=== PATIENT | female | born 2000 | race Caucasian/White ===

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

== ENCOUNTER 2021-07-11 09:36 | Emergency (ER) | payer OTHER, MEDICAID, SELFPAY ==
[2021-07-11 09:49] VITALS: BP 130/69; PULSE 87; RESP 16; TEMP 37.2; O2SAT 100
--- NOTE | 2021-07-11 10:15 | ED.GENADULT ---
HPI - General Adult General Chief complaint: Upper Respiratory Infection Stated complaint: sore throat Source: patient Mode of arrival: ambulatory Limitations: no limitations History of Present Illness HPI narrative: Patient is a 21-year-old female presents to the [facility] via POV for evaluation of sore throat that has been present for 2 days. She states her throat feels irritated . She also reports white spots on right tonsil. Denies taking OTC meds for symptoms. Swallowing, early mornings and at night increases throat pain. Denies known exposure to sick contacts. Patient is not vaccinated against Covid although states her home Covid test was negative yesterday. Related Data Home Medications Medication Instructions Recorded Confirmed medroxyprogesterone 150 mg IM [id number] 09/23/19 07/11/21 Allergies Allergy/AdvReac Type Severity Reaction Status Date / Time No Known Allergies Allergy Unverified 07/11/21 09:54 Review of Systems Review of Systems: Pertinent negatives: fever, chills, poor p.o. intake, myalgias, flu-like symptoms, ear pain/drainage, sinus trouble, headache, nasal congestion, rhinorrhea, lymphadenopathy, dizziness, LOC, inability to swallow, drooling, hoarseness, halitosis, abdominal pain, nausea, vomiting, diarrhea, cough, wheezing, sob, chest pain, heart murmurs, and heart palpations. [facility] Past Medical History Medical History (Updated 07/11/21 @ 10:25 by Lola Whitley, [facility]) Rheumatoid arthritis Upper respiratory infection Surgical History Surgical History (Updated 06/11/19 @ 23:48 by Jose Velasco) No history of previous surgery Social History Social History (Updated 06/11/19 @ 23:49 by Jose Velasco) Tobacco type: e-cigarettes/vaping Gender identity (if verbalized by the patient): Female Comments I have reviewed and agree with the patient's past medical, surgical, social, and family hx as documented by the RN. There is no relevant family history pertinent to the presenting complaint. Exam Narrative: GENERAL: Well-appearing, well-nourished, and in no acute distress. HEAD: Normocephalic, atraumatic. No sinus tenderness or facial swelling appreciated. EYES: PERRLA and EOMI. No evidence of erythema, swelling, or drainage. ENT: Bilateral external ears and ear canals normal. Bilateral TMs are normal.No TM perforation. Nares clear, no rhinorrhea or epistaxis. Bilateral turbinates without erythema/ swelling. Mucous membranes moist and pink. Uvula is midline without erythema and swelling. Posterior pharynx is mildly erythematous otherwise normal. Small tonsillar stone noted to right tonsil otherwise normal. Left tonsil normal. Posterior pharynx is patent. Breath odor and voice normal. NECK: Supple. No Lymphadenopathy or nuchal rigidity appreciated. CHEST: Bilateral lung galeas are clear to auscultation. No respiratory distress. No evidence of cough or pleuritic cp upon examination. HEART: Regular rate and rhythm. No murmur, gallop, or rub heard. EXTREMITIES: Normal range of motion. No edema. SKIN: Warm, dry, no rash. NEURO: No focal deficits. Alert and oriented x3. . Course Vital Signs Vital signs: Vital Signs Temperature 99.0 F 07/11/21 09:49 Pulse Rate 87 07/11/21 09:49 Respiratory Rate 16 07/11/21 09:49 Blood Pressure 130/69 07/11/21 09:49 Pulse Oximetry 100 07/11/21 09:49 Temperature 99.0 F 07/11/21 09:49 Pulse Rate 87 07/11/21 09:49 Respiratory Rate 16 07/11/21 09:49 Blood Pressure 130/69 07/11/21 09:49 Pulse Oximetry 100 07/11/21 09:49 Due to an elevated blood pressure, I had a detailed discussion with the patient and/or guardian regarding the need for follow-up with their primary care provider within the next 3-4 days. Patient verbalized understanding and agreed. Medical Decision Making Differential Diagnosis Differential Diagnosis: Allergic rhinitis, ABRS, acute viral sinusitis, strep pharyngitis, nasopha
== END 2021-07-11 10:35 | disposition home or self-care (01) ==
PROVIDERS: Emergency Provider Nurse Practitioner Family; PCP Pediatrics
DX: J02.9 Acute pharyngitis, unspecified (principal); M06.9 Rheumatoid arthritis, unspecified; F17.290 Nicotine dependence, other tobacco product, uncomplicated
CPT/HCPCS: 87081; 87880; 99213; G0463

== ENCOUNTER 2021-08-22 12:27 | Emergency (ER) | payer OTHER, MEDICAID, SELFPAY ==
[2021-08-22 12:38] VITALS: BP 134/65; PULSE 86; RESP 18; TEMP 36.9; O2SAT 100
--- NOTE | 2021-08-22 12:48 | ED.FEMALEGU ---
HPI - Female Genitourinary General Chief complaint: Urogenital-Female Stated complaint: UTI,Abdominal Pain Time Seen by Provider: 08/22/21 12:49 Source: patient, RN notes reviewed and old records reviewed Mode of arrival: ambulatory Limitations: no limitations History of Present Illness HPI Narrative: 21-year-old female presents to the [facility] with complaints of urgency burning and frequency since yesterday. States when she wiped after urinating this morning there was blood. Denies any abdominal pain. Has suprapubic pressure though. No nausea vomiting or diarrhea. No fevers. No chest pain. Has not had a period, uses [place] [employer] elicited complaint: dysuria and UTI Related Data Home Medications Medication Instructions Recorded Confirmed medroxyprogesterone 150 mg IM [id number] 09/23/19 08/22/21 Allergies Allergy/AdvReac Type Severity Reaction Status Date / Time No Known Allergies Allergy Unverified 07/11/21 09:54 Review of Systems Review of Systems: All systems reviewed & are unremarkable except as noted in HPI and below Constitutional: Constitutional: Reports no additional constitutional complaints, Denies chills and Denies fatigue Eyes: Eyes: Reports no additional eye complaints ENT: Reports system reviewed and no additional complaints, except as documented Cardiovascular: Cardiovascular: Reports no additional cardiovascular complaints Respiratory: Respiratory: Reports no additional respiratory complaints Gastrointestinal: Gastrointestinal: Reports no additional gastrointestinal complaints, Denies abdominal pain, Denies diarrhea, Denies nausea and Denies vomiting Genitourinary: Genitourinary: Reports as per HPI, Reports hematuria, Reports nocturia, Reports dysuria, Denies pelvic pain, Denies flank pain and Denies vaginal discharge Musculoskeletal: Musculoskeletal: Reports no additional musculoskeletal complaints and Denies back pain Integumentary/Breasts: Skin/Breast: Reports system reviewed and no additional complaints, except as docu Neurologic: Reports system reviewed and no additional complaints, except as documented Psychiatric: Psychiatric: Reports no additional psychiatric complaints Endocrine: Endocrine: Denies fatigue Allergic/Immunologic: Allergic/Immunologic: Reports no additional allergic/immunologic complaints [facility] Past Medical History Medical History (Updated 08/22/21 @ 15:19 by Carmlea Martins) Rheumatoid arthritis Upper respiratory infection Surgical History Surgical History No history of previous surgery Social History Social History (Reviewed 08/22/21 @ 15:18 by Cramela Frost Tobacco type: e-cigarettes/vaping Gender identity (if verbalized by the patient): Female Comments At the time of my signature, I reviewed and agree with the nursing past medical, surgical, social, and family history. There is no relevant family history pertinent to the patient complaint. Exam Const: General: healthy appearing, no acute distress and alert Nutritional Appearance: well nourished Orientation/consciousness: patient oriented x3 Limitations: no limitations HENMT: Head: normal to inspection Ears: external ears normal Eyes: Conjunctivae: conjunctivae normal Pupils: Equal, round and reactive pupils present Neck: Neck: normal visual inspection, no lymphadenopathy and no meningeal signs Chest: Chest palpation & inspection: normal inspection of the chest and abnormal inspection of the chest Resp: Effort & Inspection: normal respiratory effort and no use of accessory muscles Auscultation: clear to auscultation bilaterally, no crackles, no rales, no rhonchi and no wheezes Cardio: Rate: regular rate Rhythm: regular rhythm GI: GI Palp: Yes Soft to palpation, No Tenderness to palpation present (GI) and No Guarding due to palpation present (GI) : General: Yes no CVA tenderness Back/Spine/Pelvis: Back: no CVA tenderness Skin:
== END 2021-08-22 13:06 | disposition home or self-care (01) ==
PROVIDERS: Emergency Provider Nurse Practitioner; PCP Pediatrics
DX: N39.0 Urinary tract infection, site not specified (principal); F17.290 Nicotine dependence, other tobacco product, uncomplicated; M06.9 Rheumatoid arthritis, unspecified
CPT/HCPCS: 81003; 81025; 87086; 87088; 99213; G0463

== ENCOUNTER 2021-10-17 18:09 | Emergency (ER) | payer OTHER, MEDICAID, SELFPAY ==
[2021-10-17 18:19] VITALS: BP 124/72; PULSE 103; RESP 16; TEMP 38.1; O2SAT 100
--- NOTE | 2021-10-17 18:35 | ED.FEVER ---
HPI - Fever General Chief Complaint: Nausea/Vomiting/Diarrhea Stated Complaint: Throwing Up Time Seen by Provider: 10/17/21 18:35 Source: patient, RN notes reviewed and old records reviewed Mode of arrival: ambulatory Limitations: no limitations History of Present Illness HPI Narrative: 21-year-old female presents to the [facility] with complaints of fatigue, nausea, vomiting and diarrhea that started after she ate shrimp from the [employer] that she reheated last night. States she rested all day and is feeling much better now. Also reports a fever of 100.1. Related Data Allergies Allergy/AdvReac Type Severity Reaction Status Date / Time No Known Allergies Allergy Unverified 10/17/21 18:25 Review of Systems Review of Systems: All systems reviewed & are unremarkable except as noted in HPI and below Constitutional: Constitutional: Reports as per HPI, Reports chills, Reports fatigue and Denies fever(s) Eyes: Eyes: Reports no additional eye complaints ENT: Reports system reviewed and no additional complaints, except as documented Cardiovascular: Cardiovascular: Reports no additional cardiovascular complaints and Denies chest pain Respiratory: Respiratory: Reports no additional respiratory complaints and Denies cough Gastrointestinal: Gastrointestinal: Reports as per HPI, Reports abdominal pain, Reports diarrhea, Reports nausea and Reports vomiting Musculoskeletal: Musculoskeletal: Reports no additional musculoskeletal complaints Integumentary/Breasts: Skin/Breast: Reports system reviewed and no additional complaints, except as docu Neurologic: Reports system reviewed and no additional complaints, except as documented Psychiatric: Psychiatric: Reports no additional psychiatric complaints Allergic/Immunologic: Allergic/Immunologic: Reports no additional allergic/immunologic complaints PMFSH Past Medical History Medical History Rheumatoid arthritis Upper respiratory infection Surgical History Surgical History No history of previous surgery Social History Social History Tobacco type: e-cigarettes/vaping Gender identity (if verbalized by the patient): Female Comments At the time of my signature, I reviewed and agree with the nursing past medical, surgical, social, and family history. There is no relevant family history pertinent to the patient complaint. Exam Const: General: healthy appearing, no acute distress and alert Nutritional Appearance: well nourished Orientation/consciousness: patient oriented x3 Limitations: no limitations HENMT: Head: normal to inspection Ears: external ears normal, TM's normal bilaterally and EAC's normal Eyes: Pupils: Equal, round and reactive pupils present Neck: Neck: normal visual inspection, no lymphadenopathy and no meningeal signs Chest: Chest palpation & inspection: normal inspection of the chest Resp: Effort & Inspection: normal respiratory effort and no use of accessory muscles Auscultation: clear to auscultation bilaterally, no crackles, no rales, no rhonchi and no wheezes Cardio: Rate: regular rate Rhythm: regular rhythm GI: GI Palp: Yes Soft to palpation and No Tenderness to palpation present (GI) Auscultation: Hyperactive bowel sounds present : General: Yes no CVA tenderness Back/Spine/Pelvis: Back: no CVA tenderness Skin: General skin exam: normal color Rashes: no rashes Wounds: no wounds Neuro: General: patient oriented x3, moves all extremities, no meningeal signs and no focal motor deficits Cranial nerves: Yes Equal, round and reactive pupils present Speech: normal speech Gait exam (Neuro): Normal gait present Extrem: General: normal to inspection Psych: Appearance: grossly normal and well kempt Mental Status: mental status grossly normal Affect: normal affect Attitude: co
== END 2021-10-17 18:59 | disposition home or self-care (01) ==
PROVIDERS: Emergency Provider Nurse Practitioner; PCP Pediatrics
DX: J10.1 Influenza due to other identified influenza virus with other respiratory manifestations (principal); F17.290 Nicotine dependence, other tobacco product, uncomplicated; M06.9 Rheumatoid arthritis, unspecified
CPT/HCPCS: 87804; 99213; G0463

== ENCOUNTER 2022-01-14 22:58 | Emergency (ER) | payer OTHER, BC, SELFPAY ==
[2022-01-14 23:00] VITALS: BP 130/81; PULSE 74; RESP 17; TEMP 36.3; O2SAT 100
[2022-01-14 23:24] LABS: Basophils Absolute Auto 0.1 K/mm3 (0.0-0.1); Basophils Percent Auto 0.7 % (0.2-1.2); Eosinophils Absolute Auto 0.4 K/mm3 (0-0.3); Eosinophils Percent Auto 4.5 % (0-4.4); Hematocrit 38.8 % (37.0-47.0); Hemoglobin 13.4 g/dL (12.0-15.0); Immature Granulocyte Absolute 0.02 K/mm3 (0.00-0.031); Immature Granulocyte Percent A 0.2 % (0-0.5); Lymphocytes Absolute Auto 3.82 K/mm3 (0.9-3.2); Lymphocytes Percent Auto 46.1 % (18.3-44.2); Mean Corpuscular HGB Conc 34.5 g/dl (32-36); Mean Platelet Volume 8.9 fl (7.4-10.4); Monocytes Absolute Auto 0.6 K/mm3 (0.1-0.6); Monocytes Percent Auto 7.6 % (2.6-8.5); Neutrophils Absolute Auto 3.4 K/mm3 (1.3-6.7); Neutrophils Percent Auto 40.9 % (45.5-73.1); Platelet Count Result 255 k/mm3 (150-375); Red Blood Count 4.46 M/mm3 (4.2-5.4); Red Cell Distribution Width 12.8 % (11.5-14.5); White Blood Count 8.3 K/mm3 (4.5-10.0)
[2022-01-14 23:34] LABS: Appearance Urine Clear (Clear); Bilirubin Urine Negative (Negative); Color Urine Yellow (Yellow); Glucose Urine UA Negative (Negative); Ketones Urine Negative (Negative); Leukocyte Esterase Ur Negative LEU/UL (Negative); Nitrate Urine Negative (Negative); Protein Urine Negative (Negative); Specific Grav Ur >= 1.030 (1.001-1.035); Urobilinogen Urine 0.2 mg/dL (<2.0)
[2022-01-14 23:35] LABS: Bacteria Urine Trace /hpf; Mucus Urine Rare /lpf; RBC Urine 0-2 /hpf (0-2); Squamous Epithelial Cell Urine Moderate /hpf (Few); WBC Urine 0-3 /hpf
[2022-01-14 23:35] LABS: Alanine Aminotransferase 20 U/L (6-35); Albumin Level 4.4 g/dL (3.5-5.1); Alkaline Phosphatase 50 U/L (38-126); Anion Gap 8 mmol/L (8-16); Aspartate Amino Transferase 48 U/L (14-36); Bilirubin,Total 0.8 mg/dL (0.2-1.3); Blood Urea Nitrogen 15 mg/dL (7-17); Calcium 8.9 mg/dL (8.4-10.2); Carbon Dioxide 25 mmol/L (22-30); Chloride 105 mmol/L (98-107); Estimated CRCL calculation 66 ml/min; Estimated Glomerular Filt Rate > 60; Glucose 98 mg/dL (65-110); Lipase 111 U/L (23-300); Potassium 3.9 mmol/L (3.4-5.0); Sodium 138 mmol/L (137-145)
[2022-01-14 23:36] LABS: Add Urine Microscopic? YES; Blood Urine Trace (Negative)
--- NOTE | 2022-01-14 23:38 | ED.ABDPAIN ---
HPI - Abdominal Pain General Chief Complaint: Abdominal Pain Stated Complaint: Upper Abd pain Time Seen by Provider: 01/14/22 23:08 History of Present Illness HPI narrative: 21-year-old female presents to the emergency room for evaluation of epigastric pain for 3 days. Patient states the pain is worse after eating and wakes her up in the morning. Pain radiates through to her back. Patient denies heavy alcohol use. Patient describes the pain as burning. Patient denies fever, diarrhea, or constipation. Does endorse history of IBS. Admits the pain causes nausea, which she took Zofran for earlier today. Related Data Allergies Allergy/AdvReac Type Severity Reaction Status Date / Time No Known Allergies Allergy Verified 01/14/22 23:12 Review of Systems Review of Systems: CONSTITUTIONAL: Denies fever, chills, or sweats. EYES: Denies visual changes, redness, or discharge. ENT: Denies rhinorrhea, congestion, sore throat, or otalgia. CARDIOVASCULAR: Denies chest pain, palpitations, or edema. RESPIRATORY: Denies cough or dyspnea. GASTROINTESTINAL: Reports abdominal pain with nausea GENITOURINARY: Denies dysuria or hematuria. SKIN: Denies rash or itching. MUSCULOSKELETAL: Denies back pain, joint pain, or myalgia. NEUROLOGIC: Denies headache, numbness, dizziness, or weakness. PSYCHIATRIC: Denies anxiety or depression. PMFSH Past Medical History Medical History Rheumatoid arthritis Upper respiratory infection Surgical History Surgical History No history of previous surgery Social History Social History Tobacco type: e-cigarettes/vaping Gender identity (if verbalized by the patient): Female Exam Narrative: GENERAL: Well-appearing, well-nourished, no physical limitations, and in no acute distress. HEAD: Normocephalic, atraumatic. EYES: Conjunctivae normal, PERRLA and EOMI. CHEST: Clear to auscultation. No respiratory distress. No wheezes rales or rhonchi. No tenderness. HEART: Regular rate and rhythm. No murmur heard. Normal peripheral pulses. ABDOMEN: Soft, umbilical tenderness, nondistended, normal active bowel sounds. No palpable mass SKIN: Warm, dry, no rash. No noted wounds NEURO: No focal deficits. Alert and oriented x3. MAEW. CN's II-XI intact bilaterally, normal gait PSYCH: Cooperative. Normal mood and affect. Course Vital Signs Vital signs: Vital Signs Temperature 36.3 C L 01/14/22 23:00 Pulse Rate 74 01/14/22 23:00 Respiratory Rate 17 01/14/22 23:00 Blood Pressure 130/81 01/14/22 23:00 Pulse Oximetry 100 01/14/22 23:00 Oxygen Delivery Room Air 01/14/22 23:00 Temperature 36.3 C L 01/14/22 23:00 Pulse Rate 74 01/14/22 23:00 Respiratory Rate 17 01/14/22 23:00 Blood Pressure 130/81 01/14/22 23:00 Pulse Oximetry 100 01/14/22 23:00 Oxygen Delivery Room Air 01/14/22 23:00 MDM - Abdominal Pain MDM Narrative Medical decision making narrative: 21-year-old female history of IBS presented with right upper abdominal pain consistent with GERD. Abdominal exam without any peritoneal signs. No evidence of acute abdomen at this time. Patient is well-appearing and nontoxic. Given work-up, there is a low suspicion for any biliary disease, cholecystitis, pancreatitis or any acute infectious process. Differential would include peptic ulcer disease. Patient stated that she had some relief of symptoms with a GI cocktail. We will send patient home with Pepcid and sucralfate have her follow-up with GI if her symptoms continue. Lab Data Result diagrams: 01/14/22 23:16 01/14/22 23:16 Labs: Lab Results 01/14/22 01/14/22 01/14/22 Range/Units 23:16 23:16 23:17 WBC 8.3 (4.5-10.0) K/mm3 RBC 4.46 (4.2-5.4) M/mm3 Hgb 13.4 (12.0-15.0) g/dL Hct 38.8 (37.0-47.0) %
[2022-01-14] MEDS: BELLADONNA ALK/PHENOB ELIX 10 ML, MAG HYDROX/ALUMINUM HYD/SIMETH 30 ML, LIDOCAINE HCL 2... PO (23:48)
[2022-01-14] MEDS: PANTOPRAZOLE SODIUM IV 40 MG VIAL IV PUSH (23:48)
[2022-01-14] MEDS: SODIUM CHLORIDE 0.9% IV 1,000 ML 999 ML IV CONT (23:48)
[2022-01-15 00:50] VITALS: BP 111/67; PULSE 75; RESP 18; O2SAT 99
== END 2022-01-15 00:51 | disposition home or self-care (01) ==
PROVIDERS: Emergency Provider Nurse Practitioner Family; PCP Pediatrics
DX: K21.9 Gastro-esophageal reflux disease without esophagitis (principal); M06.9 Rheumatoid arthritis, unspecified; F17.290 Nicotine dependence, other tobacco product, uncomplicated
CPT/HCPCS: 36415; 80053; 81001; 81025; 83690; 85025; 96361; 96374; 99284; A9270; C9113; J7030

== ENCOUNTER 2022-05-02 09:07 | Outpatient (CLI) | payer OTHER, SELFPAY ==
--- NOTE | ~2022-05-02 | DEXA_ITS ---
Bone Density Report Name: MARIE BRODERICK Age: 22 Sex: Female Ethnicity: White Date of : 2000 Indication: inflammatory bowel disease; rheumatoid arthritis; Referring Provider: KIMBERLEY, SURINDER Marcus Study: Bone densitometry was performed. Exam Date: May 02, 2022 Accession number: [id number] Bone Density: Region BMD T-score Z-score Classification AP Spine(L1-L4) 1.020 -0.1 Femoral Neck (Left) 0.780 -0.6 Total Hip (Left) 0.898 -0.4 Femoral Neck (Right) 0.855 0.1 Total Hip (Right) 0.943 0.0 Total Hip Mean 0.920 -0.2 World Health Organization criteria for BMD impression classify patients as: Normal (T-score at or above -1.0), Osteopenia (T-score between -1.0 and -2.5), or Osteoporosis (T-score at or below -2.5). 10-year Fracture Risk: FRAX not reported because: Premenopausal woman Clinical Information Provided by Patient: Smokes Has rheumatoid arthritis Has the following medical conditions: Inflammatory bowel diseases Patient maximum height was 62 Drinks caffeinated beverages Onset of menses at age 9 Premenopausal Number of children 0 Impression: The patient's bone mass is within expected range for age, gender and ethnicity. The patient has risk factors, including: smoking. Discussion: BONE DENSITY IS WITHIN EXPECTED LIMITS FOR AGE, SEX AND RACE. Bone density is within expected limits for age, sex and race at all sites measured. The patient should follow a healthful lifestyle (good nutrition with adequate calcium and vitamin D, and appropriate weight-bearing exercise). Follow-Up: Consider repeating this study in 5 years or sooner if there is some new clinical indication. Reported by: NED on 05/02/2022 9:36:00 AM. Reviewed, dictated and finalized at location [facility]
== END 2022-05-02 09:08 | disposition home or self-care (01) ==
PROVIDERS: PCP Pediatrics; Visit Provider Nurse Practitioner Obstetrics & Gynecology
DX: Z51.81 Encounter for therapeutic drug level monitoring (principal); Z79.3 Long term (current) use of hormonal contraceptives
CPT/HCPCS: 77080

== ENCOUNTER 2022-06-08 13:47 | Emergency (ER) | payer OTHER, SELFPAY ==
[2022-06-08 13:55] VITALS: BP 142/73; PULSE 91; RESP 18; TEMP 37.5; O2SAT 100
--- NOTE | 2022-06-08 13:56 | ED.URI ---
HPI - URI/Sore Throat General Chief Complaint: Upper Respiratory Infection Stated Complaint: sore throat, congestion, chest pain Time Seen by Provider: 06/08/22 13:57 Source: patient, RN notes reviewed and old records reviewed Mode of arrival: ambulatory Limitations: no limitations History of Present Illness HPI Narrative: 21 year year old female presents to the [facility] with complaints sore throat, congestion and chest wall pain since Saturday. No treatment prior to arrival Reports that she did a COVID test at home which she reports is negative Related Data Home Medications Medication Instructions Recorded Confirmed medroxyprogesterone 150 mg/mL mg IM 06/08/22 intramuscular syringe Allergies Allergy/AdvReac Type Severity Reaction Status Date / Time No Known Allergies Allergy Verified 06/08/22 13:53 Review of Systems Review of Systems: All systems reviewed & are unremarkable except as noted in HPI and below Constitutional: Constitutional: Reports no additional constitutional complaints, Denies chills and Denies fever(s) Eyes: Eyes: Reports no additional eye complaints ENT: Reports as per HPI Cardiovascular: Cardiovascular: Reports no additional cardiovascular complaints Respiratory: Respiratory: Reports no additional respiratory complaints Gastrointestinal: Gastrointestinal: Reports no additional gastrointestinal complaints Musculoskeletal: Musculoskeletal: Reports no additional musculoskeletal complaints Integumentary/Breasts: Skin/Breast: Reports system reviewed and no additional complaints, except as docu Neurologic: Reports system reviewed and no additional complaints, except as documented Psychiatric: Psychiatric: Reports no additional psychiatric complaints Allergic/Immunologic: Allergic/Immunologic: Reports no additional allergic/immunologic complaints PMFSH Past Medical History Medical History Rheumatoid arthritis Upper respiratory infection Surgical History Surgical History No history of previous surgery Social History Social History Tobacco type: e-cigarettes/vaping Gender identity (if verbalized by the patient): Female Comments At the time of my signature, I reviewed and agree with the nursing past medical, surgical, social, and family history. There is no relevant family history pertinent to the patient complaint. Exam Const: General: healthy appearing, comfortable, no acute distress, well developed, alert and well nourished Nutritional Appearance: well nourished Orientation/consciousness: patient oriented x3 Limitations: no limitations HENMT: Head: normal to inspection Ears: external ears normal, TM's normal bilaterally and EAC's normal Face/Nose/Sinus: Normal external nose present and Normal nares present Face and sinus: normal facial exam and sinuses nontender Mouth: Yes Normal oral and palatal mucosa present, Yes lip normal and Yes moist mucous membranes Throat: posterior oropharynx normal and uvula midline Eyes: General: appearance normal, both eyes and all related structures Conjunctivae: conjunctivae normal Pupils: Equal, round and reactive pupils present Neck: Neck: normal visual inspection, full ROM, no lymphadenopathy and no meningeal signs Chest: Chest palpation & inspection: normal inspection of the chest Resp: Effort & Inspection: normal respiratory effort and no use of accessory muscles Auscultation: clear to auscultation bilaterally, no crackles, no rales, no rhonchi and no wheezes Cardio: Rate: regular rate Rhythm: regular rhythm Back/Spine/Pelvis: Cervical Spine: cervical ROM normal and No Cervical spine tenderness Thoracic/Lumbar Spine: thoracic and lumbar spine normal to inspection and thoraco-lumbar ROM normal Skin: General skin exam: normal color Rashes: no rashes Wounds: no
== END 2022-06-08 14:40 | disposition home or self-care (01) ==
PROVIDERS: Emergency Provider Nurse Practitioner; PCP Pediatrics
DX: J06.9 Acute upper respiratory infection, unspecified (principal); M06.9 Rheumatoid arthritis, unspecified
CPT/HCPCS: 87804; 99213; G0463

== ENCOUNTER 2022-07-02 14:32 | Emergency (ER) | payer OTHER, SELFPAY ==
[2022-07-02 14:41] VITALS: BP 122/65; PULSE 86; RESP 18; TEMP 37.6; O2SAT 100
--- NOTE | 2022-07-02 15:00 | ED.URI ---
HPI - URI/Sore Throat General Chief Complaint: Upper Respiratory Infection Stated Complaint: Sore Throat, Cough Time Seen by Provider: 07/02/22 15:00 Source: patient, RN notes reviewed and old records reviewed Mode of arrival: ambulatory Limitations: no limitations History of Present Illness HPI Narrative: 22-year-old female presents to [facility] complaints of a sore throat, cough that is worse at night, nasal congestion, runny nose for almost 1 week. No treatment prior to arrival. Unsure of having fevers. Related Data Home Medications Medication Instructions Recorded Confirmed medroxyprogesterone 150 mg/mL 150 mg IM DIRECTED 06/08/22 07/02/22 intramuscular syringe Allergies Allergy/AdvReac Type Severity Reaction Status Date / Time No Known Allergies Allergy Verified 07/02/22 14:51 Review of Systems Review of Systems: All systems reviewed & are unremarkable except as noted in HPI and below Constitutional: Constitutional: Reports no additional constitutional complaints Eyes: Eyes: Reports no additional eye complaints ENT: Reports as per HPI, Reports nasal congestion and Reports sore throat Cardiovascular: Cardiovascular: Reports no additional cardiovascular complaints, Denies chest pain and Denies dyspnea Respiratory: Respiratory: Reports as per HPI, Denies chest congestion, Reports cough and Denies dyspnea Gastrointestinal: Gastrointestinal: Reports no additional gastrointestinal complaints, Denies abdominal pain, Denies nausea and Denies vomiting Musculoskeletal: Musculoskeletal: Reports no additional musculoskeletal complaints Integumentary/Breasts: Skin/Breast: Reports system reviewed and no additional complaints, except as docu Neurologic: Reports system reviewed and no additional complaints, except as documented Psychiatric: Psychiatric: Reports no additional psychiatric complaints Allergic/Immunologic: Allergic/Immunologic: Reports no additional allergic/immunologic complaints [facility] Past Medical History Medical History Rheumatoid arthritis Upper respiratory infection Surgical History Surgical History No history of previous surgery Social History Social History Tobacco type: e-cigarettes/vaping Gender identity (if verbalized by the patient): Female Comments At the time of my signature, I reviewed and agree with the nursing past medical, surgical, social, and family history. There is no relevant family history pertinent to the patient complaint. Exam Const: General: cooperative, healthy appearing, comfortable, no acute distress, well developed, alert and well nourished Nutritional Appearance: well nourished Orientation/consciousness: patient oriented x3 Limitations: no limitations HENMT: Head: normal to inspection Ears: hearing grossly normal bilaterally and external ears normal Face/Nose/Sinus: Normal external nose present, Normal nares present, Normal nasal mucous membranes and turbinates present and normal facial exam Face and sinus: normal facial exam Mouth: Yes Normal oral and palatal mucosa present, Yes lip normal and Yes moist mucous membranes Throat: posterior oropharynx normal, uvula midline, postnasal drainage and no uvular edema Eyes: General: appearance normal, both eyes and all related structures Alignment and Position: alignment normal Periorbital: periorbital findings normal Conjunctivae: conjunctivae normal Pupils: Equal, round and reactive pupils present EOM: EOMs intact bilaterally Neck: Neck: normal visual inspection, full ROM, no lymphadenopathy and no meningeal signs Chest: Chest palpation & inspection: normal inspection of the chest Resp: Effort & Inspection: normal respiratory effort and able to speak in complete sentences Auscultation: clear to auscultation bilaterally, no crackles, no
== END 2022-07-02 15:19 | disposition home or self-care (01) ==
PROVIDERS: Emergency Provider Nurse Practitioner; PCP Pediatrics
DX: J40 Bronchitis, not specified as acute or chronic (principal); R09.82 Postnasal drip; F17.209 Nicotine dependence, unspecified, with unspecified nicotine-induced disorders
CPT/HCPCS: 99213; G0463

== ENCOUNTER 2022-09-30 09:44 | Emergency (ER) | payer OTHER, SELFPAY ==
--- NOTE | 2022-09-30 09:47 | ED.URI ---
HPI - URI/Sore Throat General Chief Complaint: Upper Respiratory Infection Stated Complaint: uri Time Seen by Provider: 09/30/22 09:47 Source: patient Mode of arrival: ambulatory Limitations: no limitations History of Present Illness HPI Narrative: Vandana is a 22-year-old female patient presenting to the clinic today with complaints of possible pinkeye, nasal congestion, ear pain, and postnasal drip times 2-3 days. She reports no known fever or chills. She denies any known exposure to anyone with COVID, flu, or strep. She has taken to COVID test and they were negative. States that her eyes were crusted/matted shut this morning with yellow discharge and her eyes are also itchy. MD elicited complaint: cough, rhinorrhea, nasal congestion and other (Possible pinkeye) Related Data Home Medications Medication Instructions Recorded Confirmed medroxyprogesterone 150 mg/mL 150 mg IM DIRECTED 06/08/22 09/30/22 intramuscular syringe Allergies Allergy/AdvReac Type Severity Reaction Status Date / Time No Known Allergies Allergy Verified 09/30/22 09:50 Review of Systems Review of Systems: Pertinent positives per HPI. Patient denies any fever, chills, rash, headache, visual changes, dizziness, shortness of breath, chest pain, palpitations, nausea, vomiting, diarrhea, constipation, abdominal pain, or any urinary issues. PMFSH Past Medical History Medical History Rheumatoid arthritis Upper respiratory infection Surgical History Surgical History No history of previous surgery Social History Social History Tobacco type: e-cigarettes/vaping Gender identity (if verbalized by the patient): Female Comments At the time of my signature, I reviewed and agree with the nursing past medical, surgical, social, and family history. There is no relevant family history pertinent to the patient complaint. Exam Narrative: General: Well-developed, well nourished, in no apparent distress Head: Normocephalic, atraumatic Eyes: Pupils equally round and reactive to light bilaterally, EOM intact, sclera and conjunctive injected, yellow crusting/discharge, lids mildly swollen Ears: TMs intact and dull with congestion, ear canals clear, no drainage, grossly hearing normal. Nose: Nares patent, clear nasal discharge, moderate inflammation, no sinus tenderness. Mouth: Oral pharynx without lesions or masses, good dentition, MMM. Postnasal drip Neck: Supple, trachea midline, no enlargement of anterior or posterior cervical nodes, no thyroid masses or goiter palpable. Cardio: Regular rate and rhythm, s1 and s2 normal, no murmur appreciated. Resp: Clear to auscultation bilaterally, no rhonchi, rales, wheezing or rubs Course Course Emergency Course: Portions of this record may have been created with voice recognition software. Level of Care: Express Care Visit Vital Signs Vital signs: Vital Signs Temperature 37.2 C 09/30/22 09:55 Pulse Rate 95 09/30/22 09:55 Respiratory Rate 16 09/30/22 09:55 Blood Pressure 129/61 09/30/22 09:55 Pulse Oximetry 99 09/30/22 09:55 Oxygen Delivery Room Air 09/30/22 09:55 Temperature 37.2 C 09/30/22 09:55 Pulse Rate 95 09/30/22 09:55 Respiratory Rate 16 09/30/22 09:55 Blood Pressure 129/61 09/30/22 09:55 Pulse Oximetry 99 09/30/22 09:55 Oxygen Delivery Room Air 09/30/22 09:55 Vital signs reviewed MDM - URI/Sore Throat MDM Narrative Medical decision making narrative: At the time of visit patient is resting comfortably on exam table. Offer to test patient for strep but she does have a slight sore throat but she declined at this time. Will send in prescription for tobramycin eyedrops for conjunctivitis and prednisone for the eustachian tube dysfunction and congestion. S
[2022-09-30 09:55] VITALS: BP 129/61; PULSE 95; RESP 16; TEMP 37.2; O2SAT 99
== END 2022-09-30 10:08 | disposition home or self-care (01) ==
PROVIDERS: Emergency Provider Nurse Practitioner Family; PCP Pediatrics
DX: H69.93 Unspecified Eustachian tube disorder, bilateral (principal); J06.9 Acute upper respiratory infection, unspecified; R09.82 Postnasal drip; H10.33 Unspecified acute conjunctivitis, bilateral; F17.290 Nicotine dependence, other tobacco product, uncomplicated
CPT/HCPCS: 99213; G0463

== ENCOUNTER 2022-10-04 11:14 | Outpatient (CLI) | payer OTHER, SELFPAY ==
--- NOTE | ~2022-10-04 | US_ITS ---
US breast BI complete DATE: 10/04/2022 13:13 INDICATION: Bilateral breast lumps. History of right breast core needle biopsies in 2019 At 11:00 and 12:00, revealing fibroadenomas 09/19/2021 Limited bilateral breast ultrasound report from [facility] 07/07/2020 targeted bilateral breast ultrasound report from [facility] TECHNIQUE: Real-time imaging of both complete breasts including all 4 quadrants and subareolar areas COMPARISON: 04/14/2020 complete right breast ultrasound examination FINDINGS: Right breast: 11:00 3 cm from nipple: Parallel circumscribed hypoechoic 4.8 x 2.7 x 7.7 mm lesion without internal vascularity or posterior shadowing, benign in appearance. This is smaller compared to the measurement of 8 x 3 x 9 mm on 07/07/2020. 12:00 5 cm from nipple: Parallel circumscribed hypoechoic lesion measuring 4.9 x 18.1 x 13.1 mm dimen ce, with minimal internal vascularity, no posterior shadowing. Measurement reported on 07/07/2020 w as 5 x 13 x 10 mm. Left breast: 8:00 5 cm from nipple: Parallel circumscribed 5 x 4 x 5.7 x 3 mm sonolucency without int ernal vascularity or posterior shadowing, likely benign IMPRESSION: BI-RADS Category 2: Benign Reviewed, dictated and finalized at Location A. Reviewed, dictated and finalized at location C. IMPRESSION: BI-RADS Category 2: Benign
== END 2022-10-04 11:15 | disposition home or self-care (01) ==
PROVIDERS: PCP Pediatrics; Visit Provider Nurse Practitioner
DX: N63.10 Unspecified lump in the right breast, unspecified quadrant (principal); N63.20 Unspecified lump in the left breast, unspecified quadrant
CPT/HCPCS: 76641

== ENCOUNTER 2023-03-18 14:50 | Emergency (ER) | payer OTHER, SELFPAY ==
--- NOTE | ~2023-03-18 | XR_ITS ---
EXAMINATION: XR foot LT min 3V DATE: 03/18/2023 15:28 INDICATION: Left foot pain post fall TECHNIQUE: Dorsoplantar, two oblique and lateral views of the left foot were obtained. COMPARISON: None. FINDINGS: Alignment is normal. No fracture. Joint spaces are normal. Soft tissues are unremarkable. IMPRESSION: 1. Negative left foot radiographs. Reviewed, dictated and finalized at location A.
--- NOTE | ~2023-03-18 | XR_ITS ---
EXAMINATION: XR ankle LT min 3V DATE: 03/18/2023 15:28 INDICATION: Fall. TECHNIQUE: 4 views of left ankle were obtained. COMPARISON: None. FINDINGS: Bone alignment is normal. No fracture. Joint spaces are well maintained. IMPRESSION: 1. Normal left ankle. Reviewed, dictated and finalized at location E. IMPRESSION: 1. Normal left ankle.
[2023-03-18 15:06] VITALS: BP 115/69; PULSE 87; RESP 20; TEMP 37.2; O2SAT 100
--- NOTE | 2023-03-18 15:40 | ED.LOWEXIN ---
HPI - Extremity Injury (Lower) General Chief Complaint: Extremity Injury, Lower Stated Complaint: Left Ankle Pain Time Seen by Provider: 03/18/23 14:54 Source: patient Mode of arrival: ambulatory Limitations: no limitations History of Present Illness HPI Narrative: Vandana is a 23-year-old female patient presenting to the clinic today with complaints of left ankle and foot pain after injury this morning. She reports she was jogging up to her house and stepped on a concrete paper and it broke. Reports pain to the dorsal ankle radiating into the foot. Pain is worse with walking Related Data Home Medications Medication Instructions Recorded Confirmed medroxyprogesterone 150 mg/mL 150 mg IM DIRECTED 06/08/22 03/18/23 intramuscular syringe Allergies Allergy/AdvReac Type Severity Reaction Status Date / Time No Known Allergies Allergy Verified 03/18/23 14:55 Review of Systems Review of Systems: Pertinent positives per HPI. Patient denies any fever, chills, rash, headache, visual changes, dizziness, cough, runny nose, sore throat, shortness of breath, chest pain, palpitations, nausea, vomiting, diarrhea, constipation, abdominal pain, or any urinary issues. [facility] Past Medical History Medical History Rheumatoid arthritis Tachycardia Surgical History Surgical History History of appendectomy No history of previous surgery Family History Family History Grandparent Ovarian cancer Other Breast cancer Social History Social History Smoking status: Current every day smoker Tobacco type: e-cigarettes/vaping Alcohol intake: current Substance use: never Lack of Transportation: No Lack of Food: Never True Current Housing: I Do Not Have Housing Concerned About Future Housing: No Difficulty Paying Gas/Electric Bills: No Difficulty Paying for Meds: No Currently Unemployed: No Gender identity (if verbalized by the patient): Female Comments At the time of my signature, I reviewed and agree with the nursing past medical, surgical, social, and family history. There is no relevant family history pertinent to the patient complaint. Exam Narrative: General: Well-developed, well nourished, in no apparent distress Head: Normocephalic, atraumatic. Cardio: Regular rate and rhythm, s1 and s2 normal, no murmur appreciated. Resp: Clear to auscultation bilaterally, no rhonchi, rales, wheezing or rubs. Musculoskeletal: No deformity,tender to palpation over the dorsal ankle and foot, pain with plantar flexion and dorsal flexion against resistance of the foot, grossly normal range of motion, muscle strength strong and equal, peripheral pulse strong, no edema, no cyanosis, normal gait and station Course Course Emergency Course: Portions of this record may have been created with voice recognition software. Level of Care: Express Care Visit Vital Signs Vital signs: Vital Signs Temperature 37.2 C 03/18/23 15:06 Pulse Rate 87 03/18/23 15:06 Respiratory Rate 20 03/18/23 15:06 Blood Pressure 115/69 03/18/23 15:06 Pulse Oximetry 100 03/18/23 15:06 Oxygen Delivery Room Air 03/18/23 15:06 Temperature 37.2 C 03/18/23 15:06 Pulse Rate 87 03/18/23 15:06 Respiratory Rate 20 03/18/23 15:06 Blood Pressure 115/69 03/18/23 15:06 Pulse Oximetry 100 03/18/23 15:06 Oxygen Delivery Room Air 03/18/23 15:06 Vital signs reviewed MDM - Extremity Injury (Lower) MDM Narrative Medical decision making narrative: At the time of visit patient is resting on the exam table. I suspect patient has and foot ankle sprain. X-rays were negative. Supportive measures were discussed with the patient she voiced understanding discharge instruc
== END 2023-03-18 15:50 | disposition home or self-care (01) ==
PROVIDERS: Emergency Provider Nurse Practitioner Family
DX: S93.402A Sprain of unspecified ligament of left ankle, initial encounter (principal); S93.602A Unspecified sprain of left foot, initial encounter; X58.XXXA Exposure to other specified factors, initial encounter; Y93.02 Activity, running; M06.9 Rheumatoid arthritis, unspecified; F17.290 Nicotine dependence, other tobacco product, uncomplicated
CPT/HCPCS: 73610; 73630; 99213; G0463

== ENCOUNTER 2023-05-09 09:56 | Emergency (ER) | payer MEDICAID, SELFPAY ==
--- NOTE | 2023-05-09 09:58 | ED.URI ---
HPI - URI/Sore Throat General Chief Complaint: Upper Respiratory Infection Stated Complaint: Sinus/Fatigue Time Seen by Provider: 05/09/23 09:57 Source: patient Mode of arrival: ambulatory Limitations: no limitations History of Present Illness HPI Narrative: Patient is a 23-year-old female that presents with 3 weeks of cough and congestion. Patient reports in the beginning she had a sore throat and lost her voice. Now she is still having productive cough and the cough keeps her up at night. Denies any fever, chills, nausea, vomiting, diarrhea. Denies any ear pain, sinus pressure, headache for or sore throat currently. Related Data Home Medications Medication Instructions Recorded Confirmed medroxyprogesterone 150 mg/mL 150 mg IM DIRECTED 06/08/22 05/09/23 intramuscular syringe Allergies Allergy/AdvReac Type Severity Reaction Status Date / Time No Known Allergies Allergy Verified 05/09/23 10:07 Review of Systems Review of Systems: All systems reviewed & are unremarkable except as noted in HPI and below Constitutional: Constitutional: Denies body ache(s), Denies chills, Denies fatigue, Denies fever(s), Denies headache(s), Denies malaise and Denies weakness Eyes: Eyes: Denies blurry vision, Denies itchy eyes and Denies loss of vision ENT: Denies otalgia, Denies headache(s), Reports nasal congestion, Denies sinus pain, Reports sinus pressure and Denies sore throat Cardiovascular: Cardiovascular: Denies chest pain, Denies irregular heart rhythm and Denies dyspnea Respiratory: Respiratory: Reports cough and Denies dyspnea Gastrointestinal: Gastrointestinal: Denies abdominal pain, Denies diarrhea, Denies nausea and Denies vomiting Musculoskeletal: Musculoskeletal: Denies back pain, Denies myalgias and Denies arthralgias Integumentary/Breasts: Skin/Breast: Denies pruritus and Denies rash Neurologic: Denies headache(s), Denies loss of vision and Denies weakness Psychiatric: Psychiatric: Reports no additional psychiatric complaints Endocrine: Endocrine: Denies fatigue Allergic/Immunologic: Allergic/Immunologic: Denies itchy eyes PMFSH Past Medical History Medical History Rheumatoid arthritis Tachycardia Surgical History Surgical History History of appendectomy No history of previous surgery Family History Family History Grandparent Ovarian cancer Other Breast cancer Social History Social History Smoking status: Current every day smoker Tobacco type: e-cigarettes/vaping Alcohol intake: current Substance use: never Lack of Transportation: No Lack of Food: Never True Current Housing: I Do Not Have Housing Concerned About Future Housing: No Difficulty Paying Gas/Electric Bills: No Difficulty Paying for Meds: No Currently Unemployed: No Gender identity (if verbalized by the patient): Female Comments At time of signature, agree with nursing past medical, surgical, social and family history. There is no relevant family history pertinent to the presenting complaint. Exam Const: General: cooperative, healthy appearing, comfortable, no acute distress and well nourished Nutritional Appearance: well nourished Orientation/consciousness: patient oriented x3 Limitations: no limitations HENMT: Head: normal to inspection, normocephalic and atraumatic Ears: hearing grossly normal bilaterally, external ears normal, TM's normal bilaterally, EAC's normal and no periauricular adenopathy Face/Nose/Sinus: Normal external nose present, Abnormal mucous membranes and turbinates present erythematous bilateral and diffuse, normal facial exam, sinuses nontender and face symmetric Face and sinus: normal facial exam, sinuses nontender and face symmetric Mouth: Yes Normal o
[2023-05-09 10:07] VITALS: BP 108/69; PULSE 92; RESP 16; TEMP 37.4; O2SAT 100
== END 2023-05-09 10:23 | disposition home or self-care (01) ==
PROVIDERS: Emergency Provider Nurse Practitioner Family
DX: J32.9 Chronic sinusitis, unspecified (principal); J40 Bronchitis, not specified as acute or chronic; F17.290 Nicotine dependence, other tobacco product, uncomplicated; M06.9 Rheumatoid arthritis, unspecified
CPT/HCPCS: 99213; G0463

== ENCOUNTER 2023-07-12 08:42 | Emergency (ER) | payer OTHER, SELFPAY ==
[2023-07-12 09:08] VITALS: BP 119/61; PULSE 99; RESP 16; TEMP 36.9; O2SAT 100
--- NOTE | 2023-07-12 09:28 | ED.URI ---
HPI - URI/Sore Throat General Chief Complaint: Upper Respiratory Infection Stated Complaint: Ears/Sore Throat Time Seen by Provider: 07/12/23 09:18 Source: patient and RN notes reviewed Mode of arrival: ambulatory Limitations: no limitations History of Present Illness HPI Narrative: Patient presents today with a 2 week history of cough, but states during this time she had no other symptoms and was not sick. Last night she developed sore throat, bilateral ear pressure, congestion and rhinorrhea, postnasal drip. Denies fever. Currently rates her pain 01/28 and has been taking NyQuil without relief. Related Data Home Medications Medication Instructions Recorded Confirmed medroxyprogesterone 150 mg/mL 150 mg IM DIRECTED 06/08/22 07/12/23 intramuscular syringe diclofenac sodium 75 mg 75 mg PO DIRECTED 07/12/23 07/12/23 tablet,delayed release Allergies Allergy/AdvReac Type Severity Reaction Status Date / Time No Known Allergies Allergy Verified 05/09/23 10:07 Review of Systems Review of Systems: CONSTITUTIONAL: Denies body aches, fever, chills, or sweats. EYES: Denies visual changes, redness, or discharge. ENT: + sore throat, congestion, rhinorrhea, postnasal drip, bilateral ear pain CARDIOVASCULAR: Denies chest pain, palpitations, or edema. RESPIRATORY: Denies dyspnea.+ cough GASTROINTESTINAL: Denies abdominal pain, nausea, vomiting, or diarrhea. GENITOURINARY: Denies dysuria or hematuria. SKIN: Denies rash, itching, or wounds. MUSCULOSKELETAL: Denies back pain, joint pain, or myalgia. NEUROLOGIC: Denies headache, numbness, tingling, or weakness. PSYCH: Denies depression or anxiety. [facility] Past Medical History Medical History Rheumatoid arthritis Tachycardia Surgical History Surgical History History of appendectomy No history of previous surgery Family History Family History Grandparent Ovarian cancer Other Breast cancer Social History Social History (Reviewed 07/12/23 @ 09:31 by Zoraida Anderson, TIFFANI, Kranthi Smoking status: Current every day smoker Tobacco type: e-cigarettes/vaping Alcohol intake: current Substance use: never Lack of Transportation: No Lack of Food: Never True Current Housing: I Do Not Have Housing Concerned About Future Housing: No Difficulty Paying Gas/Electric Bills: No Difficulty Paying for Meds: No Currently Unemployed: No Gender identity (if verbalized by the patient): Female Comments At time of signature, I have reviewed and agree with nursing past medical, surgical, social and family history unless otherwise noted. Please see nursing chart for further information. There is no relevant family history pertinent to the presenting complaint Exam Narrative: GENERAL: Well-appearing, well-nourished, and in no acute distress. HEAD: Normocephalic, atraumatic. EYES: EOMI. No redness or drainage. Conjunctivae normal. ENT: Mucous membranes pink and moist. Nares mildly congested. No rhinorrhea. TMs normal bilaterally. Throat normal. Uvula midline. NECK: Normal AROM. Supple. No lymphadenopathy. CHEST: No respiratory distress. Clear to auscultation. HEART: Regular rate and rhythm. No murmur appreciated. EXTREMITIES: Normal range of motion. No edema. SKIN: Warm, dry, no rash. Capillary refill normal. Normal skin turgor. NEURO: No focal deficits. Alert and oriented x3. Gait steady. PSYCH: Normal affect. No signs of depression or anxiety. Course Course Level of Care: Express Care Visit Vital Signs Vital signs: Vital Signs Temperature 98.4 F 07/12/23 09:08 Pulse Rate 99 07/12/23 09:08 Respiratory Rate 16 07/12/23 09:08 Blood Pressure 119/61 07/12/23 09:08 Pulse Oximetry 100 07/12/23 09:08 Oxygen Delivery Room Air
== END 2023-07-12 09:50 | disposition home or self-care (01) ==
PROVIDERS: Emergency Provider Nurse Practitioner
DX: J40 Bronchitis, not specified as acute or chronic (principal); J06.9 Acute upper respiratory infection, unspecified; M06.9 Rheumatoid arthritis, unspecified; F17.290 Nicotine dependence, other tobacco product, uncomplicated; Z20.822 Contact with and (suspected) exposure to COVID-19
CPT/HCPCS: 87081; 87426; 87804; 87880; 99213; C9803; G0463

== ENCOUNTER 2023-10-08 18:46 | Emergency (ER) | payer OTHER, SELFPAY ==
--- NOTE | ~2023-10-08 | XR_ITS ---
EXAM: XR knee LT min 4V DATE: 10/08/2023 20:34 HISTORY: knee pain . COMPARISON: 05/30/2016. FINDINGS: Normal mineralization. No fracture or dislocation. No lytic or blastic lesion. Joint space s are maintained. Mild patellar enthesopathy. No erosion or periosteal change. Soft tissues within no rmal limits. IMPRESSION: No acute osseous finding. Reviewed, dictated and finalized at location [facility]. IMPRESSION: No acute osseous finding.
[2023-10-08 19:00] VITALS: BP 125/91; PULSE 116; RESP 17; TEMP 36.3; O2SAT 100
--- NOTE | 2023-10-08 20:29 | ED.EXTPRO ---
HPI - Extremity Problem General Chief complaint: Extremity Problem,Nontraumatic Stated complaint: left knee pain Time Seen by Provider: 10/08/23 20:03 History of Present Illness HPI Narrative: 23-year-old female presents to emergency department for left knee pain for multiple months, worsening over the past week and half. Patient states she has a history of rheumatoid arthritis as a child. She saw a vessel traffic officer 2 months ago regarding her left knee pain thinking it may be worsening over rheumatoid arthritis. She was told that there is no advancement of her arthritis and this is likely not the cause of her symptoms. She states the past week and half she has been working out including running, walking and doing the bike. She states her pain is become a lot worse. She states it feels like it is deep in her bone and reports locking of her knee. She states it feels more painful and weak when she is walking up and down stairs. Denies paresthesias, recent injury or trauma, fever. Related Data Home Medications Medication Instructions Recorded Confirmed medroxyprogesterone 150 mg/mL 150 mg IM DIRECTED 06/08/22 07/12/23 intramuscular syringe diclofenac sodium 75 mg 75 mg PO DIRECTED 07/12/23 07/12/23 tablet,delayed release Allergies Allergy/AdvReac Type Severity Reaction Status Date / Time No Known Allergies Allergy Verified 10/08/23 20:04 Review of Systems Review of Systems: CONSTITUTIONAL: Denies fever, chills, or sweats. EYES: Denies visual changes, redness, or discharge. ENT: Denies rhinorrhea, congestion, sore throat, or otalgia. CARDIOVASCULAR: Denies chest pain, palpitations, or edema. RESPIRATORY: Denies cough or dyspnea. GASTROINTESTINAL: Denies abdominal pain, nausea, vomiting, or diarrhea. GENITOURINARY: Denies dysuria or hematuria. SKIN: Denies rash or itching. MUSCULOSKELETAL: See HPI NEUROLOGIC: Denies headache, numbness, or weakness. PSYCHIATRIC: Denies anxiety or depression. [facility] Past Medical History Medical History Rheumatoid arthritis Tachycardia Surgical History Surgical History History of appendectomy No history of previous surgery Family History Family History Grandparent Ovarian cancer Other Breast cancer Social History Social History Smoking status: Current every day smoker Tobacco type: e-cigarettes/vaping Alcohol intake: current Substance use: never Lack of Transportation: No Lack of Food: Never True Current Housing: I Do Not Have Housing Concerned About Future Housing: No Difficulty Paying Gas/Electric Bills: No Difficulty Paying for Meds: No Currently Unemployed: No Gender identity (if verbalized by the patient): Female Exam Narrative: GENERAL: Well-appearing, well-nourished, and in no acute distress. HEAD: Normocephalic, atraumatic. NECK: Supple. CHEST: Clear to auscultation. No respiratory distress. HEART: Regular rate and rhythm. No murmur heard. Normal peripheral pulses. EXTREMITIES: LLE: no bony tenderness to the knee including overlying the patella, distal femur, proximal tib-fib, medial or lateral joint lines. Negative anterior-posterior drawer. No laxity with varus or valgus stress. Positive [facility]'s . Full active and passive range of motion. DP pulse 2 +. Sensation intact throughout. No warmth or erythema overlying the knee. SKIN: Warm, dry, no rash. NEURO: No focal deficits. Alert and oriented x3 Course Vital Signs Vital signs: Vital Signs Temperature 97.4 F L 10/08/23 19:00 Pulse Rate 116 H 10/08/23 19:00 Respiratory Rate 17 10/08/23 19:00 Blood Pressure 125/91 H 10/08/23 19:00 Pulse Oximetry 100 10/08/23 19:00 Oxygen Delivery Room Air 10/08/23 19:0
[2023-10-08] MEDS: ACETAMINOPHEN 500 MG TABLET 1000 MG PO (21:13)
== END 2023-10-08 22:10 | disposition home or self-care (01) ==
LOC: ANHED 20:49
PROVIDERS: Emergency Provider Physician Assistant; PCP Nurse Practitioner Family
DX: M25.562 Pain in left knee (principal); M06.9 Rheumatoid arthritis, unspecified; F17.290 Nicotine dependence, other tobacco product, uncomplicated
CPT/HCPCS: 73564; 99283; A9270

== ENCOUNTER 2023-10-20 12:29 | Outpatient (CLI) | payer OTHER, SELFPAY ==
--- NOTE | ~2023-10-20 | MR_ITS ---
MRI of the left knee Clinical history: Injury Technique: Coronal proton density and proton density-weighted images, sagittal proton-density and T2 fat-sat images, and axial proton-density fat-saturated images were acquired. Findings: Anterior and posterior cruciate ligaments are intact. Medial collateral ligament and the la teral collateral ligament complex are intact. Popliteus tendon is intact. Medial and lateral menisci are intact, without evidence of tear. There is probable mild chondromalacia along the lateral patellar facet. Remaining articular cartilage appears well-preserved. There is mild amorphous marrow edema at the medial tibial plateau region, shaikh ggestive of bone contusion. No definite fracture seen. Extensor mechanism is intact. No joint effusion or Geiger's cyst. Impression: Probable mild bone contusion at the medial tibial plateau region. No definite fracture seen. No ligamentous injury or meniscal tear seen. Reviewed, dictated and finalized at [facility]. Impression: Probable mild bone contusion at the medial tibial plateau region. No definite f racture seen. No ligamentous injury or meniscal tear seen.
== END 2023-10-20 12:30 | disposition home or self-care (01) ==
PROVIDERS: PCP Nurse Practitioner Family; Visit Provider Orthopaedic Surgery
DX: S89.92XA Unspecified injury of left lower leg, initial encounter (principal)
CPT/HCPCS: 73721

== ENCOUNTER 2023-12-11 07:52 | Outpatient (CLI) | payer OTHER, SELFPAY ==
--- NOTE | ~2023-12-11 | US_ITS ---
US breast BI limited 12/11/2023 08:40 Indication: Follow-up right breast masses Procedure: High-resolution Limited ultrasound of the breasts. Comparison: Comparison to multiple prior studies sequentially, with oldest reviewed study dated 04/14. Findings: Right breast: At 12:00, 3 cm from the nipple, there is an oval hypoechoic mass measuring 8 x 6 x 4 mm with parallel orientation, no posterior features and no internal vascularity. This compares to 8 x 5 x 3 mm on 04/14/2020. At 1:00, 5 cm from the nipple there is a slightly lobulated parallel oriented h ypoechoic oval-shaped mass measuring 1.7 x 1.4 x 0.6 cm without internal vascularity or posterior fea tures. This compares to 1.8 x 1.3 x 0.5 cm on 04/14/2020, stable. At 10:00, 3 cm from the nipple there is an oval hypoechoic mass with parallel orientation, circumscribed margins, no internal vascularity and no posterior features measuring 9 x 8 x 6 mm compared with 10 x 8 x 6 mm on 10/04/2022, stable. Left breast: At 9:00, 3 cm from the nipple there is an oval hypoechoic mass measuring 7 x 7 x 6 mm wi thout internal vascularity or posterior features, likely benign, although not definitely seen on prio r exam. The previously identified mass in the left breast at 8:00, 5 cm from the nipple was not visua lized on the current study. Impression: 1: Probable benign bilateral breast masses. BI-RADS CATEGORY 3-PROBABLY BENIGN FINDING RECOMMENDATION: Six-month follow-up bilateral breast ultrasound recommended. Reviewed, dictated and finalized at location A. Impression: 1: Probable benign bilateral breast masses. BI-RADS CATEGORY 3-PROBABLY BENIGN FINDING RECOMMENDATION: Six-month follow-up bilateral breast ultrasound recommended.
== END 2023-12-11 07:53 | disposition home or self-care (01) ==
LOC: ANHIMG 07:54
PROVIDERS: PCP Nurse Practitioner Family; Visit Provider Surgery
DX: D24.1 Benign neoplasm of right breast (principal); D24.2 Benign neoplasm of left breast
CPT/HCPCS: 76642

== ENCOUNTER 2024-02-24 08:51 | Emergency (ER) | payer OTHER, SELFPAY ==
[2024-02-24 09:03] VITALS: BP 147/72; PULSE 69; RESP 16; TEMP 37; O2SAT 100
[2024-02-24 09:19] LABS: EDSTREPNEGPOS1 Presumptive Negative
--- NOTE | 2024-02-24 09:29 | ED.URI ---
HPI - URI/Sore Throat General Chief Complaint: Upper Respiratory Infection Stated Complaint: sore throat,stuffy nose Time Seen by Provider: 02/24/24 09:18 Source: patient and RN notes reviewed Mode of arrival: ambulatory Limitations: no limitations History of Present Illness HPI Narrative: Patient presents today with a 4 day history of sore throat nasal congestion with mild cough. Denies any additional symptoms to include fever and shortness of breath. She did a home COVID test on day 2 of illness and it was negative. Currently rates her pain 8/10 and has not tried any [id number] medication for symptoms prior to arrival. Denies known sick contacts. Related Data Home Medications Medication Instructions Recorded Confirmed escitalopram oxalate 10 mg tablet 10 mg DIRECTED 02/24/24 02/24/24 Allergies Allergy/AdvReac Type Severity Reaction Status Date / Time No Known Allergies Allergy Verified 12/17/23 14:42 Review of Systems Review of Systems: CONSTITUTIONAL: Denies body aches, fever, chills, or sweats. EYES: Denies visual changes, redness, or discharge. ENT: Denies rhinorrhea, or otalgia.+ throat, congestion CARDIOVASCULAR: Denies chest pain, palpitations, or edema. RESPIRATORY: Denies dyspnea.+ mild cough GASTROINTESTINAL: Denies abdominal pain, nausea, vomiting, or diarrhea. GENITOURINARY: Denies dysuria or hematuria. SKIN: Denies rash, itching, or wounds. MUSCULOSKELETAL: Denies back pain, joint pain, or myalgia. NEUROLOGIC: Denies headache, numbness, tingling, or weakness. PSYCH: Denies depression or anxiety. [facility] Past Medical History Medical History Rheumatoid arthritis Tachycardia Surgical History Surgical History History of appendectomy No history of previous surgery Family History Family History Grandparent Ovarian cancer Unknown Hypertension Heart disease Diabetes mellitus Cerebrovascular accident Arthritis Other Breast cancer Social History Social History Social History: caffeine use Smoking status: Current every day smoker Tobacco type: e-cigarettes/vaping Alcohol intake: current Substance use: never Lack of Transportation: No Lack of Food: Never True Current Housing: I Do Not Have Housing Concerned About Future Housing: No Difficulty Paying Gas/Electric Bills: No Difficulty Paying for Meds: No Currently Unemployed: No Occupation/Education: occupation 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 Please see nursing chart for further information. There is no relevant family history pertinent to the presenting complaint Exam Narrative: GENERAL: Well-appearing, well-nourished, and in no acute distress. HEAD: Normocephalic, atraumatic. EYES: EOMI. No redness or drainage. Conjunctivae normal. ENT: Mucous membranes pink and moist. Nares clear. No rhinorrhea. TMs normal bilaterally. Throat erythematous without edema or exudate. Uvula midline. NECK: Normal AROM. CHEST: No respiratory distress. EXTREMITIES: Normal range of motion. No edema. SKIN: Warm, dry, no rash. Capillary refill normal. Normal skin turgor. NEURO: No focal deficits. Alert and oriented x3. Gait steady. PSYCH: Normal affect. No signs of depression or anxiety. Course Course Level of Care: Express Care Visit Vital Signs Vital signs: Vital Signs Temperature 98.6 F 02/24/24 09:03 Pulse Rate 69 02/24/24 09:03 Respiratory Rate 16 02/24/24 09:03 Blood Pressure 147/72 H 02/24/24 09:03 Pulse
== END 2024-02-24 09:41 | disposition home or self-care (01) ==
PROVIDERS: Emergency Provider Nurse Practitioner; PCP Nurse Practitioner Family
DX: J06.9 Acute upper respiratory infection, unspecified (principal); F17.290 Nicotine dependence, other tobacco product, uncomplicated; M06.9 Rheumatoid arthritis, unspecified
CPT/HCPCS: 87081; 87880; 99213; G0463

== ENCOUNTER 2024-07-15 23:07 | Observation (INO) | payer OTHER, SELFPAY ==
[2024-07-15 23:17] VITALS: BMI 25.8
--- NOTE | 2024-07-15 23:17 | OBADM ---
This patient, Siobhan Alvarado, admitted to the OB room [facility] for observation. Patient/family oriented to hospital policies and general routines including ID bracelet, bed and alarms, visiting hours, pain management, procedures, bathroom and other care routines, personal items, smoking policy, room service/diet, and visiting hours. Patient/Family are encouraged to report perceived risks to care and to ask questions if they do not understand what they are told or what they should do.
[2024-07-15 23:32] VITALS: BP 108/63; PULSE 101
[2024-07-15] MEDS: ONDANSETRON INJ 4 MG/2 ML VIAL IV PUSH (23:55)
[2024-07-15] MEDS: DEXTROSE 5%/LACTATED RINGERS 1,000 ML 999 ML IV CONT (23:55)
[2024-07-16 00:20] LABS: Alanine Aminotransferase 17 U/L (6-35); Alkaline Phosphatase 81 U/L (38-126); Anion Gap 5 mmol/L (4-12); Aspartate Amino Transferase 23 U/L (14-36); Bilirubin,Total 0.8 mg/dL (0.2-1.3); Blood Urea Nitrogen 12 mg/dL (7-17); Calcium 8.8 mg/dL (8.4-10.2); Carbon Dioxide 22 mmol/L (22-30); Chloride 107 mmol/L (98-107); Estimated CRCL calculation 115 ml/min; Estimated Glomerular Filt Rate > 60; Glucose 111 mg/dL (65-110); Potassium 3.5 mmol/L (3.4-5.0); Sodium 134 mmol/L (137-145)
[2024-07-16 00:29] VITALS: BP 105/60; PULSE 93
[2024-07-16] MEDS: LACTATED RINGERS 1,000 ML 200 ML IV CONT (01:06)
[2024-07-16 01:16] LABS: Add Urine Microscopic? YES; Appearance Urine Clear (Clear); Bacteria Urine None Seen /hpf; Bilirubin Urine Negative (Negative); Blood Urine Trace (Negative); Color Urine Yellow (Yellow); Glucose Urine UA 3+ mg/dL (Negative); Ketones Urine 1+ mg/dL (Negative); Leukocyte Esterase Ur Negative LEU/UL (Negative); Nitrate Urine Negative (Negative); Non Pathogenic Casts 0-2; Protein Urine Negative (Negative); RBC Urine 0-2 /hpf (0-2); Specific Grav Ur 1.034 (1.001-1.035); Squamous Epithelial Cell Urine Few /hpf (Few); Urobilinogen Urine 0.2 mg/dL (<2.0); WBC Urine 0-5 /hpf (0-3); pH Urine 5.5 (5.0-9.0)
[2024-07-16 01:26] LABS: Basophils Percent Auto 0.3 % (0.2-1.2); Eosinophils Percent Auto 0.3 % (0-4.4); Hematocrit 38.7 % (37.0-47.0); Hemoglobin 13.5 g/dL (12.0-15.0); Immature Granulocyte Absolute 0.07 K/mm3 (0.00-0.031); Immature Granulocyte Percent A 0.6 % (0-0.5); Lymphocytes Absolute Auto 0.39 K/mm3 (0.9-3.2); Lymphocytes Percent Auto 3.3 % (18.3-44.2); Mean Corpuscular HGB Conc 34.9 g/dl (32-36); Mean Corpuscular Hemoglobin 31.1 pg (26-34); Mean Corpuscular Volume 89.2 fl (80-100); Mean Platelet Volume 9.6 fl (7.4-10.4); Monocytes Absolute Auto 0.3 K/mm3 (0.1-0.6); Monocytes Percent Auto 2.7 % (2.6-8.5); Neutrophils Absolute Auto 11.1 K/mm3 (1.3-6.7); Neutrophils Percent Auto 92.8 % (45.5-73.1); Platelet Count Result 229 k/mm3 (150-375); Red Blood Count 4.34 M/mm3 (4.2-5.4); Red Cell Distribution Width 13.2 % (11.5-14.5)
--- NOTE | 2024-07-16 15:48 | P.PNOB_ITS ---
OB - Triage/Final Diagnosis Visit Information Date of evaluation: 07/15/24 Reason for evaluation: other (nausea) Comments/Additional reasons for admission: I have assessed the risk for this patient, Siobhan Alvarado, and determined that she would benefit from observation care. Evaluation Laboratory results: Laboratory Tests 07/15/24 07/15/24 23:58 23:59 WBC 12.0 H RBC 4.34 Hgb 13.5 Hct 38.7 MCV 89.2 MCH 31.1 MCHC 34.9 RDW 13.2 Plt Count 229 MPV 9.6 Immature Gran % (Auto) 0.6 H Neut % (Auto) 92.8 H Lymph % (Auto) 3.3 L [place] % (Auto) 2.7 Eos % (Auto) 0.3 Baso % (Auto) 0.3 Lymph # (Auto) 0.39 L [place] # (Auto) 0.3 Eos # (Auto) 0.0 Baso # (Auto) 0.0 Abs Immat Gran (auto) 0.07 H Absolute Neuts (auto) 11.1 H Absolute Nucleated RBC 0.000 Nucleated RBC % 0.0 Sodium 134 L Potassium 3.5 Chloride 107 Carbon Dioxide 22 Anion Gap 5 BUN 12 Creatinine 0.50 L Estim Creat Clear Calc 115 Estimated GFR > 60 Glucose 111 H Calcium 8.8 Total Bilirubin 0.8 AST 23 ALT 17 Alkaline Phosphatase 81 Total Protein 7.0 Albumin 4.0 Urine Color Yellow Urine Appearance Clear Urine pH 5.5 Ur Specific [place] 1.034 Urine Protein Negative Urine Glucose (UA) 3+ H Urine Ketones 1+ H Ur Blood (Man) Trace Urine Nitrate Negative Urine Bilirubin Negative Urine Urobilinogen 0.2 Leukocyte Esterase Rfl Negative Urine RBC 0-2 Urine WBC 0-5 Ur Squamous Epith Cells Few Urine Bacteria None seen Urine Casts 0-2 Vital signs: Vital Signs - 24 hr 07/15/24 23:32 07/16/24 00:29 Pulse Rate 101 H 93 Blood Pressure 108/63 105/60
== END 2024-07-16 02:45 | disposition home or self-care (01) ==
PROVIDERS: Advanced Practice Midwife; Admitting Provider Obstetrics & Gynecology; PCP Nurse Practitioner Family; Visit Provider Obstetrics & Gynecology
DX: O21.2 Late vomiting of pregnancy (principal); Z3A.23 23 weeks gestation of pregnancy
CPT/HCPCS: 36415; 80053; 81001; 85025; 96374; G0378; G0379; J2405; J7120; J7121

== ENCOUNTER 2024-08-28 09:43 | Outpatient (CLI) | payer OTHER, SELFPAY ==
[2024-08-28] VITALS (7 sets, daily range): BP systolic 113; BP diastolic 60; PULSE 115–124; O2SAT 95–99
--- OUTSIDE RECORDS SUMMARY | 2024-08-28 10:36 | XMS_ITS | Clinical Summary ---
Author Organization [facility] Address [address] [place] [address] Phone Care Team Providers Care Leveler Helper Name Role Phone Tatyana Fierro MD Primary Care Provider [phone] Allergies No known active allergies Medications medroxyPROGESTER one (DEPO-PROVERA) 150 mg/mL Syringe 1 mL. 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 Mastodynia 07/03/2020 Mass of left breast 07/03/2020 Family History Medical History Relation Name Comments Healthy Brother Diabetes Father High Cholesterol Father Lung Cancer Maternal Aunt Breast Cancer Maternal Cousin 20's Ovarian Cancer Maternal Grandmother 40's Thyroid Disease Mother Breast Cancer Paternal Aunt Healthy Sister Relation Name Status Comments Brother Alive Father Alive Maternal Aunt Maternal Cousin Maternal Grandmother Mother Alive Paternal Aunt Sister Alive Social History Tobacco Use Types Packs/Day Years Used Date Smoking Tobacco: Never Smokeless Tobacco: Never Tobacco Cessation:Counseling Given: Yes Alcohol Use Standard Drinks/Week Comments Never 0 (1 standard drink = 0.6 oz pur e alcohol) Comments Unknown Sex and Gender Information Value Date Recorded Sex Assigned at Not on file Legal Sex Female 11:17 AM SWING TENDER Gender Identity Not on file Sexual Orientation Not on file Last Filed Vital Signs Vital Sign Reading Time Taken Comments Blood Pressure 110/62 09/19/2021 12:04 PM SWING TENDER Pulse 72 03/21/2021 11:06 AM CDT Temperature - - Respiratory Rate - - Oxygen Saturation - - Inhaled Oxygen Concentration - - Weight 50.4 kg (111 lb 1.6 oz) 09/19/2021 12:04 PM SWING TENDER Height 154.9 cm (5' 1 ) 09/19/2021 12:04 PM SWING TENDER Body Mass Index 20.99 09/19/2021 12:04 PM SWING TENDER Plan of Treatment Health Maintenance Due Date Last Done Comments CHLAMYDIA SCREENING (ANNUAL) 11-24 YEARS 2012 CERVICAL CANCER SCREENING 2022 INFLUENZA VACCINE (#1) 2024 05/14/2013 DTAP/TDAP/TD VACCINES (8 - T d or Tdap) 02/11/2029 02/11/2019, 03/19/2012, 03/15/2006, Additional history exists HEPATITIS B VACCINES Completed 06/23/2002, 2001, 2001 HPV VACCINES Completed 07/31/2014, 07/2012, 03/19/2012 Insurance MEDICAID Care Teams Leveler Helper Relationship Specialty Start Date End Date Tatyana Fierro MD PCP - General Pediatrics 09/19/21
--- OUTSIDE RECORDS SUMMARY | 2024-08-28 10:36 | XMS_ITS | Encounter Summary ---
Author Organization [facility] Address [facility] [place] [address] Care Team Providers Care Relations Mgr Name Role Phone Gabby Duran NP Primary Care Provider [phone] Encounter Details Date Type Department Care Team (Late st Contact Info) Description 12/29/2023 Infineta Systemshart Message Enc [facility] Family [facility] - [place] [address] [place] [address] Gabby Duran NP [address] [place] [address] Nausea/anxiety Social History Tobacco Use Types Packs/Day Years Used Date Smoking Tobacco: Every Day Passive Smoke Exposure: Never Smokeless Tobacco: Never Comments:vapes Alcohol Use Standard Drinks/Week Comments Yes 0 (1 standard drink = 0.6 oz pur e alcohol) socially PHQ-2 Answer Date Recorded Patient Health Questionnaire-2 Score 1 09/09/2023 Comments No Sex and Gender Information Value Date Recorded Sex Assigned at Not on file Legal Sex Female 7:19 PM CDT Gender Identity Not on file Sexual Orientation Not on file documented as of this encounter Progress Notes * Gabby Duran NP - 12/30/2023 8:17 AM CDT OV documented in this encounter Plan of Treatment Not on file documented as of this encounter Visit Diagnoses Not on filedocumented in this encounter Additional Health Concerns Assessment Noted Time PHQ-9 Depression Total Score: 11 024 4:34 PM CARDIAC/VASCULAR SONOGRAPHER documented as of this encounter Care Teams Relations Mgr Relationship Specialty Start Date End Date Gabby Duran, PHYSICAL SECURITY SPECIALIST [address] [place] [address] PCP - General Nurse Practitioner Family 09/09/23 documented as of this encounter
--- OUTSIDE RECORDS SUMMARY | 2024-08-28 10:36 | XMS_ITS | Data Portability ---
Author Organization [facility] [place] Address [address] [place] [place] [address] Care Team Providers Care Court Reporter Name Role Phone LANG BORREGO Primary Care Provider [phone] Assessment Encounter Date Assessment Date Assessment LastModified by Organization Details LastModified Time 07/21/2024 07/21/2024 Patient is ___weeks . Discussed plan. Not available 07/21/2024 10:11:10 08/18/2024 08/18/2024 Patient is ___weeks . Discussed plan. Not available 08/18/2024 10:12:08 Plan of Treatment Reminders Order Date Submit Date Provider Last Modified By Organization Details Last Modified Time Details Appointments OB ROUTINE 2024 09:15A Abraham NAVARRO MD Not available Not available Not available Lab None recorded. Referral None recorded. Procedures None recorded. Surgeries None recorded. Imaging US, obstetric , 2nd or 3rd trimester 2023 024 ember [facility], [address], [place], [address], 06/23/2024 21:47:15 US, obstetric , follow-up 2023 024 ember [address], [address], [place], [address], 07/21/2024 14:00:21 US, obstetric , transvagi nal 2023 024 [email or web address] [address], [address], [place], [address], 07/21/2024 14:00:21 US, obstetric , follow-up 2024 025 [email or web address] [address], [place], [address], 08/19/2024 08:27:19 Medication Orders None recorded. Patient TargetsNo targets recorded. Patient InstructionsNo instructions recorded. Reason for Referral None Reported. Results Created Date Observation Date Name Description Value Unit Range Abnormal Flag Note LastModifiedBy Organization Detail LastModifiedTime 08/18/1908/18/2024 HIV 1/2 ANTIG EN/AN TIBOD Y, REFLE X CONFI RMATI ON HIV antigen/anti body,reflex confirmation CANCEL LED Reord ered Not Available [facility] (Lab) [address], [place], [address], 08/19/2024 05:28:16 08/18/19 25 08/18/2024 HEMAT OCRIT (HCT) HCT 32.1 % (based on docume nted legal sex) 34.0-4 5.0 low Not Available [facility] (Lab) [address], [place], [address], 08/19/2024 10:38:47 08/18/19 25 08/18/2024 HEMOG LOBIN (HGB) HGB 10.9 g/dL (based on docume nted legal sex) 11.6-1 5.4 low Not Available [facility] (Lab) [address], [place], [address], 08/19/2024 10:38:48 08/18/19 25 08/18/2024 GTT - GESTA MILTON Carmen Hoffman, ACOG OB glucose, 1 hour screen 90 mg/dL 70-135 Not Available [facility] (Lab) [address] , [place], [address], 08/19/2024 10:38:48 08/18/19 25 08/18/2024 HIV 1/2 ANTIG EN/AN TIBOD Y, REFLE X CONFI RMATI ON HIV antigen/anti body Nonrea ctive nonrea ctive HIV-1 antig en and HIV-1 /HIV- 2 antib odies were not detec nilsa. No labor atory evide nce of HIV infec tion. Not Available [facility] (Lab) [address], [place], [address], 08/19/2024 10:38:49 08/18/19 25 08/18/2024 RPR SCREE N, REFLE X TITER /CONF IRMAT ION RPR screen Nonrea ctive nonrea ctive Not Available [facility] (Lab) [address], [place], [address], 08/19/2024 10:38:49 05/26/20 24 05/26/2024 US, obste tric, limit ed No observ ation record ed. [email or web address] [facility] [address], [place], [address], 05/26/2024 15:47:20 05/26/20 24 05/26/2024 US, obste tric, limit ed No observ ation record ed. [email or web address] [address] [facility], [place], [address], 05/26/2024 14:57:30 06/15/20 24 06/15/2024 , obste tric, limit ed No observ ation record ed. [email or web address] [place] [address], [place], [address], 06/15/2024 18:04:28 06/15/20 24 06/15/2024 US, obste tric, limit ed No observ ation record ed. [email or web address] [address], [place], [address], 06/17/2024 10:44:10 06/23/20 24 06/23/2024 US, obste tric, 2nd or 3rd trime ster No observ ation record ed. [email or web address] [place] [address], [place], [address], 06/23/2024 13:04:05 06/23/20 24 06/23/2024 US, obste tric, follo w-up No observ ation record ed. [email or web address] [address], [place], [address], 06/25/2024 14:43:05 07/21/20 24 07/21/2024 US, obste tric, follo w-up No observ ation record ed. [email or web address] [facility] [address], [place], [address], 07/21/2024 11:05:00 07/21/20 24 07/21/2024 US, obste tric, trans vagin al No observ ation record ed. [email or web address] [facility] [address], [place], [address], 07/21/2024 11:05:09 07/21/20 24 07/21/2024 US, obste tric, follo w-up No observ ation record ed. [email or web address] [address], [place], [address], 07/22/2024 22:38:50 08/18/19 25 08/18/2024 US, obste tric, follo w-up No observ ation record ed. [email or web address] [facility] [address], [place], [address], 08/18/2024 13:06:39 08/18/19 25 08/18/2024 US, obste tric, follo w-up No observ ation record ed. [email or web address] [address], [place], [address], 08/27/2024 19:30:10 Result Notes None recorded. Problems Name Problem SNOMED Code Status Onset Date Resolution Date Notes Provider Name and Address Organization Details Recorded Time Pregnanc y 63513511 Active 2023 Clarissa Amaro [facility], [facility] 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 5 22:38:37 Clinical finding Completed 201803/01/2021 Encounte r for surveill ance of injectab le contrace ptive;Pr actice ID: [email or web address] [facility] 22:08:39 Pregnanc y test negative 589597454 Completed 201803/01/2021 Encounte r for pregnanc y test, result negative ;Practic e ID: [id number] [facility] 22:08:50 Finding of regulari ty of menstrua l cycle Completed 201803/01/2021 Irregula r menstrua tion, unspecif ied;Prac milan ID: 0001 [facility] 22:08:42 Surveill ance of contrace ption Completed 201803/01/2021 Encounte r for surveill ance of contrace ptives, unspecif ied;Jose Luis rded Elsewher e: No Locat ion: [facility] S ource: EHR Diffusion Operator carlos: N Practi ce ID: 0001 Ollie lable Time: 10:30:00 AM [facility] 22:08:54 Finding of sensatio n of breast Completed 201803/01/2021 Mastodyn ia;Recor ded Elsewher e: No Locat ion: [facility] Source: EHR Diffusion Operator carlos: N Raeti ce ID: 0001 Ollie lable Time: 10:45:00 AM Tea Lorenz [facility] 22:08:46 Syphilis test finding [id number] Completed 201803/01/2021 Encounte r for STD screenin g;Record ed Elsewher e: No Locat ion: [facility] S ource: EHR Diffusion Operator carlos: N Practi ce ID: 0001 Ollie lable Time: 10:30:00 AM Tea [facility] 22:08:57 Amenorrh ea 35488519 Completed 201803/01/2021 Amenorrh ea, unspecif ied;Jose Luis rded Elsewher e: No Locat ion: [facility] Source: EHR Diffusion Operator carlos: N Raeti ce ID: 0001 Ollie lable Time: 10:45:00 AM Tea Lorenz [facility] 22:08:33 Problem Notes None recorded. Procedures Surgical History Date Name Laterality Status Provider Name and Address Organization Details Recorded Time 05/08/20 24 Date of Last Pap Smear completed Clarissa Amaro [facility] 05/25/2024 15:27:40 04/14/20 20 Date of Last Mammogram completed [facility] 03/01/2021 22:15:32 01/25/20 20 Bartholin Cyst Drainage completed Ankush Navarro MD [address], [place], [address], [facility] 01/25/2020 18:35:08 07/22/19 16 Appendectomy completed [facility] 03/02/2021 10:58:34 Imaging Results Imaging Date Name Status LastModified by Organization Details LastModified Time 05/26/2024 US, obstetric, limited completed amy [facility] [address], [place], [address], 05/26/2024 15:47:20 05/26/2024 US, obstetric, limited completed [email or web address] [address], [place], [address], 05/26/2024 14:57:30 06/15/2024 US, obstetric, limited completed [email or web address] [place] [address], [place], [address], 06/15/2024 18:04:28 06/15/2024 US, obstetric, limited completed JEWELL [address], [place], [address], 06/17/2024 10:44:10 06/23/2024 US, obstetric, 2nd or 3rd trimester completed [email or web address] [place] [address], [place], [address], 06/23/2024 13:04:05 06/23/2024 US, obstetric, follow-up completed [email or web address] [address], [place], [address], 06/25/2024 14:43:05 07/21/2024 US, obstetric, follow-up completed [email or web address] [place] [address], [place], [address], 07/21/2024 11:05:00 07/21/2024 US, obstetric, transvaginal completed [email or web address] [place] [address], [place], [address], 07/21/2024 11:05:09 07/21/2024 US, obstetric, follow-up completed [email or web address], [place], [address], 07/22/2024 22:38:50 08/18/2024 US, obstetric, follow-up completed [email or web address] [place] [address], [place], [address], 08/18/2024 13:06:39 08/18/2024 US, obstetric, follow-up active [email or web address] [address], [place], [address], 08/27/2024 19:30:10 Procedure Notes None recorded. Medical Equipment None Reported. Allergies No known drug allergies Medications Name Sig Start Date Stop Date Status Note LastModified by Organization Details LastModified Time ipratropium bromide 0.03 % soln 01/06 completed Not Available Not Available Not Available fluticasone propionate 50 mcg/act susp 01/06 completed Not Available Not Available Not Available penicillin v potassium 500 mg tabs 01/06 completed Not Available Not Available Not Available methocarbam ol 500 mg tabs 01/06 completed Not Available Not Available Not Available azithromyci n 250 mg tabs 01/06 completed Not Available Not Available Not Available ofloxacin 0.3 % soln 01/06 completed Not Available Not Available Not Available naproxen sodium 550 mg tabs 01/06 completed Not Available Not Available Not Available nitrofurant oin monohydrate /macrocry stals 100 mg caps 01/06 completed Not Available Not Available Not Available prednisone 20 mg tabs 01/06 completed Not Available Not Available Not Available medroxyprog esterone acetate 150 mg/ml susp 01/06 completed Not Available Not Available Not Available vitamin d 84529 unit caps 04/07 completed Not Available Not Available Not Available ibuprofen 600 mg tabs 01/06 completed Not Available Not Available Not Available amoxicillin 500 mg capsule TAKE 1 CAPSULE BY MOUTH EVERY 8 HOURS FOR 10 DAYS 03/02 completed Not Available Not Available Not Available doxycycline hyclate 100 mg capsule Take 1 capsule twice a day by oral route. 04/07 completed Not Available Not Available Not Available azithromyci n 250 mg tablet 04/17 completed Not Available Not Available Not Available hydrocodone 5 mg-acetamin ophen 325 mg tablet Take 1 tablet every 6 hours by oral route. 04/07 completed Not Available Not Available Not Available phenazopyri dine 200 mg tablet TAKE 1 TABLET BY MOUTH THREE TIMES DAILY NEEDED FOR PAIN 02/13 completed Not Available Not Available Not Available prednisone 20 mg tablet TAKE 2 TABLETS BY MOUTH DAILY FOR 5 DAYS 04/17 completed Not Available Not Available Not Available spironolact one 100 mg tablet 02/13 completed Not Available Not Available Not Available penicillin V potassium 500 mg tablet 04/07 completed Not Available Not Available Not Available sulfamethox azole 800 mg-trimetho prim 160 mg tablet Take 1 tablet every 12 hours by oral route. 04/07 completed Not Available Not Available Not Available cefadroxil 500 mg capsule TAKE 1 CAPSULE BY MOUTH TWICE DAILY FOR 10 DAYS 03/01 completed Not Available Not Available Not Available meloxicam 7.5 mg tablet 03/29 completed Not Available Not Available Not Available Depo-[employer]ice [employer] a 150 mg/mL intramuscul ar suspension Inject 1 mL every 3 months by intramusc ular route. 04/17 completed Not Available Not Available Not Available benzonatate 100 mg capsule TAKE 1 CAPSULE BY MOUTH TWICE DAILY NEEDED FOR COUGH 04/17 completed Not Available Not Available Not Available naproxen sodium 550 mg tablet TAKE 1 TABLET BY MOUTH TWICE DAILY FOR 14 DAYS 03/29 completed Not Available Not Available Not Available tobramycin 0.3 % eye drops INSTILL 1 DROP IN EACH EYE EVERY 4 HOURS FOR 7 DAYS 03/29 completed Not Available Not Available Not Available triamcinolo ne acetonide 0.1 % topical ointment APPLY TOPICALLY TO THE AFFECTED AREA TWICE DAILY FOR 2 WEEKS. MAY USE 2 WEEKS ON THEN 2 WEEKS OFF 02/13 completed Not Available Not Available Not Available prednisone 50 mg tablet TAKE 1 TABLET BY MOUTH DAILY FOR 5 DAYS 04/17 completed Not Available Not Available Not Available diclofenac sodium 75 mg tablet,archie yed release 04/17 completed Not Available Not Available Not Available ergocalcife rol (vitamin D2) 1,250 mcg (50,000 unit) capsule TAKE 1 CAPSULE BY MOUTH EVERY 7 DAYS 04/17 completed Not Available Not Available Not Available epinephrine 0.3 mg/0.3 mL injection, auto-inject or INJECT INTRAMUSC ULARLY ONE TIME DIRECTED MAY REPEAT ONE TIME 03/29 completed Not Available Not Available Not Available ibuprofen 600 mg tablet 04/07 completed Not Available Not Available Not Available methylpredn isolone 4 mg tablets in a dose pack FOLLOW PACKAGE DIRECTION S 10/02 completed Not Available Not Available Not Available albuterol sulfate HFA 90 mcg/actuati on aerosol inhaler INHALE 2 PUFFS INTO THE LUNGS FOUR TIMES DAILY NEEDED FOR SHORTNESS OF BREATH OR WHEEZING active Not Available Not Available No t Available ondansetron 4 mg disintegrat ing tablet DISSOLVE 1 TABLET ON THE TONGUE EVERY 8 HOURS NEEDED FOR NAUSEA OR VOMITING active Not Available Not Available No t Available cefdinir 300 mg capsule 03/29 completed Not Available Not Available Not Available fluticasone propionate 50 mcg/actuati on nasal spray,suspe nsion SHAKE LIQUID AND USE 2 SPRAYS IN EACH NOSTRIL DAILY 03/29 completed Not Available Not Available Not Available ipratropium bromide 21 mcg (0.03 %) nasal spray 04/07 completed Not Available Not Available Not Available spironolact one 50 mg tablet 02/13 completed Not Available Not Available Not Available medroxyprog esterone 150 mg/mL intramuscul ar syringe Inject 1 mL every 3 months by intramusc ular route for 90 days. 04/17 completed Not Available Not Available Not Available escitalopra m 10 mg tablet 04/17 completed Not Available Not Available Not Available nitrofurant oin monohydrate /macrocryst als 100 mg capsule TAKE 1 CAPSULE BY MOUTH EVERY 12 HOURS FOR 7 DAYS 02/13 completed Not Available Not Available Not Available chlorhexidi ne gluconate 0.12 % mouthwash SWISH WITH 15 ML BY MOUTH FOR 30 SECONDS THEN SPIT TWICE DAILY NEEDED 03/29 completed Not Available Not Available Not Available Depo-Vice President [employer] a 03/01 completed Not Available Not Available Not Available active Not Available Not Avai lable Not Available ProChamber USE DIRECTED WITH INHALER 04/17 completed Not Available Not Available Not Available lidocaine 5 % topical ointment APPLY TOPICALLY TO THE AFFECTED AREA THREE TIMES DAILY NEEDED 03/29 completed Not Available Not Available Not Available Vitals Date Recorded Body weight Systolic blood pressure Diastolic blood pressure Provider Name and Address Organization Details Last Updated DateTime 06/23/2024 42131.7470 6 g 126 mm[Hg] 83 mm[Hg] [facility] 06/23/2024 12:19:13 Date Recorded Body weight Systolic blood pressure Diastolic blood pressure Provider Name and Address Organization Details Last Updated DateTime 07/21/2024 84577.3394 3 g 107 mm[Hg] 73 mm[Hg] [facility] 07/21/2024 10:12:21 Date Recorded Body weight Systolic blood pressure Diastolic blood pressure Provider Name and Address Organization Details Last Updated DateTime 08/18/2024 51170.4860 2 g 115 mm[Hg] 72 mm[Hg] [facility] 08/18/2024 10:13:20 Social History Question Answer Notes LastModified by Organizat ion Details LastModified Time Tobacco Smoking Status Never [facility] 01/07/2020 11:13:21 What Is Your Level Of Alcohol Consumption? None Information not available 03/02/2021 Are You Blind Or Do You Have Difficulty Seeing? No Information n ot available 03/02/2021 What Is Your Level Of Caffeine Consumption? None Information not available 03/02/2021 In The 14 Days Before Symptom Onset, Have You Had Close Contact With A Laboratory-confirm ed COVID-19 While That Case Was Ill? No Information n ot available 03/29/2023 In The 14 Days Before Symptom Onset, Have You Had Close Contact With A Person Who Is Under Investigation For COVID-19 While That Person Was Ill? No Information not available 03/29/2023 Have You Been To An Area Known To Be High Risk For COVID-19? No Information not available 03/29/2023 Are You Deaf Or Do You Have Serious Difficulty Hearing? No Information not available 03/02/2021 What Type Of Diet Are You Following? REGULAR Information n ot available 03/02/2021 Do You Have Smoke And Carbon Monoxide Detectors In Your Home? Yes Information not available 03/02/2021 Do You Feel Stressed (tense, Restless, Nervous, Or Anxious, Or Unable To Sleep At Night)? [id number] Information not available 03/02/2021 Do You Use Any Illicit Or Recreational Drugs? No Information not available 03/02/2021 Do You Use Sunscreen Routinely? Yes Information not available 03/02/2021 Sex: Unknown Functional Status Question Answer Note LastModified by Organizat ion Details LastModified Time Do you have difficulty walking or climbing stairs? No Information not available 02/13/2022 Are you able to walk? YESWOREST Information not available 03/02/2021 Are you able to care for yourself? Yes Information not available 02/13/2022 Do you have difficulty dressing or bathing? No Information not available 02/13/2022 What is your exercise level? Moderate Information not available 03/02/2021 Mental Status None recorded. Family History Nothing Reported. Medical History Condition Response Allergies (Food, seasonal, environmental ) N Other N Breast Cancer N Drug/Latex Allergies/Reactions N Blood Transfusion N Dermatologic Disorders N Lung Disease N Defects or Inherited Disease N Breast Problem N Gestational Diabetes N Hematologic disorders N Anesthesia Complications N History of STI N Deep Vein Thrombosis N Polycystic ovary syndrome N Anxiety Disorder N Autoimmune disease N Arthritis N Infertility N Polyps N Acid Reflux (GERD) N History of abnormal pap N Cancer N Stroke N Varicosities N Neurologic/Epilepsy N Endometriosis N High Cholesterol N Headaches N Fibromyalgia N Kidney Disease N Heart Problems N Kidney or Bladder Problems N Thyroid Problems N GI Problems N Eating Disorder N Anemia N Art (IVF or FET) N Psychiatric Illness N Ovarian Cancer N Diabetes N Pulmonary (TB, Asthma) N Hepatitis/Liver Disease N No Past Medical History N Eczema N Urinary Tract Infection N Abuse/Domestic Violence N Asthma N Trauma/Violence N Depression/ depression N Heart Disease N Pre-Eclampsia N Hypertension N Osteoporosis N Thrombophilias N Gynecological History Statement/Question Response Date of Last Mammogram 04/14/2020 Sexually Active? Y Menses Monthly N STIs/STDs N Age of first menstrual cycle 9 HPV Vaccine Y Date of Last Pap Smear 05/08/2024 Sexual Problems? N 11 Current Control Method LMP Unknown Obstetrics History GPAL:G 1 P 0 0 0 0 Past Encounters Encounter ID Performer Location Encounter Start Date Encounter Closed Date Diagnosis/Indication Diagnosis SNOMED-CT Code Diagnosis ICD10 Code Diagnosis Note [id number] [address],[facility] [place] [address] 01/07/2020 11:04:34 01/07/2020 11:49:55 Gynecologic examination 48544201 Z01.419 Take Calcium with Vitamin D 1200mg daily if not receiving in daily diet. It is strongly advised to have an annual flu shot and up can obtain at most pharmacies . If you have not had a TDap shot in the last 10 years you should obtain one as well. Discussed with patient & provided with informatio n regarding Gardisil vaccine to prevent the 4 strains for HPV that cause cervical cancer. Encourage safe sexual practices, to use condoms and limit partners if not already in a monogamous relationsh ip. Do monthly self breast exams. BRCA testing is now available for patients with strong genetic history of female cancer. If interested contact the office. Engage in daily exercise of low impact aerobic exercise 45-60 minutes 4-5 times weekly. Avoid tobacco, illicit drugs, and alcohol. This lifestyle behavior pattern will lead to less health conditions and longer life span. If BMI greater than 25 weight watchers or dietary consult advised. Pap smear is not recommende d prior to the age of 21. If you have any concerns, pelvic, or vaginal problems we can discuss testing. Patient received above instructio ns, and questions have been answered. If you have any questions please call or respond to this email. Patient was made aware of the patient portal and may obtain a paper copy of today's plan if desired. Nausea [id number] R11.0 Patient is on depo & not late or early for injection. She took a UPT saturday b/c she has been having issues with feeling nauseated & trouble eating. She does not regularly have a cycle so thought this was strange & wanted to ensure an issue. UPT positive. Then, UPT yesterday neg & today is neg. We agreed to pursue serum HCG today & if neg will make depo appt for tomorrow. Additional labs ordered to ensure no other issues. [id number] [facility] [address] [address] 01/08/2020 15:41:19 01/13/2020 10:48:58 Contraception care management [id number] Z30.9 Pt is here for a depo inj that was given in the left hip LOT: [id number] EXP: 10/2021. pt is due back between mar 25 - apr 08 . ravi patricia [id number] Ankush Navarro MD [facility] [address],[place] [address] 01/25/2020 16:38:28 01/25/2020 21:03:41 Abscess of Bartholin's gland 18701676 N75.1 Incision and drainage of Bartholin' s gland was performed. The patient tolerated procedure well. She was given prescripti on for antibiotic s. She will follow-up in 1 week. [id number] Ankush Navarro MD [facility] [address],[place] [address] 01/29/2020 09:35:01 01/29/2020 16:11:02 Abscess of Bartholin's gland 04258729 N75.1 This patient is a 19-year-ol dfemale who presentedp reviously forBarthol in's gland abscess.In cision and drainage of abscess was performed. She returns today for follow-up. Her symptoms are much improved. Shedenies any nausea, vomiting, fever, chills. The area is muchless swollen and indurated. She was examined. The erythema isdiminish ed. There is much less swelling. There is an open defect in the area of the Bartholin' s gland.Ther e isno discharge from this defect at this time.She is going to discontinu e antibiotic s and pain medication due tonausea.S he will follow-up as needed. [facility] [address],[place] [address] 04/07/2020 14:33:28 04/07/2020 15:11:59 Contraception care management [id number] Z30.9 Pt is here for a depo inj that was given in the left hip LOT: [id number] EXP: 10/2021. pt is due back between mar 25 - apr 08 . ravi patricia Mass of right breast [id number] N63.10 Exam warrants further evaluation with imaging. We will start with a breast US. Family Hx of breast issues but she is not certain it was cancer related on her mom's side. [id number] Kimberlee Dean [facility] [address],[place] [address] 07/04/2020 10:47:40 07/05/2020 16:14:52 Contraception care management [id number] Z30.[id number] [facility] [address],[place] [address] 09/26/2020 10:41:49 09/27/2020 14:33:01 Contraception care management [id number] Z30.[id number] [facility] [address],[place] [address] 12/12/2020 10:11:11 12/13/2020 21:29:25 Contraception care management [id number] Z30.9 Nurses injection visit [id number] [facility] [address],[place] [address] 03/02/2021 10:26:36 03/02/2021 11:25:39 Contraception care management [id number] Z30.9 Nurses injection visitHappy on Depo Inj.Consid er updated Dexa next yearRF sent Gynecologi c examination [id number] Z01.419 Take Calcium with Vitamin D 1200mg daily if not receiving in daily diet. It is strongly advised to have an annual flu shot and up can obtain at most pharmacies . If you have not had a TDap shot in the last 10 years you should obtain one as well. Discussed with patient & provided with informatio n regarding Gardisil vaccine to prevent the 4 strains for HPV that cause cervical cancer. Encourage safe sexual practices, to use condoms and limit partners if not already in a monogamous relationsh ip. Do monthly self breast exams. BRCA testing is now available for patients with strong genetic history of female cancer. If interested contact the office. Engage in daily exercise of low impact aerobic exercise 45-60 minutes 4-5 times weekly. Avoid tobacco, illicit drugs, and alcohol. This lifestyle behavior pattern will lead to less health conditions and longer life span. If BMI greater than 25 weight watchers or dietary consult advised. Pap smear is not recommende d prior to the age of 21. If you have any concerns, pelvic, or vaginal problems we can discuss testing. Patient received above instructio ns, and questions have been answered. If you have any questions please call or respond to this email. Patient was made aware of the patient portal and may obtain a paper copy of today's plan if desired.De aguayo std screenPap age 22yoNO issues or concerns [id number] [facility] [address],[place] [address] 05/25/2021 10:02:39 05/26/2021 14:03:17 Contraception care management [id number] Z30.9 Nurses injection visitHappy on Depo Inj.Consid er updated Dexa next yearRF sent [id number] [facility] [address],[place] [address] 08/14/2021 09:55:14 08/14/2021 10:33:58 Contraception care management [id number] Z30.9 Nurses injection visitHappy on Depo Inj.Consid er updated Dexa next yearRF sent [id number] [facility] [address],[place] [address] 11/08/2021 17:13:23 11/09/2021 16:51:30 Contraception care management [id number] Z30.9 Nurses injection visitHappy on Depo Inj.Consid er updated Dexa next yearRF sent [id number] Tea [facility] [address],[place] [address] 02/05/2022 09:31:58 02/05/2022 15:07:22 Contraception care management [id number] Z30.9 Nurses injection visitHappy on Depo Inj.Consid er updated Dexa next yearRF sent [id number] Kimberlee Dean [facility] [address],[place] [address] 02/13/2022 09:43:17 02/13/2022 10:29:12 Gynecologic examination [id number] Z01.419 Take Calcium with Vitamin D 1200mg daily if not receiving in daily diet. It is strongly advised to have an annual flu shot and up can obtain at most pharmacies . If you have not had a TDap shot in the last 10 years you should obtain one as well. Discussed with patient & provided with informatio n regarding Gardisil vaccine to prevent the 4 strains for HPV that cause cervical cancer. Encourage safe sexual practices, to use condoms and limit partners if not already in a monogamous relationsh ip. Do monthly self breast exams. BRCA testing is now available for patients with strong genetic history of female cancer. If interested contact the office. Engage in daily exercise of low impact aerobic exercise 45-60 minutes 4-5 times weekly. Avoid tobacco, illicit drugs, and alcohol. This lifestyle behavior pattern will lead to less health conditions and longer life span. If BMI greater than 25 weight watchers or dietary consult advised. Pap smear is not recommende d prior to the age of 21. If you have any concerns, pelvic, or vaginal problems we can discuss testing. Patient received above instructio ns, and questions have been answered. If you have any questions please call or respond to this email. Patient was made aware of the patient portal and may obtain a paper copy of today's plan if desired.Bryan preciado age 22yo STD Screen sent Genetic Screen discussed Colon Screen na Dexa Screen ordered since has been on Depo provera >3yrs Routine Labs naMammo na Long-term current use of hormonal contraceptive [id number] 29146 Z79.3 Recommende d for those who have been on Depo for >3yrs Uses depot contraception [id number] Z30.42 Happy on Depo no issuesWoul d like to continue as long as Dexa is wnl [id number] Tea Lorenz [facility] [address],[place] [address] 04/24/2022 09:39:08 04/25/2022 12:27:06 Contraception care management [id number] Z30.9 Nurses injection visitHappy on Depo Inj.Consid er updated Dexa next yearRF sent [id number] Kimberlee Dean [place] [address],[place] [address] 07/13/2022 09:21:18 07/18/2022 13:44:16 Contraception care management [id number] Z30.9 Nurses injection visitHappy on Depo Inj.Consid er updated Dexa next yearRF sent [id number] Nabila Alvarado [place] [address],[place] [address] 10/02/2022 14:49:12 10/03/2022 16:59:05 Breast lump [id number] N63.0 Bilateral breast lumps felt throughout both breastOrde r given for updated bilateral breast u/sReferra l sent to f/u with new breast specialist , as her previous clinic no longer accepts her insurance and she has been following yearly with specialist RTC for WWE, due 02/10 Contraception care [id number] Z30.40 Happy with Depo, injection given today by MA Time spent in visit is a total of 20 mins with at least 50% of visit consisting of counseling and review of plan of care. [id number] Nabila Alvarado [place] [address],[place] [address] 12/26/2022 09:19:12 12/27/2022 11:25:19 Contraception care [id number] Z30.40 [id number] Nabila Alvarado [place] [address],[place] [address] 03/22/2023 09:20:58 03/22/2023 12:17:16 Contraception care [id number] Z30.40 [id number] Kimberlee Dean [place] [address],[place] [address] 03/29/2023 13:08:52 04/01/2023 15:05:33 Pain in pelvis 35398924 R10.2 This patient is a 23 -year-old female with pelvic pain. We have agreed to complete the evaluation with pelvic ultrasound . The patient will return after the pelvic ultrasound to discuss those findings and to develop a treatment plan. A comprehens ernst history and physical exam was performed today. We spent over 25 minutes face-to-fa ce. The patient was given precaution s. She will contact clinic if pelvic pain increases in frequency or intensity. Also notify clinic of any new symptoms associated with pelvic pain. She does not appear to have an acute pelvic infection today, but was asked to contact us Immediatel y with nausea, vomiting, fever, chills. If TEXTILE MACHINE MECHANIC is WNL we need to consider either abd US or Abd CT scan to assess GI related issues. [id number] [facility] [address],[place] [address] 04/01/2023 17:08:37 04/01/2023 17:35:09 Pain in pelvis 96163273 R10.2 [id number] Kimberlee Dean [facility] [address],[place] [address] 04/09/2023 15:02:33 04/09/2023 15:46:28 Pain in pelvis 69889516 R10.2 Reviewed US today.WNLQ uestions answered to patient satisfacti on.Rec f/u with PCP and possibly GI specialist .Fernandoan lizet verbalized & no questions. Total time of virtual-ZO OM visit was approx 15 mins with >50% consisting of counseling , education of patient's plan of care. [id number] [facility] [address],[place] [address] 03/17/2024 11:42:34 03/17/2024 12:52:13 Uterine size for dates discrepancy [id number] Z36.87 Z3A.01 [id number] Ankush Navarro MD [facility] [address],[place] [address] 03/17/2024 12:12:54 03/17/2024 22:36:06 [id number] [facility] [address],[place] [address] 04/17/2024 15:18:05 04/17/2024 16:05:24 [id number] Ankush Navarro MD [facility] [address],[place] [address] 04/17/2024 15:18:42 04/18/2024 10:41:49 Amenorrhea [id number] N91.2 this patient is a 24-year-ol d female who presents for amenorrhea . She is a positive test. Ultrasound revealed a 1st trimester gestation. Patient has no complaints . We talked about early care. Talked about genetic screening. We talked about her ultrasound results. We talked about the 12 week ultrasound that has genetic screening components . She was given recommenda tions on exercise, diet, over-the-c ounter medication s. We reviewed her obstetric history. We reviewed her medical history. We reviewed her social history. She will begin routine care at her next visit. [id number] Gali Dempsey [facility] [address],[place] [address] 05/07/2024 16:48:13 05/08/2024 07:46:01 screening [id number] Z36.82 Z3A.13 [id number] Clarissa Amaro [facility] [address],[place] [address] 05/08/2024 14:52:09 05/08/2024 17:05:36 Routine care 301369556 Z34.91 Gestation period, 12 weeks 46071059 Z3A.12 [id number] Ankush Navarro MD [facility] [address],[place] [address] 05/25/2024 15:09:54 05/25/2024 16:39:21 Routine care 724227255 Z34.91 [id number] [facility] [address],[place] [address] 05/26/2024 13:53:44 05/26/2024 14:58:04 Spotting per vagina in [id number] O26.852 Z3A.16 [id number] [facility] [address],[place] [address] 06/15/2024 17:23:20 06/16/2024 13:27:45 Spotting per vagina in [id number] O26.852 Z3A.19 [id number] [facility] [address],[place] [address] 06/23/2024 10:21:20 06/23/2024 12:10:06 screening for malformation 543933974 Z36.3 Z3A.20 [id number] Ankush Navarro MD [facility] [address],[place] [address] 06/23/2024 10:21:42 06/23/2024 12:50:55 Routine care [id number] Z34.91 [id number] [facility] [address],[place] [address] 07/21/2024 09:25:38 07/21/2024 10:21:49 Placenta succenturiata 78524639 O43.199 O44.42 Z3A.24 [id number] Ankush Navarro MD [facility] [address],[place] [address] 07/21/2024 09:26:03 07/21/2024 10:41:17 Routine care [id number] Z34.91 [id number] [facility] [address],[place] [address] 1 08/18/2024 09:26:12 08/18/2024 10:08:18 Placental condition affecting management of mother 376373078 O43.103 O43.193 Z3A.28 [id number] Ankush Navarro MD [facility] [address],[place] [address] 08/18/2024 09:26:26 08/18/2024 10:53:45 Routine care 139884901 Z34.91 Health Concerns Section Related Observation LastModified by Organization Detai ls LastModified Time None Recorded Concern Status LastModified by Organization Details LastModified Time None Recorded Advance Directives Directive None Recorded Payers Encounter Date Sequence Insurance Name Policy Number Policy Harden Covered Member ID Harden Member ID Guarantor Name 06/23/2024 1 [facility] ([employer]ICA[employer] HMO) [id number] Siobhan Akhtar [id number] Siobhan Akhtar 07/21/2024 1 [facility] (MEDICAID HMO) [id number] Siobhan Akhtar [id number] Siobhan Rosario Danamadyson 07/21/2024 1 [facility] (MEDICAID HMO) [id number] Siobhan Akhtar [id number] Siobhan Akhtar 08/18/2024 1 [facility] (MEDICAID HMO) [id number] Siobhan Ibarradiego [id number] Siobhan Ibarramaevemadyson 08/18/2024 1 [facility] (MEDICAID HMO) [id number] Siobhan Ibarramaevemadyson [id number] Siobhan Rosario Danamadyson OBGyn Episode Ob Episode Information Episode Created Date Number of Fetuses Patient Bloodtype Patient rh Status Prepregnancy Weight lbs Domestic Partner Domestic Partner Phone Father Name Seed Laboratory Technician Status 05/08/20 24 1 A Positive 137 OPEN Fetus Data First Name Last Name Admitted to NICU Weight (g) Sex Living Outcome Pediatric Complications Fetus ID Race Codes Race Delivery Type [id number] Problems Problem Notes accessory lobe - repeat linda jaida 06/23 Problem Name Start Date End Date Resolution Snomed Code Not e 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, low-lying placenta Henry Calculation Initial Henry Date Initial Exam Date Initial Exam Provider Initial Ultrasound Date Last Menstrual Period Date Ultra Sound Weeks Gestation 11/08/2024 05/08/2024 04/17/2024 02/03/2024 10 Eighteen To Twenty Week Henry Update Ultra Sound Date Fundal Height At Umbil Quickening Date Ultra Sound Latest Weeks Gestation Final Henry Confirmed By Final Henry Confirmed Date Final Henry Date Ultra Sound Latest Days Gestation 0 [email or web address] 05/08/2024 11/09/19 25 0 Pre-robinson Flowsheet Flowsheet Date 05/08/2024 Marshall Score Blood Edema Fundus Height Fundus Units Glucose Ketones Leukocytes Nitrite Labor Signs Protein Cervic Dilation Cervic Effacement Cervic Station Type Weight in lbs Pre/Post Dialysis Refused Weight 135.984347385425 BP Diastolic BP Location Tested BP Systolic BP Type 77 L arm 112 sitting Fetus Heart Rate Present Fetus Movement A No Comments this patient is a 24-year-ol d multiparous female at 12 weeks' gestation who presents for initial care. She has a history of term vaginal births. Her medical, surgical, obstetric history is unremarkable. She is vaccinated. She was given precautions recommendations for . We talked about vaccines in . Talked about care in detail. She is having genetic testing. She had a normal 12 week ultrasound. To begin routine care. Flowsheet Date 05/25/2024 Marshall Score Blood Edema Fundus Height Fundus Units Glucose Ketones Leukocytes Nitrite Labor Signs Protein Cervic Dilation Cervic Effacement Cervic Station Type Weight in lbs Pre/Post Dialysis Refused 136.076536590494 BP Diastolic BP Location Tested BP Systolic BP Type 77 L arm 121 sitting Fetus Heart Rate Present A 145 Fetus Movement A No Comments no complaints, no problems, routine care, no contractions, no vaginal bleeding, no loss of fluid, no cramping Flowsheet Date 05/26/2024 Marshall Score Blood Edema Fundus Height Fundus Units Glucose Ketones Leukocytes Nitrite Labor Signs Protein Cervic Dilation Cervic Effacement Cervic Station Type Weight in lbs Pre/Post Dialysis Refused BP Diastolic BP Location Tested BP Systolic BP Type Fetus Heart Rate Present Fetus Movement Comments Flowsheet Date 06/15/2024 Marshall Score Blood Edema Fundus Height Fundus Units Glucose Ketones Leukocytes Nitrite Labor Signs Protein Cervic Dilation Cervic Effacement Cervic Station Type Weight in lbs Pre/Post Dialysis Refused BP Diastolic BP Location Tested BP Systolic BP Type Fetus Heart Rate Present Fetus Movement Comments Flowsheet Date 06/23/2024 Marshall Score Blood Edema Fundus Height Fundus Units Glucose Ketones Leukocytes Nitrite Labor Signs Protein Cervic Dilation Cervic Effacement Cervic Station Type Weight in lbs Pre/Post Dialysis Refused BP Diastolic BP Location Tested BP Systolic BP Type Fetus Heart Rate Present Fetus Movement Comments Flowsheet Date 06/23/2024 Marshall Score Blood Edema Fundus Height Fundus Units Glucose Ketones Leukocytes Nitrite Labor Signs Protein Cervic Dilation Cervic Effacement Cervic Station Type Weight in lbs Pre/Post Dialysis Refused 138.452521403519 BP Diastolic BP Location Tested BP Systolic BP Type 83 L arm 126 sitting Fetus Heart Rate Present A 140 Fetus Movement A Yes Comments no complaints, no problems, routine care, no contractions, no vaginal bleeding, no loss of fluid, no cramping Flowsheet Date 07/21/2024 Marshall Score Blood Edema Fundus Height Fundus Units Glucose Ketones Leukocytes Nitrite Labor Signs Protein Cervic Dilation Cervic Effacement Cervic Station Type Weight in lbs Pre/Post Dialysis Refused BP Diastolic BP Location Tested BP Systolic BP Type Fetus Heart Rate Present Fetus Movement Comments Flowsheet Date 07/21/2024 Marshall Score Blood Edema Fundus Height Fundus Units Glucose Ketones Leukocytes Nitrite Labor Signs Protein Cervic Dilation Cervic Effacement Cervic Station Type Weight in lbs Pre/Post Dialysis Refused 139.427998886660 BP Diastolic BP Location Tested BP Systolic BP Type 73 L arm 107 sitting Fetus Heart Rate Present A 136 Fetus Movement A Yes Comments no complaints, no problems, routine care, no contractions, no vaginal bleeding, no loss of fluid, no crampingresolution of low lying placenta Flowsheet Date 08/18/2024 Marshall Score Blood Edema Fundus Height Fundus Units Glucose Ketones Leukocytes Nitrite Labor Signs Protein Cervic Dilation Cervic Effacement Cervic Station Type Weight in lbs Pre/Post Dialysis Refused BP Diastolic BP Location Tested BP Systolic BP Type Fetus Heart Rate Present Fetus Movement Comments Flowsheet Date 08/18/2024 Marshall Score Blood Edema Fundus Height Fundus Units Glucose Ketones Leukocytes Nitrite Labor Signs Protein Cervic Dilation Cervic Effacement Cervic Station Type Weight in lbs Pre/Post Dialysis Refused 146.081752240135 BP Diastolic BP Location Tested BP Systolic BP Type 72 L arm 115 sitting Fetus Heart Rate Present A 145 Fetus Movement A Yes Comments no complaints, no problems, routine care, no contractions, no vaginal bleeding, no loss of fluid, no cramping Menstrual History Last Menstrual Date Menses Monthly On Bcp Conception Prior Menses Frequency Hcg Plus Date Menarche Onset Age 0702/03/2024 false 12 Delivery Information Delivery Date Delivery Type Labor Anesthesia Weeks Gestation Incision Type Labor Labor Length Hrs Delivered By Post Complications Tubal Sterilization Discharge Date Comments Discharge Information Feeding Method Contraceptive Method Maternal HG B and HCT Levels
--- OUTSIDE RECORDS SUMMARY | 2024-08-28 10:36 | XMS_ITS | Encounter Summary ---
Author Organization [facility] Address [facility] [place] [address] Care Team Providers Care Optical Manufacturing Technician Name Role Phone Gabby Duran EXECUTIVE SALES MANAGER Primary Care Provider [phone] Encounter Details Date Type Department Care Team (Late st Contact Info) Description 10/25/2023 OrganizedWisdomhart Message Enc [facility] - [place] [address] [place] [address] Gabby Duran NP [address] [place], [place] [phone] Oral surgeon Social History Tobacco Use Types Packs/Day Years [...] on file documented as of this encounter Plan of Treatment Not on file documented as of this encounter Visit Diagnoses Not on filedocumented in this encounter Additional Health Concerns Assessment Noted Time PHQ-9 Depression Total Score: 11 024 4:34 PM SILVERWARE SUPERVISOR documented as of this encounter Care Teams Optical Manufacturing Technician Relationship Specialty Start Date End Date Gabby Duran EXECUTIVE SALES MANAGER [address] [place], [place] [phone] PCP - General Nurse Practitioner Family 09/09/23 documented as of this encounter
--- OUTSIDE RECORDS SUMMARY | 2024-08-28 10:36 | XMS_ITS | Clinical Summary ---
Author Organization [facility] Address [facility] [place] [address] Care Team Providers Care Parole Supervisor Name Role Phone Gabby Duran NP Primary Care Provider [phone] Allergies No known active allergies Medications albuterol sulfate HFA 108 (90 Base) MCG/ACT inhaler INHALE 2 PUFFS INTO THE LUNGS FOUR TIMES DAILY NEEDED FOR SHORTNESS OF BREATH OR WHEEZING Active Spacer/Aero-Holdin g Chambers (VALVED HOLDING CHAMBER) Device as directed with inhaler 3 Active vitamin D2, ergocalciferol, (DRISDOL) 1.25 mg capsuleIndications :Vitamin D deficiency Take 1 capsule (50,000 Units total) by mouth every 7 days. 12 capsule 3 4 Active ondansetron (ZOFRAN-ODT) 4 MG disintegrating tabletIndications: Nausea Take 1 tablet (4 mg total) by mouth every 8 (eight) hours as needed for Nausea. 20 tablet 4 Active escitalopram (LEXAPRO) 10 MG tabletIndications: Anxiety Take 1 tablet (10 mg total) by mouth daily. 30 tablet 1 4 Active Active Problems No known active problems Immunizations Name Administration Dates Next Due Dtap (Acel-Immune) 03/15/2006, 2,2001,01/2002,2001 HPV4 (Gardasil) 07/31/2014,02/19/2013,03/19/2012 Hepatitis A (Generic) 03/01/2008,06/27/2007 Hepatitis A (Havrix [address]) 03/01/2008, 007 Hib-Hepatitis B (Comvax) 06/23/2002,2001,1 Influenza (Generic) 05/14/2013,07/13/2008,2007 MENINGOCOCCAL A C Y&W-135 oligosaccharide (MENVEO) 03/19/2012 MMR (MMRII) 03/15/2006,03/25/2002 Meningococcal (Menactra) 02/24/2018,03/19/2012 Pneumococcal (Generic) 06/23/2002,2001,2001,04/22 Pneumococcal (Prevnar 7) 2001,2001,1 Polio IPV (Ipol) 03/15/2006, 2,2001,04/22 Tdap (Generic) 02/11/2019,03/19/2012 Varicella (Varivax) 06/27/2007,03/25/2002 Family History Medical History Relation Comments Hypertension Father Thyroid Maternal Aunt Thyroid Mother Cancer Paternal Aunt thyroid cancer Thyroid Paternal Aunt Relation Status Comments Father Alive Maternal Aunt Alive Mother Alive Paternal Aunt Alive Social History Tobacco Use Types Packs/Day Years Used Date Smoking Tobacco: Every Day Passive Smoke Exposure: Never Smokeless Tobacco: Never Tobacco Cessation:Ready to Q uit: No; Counseling Given: Yes Comments:vapes Alcohol Use Standard Drinks/Week Comments Yes [...] Sign Reading Time Taken Comments Blood Pressure 118/76 12/30/2023 3:30 PM CDT Pulse 77 12/30/2023 3:30 PM CDT Temperature 36.2 C (97.2 F) 12/30/2023 3:30 PM CDT Respiratory Rate 16 12/30/2023 3:30 PM CDT Oxygen Saturation 97% 12/30/2023 3:30 PM CDT Inhaled Oxygen Concentration - - Weight 61.2 kg (135 lb) 12/30/2023 3:30 PM CDT Height 154.9 cm (5' 1 ) 12/30/2023 3:30 PM CDT Body Mass Index 25.51 12/30/2023 3:30 PM CDT Plan of Treatment Health Maintenance Due Date Last Done Comments Pneumococcal Vaccine: Pediatrics (0 to 5 Years) and At-Risk Patients (6 to 64 Years) (1 of 2 - PCV) 2007 06/23/2002, 2001, 2001, Additional history exists Meningococcal B Vaccine (1 of 2 - Standard) 2017 Hepatitis C 2019 COVID-19 Vaccine ( season) 2024 Influenza Adult (#1) 2024 05/14/2013, 07/13/2008, 06/09/2008 PHQ-2 (Physician [place]) 07/22/2024 09/09/2023 Annual Physical 09/09/2024 09/09/2023 PHQ-2 (Physician [place]) 09/09/2024 09/09/2023 Cervical Cancer Screening Pap Smear (Age 21 to 29) Every 3 Years 03/29/2026 03/29/2023 Cervical Cancer Screening 03/29/2026 DTaP, Tdap and Td Vaccines (8 - Td or Tdap) 02/11/2029 02/11/2019, 03/19/2012, 03/15/2006, Additional history exists Hepatitis B Vaccines Completed 06/23/2002, 2001, 2001 HPV Vaccines Completed 07/31/2014, 0807/2012, 03/19/2012 Meningococcal Vaccine Completed 02/24/2018 , 03/19/2012, 03/19/2012 RSV Immunizations Under 20 Months Aged Out No longer eligible based on patient's age to complete this topic Insurance [employer] Care Teams Parole Supervisor Relationship Specialty Start Date End Date Gabby Duran NP [address] [place] [address] PCP - General Nurse Practitioner Family 09/09/23
--- OUTSIDE RECORDS SUMMARY | 2024-08-28 10:36 | XMS_ITS | Encounter Summary ---
Author Organization [facility] Address [address] [place] [address] Care Team Providers Care Bridal Sales Consultant Name Role Phone Tatyana Fierro MD Primary Care Provider [phone] Encounter Details Date Type Department Care Team (Late st Contact Info) Description 07/12/2021 Lab Requisition [facility] [address] [place] [address] Christian Bolton MD [address] [place] [address] Social History Tobacco Use Types Packs/Day Years Used Date Smoking Tobacco: Passive Smo ke Exposure - Never Smoker Smokeless Tobacco: Never Alcohol Use Standard Drinks/Week Comments No 0 (1 standard drink = 0.6 oz pur e alcohol) Sex and Gender Information Value Date Recorded Sex Assigned at Not on file Gender Identity Not on file Sexual Orientation Not on file documented as of this encounter Functional Status Functional Status Response Date of Assess ment Is person deaf or have serious hearing difficult y? No 01/19/2016 Is person blind or have serious difficulty seein g? No 01/19/2016 Does person have serious dif ficulty walking/climbing stairs? No 01/19/2016 Does person have difficulty dressing/bathing? No 01/19/2016 Does person have difficulty doing errands alone? No 01/19/2016 Cognitive Status Response Date of Assessm ent Does person have difficulty concentrating/remembering/making decisions? No 01/19/2016 documented as of this encounter Plan of Treatment Not on file documented as of this encounter Goals Goal Patient Goal Type Associated Problems Recent Progress Patient-Stated? Author [facility] Lifestyle: Use safety retraint in car Lifestyle On track( 018 10:17 AM CDT) No Suri Wiggins RN documented as of this encounter Procedures Procedure Name Priority Date/Time Associated Diagnosis Comments DERMATOPATHOLOGY Routine 07/12/2021 12:0 0 AM SKIVER BLOCKERS documented in this encounter Results * DERMATOPATHOLOGY (07/12/2021 12:00 AM [facility]ERS) Case Report Dermatopathology Report Case: [id number] Authorizing Provider: Christian Bolton MD Collected: 07/12/2021 12:00 AM Ordering Location: [facility] Received: 07/12/2021 03:42 PM Pathologist: Abraham Allen MD Specimens: A) - Skin, right neck B) - Skin, right neck sup 1 5:20 PM [facility] Final Diagnosis Specimen A. SKIN, right neck: COMPOUND MELANOCYTIC NEVUS (D22.4) Specimen B. SKIN, right neck sup: COMPOUND MELANOCYTIC NEVUS (D22.4) 1 5:20 PM [facility] Clinical History A: Nevus R/O atypia. Path # [id number]. B: Nevus R/O atypia. Path # [id number]. 1 5:20 PM [facility] Gross Description Specimen A: Received is one formalin filled container labeled with the patient's name and designated right neck. The specimen consists of a shave biopsy measuring 1l7x6xx. Jar 0. Specimen B: Received is one formalin filled container labeled with the patient's name and designated right neck sup. The specimen consists of a shave biopsy measuring 5b3l1im. Jar 0. 1 5:20 PM [facility] Microscopic Description Specimen A. SKIN, right neck: There are nests of melanocytes at the dermal-epidermal junction and within the dermis. Specimen B. SKIN, right neck sup: There are nests of melanocytes at the dermal-epidermal junction and within the dermis. 1 5:20 PM [facility] Disclaimer An external and internal positive and negative controls are appropriate for the histochemical, immunohistochemical and immunofluorescence stain(s) in this case (if any), except where stated explicitly. The performance characteristics of the stain(s) cited in this report were developed and its performance characteristic determined by the Dermatopathology Laboratory at [facility], directed by Dr. Edvin Allen. These tests need not be, and therefore are not, approved by the [place] Food and Drug Administration. The tests are used for clinical purposes. Billing Codes Specimen Charges Stain Charges 62185 16617 1 1 1 5:20 PM [facility] Embedded Images 1 5:20 PM [facility] Pathology/Cytology TISSUE SPECIMEN FROM SKIN / Unknown 07/12/2021 07/12/2021 3:42 PM [facility] Miscellaneous samples (specimen) TISSUE SPECIMEN FROM SKIN / Unknown 07/12/2021 07/12/2021 3:42 PM [facility] Christian Bolton MD LAB - PATHOLOGY/CYTO LOGY ORDERABLES DERMATOPATHOLOGY LABORATORY [facility] Department of Dermatology [address], [address] [phone] documented in this encounter Visit Diagnoses Not on filedocumented in this encounter Care Teams Bridal Sales Consultant Relationship Specialty Start Date End Date Tatyana Fierro MD PCP - General 04/26/20 documented as of this encounter
--- OUTSIDE RECORDS SUMMARY | 2024-08-28 10:36 | XMS_ITS | Clinical Summary ---
Author Organization [facility] Address [address] [address] Phone Care Team Providers Care Readiness Paraprofessional Name Role Phone Tatyana Fierro MD Primary Care Provider [phone] Allergies No known active allergies Medications medroxyPROGEST ERone (DEPO-PROVERA) 150 MG/ML Suspension 1 Dose by Intramuscular route. 9 Active Evening Pender Oil 1000 MG Capsule Take 1 Cap by mouth 3 times daily. 40 Cap 2 0 Active Family History Medical History Relation Name Comments Asthma Brother 1 Hypertension Father Coronary Artery Disease Mother Hypothyroidism Mother Asthma Sister Relation Name Status Comments Brother 1 Alive Brother 2 Alive Father Alive Mother Alive Sister Alive Social History Tobacco Use Types Packs/Day Years Used Date Smoking Tobacco: Never Smokeless Tobacco: Never Alcohol Use Standard Drinks/Week Comments Not Currently 0 (1 standard drink = 0.6 oz pur e alcohol) Comments No Sex and Gender Information Value Date Recorded Sex Assigned at Not on file Legal Sex Female 12:44 PM CDT Gender Identity Not on file Sexual Orientation Not on file Last Filed Vital Signs Vital Sign Reading Time Taken Comments Blood Pressure - - Pulse - - Temperature 37.9 C (100.2 F) 04/25/2020 3:12 PM CDT Respiratory Rate - - Oxygen Saturation - - Inhaled Oxygen Concentration - - Weight 44.6 kg (98 lb 6.4 oz) 04/25/2020 3:12 PM CDT Height 154.9 cm (5' 1 ) 04/25/2020 3:12 PM CDT Body Mass Index 18.59 04/25/2020 3:12 PM CDT Plan of Treatment Health Maintenance Due Date Last Done Comments Hepatitis C Virus (HCV) Screening 2001 Hepatitis B Immunization (3 of 3 - 3-dose series) 2001 2001, 2001 Meningococcal B Immunization (1 of 2 - Standard) 2017 Pap Smear 2022 Influenza Immunization (#1) 2024 SARS-COV-2 Immunization (1 - 2023- season) 2024 Respiratory Syncytial Virus (RSV) Immunization (Adult) (1 - 1-dose 75+ series) 2076 Pneumococcal Immunization Combined Aged Out 2001, 2001, 2001 No longer eligible based on patient's age to complete this topic Human Papillomavirus (HPV) Immunization Completed 07/31/2014, 02/19/2013 Meningococcal Immunization (ACWY) Completed 02/24/2018, 03/19/2012 DTaP/Tdap/Td Immunization Discontinued 2018, 03/19/2012, 03/15/2006, Additional history exists TdaP Immunization Completed 02/11/2019, 03/19/2012 Rotavirus Immunization Aged Out No lo nger eligible based on patient's age to complete this topic Insurance MEDICAID [facility] Care Teams Readiness Paraprofessional Relationship Specialty Start Date End Date Tatyana Fierro MD [address] [address] PCP - General Pediatrics 04/25/20
--- OUTSIDE RECORDS SUMMARY | 2024-08-28 10:36 | XMS_ITS | Referral Summary ---
Author Organization [facility] Address [address] [place] [address] Care Team Providers Care Solar Energy Engineer Name Role Phone Tatyana Fierro MD Primary Care Provider [phone] Source Comments [facility],non-owned Affiliates and Associated Physician Practices is amultiple site organization consisting of ambulatory clinics and hospital sitesin [place], [place], [place] and [place]. This disclosure is being madepursuant to the Care Everywhere program and may not contain all information available regarding this patient. Last updated 18.[facility] Allergies No known active allergies Medications * Be aware that medications may not be up to date on this document. Alwaysverify current medications with the patient. Medication Sig Dispensed Refills Start Date End Date Status Spacer/Aero-Holding Chambers (AEROCHAMBER PLUS MADDISON-VU) Inhale by mouth as directed 1 Each 12/12/2016 Active albuterol HFA (PROVENTIL;VENTOLIN; PROAIR) 108 (90 BASE) MCG/ACT inhaler Inhale 2 Puffs by mouth every 4 hours as needed for Shortness of Breath, Wheezing or Cough 1 Inhaler 5 02/21/2017 Active polyethylene glycol 3350 (MIRALAX) powder Take 17 g by mouth once daily 500 g 11 05/26/2018 Active hyoscyamine 0.125 MG tablet Take 1 tablet by mouth every 4 hours as needed for Spasms 30 tablet 3 09/29/2018 Active EPINEPHrine (EPIPEN) 0.3 MG/0.3ML auto-injector pen 12/01/2018 Active medroxyPROGESTERone (DEPO-PROVERA) 150 MG/ML vial Inject 1 Dose into muscle once 10/27/2018 Active azithromycin (ZITHROMAX) 250 MG tablet Take 2 tabs today, then 1 tab daily for next 4 days 6 tablet 05/21/2019 Active Active Problems Problem Noted Date Diagnosed Date Puncture wound of skin from metal nail 9 Overview (02/11/2019): 02/11/19-TDAP given. Bilateral hand pain 12/27/2017 Well child visit 01/16/2010 Overview (02/24/2018): 9 y/o 11 y/o 03/13/11 12 y/o 03/19/12 13 yr 02/19/13 14 yr 07/31/14 15 yr 01/30/16 16 yr 02/21/17 17 yr 02/24/18 Allergic reaction 01/06/2010 Resolved Problems Problem Noted Date Diagnosed Date Resolved Date Patellofemoral stress syndrome of left knee 06/08/2016 02/21/2017 Inappropriate sinus tachycardia 07/08/2014 02/21/2017 Overview (08/12/2014): 07/08/14 Atenolol 25 mg q d - [facility] Dysmenorrhea 01/21/2014 02/21/2017 Overview (01/21/2014): 01/21/14 start OCP Scabies 06/04/2013 02/21/2017 Knee pain, right 06/20/2012 02/21/2017 Overview (07/28/2012): 06/20/12 X-ray, CBC, ESR, CRP, ALETHA, RF, Naprosyn Scoliosis 03/19/2012 02/21/2017 Overview (03/19/2012): 03/19/12 check xrays Sever's disease 03/13/2011 02/21/2017 Streptococcal pharyngitis 08/02/2010 Overview (12/05/2018): 08/02/10 zithromax 12/05/18 ceftin Breast buds 06/27/2010 02/21/2017 Wears glasses 01/16/2010 03/13/2011 Otalgia 09/21/2009 02/21/2017 Immunizations Name Administration Dates Next Due INFLUENZA VACCINE, TRIV. (AF LURIA, FLUZONE TRIVALENT; 6MO+) (IIV3) 05/14/2013 DTaP VACCINE IM (6wk-6yrs) 03/15/2006,,2001,07/28,2001 HEP A PEDS 2 DOSE 03/01/2008,06/27/2007 HIB Hep B 06/23/2002,2001,2001 Human Papilloma Virus Wayne valent Vaccine 07/31/2014,02/19/2013,03/19/2012 INFLUENZA VACCINE 07/10/2008,06/09/2008 MENINGOCOCCAL CONJUGATE (MCV4P) 02/24/2018,03/19 MMR 03/15/2006,03/25/2002 PNEUMOCOCCAL CONJ, PEDS 06/23/2002,10/06,2001,05/19 POLIO IPV 03/15/2006, 2,2001,05/19 TDAP (7yrs+) 02/11/2019,03/19/2012 VARICELLA 06/27/2007,03/25/2002 Social History Tobacco Use Types Packs/Day Years [...] Sign Reading Time Taken Comments Blood Pressure 112/60 05/26/2018 1:28 PM PUPPY TRAINER Pulse 91 07/29/2018 11:26 AM PUPPY TRAINER Temperature 36.6 C (97.8 F) 05/18/2019 10:05 AM CDT Respiratory Rate 16 07/19/2017 11:30 AM PUPPY TRAINER Oxygen Saturation 99% 07/29/2018 11:26 AM PUPPY TRAINER Inhaled Oxygen Concentration - - Weight 47 kg (103 lb 9.6 oz) 05/18/2019 10:05 AM CDT Height 156.3 cm (5' 1.54 ) 05/26/2018 1:28 PM CS T Body Mass Index - - Functional Status Functional Status Response Date of [...] person have difficulty concentrating/remembering/making decisions? No 01/19/2016 Plan of Treatment Not on file Goals Goal Patient Goal Type Associated Problems Recent Progress Patient-Stated? Author [facility] Lifestyle: Use safety retraint in car Lifestyle On track( 018 10:17 AM CDT) Suri Urban RN Procedures Procedure Name Priority Date/Time Associated Diagnosis Comments CHLAMYDIA + GC AMPLIFIED PROBE STAT 08/02/2015 3:25 AM PUPPY TRAINER from Last 3 Months or Most Recently Relevant to Health Maintenance Results * CHLAMYDIA + GC AMPLIFIED PROBE (08/02/2015 3:25 AM PUPPY TRAINER) Chlamydia Amplified Probe Negative Negative 08/03/2015 7:29 AM PUPPY TRAINER [facility] GC Amplified Probe Negative Negative 08/03/2015 7:29 AM PUPPY TRAINER [facility] Urine URINE / Unknown Collection / Unknown 08/02/2015 3:25 AM PUPPY TRAINER 08/02/2015 4:32 AM PUPPY TRAINER Narrative [facility] - 08/03/2015 7:29 AM PUPPY TRAINER This test was developed and its performance characteristics determined by the [facility], [facility]. Female urine specimens tested by the [facility] have not been cleared or approved by the U.S. Food and Drug Administration (FDA). The laboratory is regulated under the Clinical Laboratory Improvement Amendments (CLIA) as qualified to perform high-complexity testing. This test is used for clinical purposes. It should not be regarded as investigational or for research. Results based on detection/no detection of ribosomal RNA by amplified method. Doug Randhawa MD LAB - MICROBIOLOGY O RDERABLES [facility] [address] [place] [address], [facility] [phone] from Last 3 Months or Most Recently Relevant to Health Maintenance Administered Medications Advance Directives * Full Code (Latest Code Status on File) Date Activated Date Inactivated Comments 01/20/2016 1:33 PM 01/20/2016 8:57 PM * Full Code Date Activated Date Inactivated Comments 01/19/2016 8:20 PM 01/20/2016 1:33 PM Care Teams Solar Energy Engineer Relationship Specialty Start Date End Date Tatyana Fierro MD PCP - General 04/26/20
--- OUTSIDE RECORDS SUMMARY | 2024-08-28 10:37 | XMS_ITS | Patient Health Summary ---
Author Organization [facility] Address [address] [place] [address] Care Team Providers Care [employer] Name Role Phone Tatyana Fierro MD Primary Care Provider [phone] Note from [facility],non-owned Affiliates and Associated Physician Practices is amultiple site organization consisting of ambulatory clinics and hospital sitesin [place], [place], [place] and [place]. This disclosure is being madepursuant to the Care Everywhere program and may not contain all information available regarding this patient. Last updated 18.[facility] Allergies No known active allergies* Triamcinolone,Inactive Medications * Be aware that medications may not be up to date on this document. Alwaysverify current medications with the patient. * Spacer/Aero-Holding Chambers (AEROCHAMBER PLUS MADDISON-VU)(Started 12/12/2016) Inhale by mouth as directed * albuterol HFA (PROVENTIL;VENTOLIN;PROAIR) 108 (90 BASE) MCG/ACT inhaler (Started 02/21/2017) Inhale 2 Puffs by mouth every 4 hours as needed for Shortness of Breath, Wheezing or Cough 5 refills remaining * polyethylene glycol 3350 (MIRALAX) powder(Started 05/26/2018) Take 17 g by mouth once daily 11 refills remaining * hyoscyamine 0.125 MG tablet(Started 09/29/2018) Take 1 tablet by mouth every 4 hours as needed for Spasms 3 refills remaining * EPINEPHrine (EPIPEN) 0.3 MG/0.3ML auto-injector pen(Started 12/01/2018) * medroxyPROGESTERone (DEPO-PROVERA) 150 MG/ML vial(Started 10/27/2018) Inject 1 Dose into muscle once * azithromycin (ZITHROMAX) 250 MG tablet(Started 05/21/2019) Take 2 tabs today, then 1 tab daily for next 4 days Active Problems Problem Noted Date Diagnosed Date Puncture wound of skin from metal nail 9 Bilateral hand pain 12/27/2017 Well child visit 01/16/2010 Allergic reaction 01/06/2010 Resolved Problems Problem Noted Date Diagnosed Date Resolved Date Patellofemoral stress syndrome of left knee 06/08/2016 02/21/2017 Inappropriate sinus tachycardia 07/08/2014 02/21/2017 Dysmenorrhea 01/21/2014 02/21/2017 Scabies 06/04/2013 02/21/2017 Knee pain, right 06/20/2012 02/21/2017 Scoliosis 03/19/2012 02/21/2017 Sever's disease 03/13/2011 02/21/2017 Streptococcal pharyngitis 08/02/2010 Breast buds 06/27/2010 02/21/2017 Wears glasses 01/16/2010 03/13/2011 Otalgia 09/21/2009 02/21/2017 Immunizations * INFLUENZA VACCINE, TRIV. (AFLURIA, FLUZONE TRIVALENT; 6MO+) (IIV3)(Given 05/14/2013) * DTaP VACCINE IM (6wk-6yrs)(Given 03/15/2006, 06/23/2002, 2001, 2001, 2001) * HEP A PEDS 2 DOSE(Given 03/01/2008, 06/27/2007) * HIB Hep B(Given 06/23/2002, 2001, 2001) * Human Papilloma Virus Quadrivalent Vaccine(Given 07/31/2014, 02/19/2013, 03/19/2012) * INFLUENZA VACCINE(Given 07/10/2008, 06/09/2008) * MENINGOCOCCAL CONJUGATE (MCV4P)(Given 02/24/2018, 03/19/2012) * MMR(Given 03/15/2006, 03/25/2002) * PNEUMOCOCCAL CONJ, PEDS(Given 06/23/2002, 2001, 2001, 2001) * POLIO IPV(Given 03/15/2006, 03/25/2002, 2001, 2001) * TDAP (7yrs+)(Given 02/11/2019, 03/19/2012) * VARICELLA(Given 06/27/2007, 03/25/2002) Social History Tobacco Use Types Packs/Day Years [...] Comments Blood Pressure 112/60 05/26/2018 1:28 PM SCHOOL PSYCHOLOGIST ASSISTANT Pulse 91 07/29/2018 11:26 AM SCHOOL PSYCHOLOGIST ASSISTANT Temperature 36.6 C (97.8 F) 05/18/2019 10:05 AM CDT Respiratory Rate 16 07/19/2017 11:30 AM SCHOOL PSYCHOLOGIST ASSISTANT Oxygen Saturation 99% 07/29/2018 11:26 AM SCHOOL PSYCHOLOGIST ASSISTANT Inhaled Oxygen Concentration - - Weight 47 kg (103 lb 9.6 oz) 05/18/2019 10:05 AM CDT Height 156.3 cm (5' 1.54 ) 05/26/2018 1:28 PM CS T Body Mass Index - - Procedures * DERMATOPATHOLOGY(Performed 07/12/2021) * COMPREHENSIVE METABOLIC PANEL(Performed 05/25/2019) Performed for Weight loss * THYROID PEROXIDASE ANTIBODY(Performed 05/25/2019) Performed for Family history of thyroid disease * TSH(Performed 05/25/2019) Performed for Weight loss, Family history of thyroid disease * T4 TOTAL(Performed 05/25/2019) Performed for Weight loss, Family history of thyroid disease * RHEUMATOID FACTOR BLOOD QUANTITATIVE(Performed 05/25/2019) Performed for Acute pain of left knee * ERYTHROCYTE SEDIMENTATION RATE(Performed 05/25/2019) Performed for Acute pain of left knee * CBC W AUTO DIFFERENTIAL(Performed 05/25/2019) Performed for Weight loss * CULTURE STREP GROUP A(Performed 05/18/2019) Performed for Acute pharyngitis, unspecified etiology * STREP A SCREEN - POINT OF CARE (AMB) STL(Performed 05/18/2019) Performed for Acute pharyngitis, unspecified etiology * LAB RESULTS ORDER(Performed 12/29/2018) * LAB RESULTS ORDER(Performed 12/29/2018) * KENYATTA-GRAY VIRUS ANTIBODY PANEL(Performed 12/29/2018) Performed for Fatigue, unspecified type * CULTURE STREP GROUP A(Performed 12/25/2018) Performed for Pharyngitis, unspecified etiology * STREP A SCREEN - POINT OF CARE (AMB) STL(Performed 12/25/2018) Performed for Pharyngitis, unspecified etiology * ALLERGEN RESPIRATORY PNL REGION 8 ([place])(Performed 12/09/2018) Performed for Allergic reaction, sequela * ALLERGEN FOOD COMMON ADULT PROFILE(Performed 12/09/2018) Performed for Allergic reaction, sequela * STREP A SCREEN - POINT OF CARE (AMB) STL(Performed 12/05/2018) Performed for Acute pharyngitis, unspecified etiology * IMAGING/RADIOLOGY/XRAY RESULTS ORDER(Performed 08/19/2018) * LAB RESULTS ORDER(Performed 05/14/2018) * LAB RESULTS ORDER(Performed 05/06/2018) * HEMOGLOBIN - POINT OF CARE (AMB)(Performed 02/24/2018) Performed for Screening, anemia, deficiency, iron * SKIN TEST PPD - POINT OF CARE(Performed 02/15/2018) Performed for Screening-pulmonary TB * XR HAND LEFT 3VW OR MORE(Performed 12/27/2017) Performed for Bilateral hand pain * XR HAND RIGHT 3VW OR MORE(Performed 12/27/2017) Performed for Bilateral hand pain * HELICOBACTER PYLORI UREASE (STL)(Performed 07/19/2017) Performed for Diarrhea, unspecified type * PATHOLOGY TISSUE EXAM (STL)(Performed 07/19/2017) Performed for Pain, abdominal, generalized * ESOPHAGOGASTRODUODENOSCOPY (EGD) BIOPSY(Performed 07/19/2017) Performed for Pain, abdominal, generalized * COLONOSCOPY BIOPSY (ANY METHOD)(Performed 07/19/2017) Performed for Pain, abdominal, generalized * HCG URINE QUALITATIVE - POCT (IP) BEAKER(Performed 07/19/2017) * ENDOSCOPY, COLON, DIAGNOSTIC(Performed 07/19/2017) Performed for Diarrhea, unspecified type * EGD(Performed 07/19/2017) Performed for Diarrhea, unspecified type * IGA BLOOD(Performed 05/15/2017) Performed for Diarrhea, unspecified type * TISSUE TRANSGLUTAMINASE AB IGA(Performed 05/15/2017) Performed for Diarrhea, unspecified type * C-REACTIVE PROTEIN(Performed 05/15/2017) Performed for Diarrhea, unspecified type * COMPREHENSIVE METABOLIC PANEL(Performed 05/15/2017) Performed for Diarrhea, unspecified type * CBC W MANUAL DIFFERENTIAL(Performed 05/15/2017) Performed for Diarrhea, unspecified type * REDUCING SUBSTANCE FECES(Performed 05/08/2017) Performed for Diarrhea, unspecified type * FECAL LEUKOCYTES(Performed 05/08/2017) Performed for Diarrhea, unspecified type * IMAGING/RADIOLOGY/XRAY RESULTS ORDER(Performed 11/26/2016) * IMAGING/RADIOLOGY/XRAY RESULTS ORDER(Performed 06/06/2016) * IMAGING/RADIOLOGY/XRAY RESULTS ORDER(Performed 05/30/2016) * PATHOLOGY TISSUE EXAM (STL)(Performed 01/20/2016) Performed for Acute appendicitis, unspecified acute appendicitis type * LAPAROSCOPIC APPENDECTOMY(Performed 01/20/2016) * URINE MICROSCOPIC ONLY(Performed 01/19/2016) * URINALYSIS REFLEX TO MICROSCOPIC NO CULTURE(Performed 01/19/2016) * LIPASE BLOOD(Performed 01/19/2016) * COMPREHENSIVE METABOLIC PANEL(Performed 01/19/2016) * CBC W AUTO DIFFERENTIAL(Performed 01/19/2016) * HCG URINE QUALITATIVE - POCT (IP) BEAKER(Performed 01/19/2016) * US ABDOMEN LIMITED(Performed 01/19/2016) Performed for Abdominal pain, RLQ (right lower quadrant) * US PELVIS W DOPPLER OVARIES(Performed 01/19/2016) Performed for Abdominal pain, RLQ (right lower quadrant) * US ABDOMEN LIMITED(Performed 01/17/2016) Performed for RLQ abdominal pain * HCG URINE QUALITATIVE - POCT (IP) BEAKER(Performed 01/17/2016) * URINE MICROSCOPIC ONLY(Performed 01/17/2016) * URINALYSIS REFLEX TO MICROSCOPIC NO CULTURE(Performed 01/17/2016) * CULTURE URINE(Performed 01/17/2016) * LIPASE BLOOD(Performed 01/17/2016) * AMYLASE BLOOD(Performed 01/17/2016) * COMPREHENSIVE METABOLIC PANEL(Performed 01/17/2016) * CBC W AUTO DIFFERENTIAL(Performed 01/17/2016) * CT ABDOMEN PELVIS W CONTRAST(Performed 08/17/2015) Performed for Abdominal pain, RLQ (right lower quadrant) * US ABDOMEN LIMITED(Performed 08/02/2015) Performed for Abdominal pain, right lower quadrant * US KIDNEYS W BLADDER(Performed 08/02/2015) Performed for Abdominal pain, right lower quadrant * US PELVIS W DOPPLER OVARIES(Performed 08/02/2015) Performed for Abdominal pain, right lower quadrant * XR ABDOMEN KUB(Performed 08/02/2015) Performed for Abdominal pain, right lower quadrant * URINE MICROSCOPIC ONLY REFLEX TO CULTURE(Performed 08/02/2015) * URINALYSIS REFLEX MICROSCOPIC REFLEX CULTURE(Performed 08/02/2015) * CHLAMYDIA + GC AMPLIFIED PROBE(Performed 08/02/2015) * CULTURE URINE(Performed 08/02/2015) * CBC W AUTO DIFFERENTIAL(Performed 08/02/2015) * HCG URINE QUALITATIVE - POCT (IP) BEAKER(Performed 08/02/2015) * MRI KNEE LEFT WO CONTRAST(Performed 12/08/2014) Performed for Left knee pain, Numbness in left leg * XR KNEE RIGHT 3VW(Performed 10/07/2014) Performed for Juvenile idiopathic arthritis (HCC), Left knee pain, Joint swelling * XR KNEE LEFT 3VW(Performed 10/07/2014) Performed for Juvenile idiopathic arthritis (HCC), Left knee pain, Joint swelling * CYCLIC CITRULLINATED PEPTIDE(CCP) AB IGG(Performed 10/07/2014) Performed for Juvenile idiopathic arthritis (HCC), Left knee pain, Joint swelling * RHEUMATOID FACTOR BLOOD SCREEN(Performed 10/07/2014) Performed for Juvenile idiopathic arthritis (HCC), Left knee pain, Joint swelling * URINE MICROSCOPIC ONLY(Performed 10/07/2014) Performed for Juvenile idiopathic arthritis (HCC), Left knee pain, Joint swelling * CHROMATIN ANTIBODY(Performed 10/07/2014) Performed for Juvenile idiopathic arthritis (HCC), Left knee pain, Joint swelling * VITAMIN D 25-HYDROXY(Performed 10/07/2014) Performed for Juvenile idiopathic arthritis (HCC), Left knee pain, Joint swelling * ALETHA BLOOD SCREEN W/REFLEX TITER(Performed 10/07/2014) Performed for Juvenile idiopathic arthritis (HCC), Left knee pain, Joint swelling * SCLERODERMA 70 (SCL) ANTIBODY(Performed 10/07/2014) Performed for Juvenile idiopathic arthritis (HCC), Left knee pain, Joint swelling * DNA ANTIBODY DOUBLE STRANDED(Performed 10/07/2014) Performed for Juvenile idiopathic arthritis (HCC), Left knee pain, Joint swelling * SS-B (SJOGREN'S) ANTIBODY(Performed 10/07/2014) Performed for Juvenile idiopathic arthritis (HCC), Left knee pain, Joint swelling * SS-A (SJOGREN'S) ANTIBODY(Performed 10/07/2014) Performed for Juvenile idiopathic arthritis (HCC), Left knee pain, Joint swelling * COHN (SM) ANTIBODY GOLD(Performed 10/07/2014) Performed for Juvenile idiopathic arthritis (HCC), Left knee pain, Joint swelling * COMPLEMENT TOTAL(Performed 10/07/2014) Performed for Juvenile idiopathic arthritis (HCC), Left knee pain, Joint swelling * COMPLEMENT C4(Performed 10/07/2014) Performed for Juvenile idiopathic arthritis (HCC), Left knee pain, Joint swelling * COMPLEMENT C3(Performed 10/07/2014) Performed for Juvenile idiopathic arthritis (HCC), Left knee pain, Joint swelling * URINALYSIS REFLEX TO MICROSCOPIC NO CULTURE(Performed 10/07/2014) Performed for Juvenile idiopathic arthritis (HCC), Left knee pain, Joint swelling * C-REACTIVE PROTEIN(Performed 10/07/2014) Performed for Juvenile idiopathic arthritis (HCC), Left knee pain, Joint swelling * ERYTHROCYTE SEDIMENTATION RATE(Performed 10/07/2014) Performed for Juvenile idiopathic arthritis (HCC), Left knee pain, Joint swelling * COMPREHENSIVE METABOLIC PANEL(Performed 10/07/2014) Performed for Juvenile idiopathic arthritis (HCC), Left knee pain, Joint swelling * CBC W AUTO DIFFERENTIAL(Performed 10/07/2014) Performed for Juvenile idiopathic arthritis (HCC), Left knee pain, Joint swelling * IMAGING/RADIOLOGY/XRAY RESULTS ORDER(Performed 09/03/2014) * CULTURE URINE(Performed 08/27/2014) Performed for Abdominal pain, RLQ (right lower quadrant) * URINALYSIS W MICROSCOPIC - POINT OF CARE(Performed 08/27/2014) Performed for Abdominal pain, RLQ (right lower quadrant) * ERYTHROCYTE SEDIMENTATION RATE(Performed 06/24/2014) Performed for Knee pain, left, History of juvenile rheumatoid arthritis * C-REACTIVE PROTEIN(Performed 06/24/2014) Performed for Knee pain, left, History of juvenile rheumatoid arthritis * CBC W MANUAL DIFFERENTIAL(Performed 06/24/2014) Performed for Knee pain, left, History of juvenile rheumatoid arthritis * XR KNEE LEFT 4VW OR MORE(Performed 06/16/2014) * US PELVIS COMPLETE(Performed 01/16/2014) Performed for Pelvic pain in female, Menstrual cramps * EVENT MONITOR(Performed 09/08/2013) Performed for Increased heart rate * THYROID PANEL W TSH (TSH,T4,T3 UPTAKE,FTI)(Performed 08/05/2013) Performed for Increased heart rate * COMPREHENSIVE METABOLIC PANEL(Performed 08/05/2013) Performed for Increased heart rate * CBC W AUTO DIFFERENTIAL W/O PLATELETS(Performed 08/05/2013) Performed for Increased heart rate * ECHO CONSULT - PEDIATRIC(Performed 07/16/2013) Performed for Chest pain * XR CHEST 2VW(Performed 06/22/2013) Performed for Chest pain * EKG 15-LEAD(Performed 06/22/2013) Performed for Chest pain * RHEUMATOID FACTOR BLOOD QUANTITATIVE(Performed 06/20/2012) Performed for Knee pain, right * ALETHA BLOOD SCREEN W/REFLEX TITER(Performed 06/20/2012) Performed for Knee pain, right * C-REACTIVE PROTEIN(Performed 06/20/2012) Performed for Knee pain, right * ERYTHROCYTE SEDIMENTATION RATE(Performed 06/20/2012) Performed for Knee pain, right * CBC W AUTO DIFFERENTIAL(Performed 06/20/2012) Performed for Knee pain, right * XR KNEE RIGHT 4VW OR MORE(Performed 06/20/2012) Performed for Knee pain, right * LIPID PROFILE+GLUCOSE - POINT OF CARE (AMB)(Performed 03/19/2012) Performed for Screening for lipoid disorders * XR SCOLIOSIS 2 OR 3VW(Performed 03/19/2012) Performed for Scoliosis * XR ANKLE LEFT 3VW OR MORE(Performed 01/04/2012) * XR FOOT LEFT 3VW OR MORE(Performed 01/04/2012) * XR ABD OBSTRUCTION SERIES 2VW(Performed 07/12/2011) Performed for Abdominal pain * STREP A SCREEN - POINT OF CARE (AMB)(Performed 08/02/2010) Performed for Acute pharyngitis Results * DERMATOPATHOLOGY (07/12/2021 12:00 AM SCHOOL PSYCHOLOGIST ASSISTANT) Case Report Dermatopathology Report Case: [id number] Authorizing Provider: Christian Bolton MD Collected: 07/12/2021 12:00 AM Ordering Location: [facility] Lab Received: 07/12/2021 03:42 PM Pathologist: Abraham Allen MD Specimens: A) - Skin, right neck B) - Skin, right neck sup 5:20 PM [facility] DERMAT[facility]ORATORY Final Diagnosis Specimen A. SKIN, right neck: COMPOUND MELANOCYTIC NEVUS (D22.4) Specimen B. SKIN, right neck sup: COMPOUND MELANOCYTIC NEVUS (D22.4) 5:20 PM [facility] DERMATOPATH[facility]ORATORY Clinical History A: Nevus R/O atypia. Path # [id number]. B: Nevus R/O atypia. Path # [id number]. 5:20 PM [facility] DERMATOPATH[facility]Y LABORATORY Gross Description Specimen A: Received is one formalin filled container labeled with the patient's name and designated right neck. The specimen consists of a shave biopsy measuring [id number]. Jar 0. Specimen B: Received is one formalin filled container labeled with the patient's name and designated right neck sup. The specimen consists of a shave biopsy measuring [id number]. Jar 0. 5:20 PM [facility] DERMATOPATHOLOGY [facility]ORATORY Microscopic Description Specimen A. SKIN, right neck: There are nests of melanocytes at the dermal-epidermal junction and within the dermis. Specimen B. SKIN, right neck sup: There are nests of melanocytes at the dermal-epidermal junction and within the dermis. 5:20 PM [facility] DERMATOPATHOLOGY LABORATORY Disclaimer An external and internal positive and negative controls are appropriate for the histochemical, immunohistochemical and immunofluorescence stain(s) in this case (if any), except where stated explicitly. The performance characteristics of the stain(s) cited in this report were developed and its performance characteristic determined by the Dermatopathology Laboratory at [facility], directed by Dr. Edvin Allen. These tests need not be, and therefore are not, approved by the [place] Food and Drug Administration. The tests are used for clinical purposes. Billing Codes Specimen Charges Stain Charges 96352 [id number] 1 1 5:20 PM SCHOOL PSYCHOLOGIST ASSISTANT DERMATOPATHOLOGY LABORATORY Embedded Images 5:20 PM [facility] DERMATOPATH[facility]Y LABORATORY Pathology/Cytology TISSUE SPECIMEN FROM SKIN / Unknown 07/12/2021 07/12/2021 3:42 PM SCHOOL PSYCHOLOGIST ASSISTANT Miscellaneous samples (specimen) TISSUE SPECIMEN FROM SKIN / Unknown 07/12/2021 07/12/2021 3:42 PM SCHOOL PSYCHOLOGIST ASSISTANT Christian Bolton MD LAB - PATHOLOGY/CYTO LOGY ORDERABLES DERMATOPATHOLOGY LABORATORY [facility] Department of Dermatology [address], [address] [phone] * RHEUMATOID FACTOR BLOOD QUANTITATIVE (RF) (05/25/2019) Only the most recent of2 resultswithin the time period is included. Blood BLOOD SPECIMEN / Unknown 05/25/2019 Tatyana Fierro MD LAB - CHEMISTRY IVA LARSON Performing Organization Address [facility] Co de Phone Number NONSSM RESULT SCAN * THYROID PEROXIDASE ANTIBODY (05/25/2019) Blood BLOOD SPECIMEN / Unknown 05/25/2019 Tatyana Fierro MD LAB - CHEMISTRY IVA LARSON Performing Organization Address [facility] Co de Phone Number NONSSM RESULT SCAN * SED RATE AUTO (ESR) (05/25/2019) Only the most recent of4 resultswithin the time period is included. Erythrocyte Sedimentation Rate (EXTERNAL RESULT) NONSSM RES ULT SCAN Blood BLOOD SPECIMEN / Unknown 05/25/2019 Tatyana Fierro MD LAB - HEMATOLOGY MADONNA GARCIA NONSSM RESULT SCAN * CBC WITH DIFFERENTIAL (05/25/2019) Only the most recent of6 resultswithin the time period is included. Blood BLOOD SPECIMEN / Unknown 05/25/2019 Tatyana Fierro MD LAB - HEMATOLOGY MADONNA GARCIA NONSSM RESULT SCAN * COMPREHENSIVE METABOLIC PANEL (05/25/2019) Only the most recent of6 resultswithin the time period is included. Blood BLOOD SPECIMEN / Unknown 05/25/2019 Tatyana Fierro MD LAB - CHEMISTRY IVA LARSON Performing Organization Address [facility]/ZIP Co de Phone Number NONSSM RESULT SCAN * TSH (05/25/2019) Blood BLOOD SPECIMEN / Unknown 05/25/2019 Tatyana Fierro MD LAB - CHEMISTRY IVA LARSON Performing Organization Address [facility] Co de Phone Number NONSSM RESULT SCAN * T4 TOTAL (05/25/2019) Blood BLOOD SPECIMEN / Unknown 05/25/2019 Tatyana Fierro MD LAB - CHEMISTRY IVA LARSON Performing Organization Address [facility] Co de Phone Number NONSSM RESULT SCAN * CULTURE STREP GROUP A (05/18/2019 12:20 PM CDT) Only the most recent of2 resultswithin the time period is included. Beta-Strep Culture, Group A Only Negative [facility] ACCOUNT BILL Microbiology ENTIRE THROAT (SURFACE REGION OF NECK) / Unknown 05/18/2019 12:20 PM CDT 05/18/2019 Narrative Resulting Agency Comment Lab Testing performed at: [facility] [place] [address] [id number] Tatyana Fierro MD LAB - MICROBIOLOGY O RDERABLES Performing Organization Address [facility] Co de Phone Number [facility] ACCOUNT BILL [address] [place] [address] * STREP A SCREEN - POINT OF CARE (AMB) STL (05/18/2019) Only the most recent of3 resultswithin the time period is included. Strep A Rapid POCT Negative Negative Strep A Internal Control Present Lot # [id number] Expiration Date [id number] Throat ENTIRE THROAT (SURFACE REGION OF NECK) / Unknown 05/18/2019 Tatyana Fierro MD LAB - POINT OF CARE ORDERABLES * LAB RESULTS ORDER (12/29/2018) Only the most recent of4 resultswithin the time period is included. Scanned Document LAB - THERAPEUTIC DR BOB MONITORING ORDERABLES * KENYATTA-GRAY VIRUS PANEL (12/29/2018) Blood BLOOD SPECIMEN / Unknown 12/29/2018 Elaine GONZALEZ LAB - CHEMISTRY O RDERABLES NONSSM RESULT SCAN * ALLERGEN FOOD COMMON ADULT PROFILE (12/09/2018) Blood BLOOD SPECIMEN / Unknown 12/09/2018 Tatyana Fierro MD LAB - CHEMISTRY IVA LARSON NONSSM RESULT SCAN * ALLERGEN RESPIRATORY PROFILE ([place]) (12/09/2018) Blood BLOOD SPECIMEN / Unknown 12/09/2018 Tatyana Fierro MD LAB - CHEMISTRY IVA LARSON NONSSM RESULT SCAN * IMAGING/RADIOLOGY/XRAY RESULTS ORDER (08/19/2018) Only the most recent of5 resultswithin the time period is included. Anatomical Region Laterality Modality Other Scanned Document IMAGING * (ABNORMAL) HEMOGLOBIN - POINT OF CARE (AMB) (02/24/2018) Hemoglobin POCT 14.3(A) 11.0 - 14.0 gm/dL Blood BLOOD SPECIMEN / Unknown 02/24/2018 Tatyana Fierro MD LAB - POINT OF CARE ORDERABLES * SKIN TEST PPD - POINT OF CARE (02/15/2018) PPD neg Other MISCELLANEOUS SAMPLE S / Unknown 02/15/2018 Elaine Bran EPIC DIRECTOR-BIOMECHANICAL ENGINEER LAB - POINT OF CA RE ORDERABLES * XR HAND 3+ VW LEFT (12/27/2017 2:36 PM CDT) Anatomical Region Laterality Modality Wrist / Hand Radiographic Stacy ging 12/27/2017 2:39 PM CDT Impressions 12/27/2017 4:17 PM CDT Mild periarticular osteopenia with suggestion of cortical erosions. These can be seen with juvenile idiopathic arthritis. Dictated by Dimitrios Wiseman MD (president). I, Katie Watson, have personally reviewed the images and I agree with this report. Reading Radiologist: Dimitrios Wiseman MD on 12/27/2017 at 4:17 PM Narrative 12/27/2017 4:17 PM CDT EXAMINATION: Right hand 3 views, left hand 3 views HISTORY: 17-year-old female with bilateral hand pain COMPARISON: No prior study is available for comparison. FINDINGS: Right hand: Mild periarticular osteopenia is present. Cortical erosions are suggested at the bases of the middle and distal phalanges of the middle and ring fingers. The osseous structures are otherwise intact and well aligned without evidence of acute fracture or dislocation. The joint spaces are maintained. No soft tissue edema is identified. Left hand: Mild periarticular osteopenia is present. Cortical erosions are suggested at the bases of the middle and distal phalanges of the middle and ring fingers. The osseous structures are otherwise intact and well aligned without evidence of acute fracture or dislocation. The joint spaces are maintained. No soft tissue edema is identified. Procedure Note Katie Watson MD - 12/27/2017 EXAMINATION: Right hand 3 views, left hand 3 views HISTORY: 17-year-old female with bilateral hand pain COMPARISON: No prior study is available for comparison. FINDINGS: Right hand: Mild periarticular osteopenia is present. Cortical erosions are suggested at the bases of the middle and distal phalanges of the middle and ring fingers. The osseous structures are otherwise intact and well aligned without evidence of acute fracture or dislocation. The joint spaces are maintained. No soft tissue edema is identified. Left hand: Mild periarticular osteopenia is present. Cortical erosions are suggested at the bases of the middle and distal phalanges of the middle and ring fingers. The osseous structures are otherwise intact and well aligned without evidence of acute fracture or dislocation. The joint spaces are maintained. No soft tissue edema is identified. IMPRESSION Mild periarticular osteopenia with suggestion of cortical erosions. These can be seen with juvenile idiopathic arthritis. Dictated by Dimitrios Wiseman MD (president). Katie Vogel, have personally reviewed the images and I agree with this report. Reading Radiologist: Dimitrios Wiseman MD on 12/27/2017 at 4:17 PM Daryl Ricks MD DIAGNOSTIC IMAG ING ORDERABLES * XR HAND 3+ VW RIGHT (12/27/2017 2:36 PM CDT) Anatomical Region Laterality Modality Wrist / Hand Radiographic Stacy ging 12/27/2017 2:39 PM CDT Impressions 12/27/2017 4:17 PM CDT Mild periarticular osteopenia with suggestion of cortical erosions. These can be seen with juvenile idiopathic arthritis. Dictated by Dimitrios Wiseman MD (president). Katie Vogel, have personally reviewed the images and I agree with this report. Reading Radiologist: Dimitrios Wiseman MD on 12/27/2017 at 4:17 PM Narrative 12/27/2017 4:17 PM CDT EXAMINATION: Right hand 3 views, left hand 3 views HISTORY: 17-year-old female with bilateral hand pain COMPARISON: No prior study is available for comparison. FINDINGS: Right hand: Mild periarticular osteopenia is present. Cortical erosions are suggested at the bases of the middle and distal phalanges of the middle and ring fingers. The osseous structures are otherwise intact and well aligned without evidence of acute fracture or dislocation. The joint spaces are maintained. No soft tissue edema is identified. Left hand: Mild periarticular osteopenia is present. Cortical erosions are suggested at the bases of the middle and distal phalanges of the middle and ring fingers. The osseous structures are otherwise intact and well aligned without evidence of acute fracture or dislocation. The joint spaces are maintained. No soft tissue edema is identified. Procedure Note Katie Watson MD - 12/27/2017 EXAMINATION: Right hand 3 views, left hand 3 views HISTORY: 17-year-old female with bilateral hand pain COMPARISON: No prior study is available for comparison. FINDINGS: Right hand: Mild periarticular osteopenia is present. Cortical erosions are suggested at the bases of the middle and distal phalanges of the middle and ring fingers. The osseous structures are otherwise intact and well aligned without evidence of acute fracture or dislocation. The joint spaces are maintained. No soft tissue edema is identified. Left hand: Mild periarticular osteopenia is present. Cortical erosions are suggested at the bases of the middle and distal phalanges of the middle and ring fingers. The osseous structures are otherwise intact and well aligned without evidence of acute fracture or dislocation. The joint spaces are maintained. No soft tissue edema is identified. IMPRESSION Mild periarticular osteopenia with suggestion of cortical erosions. These can be seen with juvenile idiopathic arthritis. Dictated by Dimitrios Wiseman MD (president). I, Katie Watson, have personally reviewed the images and I agree with this report. Reading Radiologist: Dimitrios Wiseman MD on 12/27/2017 at 4:17 PM Daryl Ricks MD DIAGNOSTIC IMAG ING ORDERABLES * HELICOBACTER PYLORI UREASE (STL) (07/19/2017 10:33 AM SCHOOL PSYCHOLOGIST ASSISTANT) Helicobacter pylori Urease Initial Negative Negative 07/20/2017 11:09 AM [facility] Helicobacter pylori Urease Final Negative Negative 07/20/2017 11:09 AM [facility] Comment:This is an appended report. These results have been appended to a previously preliminary verified report. Microbiology GASTRIC ANTRAL BIOPSY SPECIMEN / Unknown Collection / Unknown 07/19/2017 10:33 AM SCHOOL PSYCHOLOGIST ASSISTANT 07/19/2017 11:06 AM [facility] Jacquie Vásquez MD LAB - MICROBIOLOGY O RDERABLES [facility] [place] [address] * GROSS + MICRO EXAM (STL) (07/19/2017 10:23 AM [facility]) Only the most recent of2 resultswithin the time period is included. Case Report Surgical Pathology Report Case: [id number] Authorizing Provider: Jacquie Vásquez MD Collected: 07/19/2017 10:23 AM Ordering Location: ENDOSCOPY SERVICES Received: 07/19/2017 11:39 AM Pathologist: Ulises Paul MD Specimens: A) - Duodenal Biopsy B) - Stomach Biopsy C) - Esophageal Biopsy, distal D) - Esophageal Biopsy, mid E) - Ileum Biopsy, terminal F) - Colon Biopsy 07/23/2017 2:37 PM [facility] Final Diagnosis A) DUODENUM, BIOPSY - NO HISTOPATHOLOGIC ABNORMALITY B) STOMACH, BIOPSY - NO HISTOPATHOLOGIC ABNORMALITY C) ESOPHAGUS, DISTAL, BIOPSY - NO HISTOPATHOLOGIC ABNORMALITY D) ESOPHAGUS, MID, BIOPSY - NO HISTOPATHOLOGIC ABNORMALITY E) SMALL INTESTINE, TERMINAL ILEUM, BIOPSY - NO HISTOPATHOLOGIC ABNORMALITY F) LARGE INTESTINE, COLON, BIOPSY - NO HISTOPATHOLOGIC ABNORMALITY 07/23/2017 2:37 PM [facility] Clinical History The patient is a 17 -year-old girl with a history of abdominal pain and bloody stools who underwent upper GI endoscopy and colonoscopy. 07/23/2017 2:37 PM [facility] Gross Description The specimens are received in formalin in six containers for gross and microscopic examination each labeled with the patient's name, Marie Alvarado Specimen A, duodenal biopsy, consists of two irregular yellow-simental tissue fragments that measure 0.4 and 0.5 cm, respectively. The specimen is submitted in toto in cassette A1. Specimen B, stomach biopsy, consists of two irregular pink-simental tissue fragments that measure 0.5 and 0.6 cm, respectively. The specimen is submitted in toto in cassette B1. Specimen C, esophageal biopsy, distal, consists of two irregular delgado-simental tissue fragments that measure 0.4 cm each. The specimen is submitted in toto in cassette C1. Specimen D, esophageal biopsy, mid, consists of two irregular delgado-simental tissue fragments that measure 0.3 and 0.4 cm, respectively. The specimen is submitted in toto in cassette D1. Specimen E, terminal ileum biopsy, consists of multiple irregular yellow-simental tissue fragments that measure 0.5 x 0.6 x 0.2 cm in aggregate. The specimen is submitted in toto in cassette E1. Specimen F, colon biopsy, consists of multiple irregular yellow-simental tissue fragments that measures 1.0 x 0.6 x 0.3 cm in aggregate. The specimen is submitted in toto in cassette F1. (SM/na) 07/23/2017 2:37 PM [facility] Microscopic Description A) 3 H&E; B) 3 H&E; C) 3 H&E; D) 3 H&E; E) 3 H&E; F) 3 H&E Sections of the duodenum show duodenal mucosa with preserved villous architecture. No cryptitis or villitis is identified. Sections of the stomach biopsy show fundic and antral-type mucosa with no histologic abnormality. The mid and distal esophageal biopsies show squamous mucosa with no histopathologic abnormality. Sections of the terminal ileum show unremarkable colonic mucosa. Sections of the colonic biopsy show fragments of colonic mucosa with no histopathologic abnormality. (WO) 07/23/2017 2:37 PM [facility] Disclaimer The performance characteristics of all immunohistochemical and indirect immunofluorescence stains (if any) cited in this report were determined by the [facility] of [facility]. Some of these tests were developed by our own laboratory and have not been cleared or approved by the US Food and Drug Administration (FDA). The FDA does not require this test to go through premarket FDA review. These tests are used for clinical purposes. They should not be regarded as investigational or for research. This laboratory is certified under the Clinical Laboratory Improvement Amendments (CLIA) as qualified to perform high complexity clinical laboratory testing. This case has been personally reviewed and interpreted by the attending (teaching) pathologist. 07/23/2017 2:37 PM [facility] Embedded Images 07/23/2017 2:37 PM [facility] Pathology/Cytology DUODENAL BIOPSY SPECIMEN / Unknown 07/19/2017 10:23 AM SCHOOL PSYCHOLOGIST ASSISTANT 07/19/2017 11:39 AM SCHOOL PSYCHOLOGIST ASSISTANT Miscellaneous samples (specimen) BIOPSY OF STOMACH / Unknown 07/19/2017 10:23 AM SCHOOL PSYCHOLOGIST ASSISTANT 07/19/2017 11:39 AM SCHOOL PSYCHOLOGIST ASSISTANT Miscellaneous samples (specimen) ESOPHAGEAL BIOPSY SPECIMEN / Unknown 07/19/2017 10:23 AM SCHOOL PSYCHOLOGIST ASSISTANT 07/19/2017 11:39 AM SCHOOL PSYCHOLOGIST ASSISTANT Miscellaneous samples (specimen) ESOPHAGEAL BIOPSY SPECIMEN / Unknown 07/19/2017 10:30 AM SCHOOL PSYCHOLOGIST ASSISTANT 07/19/2017 11:39 AM SCHOOL PSYCHOLOGIST ASSISTANT Miscellaneous samples (specimen) BIOPSY OF ILEUM / Unknown 07/19/2017 10:53 AM SCHOOL PSYCHOLOGIST ASSISTANT 07/19/2017 11:39 AM SCHOOL PSYCHOLOGIST ASSISTANT Miscellaneous samples (specimen) COLONIC BIOPSY SPECIMEN / Unknown 07/19/2017 10:53 AM SCHOOL PSYCHOLOGIST ASSISTANT 07/19/2017 11:39 AM SCHOOL PSYCHOLOGIST ASSISTANT Jacquie Vásquez MD LAB - PATHOLOGY/CYTO LOGY ORDERABLES Performing Organization Address [facility] Co de Phone Number [facility] [address] [place] [address] * HCG URINE QUALITATIVE - POCT (IP) BEAKER (07/19/2017 9:20 AM SCHOOL PSYCHOLOGIST ASSISTANT) Only the most recent of4 resultswithin the time period is included. HCG Qual Urine Negative Negative [facility] QC Verified Yes Yes [facility] PO [facility] TESTING Urine URINE / Unknown 07/19/2017 9 :20 AM SCHOOL PSYCHOLOGIST ASSISTANT Jacquie Vásquez MD LAB - POINT OF CARE ORDERABLES Performing Organization Address [facility] de Phone Number [facility] [address] [place], [place] [id number] [place] [address] * ENDOSCOPY, COLON, DIAGNOSTIC (07/19/2017 9:15 AM SCHOOL PSYCHOLOGIST ASSISTANT) Report Endoscopy POC _ Patient Name: Marie Alvarado Date of : 2000 Admit Type: Outpatient Age: 17 Gender: Female Attending MD: Jacquie Vásquez , Order #: [id number] _ Procedure: Colonoscopy Indications: Diarrhea Providers: Jacquie Vásquez MD (attending); Va Matos MD (fellow) Referring MD: Tatyana Fierro MD Medicines: General Anesthesia Complications: No immediate complications. _ Procedure: Pre-Anesthesia Assessment: - Prior to the procedure, a History and Physical was performed, and patient medications, allergies and sensitivities were reviewed. The patient's tolerance of previous anesthesia was reviewed. - The risks and benefits of the procedure and the sedation options and risks were discussed with the patient. All questions were answered and informed consent was obtained. - Patient identification and proposed procedure were verified prior to the procedure. - Pre-procedure physical examination revealed no contraindications to sedation. After I obtained informed consent, the scope was passed under direct vision. Throughout the procedure, the patient's blood pressure, pulse, and oxygen saturations were monitored continuously. The Colonoscope was introduced through the anus and advanced to the terminal ileum. The colonoscopy was performed without difficulty. The patient tolerated the procedure well. The quality of the bowel preparation was good. Findings: The colon (entire examined portion) appeared normal. Biopsies were taken with a cold forceps for histology. The terminal ileum appeared normal. Biopsies were taken with a cold forceps for histology. The perianal exam findings include a skin tag. The digital rectal exam was normal. Impression: - The entire examined colon is normal. Biopsied. - The examined portion of the ileum was normal. Biopsied. Recommendation: - Discharge patient to home (with parent). - Discharge patient to home (with parent). - Advance diet as tolerated. - Await pathology results. Procedure Code(s): --- Professional --- 62423, Colonoscopy, flexible; with biopsy, single or multiple --- Technical --- 65015, Colonoscopy, flexible; with biopsy, single or multiple Diagnosis Code(s): --- Professional --- R19.7, Diarrhea, unspecified --- Technical --- R19.7, Diarrhea, unspecified CPT copyright 2015 [employer]. All rights reserved. The codes documented in this report are preliminary and upon marketing intern review may be revised to meet current compliance requirements. Dr. Jacquie Vásquez Jacquie Vásquez, 07/19/2017 11:17:08 AM This report has been signed electronically. Number of Addenda: 0 Note Initiated On: 07/18/2017 9:15 AM Procedure Date: 07/19/2017 9:15:00 AM This report has been signed electronically. [facility] 07/19/2017 9:15 AM SCHOOL PSYCHOLOGIST ASSISTANT Jacquie Vásquez MD GI PROCEDURE ORDERAB LES Performing Organization Address [facility] Co de Phone Number [facility] [address] [place] [address] * TISSUE TRANSGLUTAMINASE AB IGA (05/15/2017) Blood BLOOD SPECIMEN / Unknown 05/15/2017 [facility] - SEROLOGY ORDERABLES Performing Organization Address [facility] Co de Phone Number [facility] RESULT SCAN * C-REACTIVE PROTEIN (05/15/2017) Only the most recent of4 resultswithin the time period is included. Blood BLOOD SPECIMEN / Unknown 05/15/2017 Antonina Galindo APRN-[facility] LAB - CHEMISTRY ORDERABLES Performing Organization Address [facility] Co de Phone Number NON[facility]M RESULT SCAN * CBC W MANUAL DIFFERENTIAL (05/15/2017) Only the most recent of2 resultswithin the time period is included. Blood BLOOD SPECIMEN / Unknown 05/15/2017 Antonina Galindo EPIC DIRECTOR-[facility] LAB - HEMATOLOG Y ORDERABLES Performing Organization Address [facility] Co de Phone Number [facility] RESULT SCAN * IGA BLOOD (05/15/2017) Blood BLOOD SPECIMEN / Unknown 05/15/2017 Antonina Galindo EPIC DIRECTOR-[facility] LAB - CHEMISTRY ORDERABLES Performing Organization Address [facility] Co de Phone Number [facility] RESULT SCAN * REDUCING SUBSTANCE FECES (05/08/2017) Stool STOOL SPECIMEN / Unknown 05/08/2017 Antonina Galindo EPIC DIRECTOR-[facility] LAB - BODY FLUI D ORDERABLES Performing Organization Address [facility] de Phone Number [facility] RESULT SCAN * FECAL LEUKOCYTES (05/08/2017) Stool STOOL SPECIMEN / Unknown 05/08/2017 Antonina Galindo EPIC DIRECTOR-[facility] LAB - BODY FLUI D ORDERABLES Performing Organization Address [facility] de Phone Number [facility] RESULT SCAN * (ABNORMAL) URINALYSIS ROUTINE AUTO (01/19/2016 6:18 PM CDT) Only the most recent of3 resultswithin the time period is included. Color UA Yellow Straw, Yellow, Dark Yellow 01/19/2016 6:35 PM CDT [facility] Clarity UA Clear 01/19/2016 6:35 PM CDT [facility] Specific [place] UA 1.020 1.005 - 1.030 01/19/2016 6:35 PM CDT [facility] pH UA 7.0 5.0 - 8.0 pH 01/19/2016 6:35 PM CDT [facility] Protein UA Negative Negative 01/19/2016 6:35 PM CDT [facility] Blood UA Negative Negative 01/19/2016 6:35 PM CDT [facility] Leukocyte UA Trace(A) Negative 01/19/2016 6:35 PM CDT [facility] Nitrite UA Negative Negative 01/19/2016 6:35 PM CDT [facility] Glucose UA Negative Negative 01/19/2016 6:35 PM CDT [facility] Ketone UA Negative Negative 01/19/2016 6:35 PM CDT [facility] Bilirubin UA Negative Negative 01/19/2016 6:35 PM CDT [facility] Urobilinogen UA 0.2 0.1 - 1.0 EU/dL 01/19/2016 6:35 PM CDT [facility] Urine URINE SPECIMEN OBTAINED BY CLEAN CATCH PROCEDURE / Unknown 01/19/2016 6:18 PM CDT 01/19/2016 6:32 PM CDT Kiet Butterfield MD LAB - URINALYSIS ORD ERABLES Performing Organization Address [facility] Co de Phone Number [facility] [address] [place] [id number] * (ABNORMAL) URINALYSIS MICROSCOPIC ONLY (01/19/2016 6:18 PM CDT) Only the most recent of3 resultswithin the time period is included. RBC UA 0-2 0-2, 2-5 # /hpf 01/19/2016 6:47 PM CDT [facility] WBC UA 2-5 0-2, 2-5 # /hpf 01/19/2016 6:47 PM T [facility] Bacteria UA 1+(A) None Seen, Trace 01/19/2016 6:47 PM CDT [facility] Epithelial Cell UA 5-10(A) 0-2, 2-5 # /hpf 01/19/2016 6:47 PM T [facility] Urine URINE SPECIMEN OBTAINED BY CLEAN CATCH PROCEDURE / Unknown 01/19/2016 6:18 PM CDT 01/19/2016 6:32 PM CDT Kiet Butterfield MD LAB - URINALYSIS ORD ERABLES Performing Organization Address [facility]/ZIP Co de Phone Number [facility] [address] [place] [address] * LIPASE BLOOD (01/19/2016 6:18 PM CDT) Only the most recent of2 resultswithin the time period is included. Lipase 39 10 - 220 U/L 01/19/2016 7:06 PM CDT [facility] Blood BLOOD SPECIMEN / Unknown 01/19/2016 6:18 PM CDT 01/19/2016 6:49 PM CDT Kiet uBtterfield MD LAB - CHEMISTRY IVA LARSON [facility] [address] [facility] [place] [address] * US ABDOMEN LIMITED (01/19/2016 4:30 PM CDT) Only the most recent of3 resultswithin the time period is included. Anatomical Region Laterality Modality Abdomen Ultrasound 01/19/2016 5:01 PM CDT Impressions 01/19/2016 5:07 PM CDT 1. No sonographic evidence of ovarian torsion. 2. Appendix measuring up to 6 mm which is at the upper limits of normal with appendiceal wall hyperemia which can be seen with early acute appendicitis in the appropriate clinical setting. The small amount of fluid along the appendiceal tip has decreased since the prior examination. Findings were discussed with Dr. Cooper by Dr. Mendosa at 5:00 PM on 01/19/2016. Narrative 01/19/2016 5:07 PM CDT EXAMINATION: 1. PELVIS ULTRASOUND WITH DOPPLER 2. ABDOMINAL ULTRASOUND LIMITED-RIGHT LOWER QUADRANT HISTORY: 15-year-old with right lower quadrant pain. COMPARISON: Ultrasound dated 01/17/2016. FINDINGS: Pelvis ultrasound: Real-time ultrasound of the pelvis was performed through a distended urinary bladder. Color Doppler and spectral analysis were also performed. The uterus is normal for the patient's age. The uterus measures 5.2 cm in length x 2.0 cm in thickness. The endometrial stripe is normal. The ovaries are normal and contain small follicles. The right ovary measures 2.4 x 2.6 x 1.4 cm with a volume of 4.6 cm3. The left ovary measures 2.6 x 2.7 x 2.0 cm with a volume of 7.3 cm3. There is no free fluid present in the cul-de-sac. There are no adnexal masses. Color Doppler and spectral analysis demonstrate arterial and venous flow in each ovary. Right lower quadrant ultrasound: Survey ultrasound of the right lower quadrant is performed. The amount of fluid along the appendiceal tip has decreased. The appendix measures up to 6 mm in diameter and is compressible. There is appendiceal wall hyperemia. The visible portions of the proximal appendix contain air. The lumen of the appendiceal tip is echogenic which may represent appendicoliths or fecal material. Of note, the patient was point tender over the appendix during the examination. Small mesenteric lymph nodes are present in the right lower quadrant. No bloody fluid collections are identified. The adjacent bowel loops peristalse normally. Procedure Note Libra Mendosa MD - 01/19/2016 EXAMINATION: 1. PELVIS ULTRASOUND WITH DOPPLER 2. ABDOMINAL ULTRASOUND LIMITED-RIGHT LOWER QUADRANT HISTORY: 15-year-old with right lower quadrant pain. COMPARISON: Ultrasound dated 01/17/2016. FINDINGS: Pelvis ultrasound: Real-time ultrasound of the pelvis was performed through a distended urinary bladder. Color Doppler and spectral analysis were also performed. The uterus is normal for the patient's age. The uterus measures 5.2 cm in length x 2.0 cm in thickness. The endometrial stripe is normal. The ovaries are normal and contain small follicles. The right ovary measures 2.4 x 2.6 x 1.4 cm with a volume of 4.6 cm3. The left ovary measures 2.6 x 2.7 x 2.0 cm with a volume of 7.3 cm3. There is no free fluid present in the cul-de-sac. There are no adnexal masses. Color Doppler and spectral analysis demonstrate arterial and venous flow in each ovary. Right lower quadrant ultrasound: Survey ultrasound of the right lower quadrant is performed. The amount of fluid along the appendiceal tip has decreased. The appendix measures up to 6 mm in diameter and is compressible. There is appendiceal wall hyperemia. The visible portions of the proximal appendix contain air. The lumen of the appendiceal tip is echogenic which may represent appendicoliths or fecal material. Of note, the patient was point tender over the appendix during the examination. Small mesenteric lymph nodes are present in the right lower quadrant. No bloody fluid collections are identified. The adjacent bowel loops peristalse normally. IMPRESSION 1. No sonographic evidence of ovarian torsion. 2. Appendix measuring up to 6 mm which is at the upper limits of normal with appendiceal wall hyperemia which can be seen with early acute appendicitis in the appropriate clinical setting. The small amount of fluid along the appendiceal tip has decreased since the prior examination. Findings were discussed with Dr. Cooper by Dr. Mendosa at 5:00 PM on 01/19/2016. Todd Cooper MD US ORDERABLES * US PELVIS W DOPPLER UTERUS OVARIES (01/19/2016 4:07 PM CDT) Only the most recent of2 resultswithin the time period is included. Anatomical Region Laterality Modality Ultrasound 01/19/2016 5:01 PM CDT Impressions 01/19/2016 5:07 PM CDT 1. No sonographic evidence of ovarian torsion. 2. Appendix measuring up to 6 mm which is at the upper limits of normal with appendiceal wall hyperemia which can be seen with early acute appendicitis in the appropriate clinical setting. The small amount of fluid along the appendiceal tip has decreased since the prior examination. Findings were discussed with Dr. Cooper by Dr. Mendosa at 5:00 PM on 01/19/2016. Narrative 01/19/2016 5:07 PM CDT EXAMINATION: 1. PELVIS ULTRASOUND WITH DOPPLER 2. ABDOMINAL ULTRASOUND LIMITED-RIGHT LOWER QUADRANT HISTORY: 15-year-old with right lower quadrant pain. COMPARISON: Ultrasound dated 01/17/2016. FINDINGS: Pelvis ultrasound: Real-time ultrasound of the pelvis was performed through a distended urinary bladder. Color Doppler and spectral analysis were also performed. The uterus is normal for the patient's age. The uterus measures 5.2 cm in length x 2.0 cm in thickness. The endometrial stripe is normal. The ovaries are normal and contain small follicles. The right ovary measures 2.4 x 2.6 x 1.4 cm with a volume of 4.6 cm3. The left ovary measures 2.6 x 2.7 x 2.0 cm with a volume of 7.3 cm3. There is no free fluid present in the cul-de-sac. There are no adnexal masses. Color Doppler and spectral analysis demonstrate arterial and venous flow in each ovary. Right lower quadrant ultrasound: Survey ultrasound of the right lower quadrant is performed. The amount of fluid along the appendiceal tip has decreased. The appendix measures up to 6 mm in diameter and is compressible. There is appendiceal wall hyperemia. The visible portions of the proximal appendix contain air. The lumen of the appendiceal tip is echogenic which may represent appendicoliths or fecal material. Of note, the patient was point tender over the appendix during the examination. Small mesenteric lymph nodes are present in the right lower quadrant. No bloody fluid collections are identified. The adjacent bowel loops peristalse normally. Procedure Note Libra Mendosa MD - 01/19/2016 EXAMINATION: 1. PELVIS ULTRASOUND WITH DOPPLER 2. ABDOMINAL ULTRASOUND LIMITED-RIGHT LOWER QUADRANT HISTORY: 15-year-old with right lower quadrant pain. COMPARISON: Ultrasound dated 01/17/2016. FINDINGS: Pelvis ultrasound: Real-time ultrasound of the pelvis was performed through a distended urinary bladder. Color Doppler and spectral analysis were also performed. The uterus is normal for the patient's age. The uterus measures 5.2 cm in length x 2.0 cm in thickness. The endometrial stripe is normal. The ovaries are normal and contain small follicles. The right ovary measures 2.4 x 2.6 x 1.4 cm with a volume of 4.6 cm3. The left ovary measures 2.6 x 2.7 x 2.0 cm with a volume of 7.3 cm3. There is no free fluid present in the cul-de-sac. There are no adnexal masses. Color Doppler and spectral analysis demonstrate arterial and venous flow in each ovary. Right lower quadrant ultrasound: Survey ultrasound of the right lower quadrant is performed. The amount of fluid along the appendiceal tip has decreased. The appendix measures up to 6 mm in diameter and is compressible. There is appendiceal wall hyperemia. The visible portions of the proximal appendix contain air. The lumen of the appendiceal tip is echogenic which may represent appendicoliths or fecal material. Of note, the patient was point tender over the appendix during the examination. Small mesenteric lymph nodes are present in the right lower quadrant. No bloody fluid collections are identified. The adjacent bowel loops peristalse normally. IMPRESSION 1. No sonographic evidence of ovarian torsion. 2. Appendix measuring up to 6 mm which is at the upper limits of normal with appendiceal wall hyperemia which can be seen with early acute appendicitis in the appropriate clinical setting. The small amount of fluid along the appendiceal tip has decreased since the prior examination. Findings were discussed with Dr. Cooper by Dr. Mendosa at 5:00 PM on 01/19/2016. Todd Cooper MD US ORDERABLES * CULTURE URINE (01/17/2016 2:05 AM CDT) Only the most recent of3 resultswithin the time period is included. Culture <10,000 CFU/mL urogenital carlos EDMOND 01/18/2016 8:40 AM CDT [facility] Urine URINE SPECIMEN OBTAINED BY CLEAN CATCH PROCEDURE / Unknown 01/17/2016 2:05 AM CDT 01/17/2016 2:12 AM CDT Ursula Velasquez MD LAB - MICROBIOLOGY O RDERABLES Performing Organization Address City/[facility]/ZIP Co de Phone Number [facility] [address] [phone] * AMYLASE BLOOD (01/17/2016 1:38 AM CDT) Amylase 55 5 - 65 U/L 01/17/2016 2:07 AM CDT [facility] Blood BLOOD SPECIMEN / Unknown 01/17/2016 1:38 AM CDT 01/17/2016 1:49 AM CDT Ursula Velasquez MD LAB - CHEMISTRY ORDE RABROOPA Performing Organization Address City/[facility]/ZIP Co de Phone Number [facility] [address] [place] [phone] * CT ABDOMEN AND PELVIS WITH IV CONTRAST (08/17/2015 3:30 PM SCHOOL PSYCHOLOGIST ASSISTANT) Anatomical Region Laterality Modality Abdomen, Pelvis Other 08/17/2015 3:30 PM SCHOOL PSYCHOLOGIST ASSISTANT Elaine Bran EPIC DIRECTOR-BIOMECHANICAL ENGINEER CT ORDERABLES * US KIDNEY AND BLADDER (08/02/2015 8:36 AM SCHOOL PSYCHOLOGIST ASSISTANT) Anatomical Region Laterality Modality Ultrasound 08/02/2015 9:29 AM SCHOOL PSYCHOLOGIST ASSISTANT Impressions 08/02/2015 9:31 AM SCHOOL PSYCHOLOGIST ASSISTANT No abnormality is seen. I discussed these findings with Dr. JOHANNE BOWMAN in the emergency room on August 02, 2015 at 845. Narrative 08/02/2015 9:31 AM SCHOOL PSYCHOLOGIST ASSISTANT Ultrasound of the kidneys and bladder performed August 02, 2015. History: Right lower quadrant pain. Longitudinal and transverse images of the kidneys and bladder were obtained. No prior renal ultrasounds are available for comparison. The right kidney measures 10.6 x 3.6 x 4.8 cm in size. The left kidney measures 10.1 x 3.5 x 4.5 cm in size. Mean renal length for children between the ages of 14 and 15 years is 10.05 cm with one standard deviation of 0.62 cm. Both kidneys are of normal echotexture without evidence of hydronephrosis or focal cortical abnormality. The bladder contained 298 cc of urine at the time of this examination was sonographically normal in appearance. Both ureteral jets were seen. No distal ureteral dilatation was identified. Procedure Note Falguni Chavez MD - 08/02/2015 Ultrasound of the kidneys and bladder performed August 02, 2015. History: Right lower quadrant pain. Longitudinal and transverse images of the kidneys and bladder were obtained. No prior renal ultrasounds are available for comparison. The right kidney measures 10.6 x 3.6 x 4.8 cm in size. The left kidney measures 10.1 x 3.5 x 4.5 cm in size. Mean renal length for children between the ages of 14 and 15 years is 10.05 cm with one standard deviation of 0.62 cm. Both kidneys are of normal echotexture without evidence of hydronephrosis or focal cortical abnormality. The bladder contained 298 cc of urine at the time of this examination was sonographically normal in appearance. Both ureteral jets were seen. No distal ureteral dilatation was identified. IMPRESSION No abnormality is seen. I discussed these findings with Dr. JOHANNE BOWMAN in the emergency room on August 02, 2015 at 845. oDug Randhawa MD US ORDERABLES * XR ABDOMEN 1 VW (08/02/2015 3:38 AM SCHOOL PSYCHOLOGIST ASSISTANT) Anatomical Region Laterality Modality Abdomen Radiographic Stacy ging 08/02/2015 7:38 AM SCHOOL PSYCHOLOGIST ASSISTANT Impressions 08/02/2015 7:40 AM SCHOOL PSYCHOLOGIST ASSISTANT Nonobstructive bowel gas pattern. Narrative 08/02/2015 7:40 AM SCHOOL PSYCHOLOGIST ASSISTANT EXAMINATION: Abdomen one view HISTORY: 15-year-old with abdominal pain. COMPARISON: None available. FINDINGS: Supine frontal view of the abdomen demonstrates a nonobstructive bowel gas pattern. A moderate to large amount of stool is seen in the right abdomen. No pathologic calcifications are identified. The lung bases are clear. An elongated right L1 transverse process or a hypoplastic compared right 13th rib is incidentally noted. Procedure Note Libra Mendosa MD - 08/02/2015 EXAMINATION: Abdomen one view HISTORY: 15-year-old with abdominal pain. COMPARISON: None available. FINDINGS: Supine frontal view of the abdomen demonstrates a nonobstructive bowel gas pattern. A moderate to large amount of stool is seen in the right abdomen. No pathologic calcifications are identified. The lung bases are clear. An elongated right L1 transverse process or a hypoplastic compared right 13th rib is incidentally noted. IMPRESSION Nonobstructive bowel gas pattern. Doug Randhawa MD DIAGNOSTIC IMAGING O RDERABLES * (ABNORMAL) URINALYSIS MICROSCOPIC ONLY W/REFLEX CULTURE (08/02/2015 3:25 AM [facility]) RBC UA 0-2 0-2, 2-5 # /hpf 08/02/2015 3:40 AM [facility] WBC UA 2-5 0-2, 2-5 # /hpf 08/02/2015 3:40 AM [facility] Bacteria UA 2+(A) None Seen, Trace 08/02/2015 3:40 AM [facility] Epithelial Cell UA 5-10(A) 0-2, 2-5 # /hpf 08/02/2015 3:40 AM [facility] Amorphous Phosphate Crystals 2+(A) None Seen 08/02/2015 3:40 AM [facility] Reflex Status Culture to follow 08/02/2015 3:40 AM [facility] Urine URINE SPECIMEN OBTAINED BY CLEAN CATCH PROCEDURE / Unknown 08/02/2015 3:25 AM SCHOOL PSYCHOLOGIST ASSISTANT 08/02/2015 3:24 AM SCHOOL PSYCHOLOGIST ASSISTANT Narrative [facility] - 08/02/2015 3:40 AM SCHOOL PSYCHOLOGIST ASSISTANT Several clumps of EPIs Doug Randhawa MD LAB - URINALYSIS ORD ERABLES Performing Organization Address [facility]/ZIP Co de Phone Number [facility] [address] [place] [address] * (ABNORMAL) URINALYSIS ROUTINE W/REFLEX TO CULTURE (08/02/2015 3:25 AM SCHOOL PSYCHOLOGIST ASSISTANT) Color UA Yellow Straw, Yellow, Dark Yellow 08/02/2015 3:33 AM [facility] Clarity UA Cloudy 08/02/2015 3:33 AM [facility] Specific [place] UA >=1.030 1.005 - 1.030 08/02/2015 3:33 AM [facility] pH UA 6.0 5.0 - 8.0 pH 08/02/2015 3:33 AM [facility] Protein UA Negative Negative 08/02/2015 3:33 AM [facility] Blood UA 3+(A) Negative 08/02/2015 3:33 AM [facility] Leukocyte UA Trace(A) Negative 08/02/2015 3:33 AM [facility] Nitrite UA Negative Negative 08/02/2015 3:33 AM [facility] Glucose UA Negative Negative 08/02/2015 3:33 AM [facility] Ketone UA Negative Negative 08/02/2015 3:33 AM [facility] Bilirubin UA Negative Negative 08/02/2015 3:33 AM [facility] Urobilinogen UA 0.2 0.1 - 1.0 EU/dL 08/02/2015 3:33 AM [facility] Reflex Status Culture to follow 08/02/2015 3:33 AM [facility] Urine URINE SPECIMEN OBTAINED BY CLEAN CATCH PROCEDURE / Unknown 08/02/2015 3:25 AM SCHOOL PSYCHOLOGIST ASSISTANT 08/02/2015 3:24 AM SCHOOL PSYCHOLOGIST ASSISTANT Doug Randhawa MD LAB - URINALYSIS ORD ERABLES Performing Organization Address [facility]/ZIP Co de Phone Number [facility] [address] [place] [address] * CHLAMYDIA + GC AMPLIFIED PROBE (08/02/2015 3:25 AM SCHOOL PSYCHOLOGIST ASSISTANT) Chlamydia Amplified Probe Negative Negative 08/03/2015 7:29 AM SCHOOL PSYCHOLOGIST ASSISTANT [facility] GC Amplified Probe Negative Negative 08/03/2015 7:29 AM SCHOOL PSYCHOLOGIST ASSISTANT [facility] Urine URINE / Unknown Collection / Unknown 08/02/2015 3:25 AM SCHOOL PSYCHOLOGIST ASSISTANT 08/02/2015 4:32 AM SCHOOL PSYCHOLOGIST ASSISTANT Narrative [facility] - 08/03/2015 7:29 AM SCHOOL PSYCHOLOGIST ASSISTANT This test was developed and its performance characteristics determined by the [facility], [facility]. Female urine specimens tested by the [facility] [place] have not been cleared or approved by [...] Randhawa MD LAB - MICROBIOLOGY O RDERABLES [facility] [address] [place] [address], [facility] [phone] * MRI KNEE WO CONT LEFT (12/08/2014) Anatomical Region Laterality Modality Lower Extremity Other Tatyaan Fierro MD MR ORDERABLES * XR RIGHT KNEE AP LAT AND PATELLA (10/07/2014 2:39 PM CDT) Anatomical Region Laterality Modality Lower Extremity Radiographic Stacy ging 10/07/2014 2:49 PM CDT Impressions 10/07/2014 2:49 PM CDT Normal. Narrative 10/07/2014 2:49 PM CDT Right knee three views Left knee three views History: Polyarticular juvenile rheumatoid arthritis The bones, soft tissues, and joint spaces are normal. Procedure Note Katie Watson MD - 10/07/2014 Right knee three views Left knee three views History: Polyarticular juvenile rheumatoid arthritis The bones, soft tissues, and joint spaces are normal. IMPRESSION Normal. Ruben Lozano MD DIAGNOSTIC IMAGING O RDERABLES * XR LEFT KNEE AP LAT AND PATELLA (10/07/2014 2:39 PM CDT) Anatomical Region Laterality Modality Lower Extremity Radiographic Stacy ging 10/07/2014 2:49 PM CDT Impressions 10/07/2014 2:49 PM CDT Normal. Narrative 10/07/2014 2:49 PM CDT Right knee three views Left knee three views History: Polyarticular juvenile rheumatoid arthritis The bones, soft tissues, and joint spaces are normal. Procedure Note Katie Watson MD - 10/07/2014 Right knee three views Left knee three views History: Polyarticular juvenile rheumatoid arthritis The bones, soft tissues, and joint spaces are normal. IMPRESSION Normal. Ruben Lozano MD DIAGNOSTIC IMAGING O RDERABLES * RHEUMATOID FACTOR BLOOD SCREEN (10/07/2014 2:25 PM CDT) [facility] Rheumatoid Factor Negative Negative 10/07/2014 6:22 PM CDT [facility] Blood BLOOD SPECIMEN / Unknown Lab Venipuncture / Unknown 10/07/2014 2:25 PM CDT 10/07/2014 3:50 PM CDT Ruben Lozano MD LAB - CHEMISTRY IVA LARSON [facility] Organization Address City/State/[facility] Co de Phone Number [facility] [address] [place] [address] * CYCLIC CITRUL PEPTIDE AB IGG (CCP) (10/07/2014 2:25 PM CDT) Pathologist [facility] Cyclic Citrullinated Peptide Antibody IgG 6 0 - 19 Units 10/10/2014 1:15 AM CDT [facility] ([facility]) Comment: INTERPRETIVE INFORMATION: Cyclic Citrullinated Peptide Antibody, IgG 19 Units or less ................... Negative 20-39 Units ........................ Weak Positive 40-59 Units ........................ Moderate Positive 60 Units or greater ................ Strong Positive Anti-cyclic citrullinated peptide (anti-CCP), IgG antibodies are present in about 69-83 percent of patients with rheumatoid arthritis (RA) and have specificities of 93-95 percent. These autoantibodies may be present in the preclinical phase of disease, are associated with future RA development, and may predict radiographic joint destruction. Patients with weak positive results should be monitored and testing repeated. Blood specimen (specimen) BLOOD SPECIMEN / Unknown Lab Venipuncture / Unknown 10/07/2014 2:25 PM CDT 10/07/2014 3:51 PM CDT Ruben Lozano MD [facility] - [facility] Performing Organization Address [facility] de Phone Number [facility]) [address] [place] [address] * CHROMATIN ANTIBODY (10/07/2014 2:22 PM CDT) [facility] Chromatin Antibody 8 0 - 19 Units 10/13/2014 6:26 PM CDT [facility] ([facility]) Comment: INTERPRETIVE INFORMATION: Chromatin Antibody, IgG 19 Units or less: Negative 20 - 60 Units: Moderate Positive 61 Units or greater: Strong Positive The presence of anti-chromatin antibodies may be useful in the diagnosis of systemic lupus erythematosus (SLE) or drug-induced lupus (DIL) and have been reported to be predictive of lupus nephritis, especially when antibody levels are high. Blood specimen (specimen) BLOOD SPECIMEN / Unknown Lab Venipuncture / Unknown 10/07/2014 2:22 PM CDT 10/07/2014 3:51 PM CDT Ruben Lozano MD LAB - SEROLOGY ORDER VANESSA Performing Organization Address [facility] Co de Phone Number [facility] [address] [place] [address] * SM ANTIBODY GOLD (10/07/2014 2:22 PM CDT) Pathologist [facility] Cohn (GOLD) Antibody 2 0 - 40 AU/mL 10/10/2014 5:47 AM CDT [facility] ([facility]) Comment: INTERPRETIVE INFORMATION: COHN (GOLD) Ab, IgG 29 AU/mL or Less ............. Negative 30 - 40 AU/mL ................ Equivocal 41 AU/mL or Greater .......... Positive Cohn antibody is very specific for systemic lupus erythematosus (SLE) but only occurs in 30-35% of SLE cases. The presence of antibodies to Cohn is often associated with renal disease. Blood specimen (specimen) BLOOD SPECIMEN / Unknown Lab Venipuncture / Unknown 10/07/2014 2:22 PM CDT 10/07/2014 3:51 PM CDT Ruben Lozano MD LAB - CHEMISTRY IVA LARSON Performing Organization Address City/[facility]/ZIP Co de Phone Number [facility]) [address] [place] [address] * ALETHA BLOOD SCREEN W/REFLEX TITER (10/07/2014 2:22 PM CDT) Only the most recent of2 resultswithin the time period is included. [facility] ALETHA Negative Negative 10/08/2014 10:37 AM CDT [facility] Blood BLOOD SPECIMEN / Unknown Lab Venipuncture / Unknown 10/07/2014 2:22 PM CDT 10/07/2014 3:51 PM CDT Ruben Lozano MD LAB - CHEMISTRY IVA LARSON [facility] [address] [place] [address] * COMPLEMENT TOTAL (10/07/2014 2:22 PM CDT) [facility] Complement Total CH50 124 60 - 144 Units 10/10/2014 8:41 PM CDT [facility] ([facility]) Comment: INTERPRETIVE INFORMATION: Complement Activity, Total EIA 59 Units or less .......... Low 60-144 Units .............. Normal 145 Units or greater ....... High Blood specimen (specimen) BLOOD SPECIMEN / Unknown Lab Venipuncture / Unknown 10/07/2014 2:22 PM CDT 10/07/2014 3:51 PM CDT Ruben Lozano MD LAB - CHEMISTRY IVA LARSON Performing Organization Address [facility] Co de Phone Number [facility]) [address] * SS-B ANTIBODY (10/07/2014 2:22 PM CDT) SS-B Antibody 0 0 - 40 AU/mL 10/10/2014 5:47 AM CDT [facility] ([facility]) Comment: INTERPRETIVE INFORMATION: SSB (La) (GOLD) Ab, IgG 29 AU/mL or Less ............. Negative 30 - 40 AU/mL ................ Equivocal 41 AU/mL or Greater .......... Positive SSB (La) antibody is seen in 50-60% of Sjogren syndrome cases and is specific if it is the only GOLD antibody present. 15-25% of patients with systemic lupus erythematosus (SLE) and 5-10% of patients with progressive systemic sclerosis (PSS) also have this antibody. Blood specimen (specimen) BLOOD SPECIMEN / Unknown Lab Venipuncture / Unknown 10/07/2014 2:22 PM CDT 10/07/2014 3:51 PM CDT Ruben Lozano MD LAB - CHEMISTRY IVA LARSON Performing Organization Address [facility] Co de Phone Number [facility]) [address] * SS-A ANTIBODY (10/07/2014 2:22 PM CDT) SS-A Antibody 30 0 - 40 AU/mL 10/10/2014 5:47 AM CDT [facility] ([facility]) Comment: INTERPRETIVE INFORMATION: SSA (Ro) (GOLD) Ab, IgG 29 AU/mL or Less ............. Negative 30 - 40 AU/mL ................ Equivocal 41 AU/mL or Greater .......... Positive SSA (Ro) antibody is seen in 70-75% of Sjogren syndrome cases, 30-40% of systemic lupus erythematosus (SLE) and 5-10% of progressive systemic sclerosis (PSS). Blood specimen (specimen) BLOOD SPECIMEN / Unknown Lab Venipuncture / Unknown 10/07/2014 2:22 PM CDT 10/07/2014 3:51 PM CDT Ruben Lozano MD LAB - CHEMISTRY IVA LARSON Performing Organization Address City/[facility]/ZIP Co de Phone Number [facility]) [address] [place] [address] * SCL70 ANTIBODY (10/07/2014 2:22 PM CDT) SCL-70 Antibody 5 0 - 40 AU/mL 10/10/2014 5:47 AM CDT [facility] ([facility]) Comment: INTERPRETIVE INFORMATION: Scleroderma (Scl-70) (GOLD) Ab, IgG 29 AU/mL or Less ............. Negative 30 - 40 AU/mL ................ Equivocal 41 AU/mL or Greater .......... Positive Scleroderma (Scl-70) antibody is seen in 20-60% of patients with scleroderma and is considered diagnostic and specific for scleroderma if it is the only GOLD antibody present. Scl-70 is also seen in approximately 25% of progressive systemic sclerosis (PSS). Blood specimen (specimen) BLOOD SPECIMEN / Unknown Lab Venipuncture / Unknown 10/07/2014 2:22 PM CDT 10/07/2014 3:51 PM CDT Ruben Lozano MD LAB - CHEMISTRY IVA LARSON Performing Organization Address City/[facility]/ZIP Co de Phone Number [facility]) [address] * DNA ANTIBODY DOUBLE STRAND (10/07/2014 2:22 PM CDT) [facility] dsDNA Antibody None Detected None Detected 10/10/2014 1:19 AM CDT [facility] ([facility]) Comment: INTERPRETIVE INFORMATION: Double-Stranded DNA (dsDNA) Antibody, IgG by ROCKY Positivity for anti-double stranded DNA (anti-dsDNA) IgG antibody is a diagnostic criterion of systemic lupus erythematosus (SLE). Specimens are initially screened by enzyme-linked immunosorbent assay (ROCKY). All ROCKY results reported as detected (positive) are confirmed by a highly specific IFA titer (Crithidia luciliae indirect fluorescent test [ZULLY]). Some patients with early or inactive SLE may be positive for anti-dsDNA IgG by ROCKY but negative by ZULLY. If the patient is negative by ZULLY but positive by ROCKY and clinical suspicion remains, consider antinuclear antibody (ALETHA) testing by IFA. Additional information and recommendations for testing may be found at [email or web address]. Blood specimen (specimen) BLOOD SPECIMEN / Unknown Lab Venipuncture / Unknown 10/07/2014 2:22 PM CDT 10/07/2014 3:51 PM CDT Ruben Lozano MD LAB - HEMATOLOGY ORD ERABLES [facility]) [address] * (ABNORMAL) VITAMIN D 25-HYDROXY (10/07/2014 2:22 PM CDT) [facility] Vitamin D, 25 Hydroxy 28.54(L) 30 - 100 ng/mL 10/08/2014 7:39 AM CDT [facility] Blood BLOOD SPECIMEN / Unknown Lab Venipuncture / Unknown 10/07/2014 2:22 PM CDT 10/07/2014 3:51 PM CDT Narrative [facility] - 10/08/2014 7:39 AM CDT Vitamin D Status: Deficiency <20 ng/mL Insufficiency 20-30 ng/mL Sufficiency 30-100 ng/mL Toxicity >100 ng/mL Ruben Lozano MD LAB - CHEMISTRY ORDEstela LARSON Performing Organization Address City/[facility]/ZIP Co de Phone Number [facility] [address] [place] [address] * (ABNORMAL) COMPLEMENT C4 (10/07/2014 2:22 PM CDT) Complement C4 9(L) 13 - 46 mg/dL 10/07/2014 5:36 PM CDT [facility] Blood BLOOD SPECIMEN / Unknown Lab Venipuncture / Unknown 10/07/2014 2:22 PM CDT 10/07/2014 3:51 PM CDT Ruben Lozano MD LAB - SEROLOGY ORDER VANESSA Performing Organization Address [facility] Co de Phone Number [facility] [address] [place] [phone] * COMPLEMENT C3 (10/07/2014 2:22 PM CDT) Pathologist [facility] Complement C3 129 82 - 173 mg/dL 10/07/2014 5:36 PM CDT [facility] Blood BLOOD SPECIMEN / Unknown Lab Venipuncture / Unknown 10/07/2014 2:22 PM CDT 10/07/2014 3:51 PM CDT Ruben Lozano MD LAB - CHEMISTRY IVA LARSON Performing Organization Address [facility]/ZIP Co de Phone Number [facility] [address] [place] [phone] * (ABNORMAL) URINALYSIS W MICROSCOPIC - POINT OF CARE (08/27/2014) Leukocyte UA negative Negative Nitrite UA POCT negative Negative Urobilinogen UA 0.1 0.1 - 1.0 Protein UA POCT trave Negative pH UA 6.5 5.0 - 8.0 pH units Blood UA negative Negative Specific [place] UA POCT 1.020 1.002 - 1.030 Ketone UA negative Negative Bilirubin UA POCT negative Negative Glucose UA negative Negative WBC UA POCT 1-2 0 - 1 HPF RBC UA POCT 4(A) 0 - 1 HPF Comment:urine cx sent Epithelial Cell UA POCT 0 - 1 HPF Bacteria UA POCT None Mucus UA POCT None Casts UA POCT None LPF Crystals UA POCT None LPF Urine Other Urine specimen (specimen) URINE / Unknown 08/27/2014 Tatyana Fierro MD LAB - POINT OF CARE ORDERABLES * XR KNEE 4+ VW LEFT (06/16/2014) Anatomical Region Laterality Modality Lower Extremity Other Tatyana Fierro MD DIAGNOSTIC IMAGING O RDERABLES * US PELVIS COMPLETE (01/16/2014) Anatomical Region Laterality Modality Pelvis Other Tatyana Fierro MD US ORDERABLES * EVENT MONITOR (09/08/2013) Tatyana Fierro MD CARDIAC SERVICES ORD ERABLES * THYROID PANEL W TSH (08/05/2013) Blood specimen (specimen) BLOOD SPECIMEN / Unknown Tatyana Fierro MD LAB - CHEMISTRY IVA LARSON OTHER LAB * CBC W AUTO DIFFERENTIAL W/O PLATELETS (08/05/2013) Blood specimen (specimen) BLOOD SPECIMEN / Unknown Tatyana Fierro MD LAB - HEMATOLOGY ORD ERABLES OTHER LAB * ECHO CONSULT - PEDIATRIC (07/16/2013 8:47 AM SCHOOL PSYCHOLOGIST ASSISTANT) 07/16/2013 8:47 AM SCHOOL PSYCHOLOGIST ASSISTANT Narrative [facility]AC [facility] - 07/16/2013 9:45 AM SCHOOL PSYCHOLOGIST ASSISTANT [facility] , Transthoracic Echocardiogram 2D, M-mode, Doppler, and Color Doppler Name: MARIE ALVARADO MR #: [id number] Study date: 07/16/2013 Age: 13 years : 2000 Gender: Female Ht: 59.1 in / 150 cm Wt: 94.6 lb / 43 kg BSA: 1.34 m HR: BP: / age: JUAN ANTONIO: Maternal age: REFERRING PHYSICIAN: Tatyana Fierro MD COSMETIC CONSULTANT: Edvin Hernandez MD PEDIATRIC ECHO EARLY CHILDHOOD WORKER: Estee Madison RDCS Allergies: TRIAMCINOLONE History/ Indications: Chest pain. Procedure: The procedure was performed in the echo lab. Anatomic relationships: Visceral situs: normal. Left sided cardiac apex (levocardia). Normal atrial situs (atrial situs solitus). Concordant atrioventricular alignment. Ventricular d-loop. Normal infundibular anatomy. Concordant ventriculoarterial connection. Normally related great vessels. Systemic veins: SVC: The superior vena cava and left innominate vein appeared of normal caliber, with normal flow. IVC: The inferior vena cava was normal in size and course. IVC Doppler: The flow pattern was normal. Pulmonary veins: The pulmonary veins drained normally to the left atrium. Doppler: Doppler flow pattern was normal in the pulmonary vein(s). Right atrium: Size was normal. Left atrium: Size was normal. Atrial septum: No defect or patent foramen ovale was identified. Tricuspid valve: The valve structure was normal. Doppler: The transtricuspid velocity was within the normal range. There was no evidence for tricuspid stenosis. There was trivial regurgitation. Mitral valve: Valve structure was normal. There is no mitral valve prolapse. Doppler: The transmitral velocity was within the normal range. There was no evidence for stenosis. There was no regurgitation. Right ventricle: The cavity size was normal. Wall thickness was normal. Systolic function was normal. Doppler: The tricuspid jet envelope definition was inadequate for estimation of RV systolic pressure. There are no indirect findings (abnormal RV volume or geometry, altered pulmonary flow velocity profile, or leftward septal displacement) which would suggest moderate or severe pulmonary hypertension. RV outflow tract: There was no obstruction. Left ventricle: The cavity size was normal. Wall thickness was normal. Systolic function was normal. There were no regional wall motion abnormalities. Doppler: Left ventricular diastolic function parameters were normal. LV outflow tract: There was no outflow obstruction. Ventricular septum: Thickness was normal. The septum was intact. Pulmonic valve: Leaflets exhibited normal thickness and normal cuspal separation. Doppler: The transpulmonic velocity was within the normal range. Aortic valve: The valve was trileaflet. Leaflets exhibited normal thickness and normal cuspal separation. Doppler: Transaortic velocity was within the normal range. There was no stenosis. There was no regurgitation. Pulmonary artery: The main pulmonary artery was normal, with normal-sized, confluent proximal branch pulmonary arteries. Aorta: There was a normal-sized aortic arch with normal brachiocephalic branching. The root was normal in size. The ascending aorta size was normal. Coronary arteries: The size and course of the left main, proximal left anterior descending, and proximal right coronary arteries were normal. Right coronary artery: Flow was normal. Left main coronary artery: Flow was normal. Left anterior descending: Flow was normal. Extracardiac shunting: No ductal shunt was detected by Doppler. Pericardium: There was no pericardial effusion. The pericardium was normal in appearance. Summary: - Diagnoses: Normal intracardiac anatomy. Prepared and signed by Edvin Hernandez MD Signed 07/16/2013 09:45:45 System measurement tables MM %FS: 37.6 % Ao Diam: 17.1 mm EDV(Teich): 82.5 ml EF(Teich): 68 % ESV(Teich): 26.4 ml IVSd: 4.1 mm IVSs: 6 mm LA Diam: 20.7 mm LA/Ao: 1.2 LVIDd: 42.9 mm LVIDs: 26.7 mm LVPWd: 3.7 mm LVPWs: 8.3 mm LVd Mass: 40.1 g LVd Mass (ASE): 43.5 g LVs Mass: 38.3 g LVs Mass (ASE): 42.2 g SV(Teich): 56.1 ml Procedure Note 07/16/2013 [facility] , Transthoracic Echocardiogram 2D, M-mode, Doppler, and Color Doppler Name: MARIE ALVARADO MR #: [id number] Study date: 07/16/2013 Age: 13 years : 2000 Gender: Female Ht: 59.1 in / 150 cm Wt: 94.6 lb / 43 kg BSA: 1.34 m HR: BP: / age: JUAN ANTONIO: Maternal age: REFERRING PHYSICIAN: Tatyana Fierro MD COSMETIC CONSULTANT: Edvin Hernandez MD PEDIATRIC ECHO EARLY CHILDHOOD WORKER: Estee Madison RDCS Allergies: TRIAMCINOLONE History/ Indications: Chest pain. Procedure: The procedure was performed in the echo lab. Anatomic relationships: Visceral situs: normal. Left sided cardiac apex (levocardia). Normal atrial situs (atrial situs solitus). Concordant atrioventricular alignment. Ventricular d-loop. Normal infundibular anatomy. Concordant ventriculoarterial connection. Normally related great vessels. Systemic veins: SVC: The superior vena cava and left innominate vein appeared of normal caliber, with normal flow. IVC: The inferior vena cava was normal in size and course. IVC Doppler: The flow pattern was normal. Pulmonary veins: The pulmonary veins drained normally to the left atrium. Doppler: Doppler flow pattern was normal in the pulmonary vein(s). Right atrium: Size was normal. Left atrium: Size was normal. Atrial septum: No defect or patent foramen ovale was identified. Tricuspid valve: The valve structure was normal. Doppler: The transtricuspid velocity was within the normal range. There was no evidence for tricuspid stenosis. There was trivial regurgitation. Mitral valve: Valve structure was normal. There is no mitral valve prolapse. Doppler: The transmitral velocity was within the normal range. There was no evidence for stenosis. There was no regurgitation. Right ventricle: The cavity size was normal. Wall thickness was normal. Systolic function was normal. Doppler: The tricuspid jet envelope definition was inadequate for estimation of RV systolic pressure. There are no indirect findings (abnormal RV volume or geometry, altered pulmonary flow velocity profile, or leftward septal displacement) which would suggest moderate or severe pulmonary hypertension. RV outflow tract: There was no obstruction. Left ventricle: The cavity size was normal. Wall thickness was normal. Systolic function was normal. There were no regional wall motion abnormalities. Doppler: Left ventricular diastolic function parameters were normal. LV outflow tract: There was no outflow obstruction. Ventricular septum: Thickness was normal. The septum was intact. Pulmonic valve: Leaflets exhibited normal thickness and normal cuspal separation. Doppler: The transpulmonic velocity was within the normal range. Aortic valve: The valve was trileaflet. Leaflets exhibited normal thickness and normal cuspal separation. Doppler: Transaortic velocity was within the normal range. There was no stenosis. There was no regurgitation. Pulmonary artery: The main pulmonary artery was normal, with normal-sized, confluent proximal branch pulmonary arteries. Aorta: There was a normal-sized aortic arch with normal brachiocephalic branching. The root was normal in size. The ascending aorta size was normal. Coronary arteries: The size and course of the left main, proximal left anterior descending, and proximal right coronary arteries were normal. Right coronary artery: Flow was normal. Left main coronary artery: Flow was normal. Left anterior descending: Flow was normal. Extracardiac shunting: No ductal shunt was detected by Doppler. Pericardium: There was no pericardial effusion. The pericardium was normal in appearance. Summary: - Diagnoses: Normal intracardiac anatomy. Prepared and signed by Edvin Hernandez MD Signed 07/16/2013 09:45:45 System measurement tables MM %FS: 37.6 % Ao Diam: 17.1 mm EDV(Teich): 82.5 ml EF(Teich): 68 % ESV(Teich): 26.4 ml IVSd: 4.1 mm IVSs: 6 mm LA Diam: 20.7 mm LA/Ao: 1.2 LVIDd: 42.9 mm LVIDs: 26.7 mm LVPWd: 3.7 mm LVPWs: 8.3 mm LVd Mass: 40.1 g LVd Mass (ASE): 43.5 g LVs Mass: 38.3 g LVs Mass (ASE): 42.2 g SV(Teich): 56.1 ml Tatyana Fierro MD ECHO ORDERABLES [facility] [address] [id number] * XR CHEST PA AND LATERAL(most commonly ordered) (06/22/2013 11:26 AM SCHOOL PSYCHOLOGIST ASSISTANT) Anatomical Region Laterality Modality Chest Radiographic Stacy ging 06/22/2013 11:4 4 AM SCHOOL PSYCHOLOGIST ASSISTANT Impressions 06/22/2013 11:45 AM SCHOOL PSYCHOLOGIST ASSISTANT Normal Narrative 06/22/2013 11:45 AM SCHOOL PSYCHOLOGIST ASSISTANT Chest, 2 views June 22, 2013 Lungs, heart, and mediastinum are normal. There is no infiltrate, pleural effusion, or pneumothorax. Procedure Note Alexis Parisi MD - 06/22/2013 Chest, 2 views June 22, 2013 Lungs, heart, and mediastinum are normal. There is no infiltrate, pleural effusion, or pneumothorax. IMPRESSION Normal [facility]ima [facility]rent[facility] DIAGNOSTIC IMAGING ORDERABLES * EKG 15-LEAD (06/22/2013 11:18 AM SCHOOL PSYCHOLOGIST ASSISTANT) Ventricular Rate 83 BPM CG MUSE Atrial Rate 83 BPM CG MUSE P-R Interval 120 ms CG MUSE QRS Duration ms 86 ms CG MUSE Q-T Interval ms 374 ms CG MUSE QTC Calculation (Bezet) 439 ms CG MUSE Calculated P [place] 19 degrees CG MUSE Calculated R [place] 62 degrees CG MUSE Calculated T [place] 44 degrees CG MUSE Interpretation EKG * Pediatric ECG Analysis * Normal sinus rhythm Normal ECG No previous ECGs available Confirmed by ALYSSA WHARTON ([id number]) on 06/25/2013 8:37:35 AM CG MUSE 06/22/2013 11:1 8 AM SCHOOL PSYCHOLOGIST ASSISTANT 06/25/2013 8:37 AM SCHOOL PSYCHOLOGIST ASSISTANT Narrative CG MUSE - 06/25/2013 8:37 AM SCHOOL PSYCHOLOGIST ASSISTANT Procedure Note Document, Scanned - 06/23/2013 11:34 AM CST Transcriptions Document, Scanned - 06/23/2013 11:34 AM CST Document, Scanned - 06/25/2013 9:14 AM CST Shima Gomezisidrobrenton [facility] ECG ORDERABLES CG MUSE * XR KNEE 4+ VW RIGHT (06/20/2012) Anatomical Region Laterality Modality Lower Extremity Other Todd Cooper MD DIAGNOSTIC IMAGING O RDERABLES * LIPID PROFILE+GLUCOSE - POINT OF CARE (AMB) (03/19/2012 2:04 PM CDT) QC Verified yes Yes Cholesterol POCT 121 >200 mg/dl HDL POCT 40 <40 - >60 mg/dL Triglycerides POCT 98 >130 mg/dL LDL 61 >130 mg/dl Non HDL Cholesterol POCT 81 >145 mg/dL Total Cholesterol/HDL Ratio POCT 3.0 >6.0 Glucose 84 >126 mg/dL BLOOD SPECIMEN / Unknown Tatyana Fierro MD LAB - POINT OF CARE ORDERABLES * XR SPINE SCOLIOSIS 2 VW MP (03/19/2012) Anatomical Region Laterality Modality Spine Other Tatyana Fierro MD DIAGNOSTIC IMAGING O RDERABLES * XR FOOT 3+ VW LEFT (01/04/2012) Anatomical Region Laterality Modality Ankle / Foot Other [facility] DIAGNOSTIC IMAG ING ORDERABLES * XR ANKLE 3+ VW LEFT (01/04/2012) Anatomical Region Laterality Modality Lower Extremity Other [facility] DIAGNOSTIC IMAG ING ORDERABLES * XR ABD OBSTR SERIES (07/12/2011) Anatomical Region Laterality Modality Abdomen Other Elaine Bran EPIC DIRECTOR-BIOMECHANICAL ENGINEER DIAGNOSTIC IMAGIN G ORDERABLES * STREP A SCREEN - POINT OF CARE (AMB) (08/02/2010) Strep A Rapid POCT negative NEGATIVE - POSITIVE Strep A Internal Control NEGATIVE - POSITIVE ENTIRE THROAT (SURFACE REGION OF NECK) / Unknown Tatyana Fierro MD LAB - POINT OF CARE ORDERABLES Care Teams [employer] Relationship Specialty Start Date End Date Tatyana Fierro MD PCP - General 04/26/20
--- OUTSIDE RECORDS SUMMARY | 2024-08-28 10:37 | XMS_ITS | Referral Summary ---
Author Organization [facility] Address [address] [place] [id number] Care Team Providers Care Farm Service Consultant Name Role Phone Gabby Duran NP Primary Care Provider [phone] Allergies No known active allergies Medications albuterol HFA (PROVENTIL HFA,VENTOLIN HFA,PROAIR HFA) 90 mcg/actuation inhaler INHALE 2 PUFFS INTO THE LUNGS FOUR TIMES DAILY NEEDED FOR SHORTNESS OF BREATH OR WHEEZING Active EPINEPHrine 0.3 mg/0.3 mL auto-injection syringe INJECT INTRAMUSCULARLY ONE TIME DIRECTED MAY REPEAT ONE TIME 12/02/19 19 Active ProChamber spacer USE DIRECTED WITH INHALER Active medroxyPROGEST ERone (Depo-Provera) 150 mg/mL injection Inject 1 mL every 3 months by intramuscular route. 10/28/[address] (VOLTAREN) 75 mg EC tablet Take 1 tablet (75 mg total) by mouth 2 (two) times a day as needed (pain) 60 tablet 1 07/03/20 23 Active Active Problems No known active problems Social History Tobacco Use Types Packs/Day Years Used Date Smoking Tobacco: Every Day Vaping Started: 07/10/2017 Tobacco Cessation:Ready to Q uit: Not Asked; Counseling Given: Not Answered Personal Safety Answer Date Recorded Getting School Help Needed Not on file 07/02 Comments Unknown Sex and Gender Information Value Date Recorded Sex Assigned at Not on file Legal Sex Female 7:10 PM ENERGY ECONOMIST Gender Identity Not on file Sexual Orientation Not on file Occupation Industry Job Start Date Job End Date Self- employed Not on file Not on file Not on file Last Filed Vital Signs Vital Sign Reading Time Taken Comments Blood Pressure 117/82 07/03/2023 10:27 AM ENERGY ECONOMIST Pulse 94 07/03/2023 10:27 AM ENERGY ECONOMIST Temperature 36.9 C (98.4 F) 08/01/2015 8:05 PM ENERGY ECONOMIST Respiratory Rate - - Oxygen Saturation 98% 07/03/2023 10:27 AM ENERGY ECONOMIST Inhaled Oxygen Concentration - - Weight 63.7 kg (140 lb 6.4 oz) 07/03/2023 10:27 AM ENERGY ECONOMIST Height 154.9 cm (5' 1 ) 07/03/2023 10:27 AM ENERGY ECONOMIST Body Mass Index 26.53 07/03/2023 10:27 AM ENERGY ECONOMIST Plan of Treatment Not on file Insurance Care Teams Farm Service Consultant Relationship Specialty Start Date End Date Gabby Duran, COUNTER SERVER [address] [place] [address] PCP - General Forest Products Gatherer 08/05/23
--- OUTSIDE RECORDS SUMMARY | 2024-08-28 10:37 | XMS_ITS | Clinical Summary ---
Author Organization [facility] Address [address] [place] [phone] Care Team Providers Care Bull Fiddle Player Name Role Phone Gabby Duran NP Primary Care Provider [phone] No known active allergies Medications albuterol [...] Active Active Problems No known active problems Surgical History Surgery Date Site/Laterality Comments BREAST BIOPSY 05/11/2020 Right BREAST BIOPSY 05/11/2020 Right APPENDECTOMY FLUORO GUIDED INJECTION KNEE LEFT 08/05/2023 Left Medical History Medical History Date Comments Sinus tachycardia Social History Tobacco Use Types Packs/Day Years Used Date Smoking Tobacco: Every Day Vaping Started: 07/10/2017 Tobacco Cessation:Ready to Q uit: Not Asked; Counseling Given: Not Answered Personal Safety Answer Date Recorded Getting School Help Needed Not on file 07/02 Comments Unknown Sex and Gender Information Value Date Recorded Sex Assigned at Not on file Legal Sex Female 7:10 PM TITLE INSPECTOR Gender Identity Not on file Sexual Orientation Not on file Occupation Industry Job Start Date Job End Date Self- employed Not on file Not on file Not on file Obstetrics History Last Filed Vital Signs Vital Sign Reading Time Taken Comments Blood Pressure 117/82 07/03/2023 10:27 AM TITLE INSPECTOR Pulse 94 07/03/2023 10:27 AM TITLE INSPECTOR Temperature 36.9 C (98.4 F) 08/01/2015 8:05 PM TITLE INSPECTOR Respiratory Rate - - Oxygen Saturation 98% 07/03/2023 10:27 AM TITLE INSPECTOR Inhaled Oxygen Concentration - - Weight 63.7 kg (140 lb 6.4 oz) 07/03/2023 10:27 AM TITLE INSPECTOR Height 154.9 cm (5' 1 ) 07/03/2023 10:27 AM TITLE INSPECTOR Body Mass Index 26.53 07/03/2023 10:27 AM TITLE INSPECTOR Plan of Treatment Health Maintenance Due Date Last Done Comments Cervical Cancer Screening 2001 Depression Screening 2001 Hepatitis C Screening 2001 Pneumococcal vaccine <65 (1 of 1 - PPSV23 or PCV20) 2007 2001, 2001, 2001 Meningococcal B Vaccine (1 o f 2 - Patient Seeks Protection) 2017 Regular Well Visit/Exam 18-64 2019 Influenza Vaccine (#1) 2024 3, 07/13/2008, 07/10/2008, Additional history exists DTaP/Tdap/Td Vaccine (8 - Td or Tdap) 02/11/2029 02/11/2019, 03/19/2012, 03/15/2006, Additional history exists Hepatitis B Screening Completed 06/23/2002 , 2001, 2001 Varicella Vaccines Completed 06/27/2007, 03/25/2002 HPV Vaccines Completed 07/31/2014, 07/2012, 03/19/2012 Insurance [facility] Care Teams Bull Fiddle Player Relationship Specialty Start Date End Date Gabby Duran NP [address] [place] [address] PCP - General Package Liner 08/05/23
--- OUTSIDE RECORDS SUMMARY | 2024-08-28 10:37 | XMS_ITS | Clinical Summary ---
Author Organization [facility] Address [address] [place] [address] Care Team Providers Care Business Specialist Name Role Phone Tatyana Fierro MD Primary Care Provider [phone] Source Comments [facility],non-owned Affiliates and Associated Physician Practices is amultiple site organization consisting of ambulatory clinics and hospital sitesin [place], [place], [place] and [place]. This disclosure is being madepursuant to the Care Everywhere program and may not contain all information available regarding this patient. Last updated 18.[facility] Allergies No known active allergies Medications * [...] 07/08/14 [facility] Dysmenorrhea 01/21/2014 02/21/2017 Overview (01/21/2014): 01/21/14 [...] 03/15/2006, 2,2001,05/19 TDAP (7yrs+) 02/11/2019,03/19/2012 VARICELLA 06/27/2007,03/25/2002 Family History Medical History Relation Name Comments Heart Surgery Maternal Grandfather Thyroid Disease Mother hashimotos' CVA<65(female) Sister Relation Name Status Comments Maternal Grandfather Mother Sister Social History Tobacco Use Types Packs/Day Years [...] Comments Blood Pressure 112/60 05/26/2018 1:28 PM OFFICE AGENT Pulse 91 07/29/2018 11:26 AM OFFICE AGENT Temperature 36.6 C (97.8 F) 05/18/2019 10:05 AM CDT Respiratory Rate 16 07/19/2017 11:30 AM OFFICE AGENT Oxygen Saturation 99% 07/29/2018 11:26 AM OFFICE AGENT Inhaled Oxygen Concentration - - Weight 47 kg (103 lb 9.6 oz) 05/18/2019 10:05 AM CDT Height 156.3 cm (5' 1.54 ) 05/26/2018 1:28 PM CS T Body Mass Index - - Plan of Treatment Health Maintenance Due Date Last Done Comments PAP SMEAR 2001 HIV SCREENING 2016 CHLAMYDIA/GONORRHEA SCREENING 2017 08/02/2015 MENINGOCOCCAL (Group B) VACC INE (1 of 2 - Standard) 2017 HEPATITIS C SCREENING 03/14/2019 COVID-19 VACCINE (2023-2 5 season) 2024 INFLUENZA VACCINE (#1) 2024 3, 07/10/2008, 06/09/2008 DEPRESSION SCREENING 07/22/2024 DTAP/TDAP/TD VACCINES (8 - T d or Tdap) 02/11/2029 02/11/2019, 03/19/2012, 03/15/2006, Additional history exists ZOSTER VACCINE (1 of 2) 2051 HEPATITIS B VACCINE Completed 06/23/2002, 2001, 2001 HIB VACCINE Completed 06/23/2002, 01/2002, 2001 PNEUMOCOCCAL VACCINE Completed 06/23/2002, 2001, 2001, Additional history exists HPV VACCINE Completed 07/31/2014, 07/2012, 03/19/2012 MENINGOCOCCAL VACCINE Completed 02/24/2018, 012 Goals Goal Patient Goal Type Associated Problems Recent Progress Patient-Stated? Author [facility] Lifestyle: Use safety retraint in car Lifestyle On track( 018 10:17 AM CDT) No Suri Wiggins, radio equipment installer Procedure Name Priority Date/Time Associated Diagnosis Comments CHLAMYDIA + GC AMPLIFIED PROBE STAT 08/02/2015 3:25 AM OFFICE AGENT from Last 3 Months or Most Recently Relevant to Health Maintenance Results * CHLAMYDIA + GC AMPLIFIED PROBE (08/02/2015 3:25 AM OFFICE AGENT) Chlamydia Amplified Probe Negative Negative 08/03/2015 7:29 AM OFFICE AGENT [facility] GC Amplified Probe Negative Negative 08/03/2015 7:29 AM OFFICE AGENT [facility] Urine URINE / Unknown Collection / Unknown 08/02/2015 3:25 AM OFFICE AGENT 08/02/2015 4:32 AM OFFICE AGENT Narrative [facility] - 08/03/2015 7:29 AM OFFICE AGENT This test was developed and its performance characteristics determined by the [facility], [facility]. Female urine specimens tested by the [facility] have not been cleared or approved by [...] Randhawa MD LAB - MICROBIOLOGY O RDERABLES [facility] [address] [place], [place] [address], [facility] [phone] from Last 3 Months or Most Recently Relevant to Health Maintenance Advance Directives * Full Code (Latest Code Status on File) Date Activated Date Inactivated Comments 01/20/2016 1:33 PM 01/20/2016 8:57 PM * Full Code Date Activated Date Inactivated Comments 01/19/2016 8:20 PM 01/20/2016 1:33 PM Care Teams Business Specialist Relationship Specialty Start Date End Date Tatyana Fierro MD PCP - General 04/26/20
--- NOTE | 2024-08-28 10:42 | PC.NURSE ---
Dr. Navarro notified of reactive NST, no contractions, and negative ROM plus. Okay to discharge
== END 2024-08-28 10:40 | disposition home or self-care (01) ==
LOC: ANHOBOP 09:50 → ANHOBPP 09:51
PROVIDERS: PCP Nurse Practitioner Family; Visit Provider Obstetrics & Gynecology
DX: O41.8X90 Other specified disorders of amniotic fluid and membranes, unspecified trimester, not applicable or unspecified (principal); Z3A.00 Weeks of gestation of pregnancy not specified
CPT/HCPCS: 59025; 84112; 99199

== ENCOUNTER 2024-10-07 11:31 | Outpatient (CLI) | payer OTHER, SELFPAY ==
[2024-10-07] VITALS (16 sets, daily range): BP systolic 118–128; BP diastolic 56–73; PULSE 89–125; O2SAT 96–100
[2024-10-07] MEDS: TERBUTALINE SULFATE 1 MG/ML VIAL 0.25 MG SUB-Q (12:55)
--- OUTSIDE RECORDS SUMMARY | 2024-10-07 13:30 | XMS_ITS | Clinical Summary ---
Author Organization [facility] Address [facility] [place] [address] Care Team Providers Care Dye Tub Tender Name Role Phone Gabby Duran NP Primary Care Provider [phone] Allergies No known active allergies Medications albuterol [...] (#1) 2024 05/14/2013, 07/13/2008, 06/09/2008 PHQ-2 (Physician [place]) 07/22/2024 09/09/2023 Annual Physical 09/09/2024 09/09/2023 Cervical Cancer Screening Pap Smear (Age 21 to 29) Every 3 Years 03/29/2026 03/29/2023 Cervical Cancer Screening 03/29/2026 DTaP, Tdap and Td Vaccines (8 - Td or Tdap) 02/11/2029 02/11/2019, 03/19/2012, 03/15/2006, Additional history exists Hepatitis B Vaccines Completed 06/23/2002, 2001, 2001 HPV Vaccines Completed 07/31/2014, 08/0 07/2012, 03/19/2012 Meningococcal Vaccine Completed 02/24/2018 , 03/19/2012, 03/19/2012 RSV Immunizations Under 20 Months Aged Out No longer eligible based on patient's age to complete this topic Insurance [facility] [place] Care Teams Dye Tub Tender Relationship Specialty Start Date End Date Gabby Duran NP [address] [place], [place] [address] PCP - General Nurse Practitioner Family 09/09/23
--- OUTSIDE RECORDS SUMMARY | 2024-10-07 13:30 | XMS_ITS | Data Portability ---
Author Organization [facility] [place] Address [address] [place] [address] [place] [address] Care Team Providers Care Elder Counselor Name Role Phone LANG BORREGO Primary Care Provider Assessment Encounter Date Assessment Date Assessment LastModified by Organization Details LastModified Time 09/01/2024 09/01/2024 Patient is ___weeks . Discussed plan. Not available 09/01/2024 10:42:37 09/15/2024 09/15/2024 Patient is ___weeks . Discussed plan. Not available 09/15/2024 11:57:00 09/28/2024 09/28/2024 Patient is ___weeks . Discussed plan. Not available 09/28/2024 10:55:40 Plan of Treatment Reminders Order Date Submit Date Provider Last Modified By Organization Details Last Modified Time Details Appointments OB ROUTINE 2024 10:45A Abraham NAVARRO MD Not available Not available Not available Lab None recorded. Referral None recorded. Procedures None recorded. Surgeries None recorded. Imaging US, obstetric , follow-up 2024 025 [email or web address] [facility], [address], [place], [address], 09/15/2024 23:00:35 US, obstetric , limited 2024 025 [email or web address] [facility], [address], [place], [address], 09/01/2024 14:59:39 US, obstetric , transvagi nal 2024 025 [email or web address] [place] [facility], [address], [address], [place], [address], 09/01/2024 14:59:39 Medication Orders None recorded. Patient TargetsNo targets recorded. Patient InstructionsNo instructions recorded. Reason for Referral None Reported. Results Created Date Observation Date Name Description Value Unit Range Abnormal Flag Note LastModifiedBy Organization Detail LastModifiedTime 08/18/1908/18/2024 HIV 1/2 ANTIG EN/AN TIBOD Y, REFLE X CONFI RMATI ON HIV antigen/anti body,reflex confirmation CANCEL LED Rerosa ered Not Available [facility] (Lab) [address] [facility] [address], [place], [address], 08/19/2024 05:28:16 08/18/19 25 08/18/2024 HEMAT OCRIT (HCT) HCT 32.1 % (based on docume nted legal sex) 34.0-4 5.0 low Not Available [facility] (Lab) [address] [facility] [address], [place], [address], 08/19/2024 10:38:47 08/18/19 25 08/18/2024 HEMOG LOBIN (HGB) HGB 10.9 g/dL (based on docume nted legal sex) 11.6-1 5.4 low Not Available [facility] (Lab) [address] [facility] [address], [place], [address], 08/19/2024 10:38:48 08/18/19 25 08/18/2024 GTT - GESTA MILTON Carmen Hoffman, ACOG OB glucose, 1 hour screen 90 mg/dL 70-135 Not Available [facility] (Lab) [address], [place], [address], 08/19/2024 10:38:48 08/18/19 25 08/18/2024 HIV 1/2 ANTIG EN/AN TIBOD Y, REFLE X CONFI RMATI ON HIV antigen/anti body Nonrea ctive nonrea ctive HIV-1 antig en and HIV-1 /HIV- 2 antib odies were not detec nilsa. No labor atory evide nce of HIV infec tion. Not Available [facility] (Lab) [address], [place], [address], 08/19/2024 10:38:49 08/18/19 25 08/18/2024 RPR SCREE N, REFLE X TITER /CONF IRMAT ION RPR screen Nonrea ctive nonrea ctive Not Available [facility] (Lab) [address], [place], [address], 08/19/2024 10:38:49 08/18/19 25 08/18/2024 US, esteban haynes, follo w-up No observ ation record ed. [email or web address] [facility] [address], [place], [address], 08/18/2024 13:06:39 08/18/19 25 08/18/2024 US, esteban haynes, follo w-up No observ ation record ed. [email or web address] [address] [facility], [place], [address], 09/01/2024 23:08:38 09/01/19 25 09/01/2024 US, esteban haynes, limit ed No observ ation record ed. [facility] [address], [place], [address], 09/01/2024 12:57:52 09/01/19 25 09/01/2024 US, esteban haynes, trans vagin al No observ ation record ed. [facility] [address], [place], [address], 09/01/2024 12:58:05 09/01/19 25 09/01/2024 US, obste tric, limit ed No observ ation record ed. [email or web address] [address], [place], [address], 09/01/2024 14:24:53 09/15/19 25 09/15/2024 US, obste tric, follo w-up No observ ation record ed. [email or web address] [facility] [address], [place], [address], 09/15/2024 13:45:58 09/15/19 25 09/15/2024 US, obste tric, follo w-up No observ ation record ed. [email or web address] [address], [place], [address], 09/16/2024 17:59:26 Result Notes None recorded. Problems Name Problem SNOMED Code Status Onset Date Resolution Date Notes Provider Name and Address Organization Details Recorded Time Pregnanc y 33258090 Active 2023 Clarissa thomas, [facility] 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 5 10:54:37 Finding of uterine contract ions 905283521 Active Ankush Navarro MD [address], [place], [address], [facility] 5 12:13:26 Clinical finding Completed 201803/01/2021 Encounte r for surveill ance of injectab le contrace ptive;Pr actice ID: 0001 Tea thomas, [facility] 1 22:08:39 Pregnanc y test negative 499632846 Completed 201803/01/2021 Encounte r for pregnanc y test, result negative ;Practic e ID: 0001 Tea thomas [facility] 1 22:08:50 Finding of regulari ty of menstrua l cycle Completed 201803/01/2021 Irregula r menstrua tion, unspecif ied;Prac milan ID: 0001 Tea thomas [facility] 22:08:42 Surveill ance of contrace ption Completed 201803/01/2021 Encounte r for surveill ance of contrace ptives, unspecif ied;Jose Luis rded Elsewher e: No Locat ion: [facility] S ource: EHR Automatic Presser carlos: N Practi ce ID: 0001 Ollie lable Time: 10:30:00 AM Tea Lorenz [facility] 22:08:54 Finding of sensatio n of breast Completed 201803/01/2021 Mastodyn ia;Recor ded Elsewher e: No Locat ion: [facility] Source: EHR Automatic Presser carlos: N Practi ce ID: 0001 Ollie lable Time: 10:45:00 AM Tea Lorenz [facility] 22:08:46 Syphilis test finding 089377720 Completed 201803/01/2021 Encounte r for STD screenin g;Record ed Elsewher e: No Locat ion: [facility] S ource: EHR Automatic Presser carlos: N Practi ce ID: 0001 Ollie lable Time: 10:30:00 AM Tea Lorenz [facility] 22:08:57 Amenorrh ea 57356514 Completed 201803/01/2021 Amenorrh ea, unspecif ied;Jose Luis rded Elsewher e: No Locat ion: [facility] Source: EHR Automatic Presser carlos: N Practi ce ID: 0001 Ollie lable Time: 10:45:00 AM Tea Lorenz [facility] 22:08:33 Problem Notes None recorded. Procedures Surgical History Date Name Laterality Status Provider Name and Address Organization Details Recorded Time 05/08/20 24 Date of Last Pap Smear completed Clarissa Amaro [facility] 05/25/2024 15:27:40 04/14/20 20 Date of Last Mammogram completed [facility] 03/01/2021 22:15:32 01/25/20 20 Bartholin Cyst Drainage completed Ankush Navarro MD [address], [place], [address], [place] [facility] 01/25/2020 18:35:08 07/22/19 16 Appendectomy completed [facility] 03/02/2021 10:58:34 Imaging Results Imaging Date Name Status LastModified by Organization Details LastModified Time 08/18/2024 US, obstetric, follow-up completed [email or web address] [place] [address], [place], [address], 08/18/2024 13:06:39 08/18/2024 US, obstetric, follow-up completed [email or web address] [address], [place], [address], 09/01/2024 23:08:38 09/01/2024 US, obstetric, limited completed [email or web address] [facility] [address], [place], [address], 09/01/2024 12:57:52 09/01/2024 US, obstetric, transvaginal completed [email or web address] [address], [place], [address], 09/01/2024 12:58:05 09/01/2024 US, obstetric, limited completed [email or web address] [address], [place], [address], 09/01/2024 14:24:53 09/15/2024 US, obstetric, follow-up completed [email or web address] [facility] [address], [place], [address], 09/15/2024 13:45:58 09/15/2024 US, obstetric, follow-up completed sarath [address], [place], [address], 09/16/2024 17:59:26 Procedure Notes None recorded. Medical Equipment None Reported. Allergies No known drug allergies Medications Name Sig Start Date Stop Date Status Note LastModified by Organization Details LastModified Time naproxen sodium 550 mg tabs 01/06 completed Not Available Not Available Not Available nitrofurant oin monohydrate /macrocry stals 100 mg caps 01/06 completed Not Available Not Available Not Available ipratropium bromide 0.03 % soln 01/06 completed Not Available Not Available Not Available prednisone 20 mg tabs 01/06 completed Not Available Not Available Not Available fluticasone propionate 50 mcg/act susp 01/06 completed Not Available Not Available Not Available medroxyprog esterone acetate 150 mg/ml susp 01/06 completed Not Available Not Available Not Available vitamin d 57693 unit caps 04/07 completed Not Available Not [...] completed Not Available Not Available Not Available Depo-Jigmaker a 150 mg/mL intramuscul ar suspension Inject [...] 8 HOURS NEEDED FOR NAUSEA OR VOMITING 09/15 completed Not Available Not Available Not Available cefdinir 300 mg capsule 03/29 completed [...] completed Not Available Not Available Not Available Depo-Jigmaker a 03/01 completed Not Available Not Available [...] and Address Organization Details Last Updated DateTime 09/01/2024 68271.2631 3 g 102 mm[Hg] 68 mm[Hg] [facility] 09/01/2024 10:44:08 Date Recorded Body weight Systolic blood pressure Diastolic blood pressure Provider Name and Address Organization Details Last Updated DateTime 09/15/2024 56199.4478 7 g 118 mm[Hg] 74 mm[Hg] [facility] 09/15/2024 11:57:37 Date Recorded Body height Body mass index (BMI) Body weight Systolic blood pressure Diastolic blood pressure Provider Name and Address Organization Details Last Updated DateTime 09/28/2024 156.21 cm 28.3 kg/m2 43301.04 g 129 mm[Hg] 76 mm[Hg] [facility] 10:56:33 Social History Question Answer Notes LastModified by Organizat ion Details LastModified Time Tobacco Smoking Status Never Smoker [facility] Holloway [facility] 01/07/2020 11:13:21 What Is Your Level [...] Anxious, Or Unable To Sleep At Night)? [id number] Information not available 03/02/2021 Do You Use [...] Code Diagnosis ICD10 Code Diagnosis Note [id number] ARSLAN [facility] [address] [address] 01/07/2020 11:04:34 01/07/2020 11:49:55 Gynecologic examination 80678481 Z01.419 Take Calcium with Vitamin D 1200mg [...] copy of today's plan if desired. Nausea 155504492 R11.0 Patient is on depo & not [...] ensure no other issues. [id number] Kimberlee Dean , [facility] [address],[place] [address] 01/08/2020 15:41:19 01/13/2020 10:48:58 Contraception care management 358790788 Z30.9 Pt is here for a depo inj that was given in the left hip LOT: [id number] EXP: 10/2021. pt is due back between mar 25 - apr 08 . [facility] [address] Ankush Navarro MD [facility] [address],[place] [address] 01/25/2020 16:38:28 01/25/2020 21:03:41 Abscess of Bartholin's gland 79585537 N75.1 Incision and drainage of Bartholin' s gland was performed. The patient tolerated procedure well. She was given prescripti on for antibiotic s. She will follow-up in 1 week. [id number] Ankush Navarro MD [facility] [address],[place] [address] 01/29/2020 09:35:01 01/29/2020 16:11:02 Abscess of Bartholin's gland 35966729 N75.1 This patient is a 19-year-ol dfemale [...] he will follow-up as needed. Kimberlee Dean [facility] [address],[place] [address] 04/07/2020 14:33:28 04/07/2020 15:11:59 Contraception care management 250961814 Z30.9 Pt is here for a depo inj that was given in the left hip LOT: [id number] EXP: 10/2021. pt is due back between mar 25 - apr 08 . ravi patricia Mass of right breast 119 1334393 3955420 N63.10 Exam warrants further evaluation with imaging. We will start with a breast US. Family Hx of breast issues but she is not certain it was cancer related on her mom's side. 37474 Kimberlee Dean [facility] [address],[place] [address] 07/04/2020 10:47:40 07/05/2020 16:14:52 Contraception care management 744588872 Z30.9 13078 Kimberlee Dean [facility] [address],[place] [address] 09/26/2020 10:41:49 09/27/2020 14:33:01 Contraception care management 773683332 Z30.9 51509 Kimberlee Dean [facility] [address],[place] [address] 12/12/2020 10:11:11 12/13/2020 21:29:25 Contraception care management 943630005 Z30.9 Nurses injection visit 72088 Kimberlee Dean [facility] [address],[place] [address] 03/02/2021 10:26:36 03/02/2021 11:25:39 Contraception care management 178520000 Z30.9 Nurses injection visitHappy on Depo Inj.Consid er updated Dexa next yearRF sent Gynecologi c examination 57797785 Z01.419 Take Calcium with Vitamin D 1200mg [...] std screenPap age 22yoNO issues or concerns 63353 Kimberlee Dean [facility] [address],[place] [address] 05/25/2021 10:02:39 05/26/2021 14:03:17 Contraception care management 821217637 Z30.9 Nurses injection visitHappy on Depo Inj.Consid er updated Dexa next yearRF sent [id number] Kimberlee Dean [facility] [address],[place] [address] 08/14/2021 09:55:14 08/14/2021 10:33:58 Contraception care management 594792808 Z30.9 Nurses injection visitHappy on Depo Inj.Consid er updated Dexa next yearRF sent [id number] Kimberlee Dean [facility] [address],[place] [address] 11/08/2021 17:13:23 11/09/2021 16:51:30 Contraception care management 527959513 Z30.9 Nurses injection visitHappy on Depo Inj.Consid er updated Dexa next yearRF sent [id number] Tea [facility] [address],[place] [address] 02/05/2022 09:31:58 02/05/2022 15:07:22 Contraception care management 827815675 Z30.9 Nurses injection visitHappy on Depo Inj.Consid er updated Dexa next yearRF sent [id number] [facility] [address] [address] 02/13/2022 09:43:17 02/13/2022 10:29:12 Gynecologic examination 88246661 Z01.419 Take Calcium with Vitamin D 1200mg [...] na Long-term current use of hormonal contraceptive 3782216499 65393 Z79.3 Recommende d for those who have been on Depo for >3yrs Uses depot contraception 200225623 Z30.42 Happy on Depo no issuesWoul d like to continue as long as Dexa is wnl [id number] Tea Lorenz [facility] [address] [address] 04/24/2022 09:39:08 04/25/2022 12:27:06 Contraception care management 471026338 Z30.9 Nurses injection visitHappy on Depo Inj.Consid er updated Dexa next yearRF sent [id number] Kimberlee Dean [facility] [address],[place] [address] 07/13/2022 09:21:18 07/18/2022 13:44:16 Contraception care management 059549853 Z30.9 Nurses injection visitHappy on Depo Inj.Consid er updated Dexa next yearRF sent [id number] Nabila Alvarado [facility] [address],[place] [address] 10/02/2022 14:49:12 10/03/2022 16:59:05 Breast lump 67140905 N63.0 Bilateral breast lumps felt throughout both breastOrde r given for updated bilateral breast u/sReferra l sent to f/u with new breast specialist , as her previous clinic no longer accepts her insurance and she has been following yearly with specialist RTC for WWE, due 02/10 Contraception care 11416 5005 Z30.40 Happy with Depo, injection given today by MA Time spent in visit is a total of 20 mins with at least 50% of visit consisting of counseling and review of plan of care. [id number] Nabila Alvarado [facility] [address],[place] [address] 12/26/2022 09:19:12 12/27/2022 11:25:19 Contraception care 235178133 Z30.40 [id number] Nabila Alvarado [facility] [address],[place] [address] 03/22/2023 09:20:58 03/22/2023 12:17:16 Contraception care 129489850 Z30.40 [id number] Kimberlee Dean [facility] [address],[place] [address] 03/29/2023 13:08:52 04/01/2023 15:05:33 Pain in pelvis 41999728 R10.2 This patient is a 23 -year-old female with pelvic pain. We have agreed to complete the evaluation with pelvic ultrasound . The patient will return after the pelvic ultrasound to discuss those findings and to develop a treatment plan. A comprehens enrst history and physical exam was performed today. [...] y with nausea, vomiting, fever, chills. If KITCHEN CLERK is WNL we need to consider either abd US or Abd CT scan to assess GI related issues. [id number] [facility] [address],[place] [address] 04/01/2023 17:08:37 04/01/2023 17:35:09 Pain in pelvis 11371380 R10.2 [id number] Kimberlee Dean [facility] [address],[place] [address] 04/09/2023 15:02:33 04/09/2023 15:46:28 Pain in pelvis 63474224 R10.2 Reviewed US today.WNLQ uestions answered to patient satisfacti on.Rec f/u with PCP and possibly GI specialist .Fernandoan lizet verbalized & no questions. Total time of virtual-ZO OM visit was approx 15 mins with >50% consisting of counseling , education of patient's plan of care. [id number] [facility] [address],[place] [address] 03/17/2024 11:42:34 03/17/2024 12:52:13 Uterine size for dates discrepancy 126256284 Z36.87 Z3A.01 [id number] Ankush Navarro MD [facility] [address],[place] [address] 03/17/2024 12:12:54 03/17/2024 22:36:06 [id number] [facility] [address],[place] [address] 04/17/2024 15:18:05 04/17/2024 16:05:24 [id number] Ankush Navarro MD [facility] [address],[place] [address] 04/17/2024 15:18:42 04/18/2024 10:41:49 Amenorrhea 99559990 N91.2 this patient is a 24-year-ol d [...] begin routine care at her next visit. [id number] Gali [facility] [address],[place] [address] 05/07/2024 16:48:13 05/08/2024 07:46:01 screening 512100191 Z36.82 Z3A.13 [id number] Clarissa [facility] [address],[place] [address] 05/08/2024 14:52:09 05/08/2024 17:05:36 Routine care 203439213 Z34.91 Gestation period, 12 weeks 51591279 Z3A.12 562010 Ankush Navarro MD [facility] [address],[place] [address] 05/25/2024 15:09:54 05/25/2024 16:39:21 Routine care 000042246 Z34.91 [id number] [facility] [address],[place] [address] 05/26/2024 13:53:44 05/26/2024 14:58:04 Spotting per vagina in 130466982 O26.852 Z3A.16 [id number] [facility] [address],[place] [address] 06/15/2024 17:23:20 06/16/2024 13:27:45 Spotting per vagina in 446479670 O26.852 Z3A.19 [id number] [facility] [address],[place] [address] 06/23/2024 10:21:20 06/23/2024 12:10:06 screening for malformation 704617926 Z36.3 Z3A.20 507702 Ankush Navarro MD [facility] [facility] [address],[place] [address] 06/23/2024 10:21:42 06/23/2024 12:50:55 Routine care 290722651 Z34.91 [id number] [facility] [address],[place] [address] 07/21/2024 09:25:38 07/21/2024 10:21:49 Placenta succenturiata 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 O43.199 O44.42 Z3A.24 [id number] Ankush Navarro MD [facility] [address],[place] [address] 07/21/2024 09:26:03 07/21/2024 10:41:17 Routine care 063870447 Z34.91 [id number] [facility] [address],[place] [address] 08/18/2024 09:26:12 08/18/2024 10:08:18 Placental condition affecting management of mother 233922069 O43.103 O43.193 Z3A.28 [id number] MD Ace eMrritt [address],[place] [address] 08/18/2024 09:26:26 08/18/2024 10:53:45 Routine care 264243948 Z34.91 [id number] MD Ace Merritt [address],[place] [address] 09/01/2024 10:33:11 09/01/2024 11:27:19 Routine care 809110875 Z34.91 [id number] [facility] [address],[place] [address] 09/01/2024 11:20:15 09/01/2024 13:58:18 Medical examination for suspected condition 431986379 Z03.71 Z3A.30 [id number] Gissell Lorenz [facility] [address],[place] [address] 09/15/2024 10:45:58 09/15/2024 11:19:32 Placental condition affecting management of mother 115755197 O43.103 Z3A.32 [id number] Ankush Navarro MD [facility] [address],[place] [address] 09/15/2024 10:46:25 09/15/2024 12:16:57 Routine care 979317875 Z34.91 [id number] Ankush Navarro MD [facility] [address],[place] [address] 09/28/2024 10:45:26 09/28/2024 11:34:38 Routine care 226189291 Z34.91 Health Concerns Section Related Observation LastModified by Organization Detai ls LastModified Time None Recorded Concern Status LastModified by Organization Details LastModified Time None Recorded Advance Directives Directive None Recorded Payers Encounter Date Sequence Insurance Name Policy Number Policy Harden Covered Member ID Harden Member ID Guarantor Name 09/01/2024 1 [employer] [place] (MEDICAID HMO) [id number] Siobhan Akhtar [id number] Siobhan Akhtar 09/01/2024 1 [facility] (MEDICAID HMO) [id number] Siobhan Akhtar [id number] Siobhan Cortezless 09/15/2024 1 [facility] (MEDICAID HM) [id number] Siobhan Akhtar [id number] Siobhan Akhtar 09/15/2024 1 [facility] (MEDICAID HMO) [id number] Siobhan Akhtar [id number] Siobhan Akhtar 09/28/2024 1 [facility] (MEDICAID HMO) [id number] Siobhan Akhtar [id number] Siobhan Akhtar OBGyn Episode Ob Episode Information Episode Created Date Number of Fetuses Patient Bloodtype Patient rh Status Prepregnancy Weight lbs Domestic Partner Domestic Partner Phone Father Name Court Interpreter Status 05/08/20 24 1 A Positive 137 OPEN Fetus Data First Name Last Name Admitted to NICU Weight (g) Sex Living Outcome Pediatric Complications Fetus ID Race Codes Race Delivery Type [id number] Problems Problem Notes accessory lobe - repeat linda jaida 06/23 Problem Name Start Date End Date Resolution Snomed Code Not e Anomaly of placenta 07746059 succenturiate lobe Finding of uterine contractions 703996290 Henry Calculation Initial Henry Date Initial Exam [...] Gestation 0 [email or web address] 05/08/2024 11/09/19 25 0 Pre- Flowsheet Flowsheet Date 05/08/2024 Marshall Score Blood Edema Fundus Height Fundus Units Glucose Ketones Leukocytes Nitrite Labor Signs Protein Cervic Dilation Cervic Effacement Cervic Station Type Weight in lbs Pre/Post Dialysis Refused Weight 135.003672946078 BP Diastolic BP Location Tested BP Systolic [...] Type Weight in lbs Pre/Post Dialysis Refused 136.626373891320 BP Diastolic BP Location Tested BP Systolic [...] Type Weight in lbs Pre/Post Dialysis Refused 138.449533361175 BP Diastolic BP Location Tested BP Systolic [...] Type Weight in lbs Pre/Post Dialysis Refused 139.552706935837 BP Diastolic BP Location Tested BP Systolic [...] Type Weight in lbs Pre/Post Dialysis Refused 146.282101051813 BP Diastolic BP Location Tested BP Systolic BP Type 72 L arm 115 sitting Fetus Heart Rate Present A 145 Fetus Movement A Yes Comments no complaints, no problems, routine care, no contractions, no vaginal bleeding, no loss of fluid, no cramping Flowsheet Date 09/01/2024 Marshall Score Blood Edema Fundus Height Fundus Units Glucose Ketones Leukocytes Nitrite Labor Signs Protein Cervic Dilation Cervic Effacement Cervic Station 30 cm Type Weight in lbs Pre/Post Dialysis Refused 149.333410690625 BP Diastolic BP Location Tested BP Systolic BP Type 68 L arm 102 sitting Fetus Heart Rate Present A 148 Fetus Movement A Yes Comments c/o LOF - to get BHARATH and cer vical [id number] movement, no vaginal bleeding. Flowsheet Date 09/01/2024 Marshall Score Blood Edema Fundus Height Fundus Units Glucose Ketones Leukocytes Nitrite Labor Signs Protein Cervic Dilation Cervic Effacement Cervic Station Type Weight in lbs Pre/Post Dialysis Refused BP Diastolic BP Location Tested BP Systolic BP Type Fetus Heart Rate Present Fetus Movement Comments Flowsheet Date 09/15/2024 Marshall Score Blood Edema Fundus Height Fundus Units Glucose Ketones Leukocytes Nitrite Labor Signs Protein Cervic Dilation Cervic Effacement Cervic Station Type Weight in lbs Pre/Post Dialysis Refused BP Diastolic BP Location Tested BP Systolic BP Type Fetus Heart Rate Present Fetus Movement Comments Flowsheet Date 09/15/2024 Marshall Score Blood Edema Fundus Height Fundus Units Glucose Ketones Leukocytes Nitrite Labor Signs Protein Cervic Dilation Cervic Effacement Cervic Station Type Weight in lbs Pre/Post Dialysis Refused 151.276935873562 BP Diastolic BP Location Tested BP Systolic BP Type 74 L arm 118 sitting Fetus Heart Rate Present A 145 Fetus Movement A Yes Comments no complaints, no problems, routine care, no contractions, no vaginal bleeding, no loss of fluid, no cramping Flowsheet Date 09/28/2024 Marshall Score Blood Edema Fundus Height Fundus Units Glucose Ketones Leukocytes Nitrite Labor Signs Protein Cervic Dilation Cervic Effacement Cervic Station 145 cm Type Weight in lbs Pre/Post Dialysis Refused Weight 152.779093450028 BP Diastolic BP Location Tested BP Systolic BP Type 76 L arm 129 sitting Fetus Heart Rate Present A 155 Present Fetus Movement A Yes Comments no complaints, [...]
--- OUTSIDE RECORDS SUMMARY | 2024-10-07 13:30 | XMS_ITS | Encounter Summary ---
Author Organization [facility] Address [address] [place] [address] Care Team Providers Care Varying Exceptionalities Teacher Name Role Phone Tatyana Fierro MD Primary Care Provider [phone] Encounter Details Date Type Department Care Team (Late st Contact Info) Description 07/12/2021 Lab Requisition [facility] [address] [place] [address] Christian Bolton MD [address] [place] [address] Social History Tobacco Use Types Packs/Day Years [...] Comments DERMATOPATHOLOGY Routine 07/12/2021 12:0 0 AM OPEN PIT QUARRY SUPERVISOR documented in this encounter Results * DERMATOPATHOLOGY (07/12/2021 12:00 AM OPEN PIT QUARRY SUPERVISOR) Case Report Dermatopathology Report Case: [id number] Authorizing Provider: Christian Bolton MD Collected: 07/12/2021 12:00 AM Ordering Location: [facility] Lab Received: 07/12/2021 03:42 PM Pathologist: Abrhaam Allen MD Specimens: A) - Skin, right neck B) - Skin, right neck sup 1 5:20 PM OPEN PIT QUARRY SUPERVISOR DERMATOPATHOLOGY LABORATORY Final Diagnosis Specimen A. SKIN, right neck: COMPOUND MELANOCYTIC NEVUS (D22.4) Specimen B. SKIN, right neck sup: COMPOUND MELANOCYTIC NEVUS (D22.4) 1 5:20 PM OPEN PIT QUARRY SUPERVISOR DERMATOPATHOLOGY LABORATORY Clinical History A: Nevus R/O atypia. Path # [id number]. B: Nevus R/O atypia. Path # [id number]. 1 5:20 PM OPEN PIT QUARRY SUPERVISOR DERMATOPATHOLOGY LABORATORY Gross Description Specimen A: Received is one formalin filled container labeled with the patient's name and designated right neck. The specimen consists of a shave biopsy measuring [id number]. Jar 0. Specimen B: Received is one formalin filled container labeled with the patient's name and designated right neck sup. The specimen consists of a shave biopsy measuring [id number]. Jar 0. 1 5:20 PM OPEN PIT QUARRY SUPERVISOR DERMATOPATHOLOGY LABORATORY Microscopic Description Specimen A. SKIN, right neck: There are nests of melanocytes at the dermal-epidermal junction and within the dermis. Specimen B. SKIN, right neck sup: There are nests of melanocytes at the dermal-epidermal junction and within the dermis. 1 5:20 PM OPEN PIT QUARRY SUPERVISOR DERMATOPATHOLOGY LABORATORY Disclaimer An external and internal positive and negative controls are appropriate for the histochemical, immunohistochemical and immunofluorescence stain(s) in this case (if any), except where stated explicitly. The performance characteristics of the stain(s) cited in this report were developed and its performance characteristic determined by the Dermatopathology Laboratory at [facility], directed by Dr. Edvin Allen. These tests need not be, and therefore are not, approved by the [place] Food and Drug Administration. The tests are used for clinical purposes. Billing Codes Specimen Charges Stain Charges 78109 59232 1 1 1 5:20 PM OPEN PIT QUARRY SUPERVISOR DERMATOPATHOLOGY LABORATORY Embedded Images 1 5:20 PM OPEN PIT QUARRY SUPERVISOR DERMATOPATHOLOGY LABORATORY Pathology/Cytology TISSUE SPECIMEN FROM SKIN / Unknown 07/12/2021 07/12/2021 3:42 PM OPEN PIT QUARRY SUPERVISOR Miscellaneous samples (specimen) TISSUE SPECIMEN FROM SKIN / Unknown 07/12/2021 07/12/2021 3:42 PM OPEN PIT QUARRY SUPERVISOR Christian Bolton MD LAB - PATHOLOGY/CYTO LOGY ORDERABLES DERMATOPATHOLOGY LABORATORY [facility] Department of Dermatology [address], [address] [phone] documented in this encounter Visit Diagnoses Not on filedocumented in this encounter Care Teams Varying Exceptionalities Teacher Relationship Specialty Start Date End Date Tatyana Fierro MD PCP - General 04/26/20 documented as of this encounter
--- OUTSIDE RECORDS SUMMARY | 2024-10-07 13:30 | XMS_ITS | Clinical Summary ---
Author Organization [facility] Address [address] [address] [address] Phone Care Team Providers Care Yard Spotter Name Role Phone Tatyana Fierro MD Primary Care Provider [phone] Allergies No known active allergies Medications medroxyPROGEST ERone (DEPO-PROVERA) 150 MG/ML Suspension 1 Dose by Intramuscular route. 9 Active Evening [place] Oil 1000 MG Capsule Take 1 Cap [...] Pap Smear 2022 Influenza Immunization (#1) 2024 05/14/2013 SARS-COV-2 Immunization ( - 2023- season) 2024 Respiratory Syncytial Virus [...] age to complete this topic Insurance MEDICAID [facility] Care Teams Yard Spotter Relationship Specialty Start Date End Date Tatyana Fierro MD [address] [address] [place] [phone] PCP - General Pediatrics 04/25/20
--- OUTSIDE RECORDS SUMMARY | 2024-10-07 13:30 | XMS_ITS | Encounter Summary ---
Author Organization [facility] Address [facility] [place] [address] Care Team Providers Care Refrigerator Tester Name Role Phone Gabby Duran NP Primary Care Provider [phone] Encounter Details Date Type Department Care Team (Late st Contact Info) Description 12/29/2023 Purple Communicationshart Message Enc [facility] Medical Group Family and Sports Medicine - [place] [address] [place] [address] Gabby Duran NP [address] [place] [address] Nausea/anxiety Social History Tobacco Use Types Packs/Day [...] Depression Total Score: 11 024 4:34 PM FUNERAL PLANNING COUNSELOR documented as of this encounter Care Teams Refrigerator Tester Relationship Specialty Start Date End Date Gabby Duran, PAYLOADER MACHINE OPERATOR [address] [place] [address] PCP - General Nurse Practitioner Family 09/09/23 documented as of this encounter
--- OUTSIDE RECORDS SUMMARY | 2024-10-07 13:30 | XMS_ITS | Clinical Summary ---
Author Organization [facility] Address [address] [place] [address] Phone Care Team Providers Care Principal Technical Specialist Name Role Phone Tatyana Fierro MD Primary Care Provider [phone] Allergies No known active allergies Medications medroxyPROGESTER [...] on file Legal Sex Female 11:17 AM ENTRY LEVEL CIVIL ENGINEER Gender Identity Not on file Sexual Orientation Not on file Last Filed Vital Signs Vital Sign Reading Time Taken Comments Blood Pressure 110/62 09/19/2021 12:04 PM ENTRY LEVEL CIVIL ENGINEER Pulse 72 03/21/2021 11:06 AM CDT Temperature - - Respiratory Rate - - Oxygen Saturation - - Inhaled Oxygen Concentration - - Weight 50.4 kg (111 lb 1.6 oz) 09/19/2021 12:04 PM ENTRY LEVEL CIVIL ENGINEER Height 154.9 cm (5' 1 ) 09/19/2021 12:04 PM ENTRY LEVEL CIVIL ENGINEER Body Mass Index 20.99 09/19/2021 12:04 PM ENTRY LEVEL CIVIL ENGINEER Plan of Treatment Health Maintenance Due Date Last Done Comments CHLAMYDIA SCREENING (ANNUAL) 11-24 YEARS 2012 CERVICAL CANCER SCREENING 2022 INFLUENZA VACCINE (#1) 2024 05/14/2013 DTAP/TDAP/TD VACCINES (8 - T d or Tdap) 02/11/2029 02/11/2019, 03/19/2012, 03/15/2006, Additional history exists HEPATITIS B VACCINES Completed 06/23/2002, 2001, 2001 HPV VACCINES Completed 07/31/2014, 07/2012, 03/19/2012 Insurance MEDICAID Care Teams Principal Technical Specialist Relationship Specialty Start Date End Date Tatyana Fierro MD PCP - General Pediatrics 09/19/21
--- OUTSIDE RECORDS SUMMARY | 2024-10-07 13:30 | XMS_ITS | Clinical Summary ---
Author Organization [facility] Address [address] [facility] [place] [address] Care Team Providers Care Music Mixer Name Role Phone Tatyana Fierro MD Primary Care Provider [phone] Source Comments [facility],non-owned Affiliates and Associated Physician Practices is amultiple site organization consisting of ambulatory clinics and hospital sitesin [place], [place], [place] and [place]. This disclosure is being madepursuant to the Care Everywhere program and may not contain all information available regarding this patient. Last updated 18.[facility] Allergies No known active allergies Medications * [...] 07/08/14 Atenolol 25 mg q d - [facility] Dysmenorrhea 01/21/2014 02/21/2017 Overview (01/21/2014): 01/21/14 [...] Comments Blood Pressure 112/60 05/26/2018 1:28 PM BATCH FREEZER Pulse 91 07/29/2018 11:26 AM BATCH FREEZER Temperature 36.6 C (97.8 F) 05/18/2019 10:05 AM CDT Respiratory Rate 16 07/19/2017 11:30 AM BATCH FREEZER Oxygen Saturation 99% 07/29/2018 11:26 AM BATCH FREEZER Inhaled Oxygen Concentration - - Weight 47 kg (103 lb 9.6 oz) 05/18/2019 10:05 AM CDT Height 156.3 cm (5' 1.54 ) 05/26/2018 1:28 PM CS T Body Mass Index - - Plan of Treatment Health Maintenance Due Date Last Done Comments PAP SMEAR 2001 HIV SCREENING 2016 CHLAMYDIA/GONORRHEA SCREENING 2017 08/02/2015 MENINGOCOCCAL (Group B) VACC INE SHARED DECISION-MAKING (1 of 2 - Standard) 2017 HEPATITIS [...] HPV VACCINE Completed 07/31/2014, 07/2012, 03/19/2012 MENINGOCOCCAL GROUPS A/C/Y/W VACCINE Completed 02/24/2018, 03/19/2012 Goals Goal Patient Goal Type Associated Problems Recent Progress Patient-Stated? Author [facility] Lif[facility]: Use safety retraint in car Lifestyle On track( 018 10:17 AM CDT) No BueskingSuri, gas producer Procedure Name Priority Date/Time Associated Diagnosis Comments CHLAMYDIA + GC AMPLIFIED PROBE STAT 08/02/2015 3:25 AM BATCH FREEZER from Last 3 Months or Most Recently Relevant to Health Maintenance Results * CHLAMYDIA + GC AMPLIFIED PROBE (08/02/2015 3:25 AM BATCH FREEZER) Chlamydia Amplified Probe Negative Negative 08/03/2015 7:29 AM BATCH FREEZER [facility] GC Amplified Probe Negative Negative 08/03/2015 7:29 AM BATCH FREEZER [facility] Urine URINE / Unknown Collection / Unknown 08/02/2015 3:25 AM BATCH FREEZER 08/02/2015 4:32 AM BATCH FREEZER Narrative [facility] - 08/03/2015 7:29 AM BATCH FREEZER This test was developed and its performance characteristics determined by the [facility], [facility]. Female urine specimens tested by the Gen-Probe Call have not been cleared or approved by [...] Randhawa MD LAB - MICROBIOLOGY O RDERABLES [facility] [address] [place], [address] [phone] from Last 3 Months or Most Recently Relevant to Health Maintenance Advance Directives * Full Code (Latest Code Status on File) Date Activated Date Inactivated Comments 01/20/2016 1:33 PM 01/20/2016 8:57 PM * Full Code Date Activated Date Inactivated Comments 01/19/2016 8:20 PM 01/20/2016 1:33 PM Care Teams Music Mixer Relationship Specialty Start Date End Date Tatyana Fierro MD PCP - General 04/26/20
--- OUTSIDE RECORDS SUMMARY | 2024-10-07 13:30 | XMS_ITS | Clinical Summary ---
Author Organization [facility] Address [address] [place] [address] Care Team Providers Care Emergency Room Registered Nurse Name Role Phone Gabby Duran NP Primary Care Provider [phone] Allergies No known active allergies Medications albuterol [...] on file Legal Sex Female 7:10 PM LIFE ENRICHMENT ASSISTANT Gender Identity Not on file Sexual Orientation Not on file Occupation Industry Job Start Date Job End Date Self- employed Not on file Not on file Not on file Obstetrics History Last Filed Vital Signs Vital Sign Reading Time Taken Comments Blood Pressure 117/82 07/03/2023 10:27 AM LIFE ENRICHMENT ASSISTANT Pulse 94 07/03/2023 10:27 AM LIFE ENRICHMENT ASSISTANT Temperature 36.9 C (98.4 F) 08/01/2015 8:05 PM LIFE ENRICHMENT ASSISTANT Respiratory Rate - - Oxygen Saturation 98% 07/03/2023 10:27 AM LIFE ENRICHMENT ASSISTANT Inhaled Oxygen Concentration - - Weight 63.7 kg (140 lb 6.4 oz) 07/03/2023 10:27 AM LIFE ENRICHMENT ASSISTANT Height 154.9 cm (5' 1 ) 07/03/2023 10:27 AM LIFE ENRICHMENT ASSISTANT Body Mass Index 26.53 07/03/2023 10:27 AM LIFE ENRICHMENT ASSISTANT Plan of Treatment Health Maintenance Due Date Last Done Comments Cervical Cancer Screening 2001 Depression Screening 2001 Hepatitis C Screening 2001 Pneumococcal vaccine <65 (1 of 1 - PPSV23) 2007 2001, 2001, 2001 Meningococcal B Vaccine (1 o f 2 - Standard) 2017 Regular Well Visit/Exam 18-64 2019 Influenza Vaccine (#1) 2024 3, 07/13/2008, 07/10/2008, Additional history exists DTaP/Tdap/Td Vaccine (8 - Td or Tdap) 02/11/2029 02/11/2019, 03/19/2012, 03/15/2006, Additional history exists Hepatitis B Screening Completed 06/23/2002 , 2001, 2001 Varicella Vaccines Completed 06/27/2007, 03/25/2002 HPV Vaccines Completed 07/31/2014, 0807/2012, 03/19/2012 Insurance [facility] Care Teams Emergency Room Registered Nurse Relationship Specialty Start Date End Date Gabby Duran NP [address] [place] [address] PCP - General Supervisor Grips 08/05/23
--- OUTSIDE RECORDS SUMMARY | 2024-10-07 13:30 | XMS_ITS | Referral Summary ---
Author Organization [facility] Address [facility] [place] [address] Care Team Providers Care Brick Paver Name Role Phone Gabby Duran NP Primary Care Provider [phone] Allergies No known active allergies Medications [...] on file Legal Sex Female 7:10 PM FRICTION WELDING MACHINE OPERATOR Gender Identity Not on file Sexual Orientation Not on file Occupation Industry Job Start Date Job End Date Self- employed Not on file Not on file Not on file Last Filed Vital Signs Vital Sign Reading Time Taken Comments Blood Pressure 117/82 07/03/2023 10:27 AM FRICTION WELDING MACHINE OPERATOR Pulse 94 07/03/2023 10:27 AM FRICTION WELDING MACHINE OPERATOR Temperature 36.9 C (98.4 F) 08/01/2015 8:05 PM FRICTION WELDING MACHINE OPERATOR Respiratory Rate - - Oxygen Saturation 98% 07/03/2023 10:27 AM FRICTION WELDING MACHINE OPERATOR Inhaled Oxygen Concentration - - Weight 63.7 kg (140 lb 6.4 oz) 07/03/2023 10:27 AM FRICTION WELDING MACHINE OPERATOR Height 154.9 cm (5' 1 ) 07/03/2023 10:27 AM FRICTION WELDING MACHINE OPERATOR Body Mass Index 26.53 07/03/2023 10:27 AM FRICTION WELDING MACHINE OPERATOR Plan of Treatment Not on file Insurance Care Teams Brick Paver Relationship Specialty Start Date End Date Gabby Duran, CODING SPEC [address] [place] [address] PCP - General Fx Artist 08/05/23
--- OUTSIDE RECORDS SUMMARY | 2024-10-07 13:30 | XMS_ITS | Encounter Summary ---
Author Organization [facility] Address [facility] [place] [address] Care Team Providers Care Authorization Coordinator Name Role Phone Gabby Duran INDEPENDENT FILM MAKER Primary Care Provider [phone] Encounter Details Date Type Department Care Team (Late st Contact Info) Description 10/25/2023 Ynsecthart Message Enc [facility] Medical Group Family and Sports Medicine - [place] [address] [place] [address] Gabby Duran NP [address] [place], [place] [phone] Oral surgeon Social History Tobacco Use Types [...] Depression Total Score: 11 024 4:34 PM WEAVING INSPECTOR documented as of this encounter Care Teams Authorization Coordinator Relationship Specialty Start Date End Date Gabby Duran INDEPENDENT FILM MAKER [address] [place], [place] [phone] PCP - General Nurse Practitioner Family 09/09/23 documented as of this encounter
[2024-10-07 13:52] LABS: OBXCEM ROM Plus Negative (Negative)
[2024-10-07] MEDS: NIFEdipine 10 MG CAPSULE PO (14:17)
== END 2024-10-07 15:43 | disposition home or self-care (01) ==
LOC: ANHOBOP 11:37 → ANHOBPP 15:32
PROVIDERS: Advanced Practice Midwife; PCP Nurse Practitioner Family; Visit Provider Obstetrics & Gynecology
DX: O41.8X90 Other specified disorders of amniotic fluid and membranes, unspecified trimester, not applicable or unspecified (principal); Z3A.00 Weeks of gestation of pregnancy not specified
CPT/HCPCS: 84112; 99199; A9270; J3105

== ENCOUNTER 2024-10-16 19:20 | Observation (INO) | payer OTHER, SELFPAY ==
--- OUTSIDE RECORDS SUMMARY | 2024-10-16 19:25 | XMS_ITS | Clinical Summary ---
Author Organization [facility] Address [facility] [place] [address] Care Team Providers Care Computer Help Desk Representative Name Role Phone Gabby Duran NP Primary Care Provider [phone] Allergies No known active allergies Medications albuterol [...] (#1) 2024 05/14/2013, 07/13/2008, 06/09/2008 PHQ-2 (Physician [place]) 07/22/2024 09/09/2023 Annual Physical 09/09/2024 09/09/2023 Cervical [...] age to complete this topic Insurance [employer] Care Teams Computer Help Desk Representative Relationship Specialty Start Date End Date Gabby Duran NP [address] [place], [place] [address] PCP - General Nurse Practitioner Family 09/09/23
--- OUTSIDE RECORDS SUMMARY | 2024-10-16 19:25 | XMS_ITS | Encounter Summary ---
Author Organization [facility] Address [facility] [place] [address] Care Team Providers Care Occupational Hygienist Name Role Phone Gabby Duran NP Primary Care Provider [phone] Encounter Details Date Type Department Care Team (Late st Contact Info) Description 12/29/2023 CellPhirehart Message Enc [facility] Medical Group Family and Sports Medicine - [place] [address] [place] [address] Gabby Duran NP [address] [place] [address] Nausea/anxiety Social History Tobacco Use Types Packs/Day [...] Depression Total Score: 11 024 4:34 PM BONE PULLER documented as of this encounter Care Teams Occupational Hygienist Relationship Specialty Start Date End Date Gabby Duran, SNOW REMOVAL/PLOWING [address] [place] [address] PCP - General Nurse Practitioner Family 09/09/23 documented as of this encounter
--- OUTSIDE RECORDS SUMMARY | 2024-10-16 19:25 | XMS_ITS | Clinical Summary ---
Author Organization [facility] [employer] Address [address] [facility] [place] [address] Care Team Providers Care Intranet Specialist Name Role Phone Tatyana Fierro MD Primary Care Provider [phone] Source Comments [facility] [employer],non-owned Affiliates and Associated Physician Practices is amultiple site organization consisting of ambulatory clinics and hospital sitesin [place], [place], [place] and [place]. This disclosure is being madepursuant to the Care Everywhere program and may not contain all information available regarding this patient. Last updated 18.[facility] [employer] Allergies No known active allergies Medications * [...] 07/08/14 Atenolol 25 mg q d - [facility] Cardiology Dysmenorrhea 01/21/2014 02/21/2017 Overview (01/21/2014): 01/21/14 [...] Comments Blood Pressure 112/60 05/26/2018 1:28 PM BALLET PROFESSOR Pulse 91 07/29/2018 11:26 AM BALLET PROFESSOR Temperature 36.6 C (97.8 F) 05/18/2019 10:05 AM CDT Respiratory Rate 16 07/19/2017 11:30 AM BALLET PROFESSOR Oxygen Saturation 99% 07/29/2018 11:26 AM BALLET PROFESSOR Inhaled Oxygen Concentration - - Weight 47 [...] track( 018 10:17 AM CDT) No BueskingSuri, hospital receptionist Procedure Name Priority Date/Time Associated Diagnosis Comments CHLAMYDIA + GC AMPLIFIED PROBE STAT 08/02/2015 3:25 AM BALLET PROFESSOR from Last 3 Months or Most Recently Relevant to Health Maintenance Results * CHLAMYDIA + GC AMPLIFIED PROBE (08/02/2015 3:25 AM BALLET PROFESSOR) Chlamydia Amplified Probe Negative Negative 08/03/2015 7:29 AM BALLET PROFESSOR [facility] GC Amplified Probe Negative Negative 08/03/2015 7:29 AM BALLET PROFESSOR [facility] Urine URINE / Unknown Collection / Unknown 08/02/2015 3:25 AM BALLET PROFESSOR 08/02/2015 4:32 AM BALLET PROFESSOR Narrative [facility] - 08/03/2015 7:29 AM BALLET PROFESSOR This test was developed and its performance characteristics determined by the [facility], [facility]. Female urine specimens tested by the Gen-Probe Stout have not been cleared or approved by [...] Randhawa MD LAB - MICROBIOLOGY O RDERABLES [facility] [address] [place], [address] [phone] from Last 3 Months or Most Recently Relevant to Health Maintenance Advance Directives * Full Code (Latest Code Status on File) Date Activated Date Inactivated Comments 01/20/2016 1:33 PM 01/20/2016 8:57 PM * Full Code Date Activated Date Inactivated Comments 01/19/2016 8:20 PM 01/20/2016 1:33 PM Care Teams Intranet Specialist Relationship Specialty Start Date End Date Tatyana Fierro MD PCP - General 04/26/20
--- OUTSIDE RECORDS SUMMARY | 2024-10-16 19:25 | XMS_ITS | Encounter Summary ---
Author Organization [facility] Address [facility] [place] [address] Care Team Providers Care Non Profit Financial Controller Name Role Phone Gabby Duran LEATHER CASE FINISHER Primary Care Provider [phone] Encounter Details Date Type Department Care Team (Late st Contact Info) Description 10/25/2023 LiveStubhart Message Enc [facility] Medical Group Family and Sports Medicine - [place] [address] [place] [address] Gabby Duran NP [address] [place], [place] [phone] Oral surgeon Social History Tobacco Use Types [...] Depression Total Score: 11 024 4:34 PM PACKAGING ASSEMBLER documented as of this encounter Care Teams Non Profit Financial Controller Relationship Specialty Start Date End Date Gabby Duran LEATHER CASE FINISHER [address] [place], [place] [phone] PCP - General Nurse Practitioner Family 09/09/23 documented as of this encounter
--- OUTSIDE RECORDS SUMMARY | 2024-10-16 19:25 | XMS_ITS | Clinical Summary ---
Author Organization [facility] Address [address] [place] [id number] Care Team Providers Care Chief Environmental Commitment Officer Name Role Phone Gabby Duran NP Primary Care Provider [phone] No known active allergies Medications albuterol [...] on file Legal Sex Female 7:10 PM TECHNICAL PROJECT COORDINATOR Gender Identity Not on file Sexual Orientation Not on file Occupation Industry Job Start Date Job End Date Self- employed Not on file Not on file Not on file Obstetrics History Last Filed Vital Signs Vital Sign Reading Time Taken Comments Blood Pressure 117/82 07/03/2023 10:27 AM TECHNICAL PROJECT COORDINATOR Pulse 94 07/03/2023 10:27 AM TECHNICAL PROJECT COORDINATOR Temperature 36.9 C (98.4 F) 08/01/2015 8:05 PM TECHNICAL PROJECT COORDINATOR Respiratory Rate - - Oxygen Saturation 98% 07/03/2023 10:27 AM TECHNICAL PROJECT COORDINATOR Inhaled Oxygen Concentration - - Weight 63.7 kg (140 lb 6.4 oz) 07/03/2023 10:27 AM TECHNICAL PROJECT COORDINATOR Height 154.9 cm (5' 1 ) 07/03/2023 10:27 AM TECHNICAL PROJECT COORDINATOR Body Mass Index 26.53 07/03/2023 10:27 AM TECHNICAL PROJECT COORDINATOR Plan of Treatment Health Maintenance Due Date [...] HPV Vaccines Completed 07/31/2014, 0807/2012, 03/19/2012 Insurance [facility] Care Teams Chief Environmental Commitment Officer Relationship Specialty Start Date End Date Gabby Duran NP [address] [place] [address] PCP - General Engineering Surveyor 08/05/23
--- OUTSIDE RECORDS SUMMARY | 2024-10-16 19:25 | XMS_ITS | Data Portability ---
Author Organization [facility] Address [address] [place] [address] [place] [address] Care Team Providers Care Tunnel Kiln Repairer Name Role Phone LANG BORREGO Primary Care Provider [phone] Assessment Encounter Date Assessment Date Assessment LastModified by Organization Details LastModified Time 09/01/2024 09/01/2024 Patient is ___weeks . Discussed plan. Not available 09/01/2024 10:42:37 09/15/2024 09/15/2024 Patient is ___weeks . Discussed plan. Not available 09/15/2024 11:57:00 09/28/2024 09/28/2024 Patient is ___weeks . Discussed plan. Not available 09/28/2024 10:55:40 10/12/2024 10/12/2024 Patient is ___weeks . Discussed plan. Not available 10/12/2024 11:57:21 Plan of Treatment Reminders Order Date Submit Date Provider Last Modified By Organization Details Last Modified Time Details Appointments OB ROUTINE 2024 02:15P Abraham NAVARRO MD Not available Not available Not available Lab None recorded . Referral None recorded . Procedures None recorded . Surgeries None recorded . Imaging US, obstetri c, follow-u p 2024 025 [email or web address] [facility], [address], [address], [place], [address], 09/15/2024 23:00:35 Medication Orders None recorded . Patient TargetsNo targets recorded. Patient InstructionsNo instructions recorded. Reason for Referral None Reported. Results Created Date Observation Date Name Description Value Unit Range Abnormal Flag Note LastModifiedBy Organization Detail LastModifiedTime 08/18/19 25 08/18/2024 HIV 1/2 ANTIG EN/AN TIBOD Y, REFLE X CONFI RMATI ON HIV antigen/anti body,reflex confirmation CANCEL LED Reord ered Not Available [facility] (Lab) [address], [place], [address], 08/19/2024 05:28:16 08/18/19 25 08/18/2024 HEMAT OCRIT (HCT) HCT 32.1 % (based on docume nted legal sex) 34.0-4 5.0 low Not Available [facility] (Lab) [address], [place], [address], 08/19/2024 10:38:47 08/18/19 25 08/18/2024 HEMOG LOBIN (HGB) HGB 10.9 g/dL (based on docume nted legal sex) 11.6-1 5.4 low Not Available [facility] (Lab) [address], [place], [address], 08/19/2024 10:38:48 08/18/19 25 08/18/2024 GTT - GESTA MILTON L SCREE N, ACOG OB glucose, 1 hour screen 90 mg/dL 70-135 Not Available [facility] (Lab) [address] [place], [address], 08/19/2024 10:38:48 08/18/19 25 08/18/2024 HIV 1/2 ANTIG EN/AN TIBOD Y, REFLE X CONFI RMATI ON HIV antigen/anti body Nonrea ctive nonrea ctive HIV-1 antig en and HIV-1 /HIV- 2 antib odies were not detec nilsa. No labor atory evide nce of HIV infec tion. Not Available [facility] (Lab) [address], [place], [address], 08/19/2024 10:38:49 08/18/19 25 08/18/2024 RPR SCREE N, REFLE X TITER /CONF IRMAT ION RPR screen Nonrea ctive nonrea ctive Not Available [facility] (Lab) [address], [place], [address], 08/19/2024 10:38:49 08/18/19 25 08/18/2024 US, obste tric, follo w-up No observ ation record ed. [email or web address] [facility] [address], [place], [address], 08/18/2024 13:06:39 08/18/19 25 08/18/2024 US, obste tric, follo w-up No observ ation record ed. [email or web address] [address] [facility], [place], [address], 09/01/2024 23:08:38 09/01/19 25 09/01/2024 US, obste tric, limit ed No observ ation record ed. [facility] [address], [place], [address], 09/01/2024 12:57:52 09/01/19 25 09/01/2024 US, esteban haynes, trans vagin al No observ ation record ed. [facility] [address], [place], [address], 09/01/2024 12:58:05 09/01/19 25 09/01/2024 US, esteban haynes, limit ed No observ ation record ed. [email or web address] [address], [place], [address], 09/01/2024 14:24:53 09/15/19 25 09/15/2024 US, obste tric, follo w-up No observ ation record ed. [email or web address] [facility] [address], [place], [address], 09/15/2024 13:45:58 09/15/19 25 09/15/2024 US, obste tric, follo w-up No observ ation record ed. [email or web address] [address], [place], [address], 09/16/2024 17:59:26 Result Notes None recorded. Problems Name Problem SNOMED Code Status Onset Date Resolution Date Notes Provider Name and Address Organization Details Recorded Time Pregnanc y 29892023 Active 2023 Clarissa Amaro [facility], [facility] 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 5 10:54:37 Finding of uterine contract ions 070540091 Active Ankush Navarro MD [address], [place], [address], [facility] 5 12:13:26 Clinical finding Completed 201803/01/2021 Encounte r for surveill ance of injectab le contrace ptive;Pr actice ID: 0001 Tea thomas, [facility] 22:08:39 Pregnanc y test negative 581865332 Completed 201803/01/2021 Encounte r for pregnanc y test, result negative ;Practic e ID: 0001 [facility] 22:08:50 Finding of regulari ty of menstrua l cycle Completed 201803/01/2021 Irregula r menstrua tion, unspecif ied;Prac milan ID: 0001 Tea thomas, [facility] 22:08:42 Surveill ance of contrace ption Completed 201803/01/2021 Encounte r for surveill ance of contrace ptives, unspecif ied;Jose Luis rded Elsewher e: No Locat ion: [facility] S ource: EHR Revenue Tax Specialist carlos: N Practi ce ID: 0001 Ollie lable Time: 10:30:00 AM Tea Lorenz [facility] 22:08:54 Finding of sensatio n of breast Completed 201803/01/2021 Mastodyn ia;Recor ded Elsewher e: No Locat ion: [facility] Source: EHR Revenue Tax Specialist carlos: N Practi ce ID: 0001 Ollie lable Time: 10:45:00 AM Tea Lorenz [facility] 22:08:46 Syphilis test finding [id number] Completed 201803/01/2021 Encounte r for STD screenin g;Record ed Elsewher e: No Locat ion: [facility] S ource: EHR Revenue Tax Specialist carlos: N Practi ce ID: 0001 Ollie lable Time: 10:30:00 AM Tea Lorenz [facility] 22:08:57 Amenorrh ea 24690362 Completed 201803/01/2021 Amenorrh ea, unspecif ied;Joes Luis rded Elsewher e: No Locat ion: [facility] Source: EHR Revenue Tax Specialist carlos: N Practi ce ID: 0001 Ollie lable Time: 10:45:00 AM Tea Lorenz [facility] 22:08:33 Problem Notes None recorded. Procedures Surgical History Date Name Laterality Status Provider Name and Address Organization Details Recorded Time 05/08/20 Date of Last Pap Smear completed Clarissa Amaro [facility] 05/25/2024 15:27:40 04/14/20 Date of Last Mammogram completed Tea Lorenz [facility] 03/01/2021 22:15:32 01/25/20 20 Bartholin Cyst Drainage completed Ankush Navarro MD [address], [place], [address], [place] [facility] 01/25/2020 18:35:08 07/22/19 16 Appendectomy completed Tea Lorenz [facility] 03/02/2021 10:58:34 Imaging Results Imaging Date Name Status LastModified by Organization Details LastModified Time 08/18/2024 US, obstetric, follow-up completed [email or web address] [facility] [address], [place], [address], 08/18/2024 13:06:39 08/18/2024 US, obstetric, follow-up completed [email or web address] [address], [place], [address], 09/01/2024 23:08:38 09/01/2024 US, obstetric, limited [facility] [address], [place], [address], 09/01/2024 12:57:52 09/01/2024 US, obstetric, transvaginal completed amy Bello [address], [place], [address], 09/01/2024 12:58:05 09/01/2024 US, obstetric, limited completed [email or web address] [address], [place], [address], 09/01/2024 14:24:53 09/15/2024 US, obstetric, follow-up completed [email or web address] [facility] [address], [place], [address], 09/15/2024 13:45:58 09/15/2024 US, obstetric, follow-up completed [email or web address] [address], [place], [address], 09/16/2024 17:59:26 Procedure Notes None recorded. Medical [...] Available Not Available Not Available vitamin d 68668 unit caps 04/07 completed Not Available Not [...] completed Not Available Not Available Not Available Depo-Disc Pad Grinder a 150 mg/mL intramuscul ar suspension Inject 1 mL every 3 months by intramusc ular route. 04/17 completed Not Available Not Available Not Available nifedipine 10 mg capsule TAKE 1 CAPSULE BY MOUTH EVERY 6 HOURS NEEDED FOR CONTRACTI ONS active Not Available Not Available No t Available benzonatate 100 mg capsule TAKE 1 [...] completed Not Available Not Available Not Available Depo-Disc Pad Grinder a 03/01 completed Not Available Not Available [...] Address Organization Details Last Updated DateTime 09/01/2024 11276.2631 3 g 102 mm[Hg] 68 mm[Hg] Clarissa Amaro [facility] 09/01/2024 10:44:08 Date Recorded Body weight Systolic blood pressure Diastolic blood pressure Provider Name and Address Organization Details Last Updated DateTime 09/15/2024 11706.4478 7 g 118 mm[Hg] 74 mm[Hg] [facility] 09/15/2024 11:57:37 Date Recorded Body height Body mass index (BMI) Body weight Systolic blood pressure Diastolic blood pressure Provider Name and Address Organization Details Last Updated DateTime 09/28/2024 156.21 cm 28.3 kg/m2 84506.04 g 129 mm[Hg] 76 mm[Hg] [facility] 10:56:33 Date Recorded Body weight Systolic blood pressure Diastolic blood pressure Provider Name and Address Organization Details Last Updated DateTime 10/12/2024 07256.0402 4 g 123 mm[Hg] 75 mm[Hg] [facility] 10/12/2024 12:00:10 Social History Question Answer Notes LastModified by Organizat ion Details LastModified Time Tobacco Smoking Status Never Smoker [facility] 01/07/2020 [...] Anxious, Or Unable To Sleep At Night)? [id number] Information not available 03/02/2021 Do You Use [...] (Food, seasonal, environmental ) N Other N Drug/Latex Allergies/Reactions N Blood Transfusion N Breast Cancer N Dermatologic Disorders N Lung Disease N Defects or Inherited Disease N Breast Problem N Gestational Diabetes N Hematologic disorders N Anesthesia Complications N History of STI N Deep Vein Thrombosis N Polycystic ovary syndrome N Anxiety Disorder N Autoimmune disease N Arthritis N Polyps N Infertility N Acid Reflux (GERD) N History of abnormal pap N Cancer N Varicosities N Stroke N Neurologic/Epilepsy N Endometriosis N High Cholesterol N Fibromyalgia N Headaches N Kidney Disease N Heart Problems N Thyroid Problems N Kidney or Bladder Problems N GI Problems N Eating Disorder [...] ICD10 Code Diagnosis Note [id number] Kimberlee Dean , [facility] [address] [address] 01/07/2020 11:04:34 01/07/2020 11:49:55 Gynecologic examination 05845698 Z01.419 Take Calcium with Vitamin D 1200mg [...] copy of today's plan if desired. Nausea 007001596 R11.0 Patient is on depo & not [...] ensure no other issues. [id number] Kimberlee Dean [facility] [address],[place] [address] 01/08/2020 15:41:19 01/13/2020 10:48:58 Contraception care management 197705863 Z30.9 Pt is here for a depo inj that was given in the left hip LOT: [id number] EXP: 10/2021. pt is due back between mar 25 - apr 08 . [facility] [address] Ankush Navarro MD [facility] [address],[place] [address] 01/25/2020 16:38:28 01/25/2020 21:03:41 Abscess of Bartholin's gland 46287992 N75.1 Incision and drainage of Bartholin' s gland was performed. The patient tolerated procedure well. She was given prescripti on for antibiotic s. She will follow-up in 1 week. [id number] Ankush Navarro MD [facility] [address],[place] [address] 01/29/2020 09:35:01 01/29/2020 16:11:02 Abscess of Bartholin's gland 92576365 N75.1 This patient is a 19-year-ol dfemale [...] he will follow-up as needed. Kimberlee Dean [facility] [address],[place] [address] 04/07/2020 14:33:28 04/07/2020 15:11:59 Contraception care management 265872385 Z30.9 Pt is here for a depo inj that was given in the left hip LOT: [id number] EXP: 10/2021. pt is due back between mar 25 - apr 08 . ravi patricia Mass of right breast 472 8850077 9190905 N63.10 Exam warrants further evaluation with imaging. We will start with a breast US. Family Hx of breast issues but she is not certain it was cancer related on her mom's side. [id number] Kimberlee Dean [facility] [address],[place] [address] 07/04/2020 10:47:40 07/05/2020 16:14:52 Contraception care management 817110974 Z30.9 21129 Kimberlee Dean [facility] [address],[place] [address] 09/26/2020 10:41:49 09/27/2020 14:33:01 Contraception care management 888293937 Z30.9 [id number] Kimberlee Dean [facility] [address],[place] [address] 12/12/2020 10:11:11 12/13/2020 21:29:25 Contraception care management 660175348 Z30.9 Nurses injection visit [id number] Kimberlee Dean [facility] [address],[place] [address] 03/02/2021 10:26:36 03/02/2021 11:25:39 Contraception care management 995587815 Z30.9 Nurses injection visitHappy on Depo Inj.Consid er updated Dexa next yearRF sent Gynecologi c examination 20324998 Z01.419 Take Calcium with Vitamin D 1200mg [...] std screenPap age 22yoNO issues or concerns [id number] Kimberlee Dean [facility] [address],[place] [address] 05/25/2021 10:02:39 05/26/2021 14:03:17 Contraception care management 947656891 Z30.9 Nurses injection visitHappy on Depo Inj.Consid er updated Dexa next yearRF sent [id number] Kimberlee Dean [facility] [address],[place] [address] 08/14/2021 09:55:14 08/14/2021 10:33:58 Contraception care management 404407278 Z30.9 Nurses injection visitHappy on Depo Inj.Consid er updated Dexa next yearRF sent [id number] Kimberlee eDan [facility] [address] [place] [address] 11/08/2021 17:13:23 11/09/2021 16:51:30 Contraception care management 920808392 Z30.9 Nurses injection visitHappy on Depo Inj.Consid er updated Dexa next yearRF sent [id number] Tea Lorenz [facility] [address],[place] [address] 02/05/2022 09:31:58 02/05/2022 15:07:22 Contraception care management 069608466 Z30.9 Nurses injection visitHappy on Depo Inj.Consid er updated Dexa next yearRF sent [id number] [facility] [address] [address] 02/13/2022 09:43:17 02/13/2022 10:29:12 Gynecologic examination 07369064 Z01.419 Take Calcium with Vitamin D 1200mg [...] na Long-term current use of hormonal contraceptive 7026345784 64448 Z79.3 Recommende d for those who have been on Depo for >3yrs Uses depot contraception 630558491 Z30.42 Happy on Depo no issuesWoul d like to continue as long as Dexa is wnl [id number] Tea Lorenz [facility] [address] [address] 04/24/2022 09:39:08 04/25/2022 12:27:06 Contraception care management 540395250 Z30.9 Nurses injection visitHappy on Depo Inj.Consid er updated Dexa next yearRF sent [id number] Kimberlee Dean [facility] [address],[place] [address] 07/13/2022 09:21:18 07/18/2022 13:44:16 Contraception care management 573167886 Z30.9 Nurses injection visitHappy on Depo Inj.Consid er updated Dexa next yearRF sent [id number] Nabila Alvarado [facility] [address],[place] [address] 10/02/2022 14:49:12 10/03/2022 16:59:05 Breast lump 28060791 N63.0 Bilateral breast lumps felt throughout both breastOrde r given for updated bilateral breast u/sReferra l sent to f/u with new breast specialist , as her previous clinic no longer accepts her insurance and she has been following yearly with specialist RTC for WWE, due 02/10 Contraception care 30341 5005 Z30.40 Happy with Depo, injection given today by MA Time spent in visit is a total of 20 mins with at least 50% of visit consisting of counseling and review of plan of care. [id number] [place]a [place] [address],[place] [address] 12/26/2022 09:19:12 12/27/2022 11:25:19 Contraception care 543470577 Z30.40 [id number] Nabila Alvarado [facility] [address],[place] [address] 03/22/2023 09:20:58 03/22/2023 12:17:16 Contraception care 845926422 Z30.40 [id number] Kimberlee Dean [facility] [address],[place] [address] 03/29/2023 13:08:52 04/01/2023 15:05:33 Pain in pelvis 46409255 R10.2 This patient is a 23 -year-old [...] y with nausea, vomiting, fever, chills. If AUTHORIZATION NURSE is WNL we need to consider either abd US or Abd CT scan to assess GI related issues. [id number] [facility] [address],[place] [address] 04/01/2023 17:08:37 04/01/2023 17:35:09 Pain in pelvis 25592574 R10.2 [id number] Kimberlee Dean [facility] [address],[place] [address] 04/09/2023 15:02:33 04/09/2023 15:46:28 Pain in pelvis 16630447 R10.2 Reviewed US today.WNLQ uestions answered to patient satisfacti on.Rec f/u with PCP and possibly GI specialist .Fernandoan lizet verbalized & no questions. Total time of virtual-ZO OM visit was approx 15 mins with >50% consisting of counseling , education of patient's plan of care. [id number] [facility] [address],[place] [address] 03/17/2024 11:42:34 03/17/2024 12:52:13 Uterine size for dates discrepancy 165434173 Z36.87 Z3A.01 [id number] Ankush Navarro MD [facility] [address],[place] [address] 03/17/2024 12:12:54 03/17/2024 22:36:06 [id number] [facility] [address],[place] [address] 04/17/2024 15:18:05 04/17/2024 16:05:24 [id number] Ankush Navarro MD [facility] [address],[place] [address] 04/17/2024 15:18:42 04/18/2024 10:41:49 Amenorrhea 20834179 N91.2 this patient is a 24-year-ol d [...] begin routine care at her next visit. [id number] Gali [facility] [address],[place] [address] 05/07/2024 16:48:13 05/08/2024 07:46:01 screening 559295320 Z36.82 Z3A.13 [id number] Clarissa [facility] [address],[place] [address] 05/08/2024 14:52:09 05/08/2024 17:05:36 Routine care 426633907 Z34.91 Gestation period, 12 weeks 82083743 Z3A.12 [id number] Ankush Navarro MD [facility] [address],[place] [address] 05/25/2024 15:09:54 05/25/2024 16:39:21 Routine care 796393773 Z34.91 [id number] [facility] [address] [place] [address] 05/26/2024 13:53:44 05/26/2024 14:58:04 Spotting per vagina in 331237237 O26.852 Z3A.16 [id number] [facility] [address],[place] [address] 06/15/2024 17:23:20 06/16/2024 13:27:45 Spotting per vagina in 891769601 O26.852 Z3A.19 [id number] [facility] [address],[place] [address] 06/23/2024 10:21:20 06/23/2024 12:10:06 screening for malformation 225552774 Z36.3 Z3A.20 [id number] Ankush Navarro MD [facility] [address],[place] [address] 06/23/2024 10:21:42 06/23/2024 12:50:55 Routine care 918527057 Z34.91 [id number] [facility] [address],[place] [address] 07/21/2024 09:25:38 07/21/2024 10:21:49 Placenta succenturiata 39661933 O43.199 O44.42 Z3A.24 [id number] Ankush Navarro MD [facility] [address],[place] [address] 07/21/2024 09:26:03 07/21/2024 10:41:17 Routine care 142188349 Z34.91 [id number] [facility] [address],[place] [address] 08/18/2024 09:26:12 08/18/2024 10:08:18 Placental condition affecting management of mother 953686691 O43.103 O43.193 Z3A.28 [id number] Ankush Navarro MD [facility] [address],[place] [address] 08/18/2024 09:26:26 08/18/2024 10:53:45 Routine care 794777907 Z34.91 [id number] MD Ace Merritt [address],[place] [address] 09/01/2024 10:33:11 09/01/2024 11:27:19 Routine care 823513847 Z34.91 [id number] Gali Dempsey [facility] [address],[place] [address] 09/01/2024 11:20:15 09/01/2024 13:58:18 Medical examination for suspected condition 997822686 Z03.71 Z3A.30 207474 Gissell Lorenz [facility] [address],[place] [address] 09/15/2024 10:45:58 09/15/2024 11:19:32 Placental condition affecting management of mother 669429306 O43.103 Z3A.32 [id number] Ankush Navarro MD [facility] [address],[place] [address] 09/15/2024 10:46:25 09/15/2024 12:16:57 Routine care 611105490 Z34.91 [id number] Ankush Navarro MD [facility] [address],[place] [address] 09/28/2024 10:45:26 09/28/2024 11:34:38 Routine care 150513702 Z34.91 [id number] Ankush Navarro MD [facility] [address],[place] [address] 10/12/2024 11:43:47 10/12/2024 12:13:08 Routine care 200904599 Z34.91 Health Concerns Section Related Observation LastModified by Organization Detai ls LastModified Time None Recorded Concern Status LastModified by Organization Details LastModified Time None Recorded Advance Directives Directive None Recorded Payers Encounter Date Sequence Insurance Name Policy Number Policy Harden Covered Member ID Harden Member ID Guarantor Name 09/01/2024 1 [facility] (MEDICAID HMO) [id number] Siobhan Akhtar [id number] Siobhan Akhtar 09/15/2024 1 [facility] (MEDICAID HMO) [id number] Siobhan Akhtar [id number] Siobhan Akhtar 09/15/2024 1 [facility] (MEDICAID HMO) [id number] Siobhan Akhtar [id number] Siobhan Akhtar 09/28/2024 1 [facility] (MEDICAID HMO) [id number] Siobhan Akhtar [id number] Siobhan Akhtar 10/12/2024 1 [facility] (MEDICAID HMO) [id number] Siobhan Akhtar [id number] Siobhan Akhtar OBGyn Episode Ob Episode Information Episode Created Date Number of Fetuses Patient Bloodtype Patient rh Status Prepregnancy Weight lbs Domestic Partner Domestic Partner Phone Father Name Bean Weigher Status 05/08/20 24 1 A Positive 137 OPEN Fetus Data First Name Last Name Admitted to NICU Weight (g) Sex Living Outcome Pediatric Complications Fetus ID Race Codes Race Delivery Type [id number] Problems Problem Notes accessory lobe - repeat linda jaida 06/23 Problem Name Start Date End Date Resolution Snomed Code Not e Anomaly of placenta 05895489 succenturiate lobe Finding of uterine contractions 012647765 Henry Calculation Initial Henry Date Initial Exam [...] Weight in lbs Pre/Post Dialysis Refused Weight 135.082267393911 BP Diastolic BP Location Tested BP Systolic [...] Type Weight in lbs Pre/Post Dialysis Refused 136.727023828256 BP Diastolic BP Location Tested BP Systolic [...] Type Weight in lbs Pre/Post Dialysis Refused 138.007469815849 BP Diastolic BP Location Tested BP Systolic [...] Type Weight in lbs Pre/Post Dialysis Refused 139.896834867793 BP Diastolic BP Location Tested BP Systolic [...] Type Weight in lbs Pre/Post Dialysis Refused 146.970739649529 BP Diastolic BP Location Tested BP Systolic [...] Type Weight in lbs Pre/Post Dialysis Refused 149.348754190831 BP Diastolic BP Location Tested BP Systolic BP Type 68 L arm 102 sitting Fetus Heart Rate Present A 148 Fetus Movement A Yes Comments c/o LOF - to get BHARATH and cer vical efiryj4hxup movement, no vaginal bleeding. Flowsheet Date 09/01/2024 [...] Type Weight in lbs Pre/Post Dialysis Refused 151.561140996862 BP Diastolic BP Location Tested BP Systolic [...] Weight in lbs Pre/Post Dialysis Refused Weight 152.612810263077 BP Diastolic BP Location Tested BP Systolic BP Type 76 L arm 129 sitting Fetus Heart Rate Present A 155 Present Fetus Movement A Yes Comments no complaints, no problems, routine care, no contractions, no vaginal bleeding, no loss of fluid, no cramping Flowsheet Date 10/12/2024 Marshall Score Blood Edema Fundus Height Fundus Units Glucose Ketones Leukocytes Nitrite Labor Signs Protein Cervic Dilation Cervic Effacement Cervic Station 1cm 70% -2 Type Weight in lbs Pre/Post Dialysis Refused 152.160548062705 BP Diastolic BP Location Tested BP Systolic BP Type 75 L arm 123 sitting Fetus Heart Rate Present A 148 Present Fetus Movement A Yes Comments no [...]
--- OUTSIDE RECORDS SUMMARY | 2024-10-16 19:25 | XMS_ITS | Encounter Summary ---
Author Organization [facility] Address [address] [place] [address] Care Team Providers Care Fire Alarm Dispatcher Name Role Phone Tatyana Fierro MD Primary Care Provider [phone] Encounter Details Date Type Department Care Team (Late st Contact Info) Description 07/12/2021 Lab Requisition [facility] [address] [facility] [place] [address] Christian Bolton MD [address] [facility] [place] [address] Social History Tobacco Use Types Packs/Day Years [...] Comments DERMATOPATHOLOGY Routine 07/12/2021 12:0 0 AM COMPUTER FORENSICS INVESTIGATOR documented in this encounter Results * DERMATOPATHOLOGY (07/12/2021 12:00 AM COMPUTER FORENSICS INVESTIGATOR) Case Report Dermatopathology Report Case: [id number] Authorizing Provider: Christian Bolton MD Collected: 07/12/2021 12:00 AM Ordering Location: [facility] Received: 07/12/2021 03:42 PM Pathologist: Abraham Allen MD Specimens: A) - Skin, right neck B) - Skin, right neck sup 1 5:20 PM COMPUTER FORENSICS INVESTIGATOR DERMATOPATHOLOGY LABORATORY Final Diagnosis Specimen A. SKIN, right neck: COMPOUND MELANOCYTIC NEVUS (D22.4) Specimen B. SKIN, right neck sup: COMPOUND MELANOCYTIC NEVUS (D22.4) 1 5:20 PM COMPUTER FORENSICS INVESTIGATOR DERMATOPATHOLOGY LABORATORY Clinical History A: Nevus R/O atypia. Path # [id number]. B: Nevus R/O atypia. Path # [id number]. 1 5:20 PM COMPUTER FORENSICS INVESTIGATOR DERMATOPATHOLOGY LABORATORY Gross Description Specimen A: Received is one formalin filled container labeled with the patient's name and designated right neck. The specimen consists of a shave biopsy measuring [id number]. Jar 0. Specimen B: Received is one formalin filled container labeled with the patient's name and designated right neck sup. The specimen consists of a shave biopsy measuring [id number]. Jar 0. 1 5:20 PM COMPUTER FORENSICS INVESTIGATOR DERMATOPATHOLOGY LABORATORY Microscopic Description Specimen A. SKIN, right neck: There are nests of melanocytes at the dermal-epidermal junction and within the dermis. Specimen B. SKIN, right neck sup: There are nests of melanocytes at the dermal-epidermal junction and within the dermis. 1 5:20 PM COMPUTER FORENSICS INVESTIGATOR DERMATOPATHOLOGY LABORATORY Disclaimer An external and internal positive and negative controls are appropriate for the histochemical, immunohistochemical and immunofluorescence stain(s) in this case (if any), except where stated explicitly. The performance characteristics of the stain(s) cited in this report were developed and its performance characteristic determined by the Dermatopathology Laboratory at [facility], directed by Dr. Edvin Allen. These tests need not be, and therefore are not, approved by the [place] Food and Drug Administration. The tests are used for clinical purposes. Billing Codes Specimen Charges Stain Charges 10174 08038 1 1 1 5:20 PM COMPUTER FORENSICS INVESTIGATOR DERMATOPATHOLOGY LABORATORY Embedded Images 1 5:20 PM COMPUTER FORENSICS INVESTIGATOR DERMATOPATHOLOGY LABORATORY Pathology/Cytology TISSUE SPECIMEN FROM SKIN / Unknown 07/12/2021 07/12/2021 3:42 PM COMPUTER FORENSICS INVESTIGATOR Miscellaneous samples (specimen) TISSUE SPECIMEN FROM SKIN / Unknown 07/12/2021 07/12/2021 3:42 PM COMPUTER FORENSICS INVESTIGATOR Christian Bolton MD LAB - PATHOLOGY/CYTO LOGY ORDERABLES DERMATOPATHOLOGY LABORATORY [facility] Department of Dermatology [address] [phone] documented in this encounter Visit Diagnoses Not on filedocumented in this encounter Care Teams Fire Alarm Dispatcher Relationship Specialty Start Date End Date Tatyana Fierro MD PCP - General 04/26/20 documented as of this encounter
--- OUTSIDE RECORDS SUMMARY | 2024-10-16 19:25 | XMS_ITS | Clinical Summary ---
Author Organization [facility] Address [address] [facility] [address] [address] Phone Care Team Providers Care Die Technician Name Role Phone Tatyana Fierro MD Primary Care Provider [phone] Allergies No known active allergies Medications medroxyPROGEST ERone (DEPO-PROVERA) 150 MG/ML Suspension 1 Dose by Intramuscular route. 9 Active Evening [place] Oil 1000 MG Capsule Take 1 Cap [...] Immunization (1 of 2 - Standard) 2017 Influenza Immunization (#1) 2024 05/14/2013 SARS-COV-2 Immunization (1 - season) 2024 Respiratory Syncytial Virus (RSV) Immunization [...] age to complete this topic Insurance MEDICAID [facility] PLAN Care Teams Die Technician Relationship Specialty Start Date End Date Tatyana Fierro MD [address] [address] PCP - General Pediatrics 04/25/20
--- OUTSIDE RECORDS SUMMARY | 2024-10-16 19:25 | XMS_ITS | Referral Summary ---
Author Organization [facility] Address [facility] [place] [address] Care Team Providers Care Pillar Man Name Role Phone Gabby Duran NP Primary Care Provider [phone] Allergies No known active allergies Medications [...] on file Legal Sex Female 7:10 PM EQUINE INTERN Gender Identity Not on file Sexual Orientation Not on file Occupation Industry Job Start Date Job End Date Self- employed Not on file Not on file Not on file Last Filed Vital Signs Vital Sign Reading Time Taken Comments Blood Pressure 117/82 07/03/2023 10:27 AM EQUINE INTERN Pulse 94 07/03/2023 10:27 AM EQUINE INTERN Temperature 36.9 C (98.4 F) 08/01/2015 8:05 PM EQUINE INTERN Respiratory Rate - - Oxygen Saturation 98% 07/03/2023 10:27 AM EQUINE INTERN Inhaled Oxygen Concentration - - Weight 63.7 kg (140 lb 6.4 oz) 07/03/2023 10:27 AM EQUINE INTERN Height 154.9 cm (5' 1 ) 07/03/2023 10:27 AM EQUINE INTERN Body Mass Index 26.53 07/03/2023 10:27 AM EQUINE INTERN Plan of Treatment Not on file Insurance Care Teams Pillar Man Relationship Specialty Start Date End Date Gabby Duran, NETWORK SECURITY ANALYST [address] [place] [address] PCP - General Grounds Maintenance Worker 08/05/23
--- OUTSIDE RECORDS SUMMARY | 2024-10-16 19:25 | XMS_ITS | Clinical Summary ---
Author Organization [facility] Address [address] [place] [address] Phone Care Team Providers Care Sound Designer Name Role Phone Tatyana Fierro MD Primary Care Provider [phone] Allergies No known active allergies Medications medroxyPROGESTER [...] on file Legal Sex Female 11:17 AM LENS ENGRAVER Gender Identity Not on file Sexual Orientation Not on file Last Filed Vital Signs Vital Sign Reading Time Taken Comments Blood Pressure 110/62 09/19/2021 12:04 PM LENS ENGRAVER Pulse 72 03/21/2021 11:06 AM CDT Temperature - - Respiratory Rate - - Oxygen Saturation - - Inhaled Oxygen Concentration - - Weight 50.4 kg (111 lb 1.6 oz) 09/19/2021 12:04 PM LENS ENGRAVER Height 154.9 cm (5' 1 ) 09/19/2021 12:04 PM LENS ENGRAVER Body Mass Index 20.99 09/19/2021 12:04 PM LENS ENGRAVER Plan of Treatment Health Maintenance Due Date Last Done Comments CHLAMYDIA SCREENING (ANNUAL) 11-24 YEARS 2012 CERVICAL CANCER SCREENING 2022 PAP SMEAR 2022 PAP SMEAR 2022 INFLUENZA VACCINE (#1) 2024 05/14/2013 DTAP/TDAP/TD VACCINES (8 - T d or Tdap) 02/11/2029 02/11/2019, 03/19/2012, 03/15/2006, Additional history exists HEPATITIS B VACCINES Completed 06/23/2002, 2001, 2001 HPV VACCINES Completed 07/31/2014, 07/2012, 03/19/2012 Insurance MEDICAID Care Teams Sound Designer Relationship Specialty Start Date End Date Tatyana Fierro MD PCP - General Pediatrics 09/19/21
--- NOTE | 2024-10-16 19:35 | OBADM ---
This patient, Siobhan Alvarado, admitted to the OB room OB Post 116 for observation. Patient/family oriented to hospital policies and general routines including ID bracelet, bed and alarms, visiting hours, pain management, procedures, bathroom and other care routines, personal items, smoking policy, room service/diet, and visiting hours. Patient/Family are encouraged to report perceived risks to care and to ask questions if they do not understand what they are told or what they should do.
[2024-10-16 19:45] VITALS: BP 115/78; PULSE 89
[2024-10-16 19:51] LABS: Add Urine Microscopic? YES; Appearance Urine Cloudy (Clear); Bacteria Urine 1+ /hpf; Bilirubin Urine Negative (Negative); Blood Urine Negative (Negative); Color Urine Yellow (Yellow); Glucose Urine UA Negative (Negative); Ketones Urine Negative (Negative); Leukocyte Esterase Ur Trace LEU/UL (Negative); Nitrate Urine Negative (Negative); Non Pathogenic Casts 0-2; Protein Urine Negative (Negative); RBC Urine 0-2 /hpf (0-2); Specific Grav Ur 1.012 (1.001-1.035); Squamous Epithelial Cell Urine Moderate /hpf (Few)
[2024-10-16 20:00] VITALS: BP 120/74; PULSE 90
[2024-10-16 20:15] VITALS: BP 134/78; PULSE 99
[2024-10-16 20:30] VITALS: BP 121/76; PULSE 103
[2024-10-16 20:45] VITALS: BP 115/78; PULSE 90
[2024-10-16 21:45] VITALS: BMI 27.8
[2024-10-16] MEDS: CEPHALEXIN 500 MG CAPSULE PO (21:56)
--- NOTE | 2024-10-19 21:43 | PM.OBTRLD ---
OB - Triage/Final Diagnosis Visit Information Comments/Additional reasons for admission: I have assessed the risk for this patient, Siobhan Alvarado, and determined that she would benefit from observation care. Evaluation Laboratory results: Laboratory Tests 10/16/24 19:40 Urine Color Yellow Urine Appearance Cloudy H Urine pH 6.0 Ur Specific [place] 1.012 Urine Protein Negative Urine Glucose (UA) Negative Urine Ketones Negative Ur Blood (Man) Negative Urine Nitrate Negative Urine Bilirubin Negative Urine Urobilinogen 1.0 Leukocyte Esterase Rfl Trace H Urine RBC 0-2 Urine WBC 6-10 H Ur Squamous Epith Cells Moderate Urine Bacteria 1+ H Urine Casts 0-2 Final Diagnosis (1) Irregular contractions: Code(s): O47.9 - False labor, unspecified Status: Acute
== END 2024-10-16 22:01 | disposition home or self-care (01) ==
PROVIDERS: Obstetrics & Gynecology; Admitting Provider Obstetrics & Gynecology; PCP Nurse Practitioner Family; Visit Provider Obstetrics & Gynecology
DX: O47.03 False labor before 37 completed weeks of gestation, third trimester (principal); Z3A.36 36 weeks gestation of pregnancy
CPT/HCPCS: 81001; A9270; G0378; G0379

== ENCOUNTER 2024-10-29 15:21 | Outpatient (CLI) | payer OTHER, SELFPAY ==
[2024-10-29] VITALS (44 sets, daily range): BP systolic 111–132; BP diastolic 66–78; PULSE 83–99; TEMP 36.4; O2SAT 94–97; BMI 31.0
--- OUTSIDE RECORDS SUMMARY | 2024-10-29 15:50 | XMS_ITS | Encounter Summary ---
Author Organization [facility] Address [facility] [place] [address] Care Team Providers Care Summer Law Associate Name Role Phone Gabby Duran CHILD AND FAMILY SERVICES SPECIALIST Primary Care Provider [phone] Encounter Details Date Type Department Care Team (Late st Contact Info) Description 10/25/2023 howsimplehart Message Enc [facility] Family and Sports Medicine - [place] [address] [place] [address] Gabby Duran NP [address] [place], [place] [phone] Oral surgeon Social History Tobacco Use Types [...] Depression Total Score: 11 024 4:34 PM TAG AND LABEL CUTTER documented as of this encounter Care Teams Summer Law Associate Relationship Specialty Start Date End Date Gabby Duran CHILD AND FAMILY SERVICES SPECIALIST [address] [place], [place] [phone] PCP - General Nurse Practitioner Family 09/09/23 documented as of this encounter
--- OUTSIDE RECORDS SUMMARY | 2024-10-29 15:50 | XMS_ITS | Encounter Summary ---
Author Organization [facility] Address [facility] [place] [address] Care Team Providers Care In File Operator Name Role Phone Gabby Duran NP Primary Care Provider [phone] Encounter Details Date Type Department Care Team (Late st Contact Info) Description 12/29/2023 Amrit Advanced Biotechhart Message Enc [facility] Family and Sports Medicine - [place] [address] [place] [address] Gabby Duran NP [address] [place] [address] Nausea/anxiety Social History Tobacco Use Types Packs/Day [...] Depression Total Score: 11 024 4:34 PM HAND MOLDER MEAT documented as of this encounter Care Teams In File Operator Relationship Specialty Start Date End Date Gabby Duran, CROP ROLLER [address] [place] [address] PCP - General Nurse Practitioner Family 09/09/23 documented as of this encounter
--- OUTSIDE RECORDS SUMMARY | 2024-10-29 15:50 | XMS_ITS | Continuity of Care Document ---
Author Organization [facility] Address [address] [place] [address] Care Team Providers Care Edger Operator Name Role Phone LANG BORREGO Primary Care Provider Assessment Encounter Date Assessment Date Assessment LastModified by Organization Details LastModified Time 10/29/2024 10/29/2024 Patient is ___weeks . Discussed plan. Not available 10/29/2024 12:08:36 Plan of Treatment Reminders Order Date Submit Date Provider Last Modified By Organization Details Last Modified Time Details Appointments OB ROUTINE 2024 10:45A Abraham MESSER MD Not available Not available Not available OB ROUTINE 2024 10:15A Abraham MESSER MD Not available Not available Not available Lab None recorded . Referral None recorded . Procedures None recorded . Surgeries None recorded . Imaging None recorded . Medication Orders None recorded . Patient TargetsNo targets recorded. Patient InstructionsNo instructions recorded. Reason for Referral None Reported. Results Created Date Observation Date Name Description Value Unit Range Abnormal Flag Note LastModifiedBy Organization Detail LastModifiedTime 05/26/20 24 05/26/2024 , obste tric, limit ed No observ ation record ed. [facility] [address], [place], [address], 05/26/2024 15:47:20 05/26/20 24 05/26/2024 US, obste tric, limit ed No observ ation record ed. [email or web address] [address], [place], [address], 05/26/2024 14:57:30 06/15/20 24 06/15/2024 US, obste tric, limit ed No observ ation record ed. [email or web address] [place] [address], [place], [address], 06/15/2024 18:04:28 06/15/20 24 06/15/2024 US, obste tric, limit ed No observ ation record ed. JEWELL [address], [place], [address], 06/17/2024 10:44:10 06/23/20 24 06/23/2024 US, obste tric, 2nd or 3rd trime ster No observ ation record ed. [email or web address] [place] [address], [place], [address], 06/23/2024 13:04:05 06/23/20 24 06/23/2024 US, obste tric, follo w-up No observ ation record ed. [email or web address] [address], [place], [address], 06/25/2024 14:43:05 07/21/20 24 07/21/2024 US, obste tric, follo w-up No observ ation record ed. [email or web address] [place] [address], [place], [address], 07/21/2024 11:05:00 07/21/20 24 07/21/2024 US, obste tric, trans vagin al No observ ation record ed. [email or web address] [place] [address], [place], [address], 07/21/2024 11:05:09 07/21/20 24 07/21/2024 US, obste tric, follo w-up No observ ation record ed. [email or web address] [address], [place], [address], 07/22/2024 22:38:50 08/18/19 25 08/18/2024 US, obste tric, follo w-up No observ ation record ed. [email or web address] [place] [address], [place], [address], 08/18/2024 13:06:39 08/18/19 25 08/18/2024 US, obste tric, follo w-up No observ ation record ed. [email or web address] [address], [place], [address], 09/01/2024 23:08:38 09/01/19 25 09/01/2024 US, obste tric, limit ed No observ ation record ed. [facility] [address], [place], [address], 09/01/2024 12:57:52 09/01/19 25 09/01/2024 US, obste tric, trans vagin al No observ ation record ed. [facility] [address], [place], [address], 09/01/2024 12:58:05 09/01/19 25 09/01/2024 US, obste tric, limit ed No observ ation record ed. [email or web address] [address], [place], [address], 09/01/2024 14:24:53 09/15/19 25 09/15/2024 US, obste tric, follo w-up No observ ation record ed. [address], [place], [address], 09/15/2024 13:45:58 09/15/19 25 09/15/2024 US, obste tric, follo w-up No observ ation record ed. sarath Ackerman [address], [place], [address], 09/16/2024 17:59:26 Result Notes None recorded. Problems Name Problem SNOMED Code Status Onset Date Resolution Date Notes Provider Name and Address Organization Details Recorded Time Pregnanc y 07951471 Active 2023 Clarissa Amaro [facility], [facility] 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 5 10:54:37 Finding of uterine contract ions 313635912 Active Ankush Messer MD [address], [place], [address], [facility] 5 12:13:26 Clinical finding Completed 201803/01/2021 Encounte r for surveill ance of injectab le contrace ptive;Pr actice ID: [id number] Tea Lorenz [facility], [facility] 22:08:39 Pregnanc y test negative 277235722 Completed 201803/01/2021 Encounte r for pregnanc y test, result negative ;Practic e ID: [id number] Tea Lorenz [facility], [facility] 22:08:50 Finding of regulari ty of menstrua l cycle Completed 201803/01/2021 Irregula r menstrua tion, unspecif ied;Prac milan ID: 0001 Tea Lorenz [facility] 22:08:42 Surveill ance of contrace ption Completed 201803/01/2021 Encounte r for surveill ance of contrace ptives, unspecif ied;Jose Luis rded Elsewher e: No Locat ion: [facility] S ource: EHR Ammunition Storekeeper carlos: N Raeti ce ID: 0001 Ollie lable Time: 10:30:00 AM Tea thomas [facility] 22:08:54 Finding of sensatio n of breast Completed 201803/01/2021 Mastodyn ia;Recor ded Elsewher e: No Locat ion: [facility] Source: EHR Ammunition Storekeeper carlos: N Practi ce ID: 0001 Ollie lable Time: 10:45:00 AM Tea thomas [facility] 22:08:46 Syphilis test finding 152665211 Completed 201803/01/2021 Encounte r for STD screenin g;Record ed Elsewher e: No [facility] S ource: EHR Ammunition Storekeeper carlos: N Raeti ce ID: 0001 Ollie lable Time: 10:30:00 AM Tea Lorenz [facility] 22:08:57 Amenorrh ea 61441223 Completed 201803/01/2021 Amenorrh ea, unspecif ied;Jose Luis rded Elsewher e: No Locat ion: [facility] Source: EHR Ammunition Storekeeper carlos: N Raeti ce ID: 0001 Ollie lable Time: 10:45:00 AM Tea Lorenz [facility] 22:08:33 Problem Notes None recorded. Procedures Surgical History Date Name Laterality Status Provider Name and Address Organization Details Recorded Time 05/08/20 24 Date of Last Pap Smear completed Clarissa Amaro [facility] 05/25/2024 15:27:40 04/14/20 20 Date of Last Mammogram completed Tea Lorenz [facility] 03/01/2021 22:15:32 01/25/20 20 Bartholin Cyst Drainage completed Ankush Messer MD [address], [place], [address], [facility] 01/25/2020 18:35:08 07/22/19 16 Appendectomy completed Tea Lorenz [facility] 03/02/2021 10:58:34 Imaging Results None recorded. Procedure Notes None recorded. Medical Equipment None [...] Available Not Available Not Available vitamin d 67838 unit caps 04/07 completed Not Available Not [...] completed Not Available Not Available Not Available Depo-Stonehand a 150 mg/mL intramuscul ar suspension Inject [...] completed Not Available Not Available Not Available cephalexin 500 mg capsule TAKE 1 CAPSULE BY MOUTH EVERY 6 HOURS FOR 5 DAYS 10/22 completed Not Available Not Available Not Available [...] completed Not Available Not Available Not Available Depo-Stonehand a 03/01 completed Not Available Not Available [...] and Address Organization Details Last Updated DateTime 10/29/2024 68286.1486 8 g 133 mm[Hg] 82 mm[Hg] Clarissa Amaro [facility] 10/29/2024 12:09:58 Social History Question Answer Notes LastModified by Organizat ion Details LastModified Time Tobacco Smoking Status Never Smoker Elvira Holloway martha, [facility] 01/07/2020 11:13:21 What Is [...] Anxious, Or Unable To Sleep At Night)? [id number] Information not available 03/02/2021 Do You Use [...] SNOMED-CT Code Diagnosis ICD10 Code Diagnosis Note [id number] Ankush Messer MD [place] [address] [address] 09/28/2024 10:45:26 09/28/2024 11:34:38 Routine care 954967893 Z34.91 [id number] Ankush Messer MD [place] [address] [address] 10/12/2024 11:43:47 10/12/2024 12:13:08 Routine care 379947974 Z34.91 140424 Ankush Messer MD [place] [address] [address] 10/22/2024 15:09:18 10/22/2024 16:02:15 Routine care 449723592 Z34.91 [id number] Ankush Messer MD [place] [address] [address] 10/29/2024 11:33:48 10/29/2024 12:21:12 Routine care 768364117 Z34.91 Health Concerns Section Related Observation LastModified by Organization Detai ls LastModified Time None Recorded Concern Status LastModified by Organization Details LastModified Time None Recorded Payers Encounter Date Sequence Insurance Name Policy Number Policy Harden Covered Member ID Harden Member ID Guarantor Name 10/29/2024 1 [facility] (MEDICAID HMO) [id number] Siobhan Akhtar [id number] Siobhan Akhtar OBGyn Episode Ob Episode Information Episode Created Date Number of Fetuses Patient Bloodtype Patient rh Status Prepregnancy Weight lbs Domestic Partner Domestic Partner Phone Father Name Roll Threader Operator Status 05/08/20 24 1 A Positive 137 OPEN Fetus Data First Name Last Name Admitted to NICU Weight (g) Sex Living Outcome Pediatric Complications Fetus ID Race Codes Race Delivery Type [id number] Problems Problem Notes accessory lobe - repeat linda jaida 06/23 Problem Name Start Date End Date Resolution Snomed Code Not e Anomaly of placenta 74912338 succenturiate lobe Finding of uterine contractions 142881762 Henry Calculation Initial Henry Date Initial Exam [...] Weight in lbs Pre/Post Dialysis Refused Weight 135.684198279607 BP Diastolic BP Location Tested BP Systolic [...] Type Weight in lbs Pre/Post Dialysis Refused 136.461978427017 BP Diastolic BP Location Tested BP Systolic [...] Type Weight in lbs Pre/Post Dialysis Refused 138.773333257482 BP Diastolic BP Location Tested BP Systolic [...] Type Weight in lbs Pre/Post Dialysis Refused 139.594371358715 BP Diastolic BP Location Tested BP Systolic [...] Type Weight in lbs Pre/Post Dialysis Refused 146.978462592574 BP Diastolic BP Location Tested BP Systolic [...] Type Weight in lbs Pre/Post Dialysis Refused 149.391668896673 BP Diastolic BP Location Tested BP Systolic BP Type 68 L arm 102 sitting Fetus Heart Rate Present A 148 Fetus Movement A Yes Comments c/o LOF - to get BHARATH and cer vical [id number] movement, no vaginal bleeding. Flowsheet Date 09/01/2024 [...] Type Weight in lbs Pre/Post Dialysis Refused 151.381845471638 BP Diastolic BP Location Tested BP Systolic [...] Weight in lbs Pre/Post Dialysis Refused Weight 152.908430839599 BP Diastolic BP Location Tested BP Systolic [...] Type Weight in lbs Pre/Post Dialysis Refused 152.185282631093 BP Diastolic BP Location Tested BP Systolic BP Type 75 L arm 123 sitting Fetus Heart Rate Present A 148 Present Fetus Movement A Yes Comments no complaints, no problems, routine care, no contractions, no vaginal bleeding, no loss of fluid, no cramping Flowsheet Date 10/22/2024 Marshall Score Blood Edema Fundus Height Fundus Units Glucose Ketones Leukocytes Nitrite Labor Signs Protein Cervic Dilation Cervic Effacement Cervic Station 1cm 80% -2 Type Weight in lbs Pre/Post Dialysis Refused Weight 162.087614801252 BP Diastolic BP Location Tested BP Systolic BP Type 78 L arm 121 sitting Fetus Heart Rate Present A 142 Present Fetus Movement A Yes Comments no complaints, no problems, routine care, no contractions, no vaginal bleeding, no loss of fluid, no cramping Flowsheet Date 10/29/2024 Marshall Score Blood Edema Fundus Height Fundus Units Glucose Ketones Leukocytes Nitrite Labor Signs Protein Cervic Dilation Cervic Effacement Cervic Station 2cm 90% -2 Type Weight in lbs Pre/Post Dialysis Refused 164.86752396101 BP Diastolic BP Location Tested BP Systolic BP Type 82 L arm 133 sitting Fetus Heart Rate Present A 147 Present Fetus Movement A Yes Comments pressure, leaked some urine, baby is very low Menstrual History Last Menstrual Date Menses Monthly [...]
--- OUTSIDE RECORDS SUMMARY | 2024-10-29 15:50 | XMS_ITS | Clinical Summary ---
Author Organization [facility] [place] Address [address] [place] [address] Phone Care Team Providers Care Fitness Sales Consultant Name Role Phone Tatyana Fierro MD Primary Care Provider [phone] Allergies No known active allergies Medications medroxyPROGESTER [...] on file Legal Sex Female 11:17 AM DRAFTING DETAILER Gender Identity Not on file Sexual Orientation Not on file Last Filed Vital Signs Vital Sign Reading Time Taken Comments Blood Pressure 110/62 09/19/2021 12:04 PM DRAFTING DETAILER Pulse 72 03/21/2021 11:06 AM CDT Temperature - - Respiratory Rate - - Oxygen Saturation - - Inhaled Oxygen Concentration - - Weight 50.4 kg (111 lb 1.6 oz) 09/19/2021 12:04 PM DRAFTING DETAILER Height 154.9 cm (5' 1 ) 09/19/2021 12:04 PM DRAFTING DETAILER Body Mass Index 20.99 09/19/2021 12:04 PM DRAFTING DETAILER Plan of Treatment Health Maintenance Due Date Last Done Comments CHLAMYDIA SCREENING (ANNUAL) 11-24 YEARS 2012 CERVICAL CANCER SCREENING 2022 HPV/Cotest (21-29) 2022 PAP SMEAR 2022 PAP SMEAR 2022 INFLUENZA VACCINE (#1) 2024 05/14/2013 DTAP/TDAP/TD VACCINES (8 - T d or Tdap) 02/11/2029 02/11/2019, 03/19/2012, 03/15/2006, Additional history exists HEPATITIS B VACCINES Completed 06/23/2002, 2001, 2001 HPV VACCINES Completed 07/31/2014, 07/2012, 03/19/2012 Insurance MEDICAID Care Teams Fitness Sales Consultant Relationship Specialty Start Date End Date Tatyana Fierro MD PCP - General Pediatrics 09/19/21
--- OUTSIDE RECORDS SUMMARY | 2024-10-29 15:50 | XMS_ITS | Referral Summary ---
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 Not on file Not on file Not on file Last Filed Vital Signs Vital Sign Reading Time Taken Comments Blood Pressure 117/82 07/03/2023 10:27 AM WIRE CHARGER Pulse 94 07/03/2023 10:27 AM WIRE CHARGER Temperature 36.9 C (98.4 F) 08/01/2015 8:05 PM WIRE CHARGER Respiratory Rate - - Oxygen Saturation 98% 07/03/2023 10:27 AM WIRE CHARGER Inhaled Oxygen Concentration - - Weight 63.7 kg (140 lb 6.4 oz) 07/03/2023 10:27 AM WIRE CHARGER Height 154.9 cm (5' 1 ) 07/03/2023 10:27 AM WIRE CHARGER Body Mass Index 26.53 07/03/2023 10:27 AM WIRE CHARGER Plan of Treatment Not on file Insurance Care Teams Systems Test Engineer Relationship Specialty Start Date End Date Gabby Duran, SUPERINTENDENT [employer] [address] [place] [address] 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
--- OUTSIDE RECORDS SUMMARY | 2024-10-29 15:50 | XMS_ITS | Data Portability ---
Author Organization [facility] Address [address] [place] [place] [address] Care Team Providers Care Track Rider Name Role Phone LANG BORREGO Primary Care Provider [phone] Assessment Encounter Date Assessment Date Assessment LastModified by Organization Details LastModified Time 09/28/2024 09/28/2024 Patient is ___weeks . Discussed plan. Not available 09/28/2024 10:55:40 10/12/2024 10/12/2024 Patient is ___weeks . Discussed plan. Not available 10/12/2024 11:57:21 10/22/2024 10/22/2024 Patient is ___weeks . Discussed plan. Not available 10/22/2024 15:32:08 10/29/2024 10/29/2024 Patient is ___weeks . Discussed plan. Not available 10/29/2024 12:08:36 Plan of Treatment Reminders Order Date Submit Date Provider Last Modified By Organization Details Last Modified Time Details Appointments OB ROUTINE 2024 10:45A Abraham NAVARRO MD Not available Not available Not available OB ROUTINE 2024 10:15A Abraham NAVARRO MD Not available Not available Not available Lab None recorded . Referral None recorded . Procedures None recorded . Surgeries None recorded . Imaging US, obstetri c, follow-u p 2024 025 [email or web address] [place], [address], [address], [place], [address], 09/15/2024 23:00:35 Medication Orders None recorded . Patient TargetsNo targets recorded. Patient InstructionsNo instructions recorded. Reason for Referral None Reported. Results Created Date Observation Date Name Description Value Unit Range Abnormal Flag Note LastModifiedBy Organization Detail LastModifiedTime 08/18/1908/18/2024 HIV 1/2 ANTIG EN/AN TIBOD Y, REFLE X CONFI RMATI ON HIV antigen/anti body,reflex confirmation CANCEL LED Reord ered Not Available [facility] (Lab) [address], [place], [address], 08/19/2024 05:28:16 08/18/1908/18/2024 HEMAT OCRIT (HCT) HCT 32.1 % (based on docume nted legal sex) 34.0-4 5.0 low Not Available [facility] (Lab) [address], [place], [address], 08/19/2024 10:38:47 08/18/19 25 08/18/2024 HEMOG LOBIN (HGB) HGB 10.9 g/dL (based on docume nted legal sex) 11.6-1 5.4 low Not Available [facility] (Lab) [address], [place], [address], 08/19/2024 10:38:48 08/18/19 25 08/18/2024 GTT - GESTA MILTON L SCREE N, ACOG OB glucose, 1 hour screen 90 mg/dL 70-135 Not Available [facility] (Lab) [address], [place], [address], 08/19/2024 10:38:48 08/18/19 25 08/18/2024 HIV 1/2 ANTIG EN/AN TIBOD Y, REFLE X CONFI RMATI ON HIV antigen/anti body Nonrea ctive nonrea ctive HIV-1 antig en and HIV-1 /HIV- 2 antib odies were not detec nilsa. No labor atory evide nce of HIV infec tion. Not Available [facility] (Lab) [address], [place], [address], 08/19/2024 10:38:49 08/18/19 25 08/18/2024 RPR SCREE N, REFLE X TITER /CONF IRMAT ION RPR screen Nonrea ctive nonrea ctive Not Available [facility] (Lab) [address], [place], [address], 08/19/2024 10:38:49 10/13/19 25 10/12/2024 CULTU RE: GROUP B STREP SCREE N result report SEE RESULT S BELOW Test: Cultu re: Group B Strep Scree n - Vagin al/Re ctal Speci men Sourc e: Vagin a/Rec namita Speci men Type: Vagin al/Re ctal Speci men Date: 2024 1337 Resul t Date: 2024 1519 Resul t Statu s: Final resul t Abnor mal: No Resul ting Lab: [facility] [address] [facility] [address] Tel: CULTU RE ----- ----- ----- --- No Group B strep isola nilsa at 2 days (martha ctive broth enhan cemen t) Not Available [facility] (Lab) [address], [place], [address], 10/15/2024 16:22:54 08/18/19 25 08/18/2024 US, esteban haynes follo w-up No observ ation record ed. [email or web address] [facility] [address], [place], [address], 08/18/2024 13:06:39 08/18/19 25 08/18/2024 US, esteban haynes follo w-up No observ ation record ed. [email or web address] [address], [place], [address], 09/01/2024 23:08:38 09/01/19 25 09/01/2024 US, obste tric, limit ed No observ ation record ed. [facility] [address], [place], [address], 09/01/2024 12:57:52 09/01/19 25 09/01/2024 US, obste tric, trans vagin al No observ ation record ed. [facility] [address], [place], [address], 09/01/2024 12:58:05 09/01/19 25 09/01/2024 US, obste tric, limit ed No observ ation record ed. [email or web address] [address], [place], [address], 09/01/2024 14:24:53 09/15/19 25 09/15/2024 , obste tric, follo w-up No observ ation record ed. [email or web address] [facility] [address], [place], [address], 09/15/2024 13:45:58 09/15/19 25 09/15/2024 US, obste tric, follo w-up No observ ation record ed. [email or web address] [address], [place], [address], 09/16/2024 17:59:26 Result Notes None recorded. Problems Name Problem SNOMED Code Status Onset Date Resolution Date Notes Provider Name and Address Organization Details Recorded Time Pregnanc y 05001297 Active 2023 Clarissa thomas [place] - [facility] 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 5 10:54:37 Finding of uterine contract ions 891729687 Active Ankush Navarro MD [address], [place], [address], [place] [facility] 5 12:13:26 Clinical finding Completed 201803/01/2021 Encounte r for surveill ance of injectab le contrace ptive;Pr actice ID: [id number] Tea Lorenz [facility], [facility] 22:08:39 Pregnanc y test negative 667368462 Completed 201803/01/2021 Encounte r for pregnanc y test, result negative ;Practic e ID: 0001 Tea Lorenz [facility] 22:08:50 Finding of regulari ty of menstrua l cycle Completed 201803/01/2021 Irregula r menstrua tion, unspecif ied;Prac milan ID: 0001 Tea Lorenz [facility] 22:08:42 Surveill ance of contrace ption Completed 201803/01/2021 Encounte r for surveill ance of contrace ptives, unspecif ied;Jose Luis rded Elsewher e: No Locat ion: [facility] S ource: EHR Credit Manager carlos: N Practi ce ID: 0001 Ollie lable Time: 10:30:00 AM Tea Lorenz [facility] 22:08:54 Finding of sensatio n of breast Completed 201803/01/2021 Mastodyn ia;Recor ded Elsewher e: No Locat ion: [facility] Source: EHR Credit Manager carlos: N Practi ce ID: 0001 Ollie lable Time: 10:45:00 AM Tea Lorenz [facility] 22:08:46 Syphilis test finding 586234595 Completed 201803/01/2021 Encounte r for STD screenin g;Record ed Elsewher e: No Locat ion: [facility] S ource: EHR Credit Manager carlos: N Practi ce ID: 0001 Ollie lable Time: 10:30:00 AM Tea Lorenz [facility] 22:08:57 Amenorrh ea 76008993 Completed 201803/01/2021 Amenorrh ea, unspecif ied;Jose Luis rded Elsewher e: No Locat ion: [facility] Source: EHR Credit Manager carlos: N Practi ce ID: 0001 Ollie lable Time: 10:45:00 AM Tea Lorenz [facility] 22:08:33 Problem Notes None recorded. Procedures Surgical History Date Name Laterality Status Provider Name and Address Organization Details Recorded Time 05/08/20 24 Date of Last Pap Smear completed Clarissa Amaro [facility] 05/25/2024 15:27:40 04/14/20 20 Date of Last Mammogram completed [facility] 03/01/2021 22:15:32 01/25/20 20 Bartholin Cyst Drainage completed Ankush Navarro MD [address], [place], [address], [facility] 01/25/2020 18:35:08 07/22/19 16 Appendectomy completed [facility] 03/02/2021 10:58:34 Imaging Results Imaging Date Name Status LastModified by Organization Details LastModified Time 08/18/2024 US, obstetric, follow-up completed [email or web address] [facility] [address], [place], [address], 08/18/2024 13:06:39 08/18/2024 US, obstetric, follow-up completed [email or web address] [address], [place], [address], 09/01/2024 23:08:38 09/01/2024 US, obstetric, limited completed [facility] [address], [place], [address], 09/01/2024 12:57:52 09/01/2024 US, obstetric, transvaginal completed [facility] [address], [place], [address], 09/01/2024 12:58:05 09/01/2024 US, obstetric, limited completed [email or web address], [place], [address], 09/01/2024 14:24:53 09/15/2024 US, obstetric, follow-up completed [email or web address] [place] [address] [address], [place], [address], 09/15/2024 13:45:58 09/15/2024 US, obstetric, follow-up completed [email or web address] [address], [place], [address], 09/16/2024 17:59:26 Procedure Notes None recorded. Medical [...] Available Not Available Not Available vitamin d 54783 unit caps 04/07 completed Not Available Not [...] completed Not Available Not Available Not Available Depo-Tab Builder a 150 mg/mL intramuscul ar suspension Inject [...] completed Not Available Not Available Not Available Depo-Tab Builder a 03/01 completed Not Available Not Available [...] Address Organization Details Last Updated DateTime 09/15/2024 09478.4478 7 g 118 mm[Hg] 74 mm[Hg] [facility] 09/15/2024 11:57:37 Date Recorded Body height Body mass index (BMI) Body weight Systolic blood pressure Diastolic blood pressure Provider Name and Address Organization Details Last Updated DateTime 09/28/2024 156.21 cm 28.3 kg/m2 52391.04 g 129 mm[Hg] 76 mm[Hg] [facility] 10:56:33 Date Recorded Body weight Systolic blood pressure Diastolic blood pressure Provider Name and Address Organization Details Last Updated DateTime 10/12/2024 16670.0402 4 g 123 mm[Hg] 75 mm[Hg] [facility] 10/12/2024 12:00:10 Date Recorded Body height Body mass index (BMI) Body weight Systolic blood pressure Diastolic blood pressure Provider Name and Address Organization Details Last Updated DateTime 10/22/2024 156.21 cm 30.1 kg/m2 32997.96 g 121 mm[Hg] 78 mm[Hg] Clarissa Ortegaer [facility] 15:34:02 Date Recorded Body weight Systolic blood pressure Diastolic blood pressure Provider Name and Address Organization Details Last Updated DateTime 10/29/2024 72778.1486 8 g 133 mm[Hg] 82 mm[Hg] Clarissa Prem [facility] 10/29/2024 12:09:58 Social History Question Answer Notes LastModified by Organizat ion Details LastModified Time Tobacco Smoking Status Never Smoker Elvira Holloway martha, [facility] 01/07/2020 11:13:21 What Is Your Level [...] Anxious, Or Unable To Sleep At Night)? [id number] Information not available 03/02/2021 Do You Use [...] ICD10 Code Diagnosis Note [id number] [facility] [address] [address] 01/07/2020 11:04:34 01/07/2020 11:49:55 Gynecologic examination 03002071 Z01.419 Take Calcium with Vitamin D 1200mg [...] copy of today's plan if desired. Nausea 590916422 R11.0 Patient is on depo & not [...] no other issues. [id number] Kimberlee Dean , A[facility] [address] [address] 01/08/2020 15:41:19 01/13/2020 10:48:58 Contraception care management 920569720 Z30.9 Pt is here for a depo inj that was given in the left hip LOT: [id number] EXP: 10/2021. pt is due back between mar 25 - apr 08 . ravi patricia [id number] Ankush Navarro MD [facility] [address],[place] [address] 01/25/2020 16:38:28 01/25/2020 21:03:41 Abscess of Bartholin's gland 18270250 N75.1 Incision and drainage of Bartholin' s gland was performed. The patient tolerated procedure well. She was given prescripti on for antibiotic s. She will follow-up in 1 week. [id number] Ankush Navarro MD [facility] [address],[place] [address] 01/29/2020 09:35:01 01/29/2020 16:11:02 Abscess of Bartholin's gland 25657689 N75.1 This patient is a 19-year-ol dfemale [...] he will follow-up as needed. Kimberlee Dean [facility] [address],[place] [address] 04/07/2020 14:33:28 04/07/2020 15:11:59 Contraception care management 248399361 Z30.9 Pt is here for a depo inj that was given in the left hip LOT: [id number] EXP: 10/2021. pt is due back between mar 25 - apr 08 . ravi patricia Mass of right breast [id number] 7500489 N63.10 Exam warrants further evaluation with imaging. We will start with a breast US. Family Hx of breast issues but she is not certain it was cancer related on her mom's side. [id number] Kimberlee Dean [facility] [address],[place] [address] 07/04/2020 10:47:40 07/05/2020 16:14:52 Contraception care management 952797217 Z30.9 95410 Kimberlee Dean [facility] [address],[place] [address] 09/26/2020 10:41:49 09/27/2020 14:33:01 Contraception care management 004378038 Z30.9 34231 Kimberlee Dean [facility] [address],[place] [address] 12/12/2020 10:11:11 12/13/2020 21:29:25 Contraception care management 745659297 Z30.9 Nurses injection visit 68067 Kimberlee Dean [facility] [address],[place] [address] 03/02/2021 10:26:36 03/02/2021 11:25:39 Contraception care management 217222122 Z30.9 Nurses injection visitHappy on Depo Inj.Consid er updated Dexa next yearRF sent Gynecologi c examination 19896520 Z01.419 Take Calcium with Vitamin D 1200mg [...] std screenPap age 22yoNO issues or concerns [id number] Kimberlee Dean [facility] [address],[place] [address] 05/25/2021 10:02:39 05/26/2021 14:03:17 Contraception care management 721986067 Z30.9 Nurses injection visitHappy on Depo Inj.Consid er updated Dexa next yearRF sent [id number] Kimberlee Dean [facility] [address],[place] [address] 08/14/2021 09:55:14 08/14/2021 10:33:58 Contraception care management 624010883 Z30.9 Nurses injection visitHappy on Depo Inj.Consid er updated Dexa next yearRF sent 10102 Kimberlee Dean [facility] [address],[place] [address] 11/08/2021 17:13:23 11/09/2021 16:51:30 Contraception care management 911119181 Z30.9 Nurses injection visitHappy on Depo Inj.Consid er updated Dexa next yearRF sent [id number] Tea [facility] [address],[place] [address] 02/05/2022 09:31:58 02/05/2022 15:07:22 Contraception care management 553179873 Z30.9 Nurses injection visitHappy on Depo Inj.Consid er updated Dexa next yearRF sent [id number] Kimberlee Dean [facility] [address],[place] [address] 02/13/2022 09:43:17 02/13/2022 10:29:12 Gynecologic examination 00678372 Z01.419 Take Calcium with Vitamin D 1200mg [...] na Long-term current use of hormonal contraceptive 8540758500 72213 Z79.3 Recommende d for those who have been on Depo for >3yrs Uses depot contraception 954421996 Z30.42 Happy on Depo no issuesWoul d like to continue as long as Dexa is wnl [id number] Tea [facility] [address] [address] 04/24/2022 09:39:08 04/25/2022 12:27:06 Contraception care management 856836610 Z30.9 Nurses injection visitHappy on Depo Inj.Consid er updated Dexa next yearRF sent [id number] [facility] [address],[place] [address] 07/13/2022 09:21:18 07/18/2022 13:44:16 Contraception care management 713121399 Z30.9 Nurses injection visitHappy on Depo Inj.Consid er updated Dexa next yearRF sent [id number] Nabila Alvarado [place] [address],[place] [address] 10/02/2022 14:49:12 10/03/2022 16:59:05 Breast lump 97588556 N63.0 Bilateral breast lumps felt throughout both breastOrde r given for updated bilateral breast u/sReferra l sent to f/u with new breast specialist , as her previous clinic no longer accepts her insurance and she has been following yearly with specialist RTC for WWE, due 02/10 Contraception care 77024 5005 Z30.40 Happy with Depo, injection given today by MA Time spent in visit is a total of 20 mins with at least 50% of visit consisting of counseling and review of plan of care. [id number] Nabila Alvarado [place] [address],[place] [address] 12/26/2022 09:19:12 12/27/2022 11:25:19 Contraception care 783264101 Z30.40 [id number] Nabila Alvarado [place] [address],[place] [address] 03/22/2023 09:20:58 03/22/2023 12:17:16 Contraception care 066033818 Z30.40 [id number] Kimberlee Dean [place] [address],[place] [address] 03/29/2023 13:08:52 04/01/2023 15:05:33 Pain in pelvis 49262088 R10.2 This patient is a 23 -year-old [...] y with nausea, vomiting, fever, chills. If SHIP[employer]S CARPENTER is WNL we need to consider either abd US or Abd CT scan to assess GI related issues. 171514 [place] [address],[place] [address] 04/01/2023 17:08:37 04/01/2023 17:35:09 Pain in pelvis 67097208 R10.2 [id number] Kimberlee Dean [facility] [address],[place] [address] 04/09/2023 15:02:33 04/09/2023 15:46:28 Pain in pelvis 94648173 R10.2 Reviewed US today.WNLQ uestions answered to patient satisfacti on.Rec f/u with PCP and possibly GI specialist .Alix hinds verbalized & no questions. Total time of virtual-ZO OM visit was approx 15 mins with >50% consisting of counseling , education of patient's plan of care. [id number] [facility] [address],[place] [address] 03/17/2024 11:42:34 03/17/2024 12:52:13 Uterine size for dates discrepancy 531986352 Z36.87 Z3A.01 133124 Ankush Navarro MD [facility] [address],[place] [address] 03/17/2024 12:12:54 03/17/2024 22:36:06 [id number] [facility] [address],[place] [address] 04/17/2024 15:18:05 04/17/2024 16:05:24 [id number] Ankush Navarro MD [facility] [address],[place] [address] 04/17/2024 15:18:42 04/18/2024 10:41:49 Amenorrhea 00855954 N91.2 this patient is a 24-year-ol d [...] begin routine care at her next visit. [id number] Gali Dempsey [facility] [address],[place] [address] 05/07/2024 16:48:13 05/08/2024 07:46:01 screening 561688384 Z36.82 Z3A.13 [id number] [facility] [address],[place] [address] 05/08/2024 14:52:09 05/08/2024 17:05:36 Routine care 698727900 Z34.91 Gestation period, 12 weeks 39240644 Z3A.12 [id number] Ankush Navarro MD [facility] [address],[place] [address] 05/25/2024 15:09:54 05/25/2024 16:39:21 Routine care 379265901 Z34.91 [id number] [facility] [address],[place] [address] 05/26/2024 13:53:44 05/26/2024 14:58:04 Spotting per vagina in 539149365 O26.852 Z3A.16 [id number] [facility] [address],[place] [address] 06/15/2024 17:23:20 06/16/2024 13:27:45 Spotting per vagina in 754805231 O26.852 Z3A.19 [id number] [facility] [address],[place] [address] 06/23/2024 10:21:20 06/23/2024 12:10:06 screening for malformation 520281367 Z36.3 Z3A.20 [id number] Ankush Navarro MD [facility] [address],[place] [address] 06/23/2024 10:21:42 06/23/2024 12:50:55 Routine care 217100078 Z34.91 [id number] [facility] [address],[place] [address] 07/21/2024 09:25:38 07/21/2024 10:21:49 Placenta succenturiata 22771015 O43.199 O44.42 Z3A.24 006984 Ankush Navarro MD [facility] [address],[place] [address] 07/21/2024 09:26:03 07/21/2024 10:41:17 Routine care 743956196 Z34.91 [id number] [facility] [address],[place] [address] 08/18/2024 09:26:12 08/18/2024 10:08:18 Placental condition affecting management of mother 840971884 O43.103 O43.193 Z3A.28 [id number] Ankush Navarro MD [facility] [address],[place] [address] 08/18/2024 09:26:26 08/18/2024 10:53:45 Routine care 192842253 Z34.91 [id number] Ankush Navarro MD [facility] [address],[place] [address] 09/01/2024 10:33:11 09/01/2024 11:27:19 Routine care 452480752 Z34.91 745391 [facility] [address],[place] [address] 09/01/2024 11:20:15 09/01/2024 13:58:18 Medical examination for suspected condition 994890911 Z03.71 Z3A.30 [id number] [facility] [address],[place] [address] 09/15/2024 10:45:58 09/15/2024 11:19:32 Placental condition affecting management of mother 530976060 O43.103 Z3A.32 [id number] Ankush Navarro MD [facility] [address],[place] [address] 09/15/2024 10:46:25 09/15/2024 12:16:57 Routine care 607594104 Z34.91 [id number] MD Ace Merritt [address],[place] [address] 09/28/2024 10:45:26 09/28/2024 11:34:38 Routine care 279572054 Z34.91 [id number] MD Ace Merritt [address],[place] [address] 10/12/2024 11:43:47 10/12/2024 12:13:08 Routine care 654157462 Z34.91 [id number] Ankush Navarro MD [facility] [address],[place] [address] 10/22/2024 15:09:18 10/22/2024 16:02:15 Routine care 268152435 Z34.91 [id number] Ankush Navarro MD [facility] [address],[place] [address] 10/29/2024 11:33:48 10/29/2024 12:21:12 Routine care 318534185 Z34.91 Health Concerns Section Related Observation LastModified by Organization Detai ls LastModified Time None Recorded Concern Status LastModified by Organization Details LastModified Time None Recorded Advance Directives Directive None Recorded Payers Encounter Date Sequence Insurance Name Policy Number Policy Harden Covered Member ID Harden Member ID Guarantor Name 09/15/2024 1 [facility] (MEDICAID HMO) [id number] Siobhan Akhtar [id number] Siobhan Akhtar 09/28/2024 1 [facility] (MEDICAID HMO) [id number] Siobhan Akhtar [id number] Siobhan Akhtar 10/12/2024 1 [facility] (MEDICAID HMO) [id number] Siobhan Akhtar [id number] Siobhan Akhtar 10/22/2024 1 [facility] (MEDICAID HMO) [id number] Siobhan Akhtar [id number] Siobhan Akhtar 10/29/2024 1 [facility] (MEDICAID HMO) [id number] Siobhan Akhtar [id number] Siobhan Akhtar OBGyn Episode Ob Episode Information Episode Created Date Number of Fetuses Patient Bloodtype Patient rh Status Prepregnancy Weight lbs Domestic Partner Domestic Partner Phone Father Name [facility] Status 05/08/20 24 1 A Positive 137 OPEN Fetus Data First Name Last Name Admitted to NICU Weight (g) Sex Living Outcome Pediatric Complications Fetus ID Race Codes Race Delivery Type [id number] Problems Problem Notes accessory lobe - repeat linda jaida 06/23 Problem Name Start Date End Date Resolution Snomed Code Not e Anomaly of placenta 27821421 succenturiate lobe Finding of uterine contractions 504770891 Henry Calculation Initial Henry Date Initial Exam [...] Weight in lbs Pre/Post Dialysis Refused Weight 135.174485995311 BP Diastolic BP Location Tested BP Systolic [...] Type Weight in lbs Pre/Post Dialysis Refused 136.111307228652 BP Diastolic BP Location Tested BP Systolic [...] Type Weight in lbs Pre/Post Dialysis Refused 138.363576744389 BP Diastolic BP Location Tested BP Systolic [...] Type Weight in lbs Pre/Post Dialysis Refused 139.598336892988 BP Diastolic BP Location Tested BP Systolic [...] Type Weight in lbs Pre/Post Dialysis Refused 146.048289003157 BP Diastolic BP Location Tested BP Systolic [...] Type Weight in lbs Pre/Post Dialysis Refused 149.138227046681 BP Diastolic BP Location Tested BP Systolic BP Type 68 L arm 102 sitting Fetus Heart Rate Present A 148 Fetus Movement A Yes Comments c/o LOF - to get BHARATH and cer vical [id number] movement, no vaginal bleeding. Flowsheet Date 09/01/2024 [...] Type Weight in lbs Pre/Post Dialysis Refused 151.413003805042 BP Diastolic BP Location Tested BP Systolic [...] Weight in lbs Pre/Post Dialysis Refused Weight 152.320223086450 BP Diastolic BP Location Tested BP Systolic [...] Type Weight in lbs Pre/Post Dialysis Refused 152.371835841492 BP Diastolic BP Location Tested BP Systolic [...] Weight in lbs Pre/Post Dialysis Refused Weight 162.560320709836 BP Diastolic BP Location Tested BP Systolic [...] Type Weight in lbs Pre/Post Dialysis Refused 164.81818545204 BP Diastolic BP Location Tested BP Systolic [...]
--- OUTSIDE RECORDS SUMMARY | 2024-10-29 15:50 | XMS_ITS | Clinical Summary ---
Author Organization [facility] Address [facility] [place] [address] Care Team Providers Care Health Management Consultant Name Role Phone Gabby Duran HELMINTHOLOGY TEACHER Primary Care Provider [phone] Allergies No known active allergies Medications albuterol [...] Active Active Problems No known active problems Encounters Date Type Department Care Team Description 10/20/2024 MyChart Message Enc [facility] Family and Sports Medicine - [place] [address] Gabby Duran, HELMINTHOLOGY TEACHER Physical from Last 3 Months Immunizations Name Administration Dates Next Due Dtap [...] Standard) 2017 Hepatitis C 2019 COVID-19 Vaccine () 03/22/2024 PHQ-2 (Physician Cheesh-[place]) 07/22/2024 09/09/2023 Annual Physical 09/09/2024 09/09/2023 Cervical Cancer Screening Pap Smear (Age 21 to 29) Every 3 Years 03/29/2026 03/29/2023 Cervical Cancer Screening 03/29/2026 DTaP, Tdap and Td Vaccines (8 - Td or Tdap) 02/11/2029 02/11/2019, 03/19/2012, 03/15/2006, Additional history exists Hepatitis B Vaccines Completed 06/23/2002, 2001, 2001 HPV Vaccines Completed 07/31/2014, 08/07/2012, 03/19/2012 Meningococcal Vaccine Completed 02/24/2018 , 03/19/2012, 03/19/2012 RSV Immunizations Under 20 Months Aged Out No longer eligible based on patient's age to complete this topic Insurance [place] [address] [address] [facility] Care Teams Health Management Consultant Relationship Specialty Start Date End Date Gabby Duran NP [address] [place] [address] PCP - General Nurse Practitioner Family 09/09/23
--- OUTSIDE RECORDS SUMMARY | 2024-10-29 15:50 | XMS_ITS | Clinical Summary ---
Author Organization [facility] Address [address] [facility] [place] [address] Care Team Providers Care Director Payment Name Role Phone Tatyana Fierro MD Primary Care Provider [phone] Source Comments [facility],non-owned Affiliates and Associated Physician Practices is amultiple site organization consisting of ambulatory clinics and hospital sitesin [place], [place], [place]. This disclosure is being madepursuant to the Care Everywhere program and may not contain all information available regarding this patient. Last updated 18.[facility] Allergies No known active allergies Medications * [...] 07/08/14 Atenolol 25 mg q d - [facility] Dysmenorrhea 01/21/2014 02/21/2017 Overview (01/21/2014): 01/21/14 [...] valent Vaccine 07/31/2014,02/19/2013,03/19/2012 INFLUENZA VACCINE 07/10/2008,06/09/2008 MENINGOCOCCAL ACWY (MCV4P) VAC IM 02/24/2018, MMR 03/15/2006,03/25/2002 PNEUMOCOCCAL CONJ, PEDS 06/23/2002,10/06,2001,05/19 POLIO [...] Comments Blood Pressure 112/60 05/26/2018 1:28 PM DESPATCHING AND RECEIVING CLERK Pulse 91 07/29/2018 11:26 AM DESPATCHING AND RECEIVING CLERK Temperature 36.6 C (97.8 F) 05/18/2019 10:05 AM CDT Respiratory Rate 16 07/19/2017 11:30 AM DESPATCHING AND RECEIVING CLERK Oxygen Saturation 99% 07/29/2018 11:26 AM DESPATCHING AND RECEIVING CLERK Inhaled Oxygen Concentration - - Weight 47 [...] 03/14/2019 COVID-19 VACCINE (2023-2 5 season) 2024 DEPRESSION SCREENING 07/22/2024 INFLUENZA VACCINE (Season Ended) 2025 05/14/2013, 07/10/2008, 06/09/2008 DTAP/TDAP/TD VACCINES (8 - T d or [...] On track( 018 10:17 AM CDT) 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 Procedure Name Priority Date/Time Associated Diagnosis Comments CHLAMYDIA + GC AMPLIFIED PROBE STAT 08/02/2015 3:25 AM DESPATCHING AND RECEIVING CLERK from Last 3 Months or Most Recently Relevant to Health Maintenance Results * CHLAMYDIA + GC AMPLIFIED PROBE (08/02/2015 3:25 AM DESPATCHING AND RECEIVING CLERK) Chlamydia Amplified Probe Negative Negative 08/03/2015 7:29 AM DESPATCHING AND RECEIVING CLERK [facility] GC Amplified Probe Negative Negative 08/03/2015 7:29 AM DESPATCHING AND RECEIVING CLERK [facility] Urine URINE / Unknown Collection / Unknown 08/02/2015 3:25 AM DESPATCHING AND RECEIVING CLERK 08/02/2015 4:32 AM DESPATCHING AND RECEIVING CLERK Narrative [facility] - 08/03/2015 7:29 AM DESPATCHING AND RECEIVING CLERK This test was developed and its performance characteristics determined by the [facility], [facility]. Female urine specimens tested by the [facility] have not been cleared or approved by [...] Randhawa MD LAB - MICROBIOLOGY O RDERABLES [facility] [address] [place], [place] [address], [facility] [phone] from Last 3 Months or Most Recently Relevant to Health Maintenance Advance Directives * Full Code (Latest Code Status on File) Date Activated Date Inactivated Comments 01/20/2016 1:33 PM 01/20/2016 8:57 PM * Full Code Date Activated Date Inactivated Comments 01/19/2016 8:20 PM 01/20/2016 1:33 PM Care Teams Director Payment Relationship Specialty Start Date End Date Tatyana Fierro MD PCP - General 04/26/20
--- OUTSIDE RECORDS SUMMARY | 2024-10-29 15:50 | XMS_ITS | Encounter Summary ---
Author Organization [facility] Address [address] [facility] [place] [address] Care Team Providers Care Supervisor Process Testing Name Role Phone Tatyana Fierro MD Primary Care Provider [phone] Encounter Details Date Type Department Care Team (Late st Contact Info) Description 07/12/2021 Lab Requisition [facility] [address] [facility] [place] [address] Christian Bolton MD [address] [address] Social History Tobacco Use Types Packs/Day Years [...] Comments DERMATOPATHOLOGY Routine 07/12/2021 12:0 0 AM MATERIAL EXPEDITOR documented in this encounter Results * DERMATOPATHOLOGY (07/12/2021 12:00 AM MATERIAL EXPEDITOR) Case Report Dermatopathology Report Case: [id number] Authorizing Provider: Christian Bolton MD Collected: 07/12/2021 12:00 AM Ordering Location: [facility] Received: 07/12/2021 03:42 PM Pathologist: Abraham Allen MD Specimens: A) - Skin, right neck B) - Skin, right neck sup 1 5:20 PM MATERIAL EXPEDITOR DERMATOPATHOLOGY LABORATORY Final Diagnosis Specimen A. SKIN, right neck: COMPOUND MELANOCYTIC NEVUS (D22.4) Specimen B. SKIN, right neck sup: COMPOUND MELANOCYTIC NEVUS (D22.4) 1 5:20 PM MATERIAL EXPEDITOR DERMATOPATHOLOGY LABORATORY Clinical History A: Nevus R/O atypia. Path # [id number]. B: Nevus R/O atypia. Path # [id number]. 1 5:20 PM MATERIAL EXPEDITOR DERMATOPATHOLOGY LABORATORY Gross Description Specimen A: Received is one formalin filled container labeled with the patient's name and designated right neck. The specimen consists of a shave biopsy measuring [id number]. Jar 0. Specimen B: Received is one formalin filled container labeled with the patient's name and designated right neck sup. The specimen consists of a shave biopsy measuring [id number]. Jar 0. 1 5:20 PM MATERIAL EXPEDITOR DERMATOPATHOLOGY LABORATORY Microscopic Description Specimen A. SKIN, right neck: There are nests of melanocytes at the dermal-epidermal junction and within the dermis. Specimen B. SKIN, right neck sup: There are nests of melanocytes at the dermal-epidermal junction and within the dermis. 1 5:20 PM MATERIAL EXPEDITOR DERMATOPATHOLOGY LABORATORY Disclaimer An external and internal positive and negative controls are appropriate for the histochemical, immunohistochemical and immunofluorescence stain(s) in this case (if any), except where stated explicitly. The performance characteristics of the stain(s) cited in this report were developed and its performance characteristic determined by the Dermatopathology Laboratory at [facility], directed by Dr. Edvin Allen. These tests need not be, and therefore are not, approved by the [place] Food and Drug Administration. The tests are used for clinical purposes. Billing Codes Specimen Charges Stain Charges 61074 13954 1 1 1 5:20 PM MATERIAL EXPEDITOR DERMATOPATHOLOGY LABORATORY Embedded Images 1 5:20 PM MATERIAL EXPEDITOR DERMATOPATHOLOGY LABORATORY Pathology/Cytology TISSUE SPECIMEN FROM SKIN / Unknown 07/12/2021 07/12/2021 3:42 PM MATERIAL EXPEDITOR Miscellaneous samples (specimen) TISSUE SPECIMEN FROM SKIN / Unknown 07/12/2021 07/12/2021 3:42 PM MATERIAL EXPEDITOR Christian Bolton MD LAB - PATHOLOGY/CYTO LOGY ORDERABLES DERMATOPATHOLOGY LABORATORY [facility] Department of Dermatology [address] [phone] documented in this encounter Visit Diagnoses Not on filedocumented in this encounter Care Teams Supervisor Process Testing Relationship Specialty Start Date End Date Tatyana Fierro MD PCP - General 04/26/20 documented as of this encounter
--- OUTSIDE RECORDS SUMMARY | 2024-10-29 15:50 | XMS_ITS | Clinical Summary ---
Author Organization [facility] Address [address] [facility] [address] [address] Phone Care Team Providers Care Pressure Sealer And Tester Name Role Phone Tatyana Fierro MD Primary Care Provider [phone] Allergies No known active allergies Medications medroxyPROGEST ERone (DEPO-PROVERA) 150 MG/ML Suspension 1 Dose by Intramuscular route. 9 Active Evening [place]be[place] Oil 1000 MG Capsule Take 1 Cap [...] age to complete this topic Insurance MEDICAID [facility] PLAN Care Teams Pressure Sealer And Tester Relationship Specialty Start Date End Date Vadim, Tatyana, MD [address] [address] PCP - General Pediatrics 04/25/20
--- OUTSIDE RECORDS SUMMARY | 2024-10-29 15:50 | XMS_ITS | Clinical Summary ---
Author Organization [facility] Address [address] [place] [address] Care Team Providers Care Solar Systems Designer Name Role Phone Gabby Duran NP Primary Care Provider [phone] [phone] No known active allergies Medications albuterol [...] on file Legal Sex Female 7:10 PM REGULATORY AFFAIRS SPECIALIST Gender Identity Not on file Sexual Orientation Not on file Occupation Industry Job Start Date Job End Date Self- employed Not on file Not on file Not on file Obstetrics History Last Filed Vital Signs Vital Sign Reading Time Taken Comments Blood Pressure 117/82 07/03/2023 10:27 AM REGULATORY AFFAIRS SPECIALIST Pulse 94 07/03/2023 10:27 AM REGULATORY AFFAIRS SPECIALIST Temperature 36.9 C (98.4 F) 08/01/2015 8:05 PM REGULATORY AFFAIRS SPECIALIST Respiratory Rate - - Oxygen Saturation 98% 07/03/2023 10:27 AM REGULATORY AFFAIRS SPECIALIST Inhaled Oxygen Concentration - - Weight 63.7 kg (140 lb 6.4 oz) 07/03/2023 10:27 AM REGULATORY AFFAIRS SPECIALIST Height 154.9 cm (5' 1 ) 07/03/2023 10:27 AM REGULATORY AFFAIRS SPECIALIST Body Mass Index 26.53 07/03/2023 10:27 AM REGULATORY AFFAIRS SPECIALIST Plan of Treatment Health Maintenance Due Date [...] HPV Vaccines Completed 07/31/2014, 0807/2012, 03/19/2012 Insurance [facility] Care Teams Solar Systems Designer Relationship Specialty Start Date End Date Gabby Duran NP [address] [place] [address] PCP - General Retail Chain Store Area Supervisor 08/05/23
--- OUTSIDE RECORDS SUMMARY | 2024-10-29 15:51 | XMS_ITS | Encounter Summary ---
Author Organization [facility] Address [facility] [place] [address] Care Team Providers Care Dial Brusher Name Role Phone Gabby Duran HOSTESS CASHIER Primary Care Provider [phone] Encounter Details Date Type Department Care Team (Late st Contact Info) Description 10/20/2024 [employer]hart Message Enc [facility] Family and Sports Medicine - [place] [address] [place] [address] Gabby Duran HOSTESS CASHIER [address] [place], [place] [phone] Physical Social History Tobacco Use Types Packs/Day Years [...] Depression Total Score: 11 024 4:34 PM INDUSTRIAL GAS SERVICER documented as of this encounter Care Teams Dial Brusher Relationship Specialty Start Date End Date Gabby Duran HOSTESS CASHIER [address] [place], [place] [phone] PCP - General Nurse Practitioner Family 09/09/23 documented as of this encounter
[2024-10-29 16:06] LABS: Add Urine Microscopic? NO; Appearance Urine Clear (Clear); Bilirubin Urine Negative (Negative); Blood Urine Negative (Negative); Color Urine Yellow (Yellow); Glucose Urine UA Negative (Negative); Ketones Urine Negative (Negative); Leukocyte Esterase Ur Negative LEU/UL (Negative); Nitrate Urine Negative (Negative); Protein Urine Negative (Negative); Specific Grav Ur 1.019 (1.001-1.035); pH Urine 6.5 (5.0-9.0)
[2024-10-29 16:49] LABS: Basophils Percent Auto 0.3 % (0.2-1.2); Eosinophils Absolute Auto 0.2 K/mm3 (0-0.3); Eosinophils Percent Auto 1.5 % (0-4.4); Hematocrit 31.2 % (37.0-47.0); Hemoglobin 10.5 g/dL (12.0-15.0); Immature Granulocyte Absolute 0.13 K/mm3 (0.00-0.031); Immature Granulocyte Percent A 1.2 % (0-0.5); Lymphocytes Absolute Auto 2.55 K/mm3 (0.9-3.2); Lymphocytes Percent Auto 23.9 % (18.3-44.2); Mean Corpuscular HGB Conc 33.7 g/dl (32-36); Mean Corpuscular Hemoglobin 29.5 pg (26-34); Mean Corpuscular Volume 87.6 fl (80-100); Mean Platelet Volume 10.4 fl (7.4-10.4); Monocytes Absolute Auto 0.6 K/mm3 (0.1-0.6); Neutrophils Absolute Auto 7.2 K/mm3 (1.3-6.7); Neutrophils Percent Auto 67.1 % (45.5-73.1); Platelet Count Result 225 k/mm3 (150-375); Red Blood Count 3.56 M/mm3 (4.2-5.4); Red Cell Distribution Width 13.3 % (11.5-14.5); White Blood Count 10.7 K/mm3 (4.5-10.0)
[2024-10-29 17:02] LABS: Alanine Aminotransferase 12 U/L (6-35); Albumin Level 3.5 g/dL (3.5-5.1); Alkaline Phosphatase 165 U/L (38-126); Anion Gap 8 mmol/L (4-12); Aspartate Amino Transferase 20 U/L (14-36); Bilirubin,Total 0.2 mg/dL (0.2-1.3); Blood Urea Nitrogen 11 mg/dL (7-17); Calcium 9.3 mg/dL (8.4-10.2); Carbon Dioxide 23 mmol/L (22-30); Chloride 103 mmol/L (98-107); Estimated CRCL calculation 122 ml/min; Estimated Glomerular Filt Rate > 60; Glucose 87 mg/dL (65-110); Potassium 3.7 mmol/L (3.4-5.0); Sodium 134 mmol/L (137-145)
[2024-10-29 17:20] LABS: OBXCEM ROM Plus Negative (Negative)
--- NOTE | 2024-10-29 18:37 | PC.NURSE ---
1800- Report received from [place] JOHNSON. 1820- RN notified patient that we are still waiting on lab results. Patient has no complaints or pain at this time.
[2024-10-29 18:51] LABS: Creatinine Urine 99.2 mg/dL; Total Protein Urine Random 16 mg/dL; Ur Ttl Prot Creatinine Ratio 0.16 mg/mg (0-0.20)
--- NOTE | 2024-10-29 19:04 | PC.NURSE ---
1854-RN notified MD of patient arrival and patient complaints as well as VS and lab results. MD gave orders to d/c patient and have her follow up in the office.
== END 2024-10-29 19:08 | disposition home or self-care (01) ==
LOC: ANHOBOP 15:36 → ANHOBPP 15:38
PROVIDERS: PCP Nurse Practitioner Family; Visit Provider Obstetrics & Gynecology
DX: O13.9 Gestational [pregnancy-induced] hypertension without significant proteinuria, unspecified trimester (principal); Z3A.00 Weeks of gestation of pregnancy not specified
CPT/HCPCS: 36415; 59025; 80053; 81003; 82570; 84112; 84156; 84550; 85025; 99199

== ENCOUNTER 2024-10-31 01:14 | Inpatient (IN) | payer OTHER, SELFPAY ==
[2024-10-31] VITALS (231 sets, daily range): BP systolic 99–199; BP diastolic 39–156; PULSE 25–272; RESP 14–20; TEMP 36.7–37.9; O2SAT 87–100; BMI 31.0
--- OUTSIDE RECORDS SUMMARY | 2024-10-31 01:23 | XMS_ITS | Clinical Summary ---
Author Organization [facility] Address [address] [facility] [address] [address] [address] Phone Care Team Providers Care Body Recall Instructor Name Role Phone Tatyana Fierro MD Primary Care Provider [phone] Allergies No known active allergies Medications medroxyPROGEST ERone (DEPO-PROVERA) 150 MG/ML Suspension 1 Dose by Intramuscular route. 9 Active Evening [place] Oil 1000 MG Capsule Take 1 Cap [...] age to complete this topic Insurance MEDICAID [facility] PLAN Care Teams Body Recall Instructor Relationship Specialty Start Date End Date Vadim, Tatyana, MD [address] [address] PCP - General Pediatrics 04/25/20
--- OUTSIDE RECORDS SUMMARY | 2024-10-31 01:23 | XMS_ITS | Clinical Summary ---
Author Organization [facility] Address [address] [place] [address] Care Team Providers Care Die Try Out Worker Stamping Name Role Phone Gabby Duran NP Primary Care Provider [phone] Allergies No known active allergies Medications [...] on file Legal Sex Female 7:10 PM FILLER LEAF CUTTER LONG Gender Identity Not on file Sexual Orientation Not on file Occupation Industry Job Start Date Job End Date Self- employed Not on file Not on file Not on file Obstetrics History Last Filed Vital Signs Vital Sign Reading Time Taken Comments Blood Pressure 117/82 07/03/2023 10:27 AM FILLER LEAF CUTTER LONG Pulse 94 07/03/2023 10:27 AM FILLER LEAF CUTTER LONG Temperature 36.9 C (98.4 F) 08/01/2015 8:05 PM FILLER LEAF CUTTER LONG Respiratory Rate - - Oxygen Saturation 98% 07/03/2023 10:27 AM FILLER LEAF CUTTER LONG Inhaled Oxygen Concentration - - Weight 63.7 kg (140 lb 6.4 oz) 07/03/2023 10:27 AM FILLER LEAF CUTTER LONG Height 154.9 cm (5' 1 ) 07/03/2023 10:27 AM FILLER LEAF CUTTER LONG Body Mass Index 26.53 07/03/2023 10:27 AM FILLER LEAF CUTTER LONG Plan of Treatment Health Maintenance Due Date [...] HPV Vaccines Completed 07/31/2014, 0807/2012, 03/19/2012 Insurance [facility] Care Teams Die Try Out Worker Stamping Relationship Specialty Start Date End Date Gabby Duran NP [address] [place] [address] PCP - General Academic Affairs Manager 08/05/23
--- OUTSIDE RECORDS SUMMARY | 2024-10-31 01:23 | XMS_ITS | Data Portability ---
Author Organization [facility] Address [address] [place] [address] [place] [address] Care Team Providers Care Press Cleaner Name Role Phone LANG BORREGO Primary Care Provider [phone] Assessment Encounter Date Assessment Date Assessment LastModified [...] Modified Time Details Appointments OB ROUTINE 2024 10:15A Abraham NAVARRO MD Not available Not available Not available Lab None recorded . Referral None recorded . Procedures None recorded . Surgeries None recorded . Imaging US, obstetri c, follow-u p 2024 025 [email or web address] [place], [address], [place], [address], 09/15/2024 23:00:35 Medication Orders None recorded . Patient TargetsNo targets recorded. Patient InstructionsNo instructions recorded. Reason for Referral None Reported. Results Created Date Observation Date Name Description Value Unit Range Abnormal Flag Note LastModifiedBy Organization Detail LastModifiedTime 08/18/19 25 08/18/2024 HIV 1/2 ANTIG EN/AN TIBOD Y, REFLE X CONFI RMATI ON HIV antigen/anti body,reflex confirmation CANCEL LED Reord ered Not Available [facility] (Lab) [address], [place], [address], 08/19/2024 05:28:16 08/18/19 25 08/18/2024 HEMAT OCRIT (HCT) HCT 32.1 % (based on docume nted legal sex) 34.0-4 5.0 low Not Available [facility] (Lab) [address], [place], [address], 08/19/2024 10:38:47 08/18/19 25 08/18/2024 HEMOG LOBIN (HGB) HGB 10.9 g/dL (based on docume nted legal sex) 11.6-1 5.4 low Not Available [facility] (Lab) [address], [place], [address], 08/19/2024 10:38:48 08/18/19 25 08/18/2024 GTT - GESTA MILTON L SCREE N, ACOG OB glucose, 1 hour screen 90 mg/dL 70-135 Not Available [facility] (Lab) [address] [place], [address], 08/19/2024 10:38:48 08/18/19 25 08/18/2024 HIV 1/2 ANTIG EN/AN TIBOD Y, REFLE X CONFI RMATI ON HIV antigen/anti body Nonrea ctive nonrea ctive HIV-1 antig en and HIV-1 /HIV- 2 antib odies were not detec nilsa. No labor atory evide nce of HIV infec tion. Not Available [facility] (Lab) [address], [place], [address], 08/19/2024 10:38:49 08/18/19 25 08/18/2024 RPR SCREE N, REFLE X TITER /CONF IRMAT ION RPR screen Nonrea ctive nonrea ctive Not Available [facility] (Lab) [address], [place], [address], 08/19/2024 10:38:49 10/13/19 25 10/12/2024 CULTU RE: [...] Resul ting Lab: [facility] [address] [facility] [address] Tel: CULTU RE ----- ----- ----- --- No Group B strep isola nilsa at 2 days (martha ctive broth enhan cemen t) Not Available [facility] (Lab) [address], [place], [address], 10/15/2024 16:22:54 08/18/19 25 08/18/2024 US, esteban haynes follo w-up No observ ation record ed. [email or web address] [place] [address], [place], [address], 08/18/2024 13:06:39 08/18/19 25 08/18/2024 US, esteban haynes follo w-up No observ ation record ed. [email or web address] [address] [facility], [place], [address], 09/01/2024 23:08:38 09/01/19 25 09/01/2024 US, esteban haynes, limit ed No observ ation record ed. [facility] [address], [place], [address], 09/01/2024 12:57:52 09/01/19 25 09/01/2024 US, obste tric, trans vagin al No observ ation record ed. [facility] [address], [place], [address], 09/01/2024 12:58:05 09/01/19 25 09/01/2024 US, obste tric, limit ed No observ ation record ed. [facility] [address], [place], [address], 09/01/2024 14:24:53 09/15/19 25 09/15/2024 US, obste tric, follo w-up No observ ation record ed. [email or web address] [place] [address], [place], [address], 09/15/2024 13:45:58 09/15/19 25 09/15/2024 US, obste tric, follo w-up No observ ation record ed. [email or web address] [address], [place], [address], 09/16/2024 17:59:26 10/30/19 25 10/29/2024 imagi ng/di agnos tic resul t No observ ation record ed. [address], [place], [address], 10/30/2024 21:24:18 Result Notes None recorded. Problems Name Problem SNOMED Code Status Onset Date Resolution Date Notes Provider Name and Address Organization Details Recorded Time Pregnanc y 84979541 Active [address] [facility] [place] - [facility] 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 5 10:54:37 Finding of uterine contract ions 276972314 Active Ankush Navarro MD [address], [place], [address], [facility] 5 12:13:26 Clinical finding Completed 201803/01/2021 Encounte r for surveill ance of injectab le contrace ptive;Pr actice ID: 0001 Tea Lorenz [facility] 22:08:39 Pregnanc y test negative 786687528 Completed 201803/01/2021 Encounte r for pregnanc y test, result negative ;Practic e ID: 0001 Tea Lorenz [facility] 22:08:50 Finding of regulari ty of menstrua l cycle Completed 201803/01/2021 Irregula r menstrua tion, unspecif ied;Prac milan ID: 0001 Tea Lorenz [facility] 22:08:42 Surveill ance of contrace ption Completed 201803/01/2021 Encounte r for surveill ance of contrace ptives, unspecif ied;Jose Luis rded Elsewher e: No Locat ion: Ayse cristina [facility] S ource: EHR Assistant Tennis Professional carlos: N Practi ce ID: 0001 Ollie lable Time: 10:30:00 AM Tea Lorenz [facility] 22:08:54 Finding of sensatio n of breast Completed 201803/01/2021 Mastodyn ia;Recor ded Elsewher e: No Locat ion: [facility] Source: EHR Assistant Tennis Professional carlos: N Practi ce ID: 0001 Ollie lable Time: 10:45:00 AM Tea Lorenz [facility] 22:08:46 Syphilis test finding 224154508 Completed 201803/01/2021 Encounte r for STD screenin g;Record ed Elsewher e: No Locat ion: [facility] S ource: EHR Assistant Tennis Professional carlos: N Practi ce ID: 0001 Ollie lable Time: 10:30:00 AM Tea [facility] 22:08:57 Amenorrh ea 56874718 Completed 201803/01/2021 Amenorrh ea, unspecif ied;Jose Luis rded Elsewher e: No Locat ion: [facility] Source: EHR Assistant Tennis Professional carlos: N Practi ce ID: 0001 Ollie lable Time: 10:45:00 AM Tea [facility] 22:08:33 Problem Notes None recorded. Procedures Surgical History Date Name Laterality Status Provider Name and Address Organization Details Recorded Time 05/08/20 24 Date of Last Pap Smear completed Clarissa Amaro [facility] 05/25/2024 15:27:40 04/14/20 20 Date of Last Mammogram completed [facility] 03/01/2021 22:15:32 01/25/20 20 Bartholin Cyst Drainage completed Ankush Navarro MD [address], [place], [address], [facility] 01/25/2020 18:35:08 07/22/19 16 Appendectomy completed [facility] 03/02/2021 10:58:34 Imaging Results Imaging Date Name Status LastModified by Organization Details LastModified Time 08/18/2024 US, obstetric, follow-up completed [email or web address] [place] [address], [place], [address], 08/18/2024 13:06:39 08/18/2024 US, obstetric, follow-up completed [email or web address], [place], [address], 09/01/2024 23:08:38 09/01/2024 US, obstetric, limited completed [facility] [address], [place], [address], 09/01/2024 12:57:52 09/01/2024 US, obstetric, transvaginal completed [facility] [address], [place], [address], 09/01/2024 12:58:05 09/01/2024 US, obstetric, limited completed [email or web address], [place], [address], 09/01/2024 14:24:53 09/15/2024 US, obstetric, follow-up completed [email or web address], [place], [address], 09/15/2024 13:45:58 09/15/2024 US, obstetric, follow-up completed sarath [address], [place], [address], 09/16/2024 17:59:26 10/29/2024 imaging/diagnost ic result active [address] [place] [address] [address], [place], [address], 10/30/2024 21:24:18 Procedure Notes None recorded. Medical Equipment None [...] Available Not Available Not Available vitamin d 28722 unit caps 04/07 completed Not Available Not [...] completed Not Available Not Available Not Available Depo-Line Painting Machine Operator a 150 mg/mL intramuscul ar suspension Inject [...] completed Not Available Not Available Not Available Depo-Line Painting Machine Operator a 03/01 completed Not Available Not Available [...] Address Organization Details Last Updated DateTime 09/15/2024 25716.4478 7 g 118 mm[Hg] 74 mm[Hg] [facility] 09/15/2024 11:57:37 Date Recorded Body height Body mass index (BMI) Body weight Systolic blood pressure Diastolic blood pressure Provider Name and Address Organization Details Last Updated DateTime 09/28/2024 156.21 cm 28.3 kg/m2 92707.04 g 129 mm[Hg] 76 mm[Hg] [facility] 10:56:33 Date Recorded Body weight Systolic blood pressure Diastolic blood pressure Provider Name and Address Organization Details Last Updated DateTime 10/12/2024 53435.0402 4 g 123 mm[Hg] 75 mm[Hg] [facility] 10/12/2024 12:00:10 Date Recorded Body height Body mass index (BMI) Body weight Systolic blood pressure Diastolic blood pressure Provider Name and Address Organization Details Last Updated DateTime 10/22/2024 156.21 cm 30.1 kg/m2 24725.96 g 121 mm[Hg] 78 mm[Hg] [facility] 15:34:02 Date Recorded Body weight Systolic blood pressure Diastolic blood pressure Provider Name and Address Organization Details Last Updated DateTime 10/29/2024 17449.1486 8 g 133 mm[Hg] 82 mm[Hg] [facility] 10/29/2024 12:09:58 Social History Question Answer Notes LastModified by Organizat ion Details LastModified Time Tobacco Smoking Status Never Smoker [facility] 01/07/2020 11:13:21 What Is Your Level [...] Anxious, Or Unable To Sleep At Night)? [id number] Information not available 03/02/2021 Do You Use [...] ICD10 Code Diagnosis Note [id number] Kimberlee Dean [facility] [address] [address] 01/07/2020 11:04:34 01/07/2020 11:49:55 Gynecologic examination 01586891 Z01.419 Take Calcium with Vitamin D 1200mg [...] copy of today's plan if desired. Nausea 968261271 R11.0 Patient is on depo & not [...] ensure no other issues. [id number] Kimberlee Dean [facility] [address],[place] [address] 01/08/2020 15:41:19 01/13/2020 10:48:58 Contraception care management 228438712 Z30.9 Pt is here for a depo inj that was given in the left hip LOT: [id number] EXP: 10/2021. pt is due back between mar 25 - apr 08 . [place], [facility] [address] Ankush Navarro MD [place] [address],[place] [address] 01/25/2020 16:38:28 01/25/2020 21:03:41 Abscess of Bartholin's gland 96445355 N75.1 Incision and drainage of Bartholin' s gland was performed. The patient tolerated procedure well. She was given prescripti on for antibiotic s. She will follow-up in 1 week. [address] Ankush Navarro MD [place] [address],[place] [address] 01/29/2020 09:35:01 01/29/2020 16:11:02 Abscess of Bartholin's gland 90078770 N75.1 This patient is a 19-year-ol dfemale [...] he will follow-up as needed. Kimberlee Dean [facility] [address],[place] [address] 04/07/2020 14:33:28 04/07/2020 15:11:59 Contraception care management 396575629 Z30.9 Pt is here for a depo inj that was given in the left hip LOT: [id number] EXP: 10/2021. pt is due back between mar 25 - apr 08 . [place], ravi Mass of right breast 726 2591341 2107902 N63.10 Exam warrants further evaluation with imaging. We will start with a breast US. Family Hx of breast issues but she is not certain it was cancer related on her mom's side. [id number] Kimberlee Dean [facility] [address],[place] [address] 07/04/2020 10:47:40 07/05/2020 16:14:52 Contraception care management 852462987 Z30.9 [id number] Kimberlee Dean [facility] [address],[place] [address] 09/26/2020 10:41:49 09/27/2020 14:33:01 Contraception care management 816508680 Z30.9 [id number] Kimberlee Dean [facility] [address],[place] [address] 12/12/2020 10:11:11 12/13/2020 21:29:25 Contraception care management 948226695 Z30.9 Nurses injection visit [id number] Kimberlee Dean [facility] [address],[place] [address] 03/02/2021 10:26:36 03/02/2021 11:25:39 Contraception care management 523047829 Z30.9 Nurses injection visitHappy on Depo Inj.Consid er updated Dexa next yearRF sent Gynecologi c examination 36898736 Z01.419 Take Calcium with Vitamin D 1200mg [...] std screenPap age 22yoNO issues or concerns [id number] Kimberlee Dean [facility] [address],[place] [address] 05/25/2021 10:02:39 05/26/2021 14:03:17 Contraception care management 482307566 Z30.9 Nurses injection visitHappy on Depo Inj.Consid er updated Dexa next yearRF sent [id number] Kimberlee Dean [facility] [address],[place] [address] 08/14/2021 09:55:14 08/14/2021 10:33:58 Contraception care management 765545447 Z30.9 Nurses injection visitHappy on Depo Inj.Consid er updated Dexa next yearRF sent [id number] Kimberlee Dean [facility] [address],[place] [address] 11/08/2021 17:13:23 11/09/2021 16:51:30 Contraception care management 323682274 Z30.9 Nurses injection visitHappy on Depo Inj.Consid er updated Dexa next yearRF sent [id number] Tea [facility] [address],[place] [address] 02/05/2022 09:31:58 02/05/2022 15:07:22 Contraception care management 493486996 Z30.9 Nurses injection visitHappy on Depo Inj.Consid er updated Dexa next yearRF sent [id number] [facility] [address] [address] 02/13/2022 09:43:17 02/13/2022 10:29:12 Gynecologic examination 94730485 Z01.419 Take Calcium with Vitamin D 1200mg [...] paper copy of today's plan if desired.Bryan p age 22yo STD Screen sent Genetic Screen discussed Colon Screen na Dexa Screen ordered since has been on Depo provera >3yrs Routine Labs naMammo na Long-term current use of hormonal contraceptive 4722662499 76064 Z79.3 Recommende d for those who have been on Depo for >3yrs Uses depot contraception 266525595 Z30.42 Happy on Depo no issuesWoul d like to continue as long as Dexa is wnl [id number] Tea Lorenz [place] [address] [address] 04/24/2022 09:39:08 04/25/2022 12:27:06 Contraception care management 901323760 Z30.9 Nurses injection visitHappy on Depo Inj.Consid er updated Dexa next yearRF sent [id number] Kimberlee Dean [place] [address],[place] [address] 07/13/2022 09:21:18 07/18/2022 13:44:16 Contraception care management 244657825 Z30.9 Nurses injection visitHappy on Depo Inj.Consid er updated Dexa next yearRF sent [id number] Nabila Alvarado [facility] [address],[place] [address] 10/02/2022 14:49:12 10/03/2022 16:59:05 Breast lump 96810082 N63.0 Bilateral breast lumps felt throughout both breastOrde r given for updated bilateral breast u/sReferra l sent to f/u with new breast specialist , as her previous clinic no longer accepts her insurance and she has been following yearly with specialist RTC for WWE, due 02/10 Contraception care 83112 5005 Z30.40 Happy with Depo, injection given today by MA Time spent in visit is a total of 20 mins with at least 50% of visit consisting of counseling and review of plan of care. [id number] Nabila Alvarado [place] [address] [address] 12/26/2022 09:19:12 12/27/2022 11:25:19 Contraception care 389853718 Z30.40 [id number] Nabila Alvarado [facility] [address],[place] [address] 03/22/2023 09:20:58 03/22/2023 12:17:16 Contraception care 572572198 Z30.40 [id number] Kimberlee Dean [facility] [address],[place] [address] 03/29/2023 13:08:52 04/01/2023 15:05:33 Pain in pelvis 34698006 R10.2 This patient is a 23 -year-old [...] y with nausea, vomiting, fever, chills. If AMMONIUM NITRATE NEUTRALIZER is WNL we need to consider either abd US or Abd CT scan to assess GI related issues. [id number] [facility] [address],[place] [address] 04/01/2023 17:08:37 04/01/2023 17:35:09 Pain in pelvis 24453225 R10.2 [id number] Kimberlee Dean [facility] [address],[place] [address] 04/09/2023 15:02:33 04/09/2023 15:46:28 Pain in pelvis 74503779 R10.2 Reviewed US today.WNLQ uestions answered to patient satisfacti on.Rec f/u with PCP and possibly GI specialist .Fernandoan lizet verbalized & no questions. Total time of virtual-ZO OM visit was approx 15 mins with >50% consisting of counseling , education of patient's plan of care. [id number] [facility] [address],[place] [address] 03/17/2024 11:42:34 03/17/2024 12:52:13 Uterine size for dates discrepancy 038018768 Z36.87 Z3A.01 [id number] Ankush Navarro MD [place] [address],[place] [address] 03/17/2024 12:12:54 03/17/2024 22:36:06 [id number] [facility] [address],[place] [address] 04/17/2024 15:18:05 04/17/2024 16:05:24 [id number] Ankush Navarro MD [place] [address],[place] [address] 04/17/2024 15:18:42 04/18/2024 10:41:49 Amenorrhea 91630675 N91.2 this patient is a 24-year-ol d [...] begin routine care at her next visit. [id number] [facility] [address],[place] [address] 05/07/2024 16:48:13 05/08/2024 07:46:01 screening 924453676 Z36.82 Z3A.13 [id number] [facility] [address],[place] [address] 05/08/2024 14:52:09 05/08/2024 17:05:36 Routine care 142291720 Z34.91 Gestation period, 12 weeks 66131339 Z3A.12 [id number] Ankush Navarro MD [place] [address],[place] [address] 05/25/2024 15:09:54 05/25/2024 16:39:21 Routine care 085445080 Z34.91 [id number] [facility] [address],[place] [address] 05/26/2024 13:53:44 05/26/2024 14:58:04 Spotting per vagina in 112248663 O26.852 Z3A.16 [id number] [facility] [address],[place] [address] 06/15/2024 17:23:20 06/16/2024 13:27:45 Spotting per vagina in 641709901 O26.852 Z3A.19 [id number] [facility] [address],[place] [address] 06/23/2024 10:21:20 06/23/2024 12:10:06 screening for malformation 828687822 Z36.3 Z3A.20 [id number] Ankush Navarro MD [place] [address],[place] [address] 06/23/2024 10:21:42 06/23/2024 12:50:55 Routine care 537322147 Z34.91 [id number] [facility] [address],[place] [address] 07/21/2024 09:25:38 07/21/2024 10:21:49 Placenta succenturiata 46938816 O43.199 O44.42 Z3A.24 [id number] Ankush Navarro MD [place] [address],[place] [address] 07/21/2024 09:26:03 07/21/2024 10:41:17 Routine care 825119991 Z34.91 [id number] [facility] [address],[place] [address] 08/18/2024 09:26:12 08/18/2024 10:08:18 Placental condition affecting management of mother 549156772 O43.103 O43.193 Z3A.28 [id number] Ankush Navarro MD [place] [address],[place] [address] 08/18/2024 09:26:26 08/18/2024 10:53:45 Routine care 712685608 Z34.91 [id number] MD Ace Merritt [address],[place] [address] 09/01/2024 10:33:11 09/01/2024 11:27:19 Routine care 046960820 Z34.91 [id number] [facility] [address],[place] [address] 09/01/2024 11:20:15 09/01/2024 13:58:18 Medical examination for suspected condition 938417409 Z03.71 Z3A.30 [id number] Gissell Lorenz [place] [address],[place] [address] 09/15/2024 10:45:58 09/15/2024 11:19:32 Placental condition affecting management of mother 670720713 O43.103 Z3A.32 [id number] MD Ace Merritt [address],[place] [address] 09/15/2024 10:46:25 09/15/2024 12:16:57 Routine care 543196610 Z34.91 [id number] MD Ace Merritt [address],[place] [address] 09/28/2024 10:45:26 09/28/2024 11:34:38 Routine care 285452253 Z34.91 [id number] MD Ace Merritt [address],[place] [address] 10/12/2024 11:43:47 10/12/2024 12:13:08 Routine care 425068406 Z34.91 [id number] MD Ace Merritt [address],[place] [address] 10/22/2024 15:09:18 10/22/2024 16:02:15 Routine care 289983945 Z34.91 [id number] MD Ace Merritt [address],[place] [address] 10/29/2024 11:33:48 10/29/2024 12:21:12 Routine care 446194198 Z34.91 Health Concerns Section Related Observation LastModified by Organization Detai ls LastModified Time None Recorded Concern Status LastModified by Organization Details LastModified Time None Recorded Advance Directives Directive None Recorded Payers Encounter Date Sequence Insurance Name Policy Number Policy Harden Covered Member ID Harden Member ID Guarantor Name 09/15/2024 1 [facility] (MEDICAID HMO) [id number] Siobhan Rosario Hermilo [id number] Siobhan Rosario Hermilo 09/28/2024 1 [facility] (MEDICAID HMO) [id number] Siobhan Rosario Hermilo [id number] Siobhan Rosario Hermilo 10/12/2024 1 [facility] (MEDICAID HMO) [id number] Siobhan Rosario Hermilo [id number] Siobhan Rosario Hermilo 10/22/2024 1 [facility] (MEDICAID HMO) [id number] Siobhan Rosario Hermilo [id number] Siobhan Rosario Hermilo 10/29/2024 1 [facility] (MEDICAID HMO) [id number] Siobhan Rosario Hermilo [id number] Siobhan Rosario Hermilo OBGyn Episode Ob Episode Information Episode Created Date Number of Fetuses Patient Bloodtype Patient rh Status Prepregnancy Weight lbs Domestic Partner Domestic Partner Phone Father Name Wooling Machine Operator Status 05/08/20 24 1 A Positive 137 OPEN Fetus Data First Name Last Name Admitted to NICU Weight (g) Sex Living Outcome Pediatric Complications Fetus ID Race Codes Race Delivery Type 98343 Problems Problem Notes accessory lobe - repeat linda jaida 06/23 Problem Name Start Date End Date Resolution Snomed Code Not e Anomaly of placenta 56135417 succenturiate lobe Finding of uterine contractions 441999778 Henry Calculation Initial Henry Date Initial Exam [...] Weight in lbs Pre/Post Dialysis Refused Weight 135.595475689723 BP Diastolic BP Location Tested BP Systolic [...] Type Weight in lbs Pre/Post Dialysis Refused 136.906293274774 BP Diastolic BP Location Tested BP Systolic [...] Type Weight in lbs Pre/Post Dialysis Refused 138.507877058723 BP Diastolic BP Location Tested BP Systolic [...] Type Weight in lbs Pre/Post Dialysis Refused 139.862328611996 BP Diastolic BP Location Tested BP Systolic [...] Type Weight in lbs Pre/Post Dialysis Refused 146.865547270713 BP Diastolic BP Location Tested BP Systolic [...] Type Weight in lbs Pre/Post Dialysis Refused 149.686196184456 BP Diastolic BP Location Tested BP Systolic BP Type 68 L arm 102 sitting Fetus Heart Rate Present A 148 Fetus Movement A Yes Comments c/o LOF - to get BHARATH and cer vical [id number] movement, no vaginal bleeding. Flowsheet Date 09/01/2024 [...] Type Weight in lbs Pre/Post Dialysis Refused 151.140436101156 BP Diastolic BP Location Tested BP Systolic [...] Weight in lbs Pre/Post Dialysis Refused Weight 152.445554672601 BP Diastolic BP Location Tested BP Systolic [...] Type Weight in lbs Pre/Post Dialysis Refused [id number] BP Diastolic BP Location Tested BP Systolic [...] Weight in lbs Pre/Post Dialysis Refused Weight 162.427138686017 BP Diastolic BP Location Tested BP Systolic [...] Type Weight in lbs Pre/Post Dialysis Refused 164.25534295299 BP Diastolic BP Location Tested BP Systolic [...]
--- OUTSIDE RECORDS SUMMARY | 2024-10-31 01:23 | XMS_ITS | Encounter Summary ---
Author Organization [facility] Address [facility] access [facility] [place] [address] Care Team Providers Care Entertainment Lawyer Name Role Phone Gabby Duran NP Primary Care Provider [phone] Encounter Details Date Type Department Care Team (Late st Contact Info) Description 12/29/2023 JumpOffCampushart Message Enc [facility] Family and Sports Medicine - [place] [address] [place] [address] Gabby Duran NP [address] [place] [address] Nausea/anxiety Social History Tobacco Use Types Packs/Day [...] Depression Total Score: 11 024 4:34 PM MANAGER ENERGY documented as of this encounter Care Teams Entertainment Lawyer Relationship Specialty Start Date End Date Gabby Duran, GANTRY CRANE OPERATOR [address] [place] [address] PCP - General Nurse Practitioner Family 09/09/23 documented as of this encounter
--- OUTSIDE RECORDS SUMMARY | 2024-10-31 01:23 | XMS_ITS | Clinical Summary ---
Author Organization [facility] Address [address] [facility] [place] [address] Care Team Providers Care Inventory Manager Name Role Phone Tatyana Fierro MD Primary Care Provider [phone] Source Comments [facility],non-owned Affiliates and Associated Physician Practices is amultiple site organization consisting of ambulatory clinics and hospital sitesin [place], [place], [place] and [place]. This disclosure is being madepursuant to the Care Everywhere program and may not contain all information available regarding this patient. Last updated 18.[facility] Allergies No known active allergies Medications * [...] 07/08/14 Atenolol 25 mg q d - [facility] Cardiology Dysmenorrhea 01/21/2014 02/21/2017 Overview (01/21/2014): 01/21/14 [...] Comments Blood Pressure 112/60 05/26/2018 1:28 PM BUDGET ENGINEER Pulse 91 07/29/2018 11:26 AM BUDGET ENGINEER Temperature 36.6 C (97.8 F) 05/18/2019 10:05 AM CDT Respiratory Rate 16 07/19/2017 11:30 AM BUDGET ENGINEER Oxygen Saturation 99% 07/29/2018 11:26 AM BUDGET ENGINEER Inhaled Oxygen Concentration - - Weight 47 [...] track( 018 10:17 AM CDT) No BueskingSuri cardiology fellow Procedure Name Priority Date/Time Associated Diagnosis Comments CHLAMYDIA + GC AMPLIFIED PROBE STAT 08/02/2015 3:25 AM BUDGET ENGINEER from Last 3 Months or Most Recently Relevant to Health Maintenance Results * CHLAMYDIA + GC AMPLIFIED PROBE (08/02/2015 3:25 AM BUDGET ENGINEER) Chlamydia Amplified Probe Negative Negative 08/03/2015 7:29 AM BUDGET ENGINEER [facility] GC Amplified Probe Negative Negative 08/03/2015 7:29 AM BUDGET ENGINEER [facility] Urine URINE / Unknown Collection / Unknown 08/02/2015 3:25 AM BUDGET ENGINEER 08/02/2015 4:32 AM BUDGET ENGINEER Narrative [facility] - 08/03/2015 7:29 AM BUDGET ENGINEER This test was developed and its performance characteristics determined by the [facility], [facility]. Female urine specimens tested by the [facility] [place] have not been cleared or approved by [...] [facility] [address] [place], [place] [address], [facility] [phone] from Last 3 Months or Most Recently Relevant to Health Maintenance Advance Directives * Full Code (Latest Code Status on File) Date Activated Date Inactivated Comments 01/20/2016 1:33 PM 01/20/2016 8:57 PM * Full Code Date Activated Date Inactivated Comments 01/19/2016 8:20 PM 01/20/2016 1:33 PM Care Teams Inventory Manager Relationship Specialty Start Date End Date Tatyana Fierro MD PCP - General 04/26/20
--- OUTSIDE RECORDS SUMMARY | 2024-10-31 01:23 | XMS_ITS | Referral Summary ---
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 Not on file Not on file Not on file Last Filed Vital Signs Vital Sign Reading Time Taken Comments Blood Pressure 117/82 07/03/2023 10:27 AM DEVELOPMENT INTERN Pulse 94 07/03/2023 10:27 AM DEVELOPMENT INTERN Temperature 36.9 C (98.4 F) 08/01/2015 8:05 PM DEVELOPMENT INTERN Respiratory Rate - - Oxygen Saturation 98% 07/03/2023 10:27 AM DEVELOPMENT INTERN Inhaled Oxygen Concentration - - Weight 63.7 kg (140 lb 6.4 oz) 07/03/2023 10:27 AM DEVELOPMENT INTERN Height 154.9 cm (5' 1 ) 07/03/2023 10:27 AM DEVELOPMENT INTERN Body Mass Index 26.53 07/03/2023 10:27 AM DEVELOPMENT INTERN Plan of Treatment Not on file Insurance Care Teams Head Of Business Development Relationship Specialty Start Date End Date Gabby Duran, GENERAL MAINTENANCE HELPER [address] [place] [address] PCP - General Board Certified Music Therapist 08/05/23
--- OUTSIDE RECORDS SUMMARY | 2024-10-31 01:23 | XMS_ITS | Encounter Summary ---
Author Organization [facility] Address [facility] [place] [address] Care Team Providers Care Computer Artist Name Role Phone Gabby Duran GATE CUTTER Primary Care Provider [phone] Encounter Details Date Type Department Care Team (Late st Contact Info) Description 10/20/2024 Venuuhart Message Enc [facility] Medical Group Family and Sports Medicine - [place] [address] [place] [address] Gabby Duran GATE CUTTER [address] [place], [place] [phone] Physical Social History Tobacco Use Types Packs/Day [...] Depression Total Score: 11 024 4:34 PM MEAL ATTENDANT documented as of this encounter Care Teams Computer Artist Relationship Specialty Start Date End Date Gabby Duran GATE CUTTER [address] [place], [place] [phone] PCP - General Nurse Practitioner Family 09/09/23 documented as of this encounter
--- OUTSIDE RECORDS SUMMARY | 2024-10-31 01:23 | XMS_ITS | Encounter Summary ---
Author Organization [facility] Address [facility] [place] [address] Care Team Providers Care Projector Operator Name Role Phone Gabby Duran MEMBERSHIP SALES REPRESENTATIVE Primary Care Provider [phone] Encounter Details Date Type Department Care Team (Late st Contact Info) Description 10/25/2023 Global Investor Serviceshart Message Enc [facility] Medical Group Family and Sports Medicine - [place] [address] [place] [address] Gabby Duran NP [address] [place], [place] [phone] Oral surgeon Social History Tobacco Use Types [...] Depression Total Score: 11 024 4:34 PM PLYWOOD AND VENEER REPAIRER documented as of this encounter Care Teams Projector Operator Relationship Specialty Start Date End Date Gabby Duran MEMBERSHIP SALES REPRESENTATIVE [address] [place], [place] [phone] PCP - General Nurse Practitioner Family 09/09/23 documented as of this encounter
--- OUTSIDE RECORDS SUMMARY | 2024-10-31 01:23 | XMS_ITS | Clinical Summary ---
Author Organization [facility] Address [facility] [place] [address] Care Team Providers Care Microsoft Access Developer Name Role Phone Gabby Duran RESTAURANT FLOOR MANAGER Primary Care Provider [phone] Allergies No known active allergies Medications albuterol [...] Care Team Description 10/20/2024 MyChart Message Enc [facility] Medical Group Family and Sports Medicine - [place] [address] Gabby Duran, RESTAURANT FLOOR MANAGER Physical from Last 3 Months Immunizations Name [...] 2019 COVID-19 Vaccine () 03/22/2024 PHQ-2 (Physician Eagle) 07/22/2024 09/09/2023 Annual Physical 09/09/2024 09/09/2023 Cervical [...] patient's age to complete this topic [place] [address] [place] [address] [place] Care Teams Microsoft Access Developer Relationship Specialty Start Date End Date Gabby Duran NP [address] [place] [address] PCP - General Nurse Practitioner Family 09/09/23
--- OUTSIDE RECORDS SUMMARY | 2024-10-31 01:23 | XMS_ITS | Clinical Summary ---
Author Organization [facility] Address [address] [place] [address] Phone Care Team Providers Care Fisher Terrapin Name Role Phone Tatyana Fierro MD Primary Care Provider [phone] Allergies No known active allergies Medications medroxyPROGESTER [...] on file Legal Sex Female 11:17 AM INSPECTOR AUTOMATIC TYPEWRITER Gender Identity Not on file Sexual Orientation Not on file Last Filed Vital Signs Vital Sign Reading Time Taken Comments Blood Pressure 110/62 09/19/2021 12:04 PM INSPECTOR AUTOMATIC TYPEWRITER Pulse 72 03/21/2021 11:06 AM CDT Temperature - - Respiratory Rate - - Oxygen Saturation - - Inhaled Oxygen Concentration - - Weight 50.4 kg (111 lb 1.6 oz) 09/19/2021 12:04 PM INSPECTOR AUTOMATIC TYPEWRITER Height 154.9 cm (5' 1 ) 09/19/2021 12:04 PM INSPECTOR AUTOMATIC TYPEWRITER Body Mass Index 20.99 09/19/2021 12:04 PM INSPECTOR AUTOMATIC TYPEWRITER Plan of Treatment Health Maintenance Due Date [...] 07/31/2014, 07/2012, 03/19/2012 Insurance MEDICAID Care Teams Fisher Terrapin Relationship Specialty Start Date End Date Tatyana Fierro MD PCP - General Pediatrics 09/19/21
--- OUTSIDE RECORDS SUMMARY | 2024-10-31 01:23 | XMS_ITS | Encounter Summary ---
Author Organization [facility] Address [address] [facility] [place] [address] Care Team Providers Care Adhesive Sprayer Name Role Phone Tatyana Fierro MD Primary Care Provider [phone] Encounter Details Date Type Department Care Team (Late st Contact Info) Description 07/12/2021 Lab Requisition [facility] [address] [facility] [place] [address] Christian Bolton MD [address] [address] Social History Tobacco Use Types Packs/Day Years [...] Comments DERMATOPATHOLOGY Routine 07/12/2021 12:0 0 AM RN CASE MGR documented in this encounter Results * DERMATOPATHOLOGY (07/12/2021 12:00 AM RN CASE MGR) Case Report Dermatopathology Report Case: [id number] Authorizing Provider: Christian Bolton MD Collected: 07/12/2021 12:00 AM Ordering Location: [facility] Received: 07/12/2021 03:42 PM Pathologist: Abraham Allen MD Specimens: A) - Skin, right neck B) - Skin, right neck sup 1 5:20 PM RN CASE MGR DERMATOPATHOLOGY LABORATORY Final Diagnosis Specimen A. SKIN, right neck: COMPOUND MELANOCYTIC NEVUS (D22.4) Specimen B. SKIN, right neck sup: COMPOUND MELANOCYTIC NEVUS (D22.4) 1 5:20 PM RN CASE MGR DERMATOPATHOLOGY LABORATORY Clinical History A: Nevus R/O atypia. Path # [id number]. B: Nevus R/O atypia. Path # [id number]. 1 5:20 PM RN CASE MGR DERMATOPATHOLOGY LABORATORY Gross Description Specimen A: Received is one formalin filled container labeled with the patient's name and designated right neck. The specimen consists of a shave biopsy measuring [id number]. Jar 0. Specimen B: Received is one formalin filled container labeled with the patient's name and designated right neck sup. The specimen consists of a shave biopsy measuring [id number]. Jar 0. 1 5:20 PM RN CASE MGR DERMATOPATHOLOGY LABORATORY Microscopic Description Specimen A. SKIN, right neck: There are nests of melanocytes at the dermal-epidermal junction and within the dermis. Specimen B. SKIN, right neck sup: There are nests of melanocytes at the dermal-epidermal junction and within the dermis. 1 5:20 PM RN CASE MGR DERMATOPATHOLOGY LABORATORY Disclaimer An external and internal positive and negative controls are appropriate for the histochemical, immunohistochemical and immunofluorescence stain(s) in this case (if any), except where stated explicitly. The performance characteristics of the stain(s) cited in this report were developed and its performance characteristic determined by the Dermatopathology Laboratory at [facility], directed by Dr. Edvin Allen. These tests need not be, and therefore are not, approved by the [place] Food and Drug Administration. The tests are used for clinical purposes. Billing Codes Specimen Charges Stain Charges 50283 71346 1 1 1 5:20 PM RN CASE MGR DERMATOPATHOLOGY LABORATORY Embedded Images 1 5:20 PM RN CASE MGR DERMATOPATHOLOGY LABORATORY Pathology/Cytology TISSUE SPECIMEN FROM SKIN / Unknown 07/12/2021 07/12/2021 3:42 PM RN CASE MGR Miscellaneous samples (specimen) TISSUE SPECIMEN FROM SKIN / Unknown 07/12/2021 07/12/2021 3:42 PM RN CASE MGR Christian Bolton MD LAB - PATHOLOGY/CYTO LOGY ORDERABLES DERMATOPATHOLOGY LABORATORY [facility] Department of Dermatology [address] [phone] documented in this encounter Visit Diagnoses Not on filedocumented in this encounter Care Teams Adhesive Sprayer Relationship Specialty Start Date End Date Tatyana Fierro MD PCP - General 04/26/20 documented as of this encounter
--- NOTE | 2024-10-31 08:34 | WPDHPUPDATE1 ---
History and Physical Update Update Date/Time: 10/31/24 08:34 24-year-old primipara at 38 weeks gestation presented in labor. Artificial rupture membranes was performed-clear fluid. 4 cm/90%/-1. Reassuring status. Expectant management. History and Physical has been reviewed, including an updated exam of the patient. There are NO changes in the patient's condition. Risks, benefits, and alternatives have been discussed and questions answered. Patient agrees to proceed with procedure.
[2024-10-31 09:02] LABS: Basophils Percent Auto 0.3 % (0.2-1.2); Eosinophils Absolute Auto 0.2 K/mm3 (0-0.3); Eosinophils Percent Auto 1.2 % (0-4.4); Hematocrit 33.7 % (37.0-47.0); Hemoglobin 11.3 g/dL (12.0-15.0); Immature Granulocyte Percent A 0.8 % (0-0.5); Lymphocytes Absolute Auto 2.31 K/mm3 (0.9-3.2); Lymphocytes Percent Auto 17.5 % (18.3-44.2); Mean Corpuscular HGB Conc 33.5 g/dl (32-36); Mean Corpuscular Hemoglobin 29.6 pg (26-34); Mean Corpuscular Volume 88.2 fl (80-100); Mean Platelet Volume 10.4 fl (7.4-10.4); Monocytes Absolute Auto 0.7 K/mm3 (0.1-0.6); Monocytes Percent Auto 5.2 % (2.6-8.5); Neutrophils Absolute Auto 9.9 K/mm3 (1.3-6.7); Platelet Count Result 227 k/mm3 (150-375); Red Blood Count 3.82 M/mm3 (4.2-5.4); Red Cell Distribution Width 13.6 % (11.5-14.5); White Blood Count 13.2 K/mm3 (4.5-10.0)
[2024-10-31] MEDS: LACTATED RINGERS 1,000 ML 999 ML IV CONT (09:27)
--- NOTE | 2024-10-31 09:50 | LDADM ---
This patient, Siobhan Alvarado, was admitted to Labor/Delivery/Recovery 106 on 10/31/24 at 08:02. Plans for labor, pain management and were discussed with patient. Patient/family oriented to hospital policies and general routines including ID bracelet, bed and alarms, visiting hours, pain management, procedures, bathroom and other care routines, personal items, smoking policy, room service/diet and guest tray routines, infant security routines, and visiting hours. Patient/Family are encouraged to report perceived risks to care and to ask questions if they do not understand what they are told or what they should do. See OBIX for further documentation.
--- NOTE | 2024-10-31 09:54 | P.PNAN_ITS ---
Anes - Eval Pre Procedure Procedure: labor epidural Date/Time: 10/31/24 09:54 Preop Diagnosis: labor pain Pre Op Diagnosis: contractions Patient Data Age: 24 Gender: F Height: Weight: Last Vital Signs Pulse 86 10/31/24 09:45 BP 129/83 10/31/24 09:45 Pulse Ox 100 10/31/24 09:50 Allergies Allergy/AdvReac Type Severity Reaction Status Date / Time No Known Allergies Allergy Verified 10/29/24 16:34 Home Medications ?Medication ?Instructions ?Recorded ?Confirmed ?Type vit no.95-ferrous 1 tablet PO DAILY 10/07/24 10/29/24 History fumarate 28 mg-folic acid 800 mcg tablet () Laboratory Tests 10/31/24 08:52 WBC 13.2 H K/mm3 (4.5-10.0) RBC 3.82 L M/mm3 (4.2-5.4) Hgb 11.3 L g/dL (12.0-15.0) Hct 33.7 L % (37.0-47.0) MCV 88.2 fl (80-100) MCH 29.6 pg (26-34) MCHC 33.5 g/dl (32-36) RDW 13.6 % (11.5-14.5) Plt Count 227 k/mm3 (150-375) MPV 10.4 fl (7.4-10.4) Immature Gran % (Auto) 0.8 H % (0-0.5) Neut % (Auto) 75.0 H % (45.5-73.1) Lymph % (Auto) 17.5 L % (18.3-44.2) Archuleta % (Auto) 5.2 % (2.6-8.5) Eos % (Auto) 1.2 % (0-4.4) Baso % (Auto) 0.3 % (0.2-1.2) Lymph # (Auto) 2.31 K/mm3 (0.9-3.2) Archuleta # (Auto) 0.7 H K/mm3 (0.1-0.6) Eos # (Auto) 0.2 K/mm3 (0-0.3) Baso # (Auto) 0.0 K/mm3 (0.0-0.1) Abs Immat Gran (auto) 0.10 H K/mm3 (0.00-0.031) Absolute Neuts (auto) 9.9 H K/mm3 (1.3-6.7) Absolute Nucleated RBC 0.000 K/mm3 (0.0-0.012) Nucleated RBC % 0.0 % (0.0-0.2) HIV 1&2 Ab/P24 Ag 4thGn Pending Blood Type A Positive Antibody Screen Negative Patient hx anesthesia problems: none Family hx anesthesia problems: none Results Review: All pre-operative results and documents have been reviewed as part of the pre- operative evaluation. [facility] Past Medical History Medical History Tachycardia Rheumatoid arthritis Surgical History Surgical History History of appendectomy No history of previous surgery Family History Family History Grandparent Ovarian cancer Unknown Hypertension Heart disease Diabetes mellitus Cerebrovascular accident Arthritis Other Breast cancer Social History Social History Social History: caffeine use Smoking status: Current every day smoker Tobacco type: e-cigarettes/vaping Alcohol intake: current Substance use: never Do You Feel Safe in your Home?: Yes Lack of Transportation: No Lack of Food: Never True Current Housing: I Have Housing Concerned About Future Housing: No Difficulty Paying Gas/Electric Bills: No Difficulty Paying for Meds: No Currently Unemployed: No Education: Trade/Vocational Certificate Difficulty w/ Childcare or Family Care: No Occupation/Education: occupation 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
[2024-10-31 09:55] LABS: HIV 1/2 Ab P24 Ag Result Negative (Negative)
[2024-10-31 10:10] LABS: Syphilis IgG/IgM Antibody Negative (Negative)
[2024-10-31] MEDS: LACTATED RINGERS 1,000 ML 125 ML IV CONT (10:27)
[2024-10-31] MEDS: OXYTOCIN 30 UNITS/NS 500 ML 30 UNITS/500 ML BAG 999 UNITS IV CONT (12:44)
--- NOTE | 2024-10-31 12:52 | PM.OBPRVD ---
OB - Vaginal Delivery Note Procedure Delivery date: 10/31/24 Delivery augmentation: Rupture of Membranes Delivery monitor: External FHT and External Uterine Route of delivery: Episiotomy description: None Laceration Description: Labial (1st degree bilateral, small) Delivery repair: vicryl Specimen: No Quantitative Blood Loss (ml): 200 Anesthesia type: Epidural Disposition: Floor Complications: No immediate complications
[2024-10-31] MEDS: OXYTOCIN 30 UNITS/NS 500 ML 30 UNITS/500 ML BAG 125 UNITS IV CONT (13:22)
[2024-10-31] MEDS: miSOPROStol 200 MCG TABLET 1000 MCG RECTAL (13:33)
[2024-10-31] MEDS: WITCH HAZEL 40 PADS 1 PAD TOPICAL (15:34)
[2024-10-31] MEDS: BENZOCAINE 20% AER SPR (*SP) 56 GM CAN 1 SPRAY TOPICAL (15:34)
--- NOTE | 2024-10-31 16:01 | PC.NURSE ---
Patient transferred to post room #284 via wheelchair. Support person present. Oriented to unit, room, information board, rooming in, admission packet and security measures. Patient verbalizes understanding.
[2024-11-01 00:30] VITALS: BP 119/74; PULSE 89; RESP 14; TEMP 37.2; O2SAT 100
[2024-11-01 05:01] LABS: Hematocrit 29.5 % (37.0-47.0); Hemoglobin 9.7 g/dL (12.0-15.0)
[2024-11-01 05:08] VITALS: BP 116/70; PULSE 84; RESP 14; TEMP 36.7; O2SAT 100
[2024-11-01 08:30] VITALS: BP 120/68; PULSE 101; RESP 20; TEMP 36.5; O2SAT 98
--- NOTE | 2024-11-01 08:37 | PM.OBPNVD ---
OB - PN: Subj Subjective Date/time seen: 11/01/24 08:37 Patient comments: no complaints, pain well controlled, incisional pain, tolerating diet and flatus present OB - PN: Obj Data Labs 11/01/24 04:30 Labs: Laboratory Results - last 24 hr 10/31/24 11/01/24 08:52 04:30 WBC 13.2 H RBC 3.82 L Hgb 11.3 L 9.7 L Hct 33.7 L 29.5 L MCV 88.2 MCH 29.6 MCHC 33.5 RDW 13.6 Plt Count 227 MPV 10.4 Immature Gran % (Auto) 0.8 H Neut % (Auto) 75.0 H Lymph % (Auto) 17.5 L Bourbon % (Auto) 5.2 Eos % (Auto) 1.2 Baso % (Auto) 0.3 Lymph # (Auto) 2.31 [place] # (Auto) 0.7 H Eos # (Auto) 0.2 Baso # (Auto) 0.0 Abs Immat Gran (auto) 0.10 H Absolute Neuts (auto) 9.9 H Absolute Nucleated RBC 0.000 Nucleated RBC % 0.0 Syphilis IgG/IgM Ab Negative HIV 1&2 Ab/P24 Ag 4thGn Negative Blood Type A Positive Antibody Screen Negative OB - PN A/P Plan day: 1 Plan: routine care Comments: No problems, routine care Time Spent With Patient Time: Total time spent is greater than 50% in coordination of care (as documented) at patient's floor/unit and/or counseling patient: Exam Const: General: comfortable, no acute distress and alert Resp: Effort & Inspection: normal respiratory effort Auscultation: no crackles, no rales and no rhonchi Cardio: Rate: regular rate Heart sounds: no click, no murmurs and no rubs GI: Inspection: non-distended GI Palp: No Tenderness to palpation present (GI) Auscultation: normal bowel sounds Other: Incision - CDI Extrem: General: normal to inspection, no pedal edema and no calf tenderness
[2024-11-01] MEDS: POLYSACCHARIDE IRON COMPLEX 150 MG CAPSULE PO ×2 (09:06→16:37)
[2024-11-01] MEDS: DOCUSATE SODIUM 100 MG CAPSULE PO ×2 (09:07→16:37)
[2024-11-01] MEDS: MULTIVIT/MIN/PREN/FOL AC/IRON TABLET 1 TAB PO (09:07)
--- NOTE | 2024-11-01 16:02 | WPDANLDPN2 ---
Anes-Prog Note L&D Date/Time: 11/01/24 16:02 Comfortable throughout: labor and delivery Neuraxial method: epidural Epidural/Spinal procedure site: clean & non-tender Neuro status: Neuro function grossly intact. Cardiovascular status: normal Respiratory status: normal Airway patency: baseline Mental status: baseline Post-Op hydration status: normal Vital Signs: Last Vital Signs Temp 36.5 C 11/01/24 08:30 Pulse 101 H 11/01/24 08:30 Resp 20 11/01/24 08:30 BP 120/68 11/01/24 08:30 Pulse Ox 98 11/01/24 08:30 O2 Del Method Room Air 10/31/24 09:50 Pain score (VAS): 2 I/O: Intake & Output 11/01/24 11/01/24 11/01/24 07:59 15:59 23:59 Intake Total 640 Balance 640 Post-procedural complaints: none Patient feedback: Patient satisfied with anesthetic care.
[2024-11-01 20:25] VITALS: BP 108/60; PULSE 87; RESP 16; TEMP 36.8; O2SAT 100
[2024-11-01 23:45] VITALS: BP 119/74; PULSE 86; RESP 16; TEMP 36.8; O2SAT 100
[2024-11-02 07:40] VITALS: BP 118/73; PULSE 86; RESP 16; TEMP 36.8; O2SAT 100
--- NOTE | 2024-11-02 08:13 | P.PNOB_ITS ---
OB - PN: Subj Subjective Date/time seen: 11/02/24 08:13 Patient comments: no complaints, pain well controlled and tolerating diet OB - PN: Obj Data Labs 11/01/24 04:30 OB - PN A/P Plan day: 2 Plan: routine care and discharge home Time Spent With Patient Time: Total time spent is greater than 50% in coordination of care (as documented) at patient's floor/unit and/or counseling patient: Exam 2 Const: General: comfortable and no acute distress Resp: Effort & Inspection: normal respiratory effort Auscultation: no rales, no rhonchi and no wheezes Cardio: Rate: regular rate Heart sounds: no click, no murmurs and no rubs GI: GI Palp: Yes Soft to palpation and No Tenderness to palpation present (GI) Auscultation: normal bowel sounds Extrem: General: normal to inspection, no pedal edema and no calf tenderness
--- NOTE | 2024-11-02 08:14 | PM.OBDSVD ---
DS: Admitting Diagnosis Discharge Date 11/02/2024 Admitting Diagnosis Term DS: Discharge Diagnosis Discharge Diagnosis (1) Term delivered: Code(s): O80 - Encounter for full-term uncomplicated delivery Status: Acute OB - DS: Summary OB Procedures : None OB Procedures Intrapartum: Spontaneous Vag Delivery OB Procedures: : None Peripartum Data Laceration Description: Labial (1st degree bilateral, small) Episiotomy description: None Time Spent with Patient Time attestation: Total time spent providing and/or coordinating discharge services: Discharge Plan Discharge Discharging Clinician: Ankush Navarro Patient Disposition: Home Activity: pelvic rest Diet: regular Patient Instructions: Antibiotic Form Patient Language: Surinamese Stand Alone Forms: General Discharge Information Follow-up/Referrals: Ankush Navarro MD [Physician] - Discharge Medications: Continued PNV cmb#95-ferrous fumarate-FA [] 28 mg iron- 800 mcg tablet 1 tablet PO DAILY Date of admission: 10/31/24 01:15 Primary Care Provider: CarmenzaGabby Admitting Provider: Ankush Navarro Attending physician on admission: Ankush Navarro Condition: Stable
[2024-11-02] MEDS: POLYSACCHARIDE IRON COMPLEX 150 MG CAPSULE PO (09:31)
[2024-11-02] MEDS: MULTIVIT/MIN/PREN/FOL AC/IRON TABLET 1 TAB PO (09:32)
[2024-11-02] MEDS: DOCUSATE SODIUM 100 MG CAPSULE PO (09:32)
== END 2024-11-02 13:48 | disposition home or self-care (01) | DRG 560 ==
LOC: ANHLDR 11:09 → ANHOB2 16:04
PROVIDERS: Admitting Provider Obstetrics & Gynecology; PCP Nurse Practitioner Family; Visit Provider Obstetrics & Gynecology
DX: O43.123 Velamentous insertion of umbilical cord, third trimester (principal); O70.0 First degree perineal laceration during delivery; O69.81X0 Labor and delivery complicated by cord around neck, without compression, not applicable or unspecified; Z3A.38 38 weeks gestation of pregnancy; Z37.0 Single live birth; O43.193 Other malformation of placenta, third trimester
CPT/HCPCS: 36415; 85014; 85018; 85025; 86593; 86703; 86850; 86900; 86901; A9270; G0432; J2590; J2795; J7120

== ENCOUNTER 2024-12-11 20:38 | Emergency (ER) | payer OTHER, SELFPAY ==
--- NOTE | ~2024-12-11 | XR_ITS ---
HISTORY: pain around posterior side; no injury COMPARISON: None TECHNIQUE: 2 views of the left humerus were performed. FINDINGS: No acute or subacute fracture. Joint spaces are preserved and alignment is maintained. Soft tissues are unremarkable without radiopaque foreign body or significant calcification. Age-appropriate mineralization. IMPRESSION: No acute fracture or dislocation. Reviewed, dictated and finalized at location A.
--- NOTE | ~2024-12-11 | CT_ITS ---
History: Left upper extremity paresthesias PROCEDURE: CT cervical spine without intravenous contrast. COMPARISON: None TECHNIQUE: Multiple contiguous axial images of the cervical spine were performed without the administration of i ntravenous contrast. DLP: 254 mGy-cm FINDINGS: Straightening of the normal curvature of the cervical spine is identified, likely muscular in origin. No acute fractures are present. The bilateral lung apices are unremarkable. No soft tissue abnormality is present. The airway is patent. Impression: Straightening of the normal curvature of the cervical spine, likely muscular in origin. No acute fracture. Reviewed, dictated and finalized at location A. Impression: Straightening of the normal curvature of the cervical spine, likely muscular in origin. No acute fracture.
--- OUTSIDE RECORDS SUMMARY | 2024-12-11 20:40 | XMS_ITS | Clinical Summary ---
Author Organization [facility] Address [address] [address] Phone Care Team Providers Care Health And Wellness Sales Consultant Name Role Phone Tatyana Fierro MD Primary Care Provider [phone] Allergies No known active allergies Medications medroxyPROGEST ERone (DEPO-PROVERA) 150 MG/ML Suspension 1 Dose by Intramuscular route. 9 Active Evening [place] Oil 1000 MG Capsule Take 1 Cap [...] age to complete this topic Insurance MEDICAID [facility] Care Teams Health And Wellness Sales Consultant Relationship Specialty Start Date End Date Vadim, Tatyana, MD [address] [address] PCP - General Pediatrics 04/25/20
--- OUTSIDE RECORDS SUMMARY | 2024-12-11 20:40 | XMS_ITS | Encounter Summary ---
Author Organization [facility] Address [address] [place] [address] Care Team Providers Care Auctioneer Automobile Name Role Phone Tatyana Fierro MD Primary Care Provider [phone] Encounter Details Date Type Department Care Team (Late st Contact Info) Description 07/12/2021 Lab Requisition [facility] [address] [facility] [place] [address] Christian Bolton MD [address] [place] [address] Social History Tobacco Use Types Packs/Day Years Used Date Smoking Tobacco: Passive Smo ke Exposure - Never Smoker Smokeless Tobacco: Never Alcohol Use Standard Drinks/Week Comments No 0 (1 standard drink = 0.6 oz pur e alcohol) Comments No Sex and Gender Information Value Date Recorded Sex Assigned at Not on file Legal Sex Female 6:41 AM BAIT MAKER Gender Identity Not on file Sexual Orientation Not on file documented as of this encounter Functional Status * Is person deaf or have serious hearing difficulty? Answer Date of Assessment Author No 01/19/2016 8:24 PM Mia Brown RN * Is person blind or have serious difficulty seeing? Answer Date of Assessment Author No 01/19/2016 8:24 PM Mia Brown RN * Does person have serious difficulty walking/climbing stairs? Answer Date of Assessment Author No 01/19/2016 8:24 PM CDT Mia Scanlon RN * Does person have difficulty dressing/bathing? Answer Date of Assessment Author No 01/19/2016 8:24 PM CDT Mia Scanlon RN * Does person have difficulty doing errands alone? Answer Date of Assessment Author No 01/19/2016 8:24 PM CDT Mia Scanlon RN documented as of this encounter Mental Status * Does person have difficulty concentrating/remembering/making decisions? Answer Entry Date Author No 01/19/2016 8:24 PM CDT Mia Scanlon RN documented in this encounter Plan of Treatment Not on file documented as of this encounter Goals Goal Patient Goal Type Associated Problems Recent Progress Patient-Stated? Author [facility] Lifestyle: Use safety retraint in car Lifestyle On track( 018 10:17 AM CDT) No Suri Wiggins RN documented as of this encounter Procedures Procedure Name Priority Date/Time Associated Diagnosis Comments DERMATOPATHOLOGY Routine 07/12/2021 12:0 0 AM BAIT MAKER documented in this encounter Results * DERMATOPATHOLOGY (07/12/2021 12:00 AM BAIT MAKER) Case Report Dermatopathology Report Case: [id number] Authorizing Provider: Christian Bolton MD Collected: 07/12/2021 12:00 AM Ordering Location: [facility] Lab Received: 07/12/2021 03:42 PM Pathologist: Abraham Allen MD Specimens: A) - Skin, right neck B) - Skin, right neck sup 1 5:20 PM BAIT MAKER DERMATOPATHOLOGY LABORATORY Final Diagnosis Specimen A. SKIN, right neck: COMPOUND MELANOCYTIC NEVUS (D22.4) Specimen B. SKIN, right neck sup: COMPOUND MELANOCYTIC NEVUS (D22.4) 1 5:20 PM BAIT MAKER DERMATOPATHOLOGY LABORATORY at 1720 BAIT MAKER Clinical History A: Nevus R/O atypia. Path # [id number]. B: Nevus R/O atypia. Path # [id number]. 1 5:20 PM [facility] Gross Description Specimen A: Received is one formalin filled container labeled with the patient's name and designated right neck. The specimen consists of a shave biopsy measuring [id number]. Jar 0. Specimen B: Received is one formalin filled container labeled with the patient's name and designated right neck sup. The specimen consists of a shave biopsy measuring [id number]. Jar 0. 1 5:20 PM [facility] Microscopic Description Specimen A. SKIN, right neck: There are nests of melanocytes at the dermal-epidermal junction and within the dermis. Specimen B. SKIN, right neck sup: There are nests of melanocytes at the dermal-epidermal junction and within the dermis. 1 5:20 PM [facility] D[facility] Disclaimer An external and internal positive and negative controls are appropriate for the histochemical, immunohistochemical and immunofluorescence stain(s) in this case (if any), except where stated explicitly. The performance characteristics of the stain(s) cited in this report were developed and its performance characteristic determined by the Dermatopathology Laboratory at [facility], directed by Dr. Edvin Allen. These tests need not be, and therefore are not, approved by the [place] Food and Drug Administration. The tests are used for clinical purposes. Billing Codes Specimen Charges Stain Charges 33762 61219 1 1 1 5:20 PM [facility] D[facility] Embedded Images 5:20 PM [facility] Pathology/Cytology TISSUE SPECIMEN FROM SKIN / Unknown 07/12/2021 07/12/2021 3:42 PM BAIT MAKER Miscellaneous samples (specimen) TISSUE SPECIMEN FROM SKIN / Unknown 07/12/2021 07/12/2021 3:42 PM BAIT MAKER us Christian Bolton MD LAB - PATHOLOGY/CYTOLOGY ORDER VANESSA Final Result DERMATOPATHOLOGY LABORATORY [facility] - Department of Dermatology [address], [address] [phone] documented in this encounter Visit Diagnoses Not on filedocumented in this encounter Care Teams Auctioneer Automobile Relationship Specialty Start Date End Date Tatyana Fierro MD PCP - General 04/26/20 documented as of this encounter
--- OUTSIDE RECORDS SUMMARY | 2024-12-11 20:40 | XMS_ITS | Referral Summary ---
Author Organization [facility] Address [address] [place] [address] Care Team Providers Care Waterproofer Name Role Phone Gabby Duran NP Primary Care Provider [phone] Allergies No known active allergies Medications albuterol [...] on file Legal Sex Female 7:10 PM DOULA Gender Identity Not on file Sexual Orientation Not on file Occupation Industry Job Start Date Job End Date Self- employed Not on file Not on file Not on file Last Filed Vital Signs Vital Sign Reading Time Taken Comments Blood Pressure 117/82 07/03/2023 10:27 AM DOULA Pulse 94 07/03/2023 10:27 AM DOULA Temperature 36.9 C (98.4 F) 08/01/2015 8:05 PM DOULA Respiratory Rate - - Oxygen Saturation 98% 07/03/2023 10:27 AM DOULA Inhaled Oxygen Concentration - - Weight 63.7 kg (140 lb 6.4 oz) 07/03/2023 10:27 AM DOULA Height 154.9 cm (5' 1 ) 07/03/2023 10:27 AM DOULA Body Mass Index 26.53 07/03/2023 10:27 AM DOULA Plan of Treatment Not on file Insurance Care Teams Waterproofer Relationship Specialty Start Date End Date Gabby Duran, TURPENTINER [address] [place] [address] PCP - General Client Sales And Service Officer 08/05/23
--- OUTSIDE RECORDS SUMMARY | 2024-12-11 20:40 | XMS_ITS | Clinical Summary ---
Author Organization [facility] Address [address] [place] [address] Phone Care Team Providers Care Toucher Up Name Role Phone Tatyana Fierro MD Primary Care Provider [phone] Allergies No known active allergies Medications medroxyPROGESTER [...] on file Legal Sex Female 11:17 AM AUTOMOBILE ENGINE ASSEMBLER Gender Identity Not on file Sexual Orientation Not on file Last Filed Vital Signs Vital Sign Reading Time Taken Comments Blood Pressure 110/62 09/19/2021 12:04 PM AUTOMOBILE ENGINE ASSEMBLER Pulse 72 03/21/2021 11:06 AM CDT Temperature - - Respiratory Rate - - Oxygen Saturation - - Inhaled Oxygen Concentration - - Weight 50.4 kg (111 lb 1.6 oz) 09/19/2021 12:04 PM AUTOMOBILE ENGINE ASSEMBLER Height 154.9 cm (5' 1 ) 09/19/2021 12:04 PM AUTOMOBILE ENGINE ASSEMBLER Body Mass Index 20.99 09/19/2021 12:04 PM AUTOMOBILE ENGINE ASSEMBLER Plan of Treatment Health Maintenance Due Date Last Done Comments CHLAMYDIA SCREENING (ANNUAL) 11-24 YEARS 2012 CERVICAL CANCER SCREENING 2022 HPV/Cotest (21-29) 2022 PAP SMEAR 2022 INFLUENZA VACCINE (#1) 2024 05/14/2013 DTAP/TDAP/TD VACCINES (8 - T d or Tdap) 02/11/2029 02/11/2019, 03/19/2012, 03/15/2006, Additional history exists HEPATITIS B VACCINES Completed 06/23/2002, 2001, 2001 HPV VACCINES Completed 07/31/2014, 07/2012, 03/19/2012 Insurance MEDICAID Care Teams Toucher Up Relationship Specialty Start Date End Date Tatyana Fierro MD PCP - General Pediatrics 09/19/21
--- OUTSIDE RECORDS SUMMARY | 2024-12-11 20:40 | XMS_ITS | Clinical Summary ---
Author Organization [facility] Address [address] [facility] [place] [address] Care Team Providers Care Commercial Airplane Pilot Name Role Phone Tatyana Fierro MD Primary Care Provider [phone] Source Comments [facility],non-owned Affiliates and Associated Physician Practices is amultiple site organization consisting of ambulatory clinics and hospital sitesin [place], [place], [place] and [place]. This disclosure is being madepursuant to the Care Everywhere program and may not contain all information available regarding this patient. Last updated 18.[facility] Allergies No known active allergies Medications * Be aware that medications may not be up to date on this document. Alwaysverify current medications with the patient. Spacer/Aero-Hol ding Chambers (AEROCHAMBER PLUS MADDISON-VU) Inhale by mouth as directed 1 Each 7 Active albuterol HFA (PROVENTIL;VENT JAMEY;PROAIR) 108 (90 BASE) MCG/ACT inhaler Inhale 2 Puffs by mouth every 4 hours as needed for Shortness of Breath, Wheezing or Cough 1 Inhaler 5 7 Active polyethylene glycol 3350 (MIRALAX) powder Take 17 g by mouth once daily 500 g 11 8 Active hyoscyamine 0.125 MG tablet Take 1 tablet by mouth every 4 hours as needed for Spasms 30 tablet 3 9 Active EPINEPHrine (EPIPEN) 0.3 MG/0.3ML auto-injector pen 9 Active medroxyPROGESTE You (DEPO-PROVERA) 150 MG/ML vial Inject 1 Dose into muscle once 9 Active azithromycin (ZITHROMAX) 250 MG tablet Take 2 tabs today, then 1 tab daily for next 4 days 6 tablet 9 Active Active Problems Problem Noted Date Diagnosed [...] 07/08/14 Atenolol 25 mg q d - [facility] Dysmenorrhea 01/21/2014 02/21/2017 Overview (01/21/2014): 01/21/14 start OCP Scabies 06/04/2013 02/21/2017 Knee pain, right 06/20/2012 02/21/2017 Overview (07/28/2012): 06/20/12 X-ray, CBC, ESR, CRP, ALETHA, RF, Naprosyn Scoliosis 03/19/2012 02/21/2017 Overview (03/19/2012): 03/19/12 check xrays Sever's disease 03/13/2011 02/21/2017 Streptococcal pharyngitis 08/02/2010 Overview (12/05/2018): 08/02/10 zithromax 12/05/18 ceftin Breast buds 06/27/2010 02/21/2017 Wears glasses 01/16/2010 03/13/2011 Otalgia 09/21/2009 02/21/2017 Immunizations Immunization Administration Dates Next Due INFLUENZA VACCINE, TRIV. [...] on file Legal Sex Female 6:41 AM PRODUCT TRAINER Gender Identity Not on file Sexual Orientation Not on file Last Filed Vital Signs Vital Sign Reading Time Taken Comments Blood Pressure 112/60 05/26/2018 1:28 PM PRODUCT TRAINER Pulse 91 07/29/2018 11:26 AM PRODUCT TRAINER Temperature 36.6 C (97.8 F) 05/18/2019 10:05 AM CDT Respiratory Rate 16 07/19/2017 11:30 AM PRODUCT TRAINER Oxygen Saturation 99% 07/29/2018 11:26 AM PRODUCT TRAINER Inhaled Oxygen Concentration - - Weight 47 kg (103 lb 9.6 oz) 05/18/2019 10:05 AM CDT Height 156.3 cm (5' 1.54 ) 05/26/2018 1:28 PM CS T Body Mass Index - - Plan of Treatment Health Maintenance Due Date Last Done Comments HIV SCREENING 2016 CHLAMYDIA/GONORRHEA SCREENING 2017 08/02/2015 [...] On track( 018 10:17 AM CDT) No [place], Suri Morales reconsignment clerk Procedure Name Priority Date/Time Associated Diagnosis Comments CHLAMYDIA + GC AMPLIFIED PROBE STAT 08/02/2015 3:25 AM PRODUCT TRAINER from Last 3 Months or Most Recently Relevant to Health Maintenance Results * CHLAMYDIA + GC AMPLIFIED PROBE (08/02/2015 3:25 AM PRODUCT TRAINER) Chlamydia Amplified Probe Negative Negative 08/03/2015 7:[address] [facility] GC Amplified Probe Negative Negative 08/03/2015 7:[address] [facility] Urine URINE / Unknown Collection / Unknown 08/02/2015 3:25 AM PRODUCT TRAINER 08/02/2015 4:32 AM PRODUCT TRAINER [address] [facility] - 08/03/2015 7:29 AM PRODUCT TRAINER This test was developed and its performance characteristics determined by the [facility], [facility]. Female urine specimens tested by the [facility] have not been cleared or approved by [...] method. Doug Randhawa MD LAB - MICROBIOLOGY ORDERABLES nal Result [facility] [address] [place] [address], [facility] [phone] from Last 3 Months or Most Recently Relevant to Health Maintenance Insurance MEDICAID - [facility] MEDICAID - [place] [facility] MEDICAID - OUT OF STATE Advance Directives * Full Code (Latest Code Status on File) Date Activated Date Inactivated Comments 01/20/2016 1:33 PM 01/20/2016 8:57 PM * Full Code Date Activated Date Inactivated Comments 01/19/2016 8:20 PM 01/20/2016 1:33 PM Care Teams Commercial Airplane Pilot Relationship Specialty Start Date End Date Tatyana Fierro MD PCP - General 04/26/20
--- OUTSIDE RECORDS SUMMARY | 2024-12-11 20:40 | XMS_ITS | Clinical Summary ---
Author Organization [facility] Address [address] [place] [address] Care Team Providers Care Wafer Fab Operator Name Role Phone Gabby Duran NP Primary Care Provider [phone] Allergies No known active allergies Medications [...] on file Legal Sex Female 7:10 PM AQUACULTURE WORKER Gender Identity Not on file Sexual Orientation Not on file Occupation Industry Job Start Date Job End Date Self- employed Not on file Not on file Not on file Obstetrics History Last Filed Vital Signs Vital Sign Reading Time Taken Comments Blood Pressure 117/82 07/03/2023 10:27 AM AQUACULTURE WORKER Pulse 94 07/03/2023 10:27 AM AQUACULTURE WORKER Temperature 36.9 C (98.4 F) 08/01/2015 8:05 PM AQUACULTURE WORKER Respiratory Rate - - Oxygen Saturation 98% 07/03/2023 10:27 AM AQUACULTURE WORKER Inhaled Oxygen Concentration - - Weight 63.7 kg (140 lb 6.4 oz) 07/03/2023 10:27 AM AQUACULTURE WORKER Height 154.9 cm (5' 1 ) 07/03/2023 10:27 AM AQUACULTURE WORKER Body Mass Index 26.53 07/03/2023 10:27 AM AQUACULTURE WORKER Plan of Treatment Health Maintenance Due Date Last Done Comments Cervical Cancer Screening 2001 Depression Screening 2001 Hepatitis C Screening 2001 Pneumococcal vaccine <65 (1 of 1 - PPSV23) 2007 2001, 2001, 2001 Meningococcal B Vaccine (1 o f 2 - Standard) 2017 Regular Well Visit/Exam 18-64 2019 Influenza Vaccine (Season Ended) 2025 05/14/2013, 07/13/2008, 07/10/2008, Additional history exists DTaP/Tdap/Td Vaccine (8 - Td or Tdap) 02/11/2029 02/11/2019, 03/19/2012, 03/15/2006, Additional history exists Hepatitis B Screening Completed 06/23/2002 , 2001, 2001 Varicella Vaccines Completed 06/27/2007, 03/25/2002 HPV Vaccines Completed 07/31/2014, 07/2012, 03/19/[address] [place] [address] [place] [address] [facility] Care Teams Wafer Fab Operator Relationship Specialty Start Date End Date Gabby Duran NP [address] [place] [address] PCP - General Construction Producer 08/05/23
--- OUTSIDE RECORDS SUMMARY | 2024-12-11 20:41 | XMS_ITS | Data Portability ---
Author Organization [facility] Address [address] [place] [address] [place] [address] Care Team Providers Care Senior Cytogenetics Laboratory Director Name Role Phone LANG BORREGO Primary Care [...] Organization Details Last Modified Time Details Appointments POST 2024 01:30P Abraham NAVARRO MD Not available Not available Not available Lab None recorded . Referral None recorded . Procedures None recorded . Surgeries None recorded . Imaging US, obstetri c, follow-u p 2024 025 [email or web address] [facility], [address], [address], [place], [address], 09/15/2024 23:00:35 Medication Orders None recorded . Patient TargetsNo targets recorded. Patient InstructionsNo instructions recorded. Reason for Referral None Reported. Results Created Date Observation Date Name Description Value Unit Range Abnormal Flag Note LastModifiedBy Organization Detail LastModifiedTime 08/18/19 25 08/18/2024 HIV 1/2 ANTIG EN/AN TIBOD Y, REFLE X CONFI RMATI ON HIV antigen/anti body,reflex confirmation CANCEL LED Reord ered Not Available [facility] (Lab) [address], [place], [address], 08/19/2024 05:28:16 08/18/19 25 08/18/2024 HEMAT OCRIT (HCT) HCT 32.1 % (based on docume nted legal sex) 34.0-4 5.0 low Not Available [facility] (Lab) [address], [place], [address], 08/19/2024 10:38:47 08/18/19 25 08/18/2024 HEMOG LOBIN (HGB) HGB 10.9 g/dL (based on docume nted legal sex) 11.6-1 5.4 low Not Available [facility] (Lab) [address], [place], [address], 08/19/2024 10:38:48 08/18/19 25 08/18/2024 GTT - GESTA MILTON L SCREE N, ACOG OB glucose, 1 hour screen 90 mg/dL 70-135 Not Available [facility] (Lab) [address], [place], [address], 08/19/2024 10:38:48 08/18/19 25 08/18/2024 HIV 1/2 ANTIG EN/AN TIBOD Y, REFLE X CONFI RMATI ON HIV antigen/anti body Nonrea ctive nonrea ctive HIV-1 antig en and HIV-1 /HIV- 2 antib odies were not detec nilsa. No labor atory evide nce of HIV infec tion. Not Available [facility] (Lab) [address], [place], [address], 08/19/2024 10:38:49 08/18/19 25 08/18/2024 RPR SCREE N, REFLE X TITER /CONF IRMAT ION RPR screen Nonrea ctive nonrea ctive Not Available [facility] (Lab) [address], [place], [address], 08/19/2024 10:38:49 10/13/19 25 10/12/2024 CULTU RE: [...] Resul ting Lab: [facility] [address] [facility] [address] Tel: CULTU RE ----- ----- ----- --- No Group B strep isola nilsa at 2 days (martha ctive broth enhan cemen t) Not Available [facility] (Lab) [address], [place], [address], 10/15/2024 16:22:54 08/18/19 25 08/18/2024 US, esteban haynes follo w-up No observ ation record ed. [email or web address] [facility] [address], [place], [address], 08/18/2024 13:06:39 08/18/19 25 08/18/2024 US, esteban haynes follo w-up No observ ation record ed. [email or web address] [address] [facility], [place], [address], 09/01/2024 23:08:38 09/01/19 25 09/01/2024 US, esteban haynes, limit ed No observ ation record ed. [facility] [address], [place], [address], 09/01/2024 12:57:52 09/01/1909/01/2024 US, obste tric, trans vagin al No observ ation record ed. [facility] [address], [place], [address], 09/01/2024 12:58:05 09/01/19 25 09/01/2024 US, obste tric, limit ed No observ ation record ed. [email or web address] [address], [place], [address], 09/01/2024 14:24:53 09/15/19 25 09/15/2024 US, obste tric, follo w-up No observ ation record ed. [email or web address] [facility] [address], [place], [address], 09/15/2024 13:45:58 09/15/19 25 09/15/2024 US, obste tric, follo w-up No observ ation record ed. [email or web address] [address], [place], [address], 09/16/2024 17:59:26 10/30/19 25 10/29/2024 non-s tress test No observ ation record ed. [address], [place], [address], 11/09/2024 10:51:46 Result Notes None recorded. Problems Name Problem SNOMED Code Status Onset Date Resolution Date Notes Provider Name and Address Organization Details Recorded Time Pregnanc y 70112975 Completed 202311/16/2024 Kassandra Parikh [facility] [place] - [facility] 22:17:51 Anomaly of placenta 88191489 Completed succentu nedra Navarro MD [address], [place], [address], [place] [facility] 5 10:54:37 Finding of uterine contract ions 705266892 Completed Ankush Navarro MD [address], [place], [address], [facility] 5 12:13:26 Clinical finding Completed 201803/01/2021 Encounte r for surveill ance of injectab le contrace ptive;Pr actice ID: 0001 Tea Lorenz [facility], [facility] 22:08:39 Pregnanc y test negative 092284223 Completed 201803/01/2021 Encounte r for pregnanc y test, result negative ;Practic e ID: 0001 Tea Lorenz [facility], [facility] 22:08:50 Finding of regulari ty of menstrua l cycle Completed 201803/01/2021 Irregula r menstrua tion, unspecif ied;Prac milan ID: 0001 Tea Lorenz [facility] 22:08:42 Surveill ance of contrace ption Completed 201803/01/2021 Encounte r for surveill ance of contrace ptives, unspecif ied;Jose Luis rded Elsewher e: No Locat ion: Ayse cristina [facility] S ource: EHR Box Folding Machine Operator carlos: N Practi ce ID: 0001 Ollie lable Time: 10:30:00 AM Tea Lorenz [facility] 22:08:54 Finding of sensatio n of breast Completed 201803/01/2021 Mastodyn ia;Recor ded Elsewher e: No Locat ion: [facility] Source: EHR Box Folding Machine Operator carlos: N Practi ce ID: 0001 Ollie lable Time: 10:45:00 AM Tea Lorenz [facility] 22:08:46 Syphilis test finding 429260653 Completed 201803/01/2021 Encounte r for STD screenin g;Record ed Elsewher e: No [facility] ource: EHR Box Folding Machine Operator carlos: N Practi ce ID: 0001 Ollie lable Time: 10:30:00 AM Tea [facility] 22:08:57 Amenorrh ea 80207501 Completed 201803/01/2021 Amenorrh ea, unspecif ied;Jose Luis rded Elsewher e: No Locat ion: [facility] Source: EHR Box Folding Machine Operator carlos: N Practi ce ID: 0001 Ollie lable Time: 10:45:00 AM Tea [facility] 22:08:33 Problem Notes None recorded. Procedures Surgical History Date Name Laterality Status Provider Name and Address Organization Details Recorded Time 05/08/20 24 Date of Last Pap Smear completed Clarissa Amaro [facility] 05/25/2024 15:27:40 04/14/20 20 Date of Last Mammogram completed [facility] 03/01/2021 22:15:32 01/25/20 20 Bartholin Cyst Drainage completed Ankush Navarro MD [address], [place], [address], [facility] 01/25/2020 18:35:08 07/22/19 16 Appendectomy completed [facility] 03/02/2021 10:58:34 Imaging Results None recorded. [...] Available Not Available Not Available vitamin d 90107 unit caps 04/07 completed Not Available Not [...] completed Not Available Not Available Not Available Depo-Flume Tender a 150 mg/mL intramuscul ar suspension Inject [...] completed Not Available Not Available Not Available Depo-Flume Tender a 03/01 completed Not Available Not Available Not Available active Not Available Not Avai lable Not Available ProChamber USE DIRECTED WITH INHALER 04/17 completed Not Available Not Available Not Available lidocaine 5 % topical ointment APPLY TOPICALLY TO THE AFFECTED AREA THREE TIMES DAILY NEEDED 03/29 completed Not Available Not Available Not Available Vitals Date Recorded Body weight Systolic And Diastolic Provider Name and Address Organization Details Last Updated DateTime 09/15/2024 84625.01477 g 118/74 mm[Hg] Clarissa Amaro [facility] 09/15/2024 11:57:37 Date Recorded Body height Body mass index (BMI) Body weight Systolic And Diastolic Provider Name and Address Organization Details Last Updated DateTime 09/28/2024 156.21 cm 28.3 kg/m2 39176.04 g 129/76 mm[Hg] Clarissa Amaro [facility] 09/28/2024 10:56:33 Date Recorded Body weight Systolic And Diastolic Provider Name and Address Organization Details Last Updated DateTime 10/12/2024 97372.40694 g 123/75 mm[Hg] [facility] 10/12/2024 12:00:10 Date Recorded Body height Body mass index (BMI) Body weight Systolic And Diastolic Provider Name and Address Organization Details Last Updated DateTime 10/22/2024 156.21 cm 30.1 kg/m2 89782.96 g 121/78 mm[Hg] [facility] 10/22/2024 15:34:02 Date Recorded Body weight Systolic And Diastolic Provider Name and Address Organization Details Last Updated DateTime 10/29/2024 17714.37285 g 133/82 mm[Hg] [facility] 10/29/2024 12:09:58 Social History Question Answer Notes LastModified by Organizat ion Details LastModified Time Tobacco Smoking Status Never Smoker [facility] 01/07/2020 11:13:21 Are You Blind Or Do You Have [...] Yes Information not available 03/02/2021 Do You Use Sunscreen Routinely? Yes Information not available 03/02/2021 Do You Have Difficulty Walking Or Climbing Stairs? No Information not available 02/13/2022 Sex: Unknown Functional Status Question Answer Note LastModified by Organizat ion Details LastModified Time Do you use any illicit or recreational drugs? No Information not available 03/02/2021 What is your level of alcohol consumption? None Information not available 03/02/2021 Are you able to walk? YESWOREST Information not available 03/02/2021 Are you able to care for yourself? Yes Information n ot available 02/13/2022 Do you have difficulty dressing or bathing? No Information not available 02/13/2022 What is your exercise level? Moderate Information not available 03/02/2021 Mental Status Question Answer Note LastModified by Organization D etails LastModified Time Do you feel stressed (tense, restless, nervous, or anxious, or unable to sleep at night)? [id number] Information not available 03/02/2021 Family History Nothing Reported. Medical History Condition [...] LMP Unknown Obstetrics History GPAL:G 1 P 1 0 0 1 Type Value Full Term 1 Living 1 Total 1 Past Encounters Encounter ID Performer Location Encounter Start Date Encounter Closed Date Diagnosis/Indication Diagnosis SNOMED-CT Code Diagnosis ICD10 Code Diagnosis Note [id number] Kimberlee Dean [facility] [address] [address] 01/07/2020 11:04:34 01/07/2020 11:49:55 Gynecologic examination 77934184 Z01.419 Take Calcium with Vitamin D 1200mg [...] copy of today's plan if desired. Nausea 723392991 R11.0 Patient is on depo & not [...] no other issues. [id number] Kimberlee Dean , [facility] [address],[place] [address] 01/08/2020 15:41:19 01/13/2020 10:48:58 Contraception care management 266737119 Z30.9 Pt is here for a depo inj that was given in the left hip LOT: [id number] EXP: 10/2021. pt is due back between mar 25 - apr 08 . [facility] [id number] Ankush Navarro MD [facility] [address],[place] [address] 01/25/2020 16:38:28 01/25/2020 21:03:41 Abscess of Bartholin's gland 12611107 N75.1 Incision and drainage of Bartholin' s gland was performed. The patient tolerated procedure well. She was given prescripti on for antibiotic s. She will follow-up in 1 week. [id number] Ankush Navarro MD [facility] [address],[place] [address] 01/29/2020 09:35:01 01/29/2020 16:11:02 Abscess of Bartholin's gland 78733100 N75.1 This patient is a 19-year-ol dfemale [...] he will follow-up as needed. Kimberlee Dean [facility] [address],[place] [address] 04/07/2020 14:33:28 04/07/2020 15:11:59 Contraception care management 960785834 Z30.9 Pt is here for a depo inj that was given in the left hip LOT: [id number] EXP: 10/2021. pt is due back between mar 25 - apr 08 . ravi patricia Mass of right breast 384 4323100 0732507 N63.10 Exam warrants further evaluation with imaging. We will start with a breast US. Family Hx of breast issues but she is not certain it was cancer related on her mom's side. [id number] Kimberlee Dean [facility] [address],[place] [address] 07/04/2020 10:47:40 07/05/2020 16:14:52 Contraception care management 975042346 Z30.9 [id number] [facility] [address],[place] [address] 09/26/2020 10:41:49 09/27/2020 14:33:01 Contraception care management 132887946 Z30.9 [id number] [facility] [address],[place] [address] 12/12/2020 10:11:11 12/13/2020 21:29:25 Contraception care management 104057030 Z30.9 Nurses injection visit [id number] Kimberlee Dean [place] [address],[place] [address] 03/02/2021 10:26:36 03/02/2021 11:25:39 Contraception care management 658207678 Z30.9 Nurses injection visitHappy on Depo Inj.Consid er updated Dexa next yearRF sent Gynecologi c examination 19607122 Z01.419 Take Calcium with Vitamin D 1200mg [...] std screenPap age 22yoNO issues or concerns [id number] Kimberlee Dean [facility] [address],[place] [address] 05/25/2021 10:02:39 05/26/2021 14:03:17 Contraception care management 039258349 Z30.9 Nurses injection visitHappy on Depo Inj.Consid er updated Dexa next yearRF sent [id number] Kimberlee Dean [facility] [address],[place] [address] 08/14/2021 09:55:14 08/14/2021 10:33:58 Contraception care management 493312925 Z30.9 Nurses injection visitHappy on Depo Inj.Consid er updated Dexa next yearRF sent [id number] Kimberlee Dean [facility] [address],[place] [address] 11/08/2021 17:13:23 11/09/2021 16:51:30 Contraception care management 094390367 Z30.9 Nurses injection visitHappy on Depo Inj.Consid er updated Dexa next yearRF sent [id number] Kimberlee Dean [facility] [address],[place] [address] 02/05/2022 09:31:58 02/05/2022 15:07:22 Contraception care management 146657909 Z30.9 Nurses injection visitHappy on Depo Inj.Consid er updated Dexa next yearRF sent [id number] Kimberlee Dean [facility] [address],[place] [address] 02/13/2022 09:43:17 02/13/2022 10:29:12 Gynecologic examination 58701013 Z01.419 Take Calcium with Vitamin D 1200mg [...] na Long-term current use of hormonal contraceptive 4125878402 39968 Z79.3 Recommende d for those who have been on Depo for >3yrs Uses depot contraception 469203804 Z30.42 Happy on Depo no issuesWoul d like to continue as long as Dexa is wnl [id number] Kimberlee Dean [facility] [address] [address] 04/24/2022 09:39:08 04/25/2022 12:27:06 Contraception care management 445343911 Z30.9 Nurses injection visitHappy on Depo Inj.Consid er updated Dexa next yearRF sent [id number] Kimberlee Dean [place] [address],[place] [address] 07/13/2022 09:21:18 07/18/2022 13:44:16 Contraception care management 728654557 Z30.9 Nurses injection visitHappy on Depo Inj.Consid er updated Dexa next yearRF sent [id number] Nabila Alvarado [facility] [address],[place] [address] 10/02/2022 14:49:12 10/03/2022 16:59:05 Breast lump 28403471 N63.0 Bilateral breast lumps felt throughout both breastOrde r given for updated bilateral breast u/sReferra l sent to f/u with new breast specialist , as her previous clinic no longer accepts her insurance and she has been following yearly with specialist RTC for WWE, due 02/10 Contraception care 00505 5005 Z30.40 Happy with Depo, injection given today by MA Time spent in visit is a total of 20 mins with at least 50% of visit consisting of counseling and review of plan of care. [id number] Nabila Alvarado [facility] [address],[place] [address] 12/26/2022 09:19:12 12/27/2022 11:25:19 Contraception care 511961958 Z30.40 [id number] Nabila Alvarado [facility] [address],[place] [address] 03/22/2023 09:20:58 03/22/2023 12:17:16 Contraception care 071343385 Z30.40 [id number] Kimberlee Dean [place] [address],[place] [address] 03/29/2023 13:08:52 04/01/2023 15:05:33 Pain in pelvis 19011581 R10.2 This patient is a 23 -year-old [...] y with nausea, vomiting, fever, chills. If MECHANICAL RELIABILITY ENGINEER is WNL we need to consider either abd US or Abd CT scan to assess GI related issues. [id number] Ankush Navarro MD [facility] [address],[place] [address] 04/01/2023 17:08:37 04/01/2023 17:35:09 Pain in pelvis 84832472 R10.2 [id number] Kimberlee Dean [facility] [address],[place] [address] 04/09/2023 15:02:33 04/09/2023 15:46:28 Pain in pelvis 54364886 R10.2 Reviewed US today.WNLQ uestions answered to patient satisfacti on.Rec f/u with PCP and possibly GI specialist .Fernandoan lizet verbalized & no questions. Total time of virtual-ZO OM visit was approx 15 mins with >50% consisting of counseling , education of patient's plan of care. [id number] Ankush Navarro MD [facility] [address],[place] [address] 03/17/2024 11:42:34 03/17/2024 12:52:13 Uterine size for dates discrepancy 215153483 Z36.87 Z3A.01 [id number] Ankush Navarro MD [facility] [address],[place] [address] 03/17/2024 12:12:54 03/17/2024 22:36:06 [id number] Ankush Navarro MD [facility] [address],[place] [address] 04/17/2024 15:18:05 04/17/2024 16:05:24 [id number] Ankush Navarro MD [facility] [address],[place] [address] 04/17/2024 15:18:42 04/18/2024 10:41:49 Amenorrhea 75683780 N91.2 this patient is a 24-year-ol d [...] begin routine care at her next visit. [id number] Ankush Navarro MD [facility] [address],[place] [address] 05/07/2024 16:48:13 05/08/2024 07:46:01 screening 319250096 Z36.82 Z3A.13 [id number] MD Ace Merritt [address],[place] [address] 05/08/2024 14:52:09 05/08/2024 17:05:36 Routine care 083098651 Z34.91 Gestation period, 12 weeks 89885640 Z3A.12 [id number] Ankush Navarro MD [facility] [address],[place] [address] 05/25/2024 15:09:54 05/25/2024 16:39:21 Routine care 655266268 Z34.91 [id number] Ankush Navarro MD [facility] [address],[place] [address] 05/26/2024 13:53:44 05/26/2024 14:58:04 Spotting per vagina in 606682840 O26.852 Z3A.16 [id number] MD Ace Merritt [address],[place] [address] 06/15/2024 17:23:20 06/16/2024 13:27:45 Spotting per vagina in 343942316 O26.852 Z3A.19 [id number] MD Ace Merritt [address],[place] [address] 06/23/2024 10:21:20 06/23/2024 12:10:06 screening for malformation 797004744 Z36.3 Z3A.20 [id number] MD Ace Merritt [address],[place] [address] 06/23/2024 10:21:42 06/23/2024 12:50:55 Routine care 693853707 Z34.91 [id number] MD Ace Merritt [address],[place] [address] 07/21/2024 09:25:38 07/21/2024 10:21:49 Placenta succenturiata 74564422 O43.199 O44.42 Z3A.24 [id number] MD Ace Merritt [address],[place] [address] 07/21/2024 09:26:03 07/21/2024 10:41:17 Routine care 571439745 Z34.91 [id number] MD Ace Merritt [address],[place] [address] 08/18/2024 09:26:12 08/18/2024 10:08:18 Placental condition affecting management of mother 728302228 O43.103 O43.193 Z3A.28 [id number] MD Ace Merritt [address],[place] [address] 08/18/2024 09:26:26 08/18/2024 10:53:45 Routine care 986889430 Z34.91 [id number] MD Ace Merritt [address],[place] [address] 09/01/2024 10:33:11 09/01/2024 11:27:19 Routine care 925228464 Z34.91 [id number] MD Ace Merritt [address],[place] [address] 09/01/2024 11:20:15 09/01/2024 13:58:18 Medical examination for suspected condition 058883667 Z03.71 Z3A.30 [id number] MD Ace Merritt [address],[place] [address] 09/15/2024 10:45:58 09/15/2024 11:19:32 Placental condition affecting management of mother 582573717 O43.103 Z3A.32 [id number] MD Ace Merritt [address],[place] [address] 09/15/2024 10:46:25 09/15/2024 12:16:57 Routine care 166682723 Z34.91 [id number] MD Ace Merritt [address],[place] [address] 09/28/2024 10:45:26 09/28/2024 11:34:38 Routine care 236786554 Z34.91 [id number] MD Ace Merritt [address],[place] [address] 10/12/2024 11:43:47 10/12/2024 12:13:08 Routine care 609456973 Z34.91 [id number] MD Ace Merritt [address],[place] [address] 10/22/2024 15:09:18 10/22/2024 16:02:15 Routine care 742440706 Z34.91 [id number] MD Ace Merritt [address],[place] [address] 10/29/2024 11:33:48 10/29/2024 12:21:12 Routine care 211334664 Z34.91 Health Concerns Section Related Observation LastModified by Organization Detai ls LastModified Time None Recorded Concern Status LastModified by Organization Details LastModified Time None Recorded Advance Directives Directive None Recorded Payers Encounter Date Sequence Insurance Name Policy Number Policy Harden Covered Member ID Harden Member ID Guarantor Name 09/15/2024 1 [facility] (MEDICAID HMO) [id number] Siobhan Abraham Hermilo [id number] Siobhanshweta Akhtar 09/28/2024 1 [facility] (MEDICAID HMO) [id number] Siobhan Abraham Danaless [id number] Siobhan Abraham Danaless 10/12/2024 1 [facility] (MEDICAID HMO) [id number] Siobhan Abraham Hermilo [id number] Siobhan Abraham Danaless 10/22/2024 1 [facility] (MEDICAID HMO) [id number] Siobhan Akhtar [id number] Siobhan Abraham Hermilo 10/29/2024 1 [facility] (MEDICAID HMO) [id number] Siobhanroxana Cortezless [id number] Siobhanshweta Akhtar OBGyn Episode Ob Episode Information Episode Created Date Number of Fetuses Patient Bloodtype Patient rh Status Prepregnancy Weight lbs Domestic Partner Domestic Partner Phone Father Name Museum Exhibit Designer Status 05/08/20 24 1 A Positive 137 CLOSED Fetus Data First Name Last Name Admitted to NICU Weight (g) Sex Living Outcome Pediatric Complications Fetus ID Race Codes Race Delivery Type 2919.99 85 F true Full Term 75178 Vaginal Delivery Problems Problem Notes accessory lobe - repeat linda jaida 06/23 Problem Name Start Date End Date Resolution Snomed Code Not e Anomaly of placenta 61020689 succenturiate lobe Finding of uterine contractions 029235723 Henry Calculation Initial Henry Date Initial Exam [...] Weight in lbs Pre/Post Dialysis Refused Weight 135.342140434494 BP Diastolic BP Location Tested BP Systolic [...] Type Weight in lbs Pre/Post Dialysis Refused 136.186846903076 BP Diastolic BP Location Tested BP Systolic [...] Type Weight in lbs Pre/Post Dialysis Refused 138.326783686809 BP Diastolic BP Location Tested BP Systolic [...] Type Weight in lbs Pre/Post Dialysis Refused 139.089732105241 BP Diastolic BP Location Tested BP Systolic [...] Type Weight in lbs Pre/Post Dialysis Refused 146.260375092945 BP Diastolic BP Location Tested BP Systolic [...] Type Weight in lbs Pre/Post Dialysis Refused 149.796730424140 BP Diastolic BP Location Tested BP Systolic BP Type 68 L arm 102 sitting Fetus Heart Rate Present A 148 Fetus Movement A Yes Comments c/o LOF - to get BHARATH and cer vical wlsjev2hnxc movement, no vaginal bleeding. Flowsheet Date 09/01/2024 [...] Type Weight in lbs Pre/Post Dialysis Refused [id number] BP Diastolic BP Location Tested BP Systolic [...] Weight in lbs Pre/Post Dialysis Refused Weight 152.292491997027 BP Diastolic BP Location Tested BP Systolic [...] Type Weight in lbs Pre/Post Dialysis Refused 152.448470704306 BP Diastolic BP Location Tested BP Systolic [...] Weight in lbs Pre/Post Dialysis Refused Weight 162.381214985559 BP Diastolic BP Location Tested BP Systolic [...] Type Weight in lbs Pre/Post Dialysis Refused 164.73346247987 BP Diastolic BP Location Tested BP Systolic [...] Post Complications Tubal Sterilization Discharge Date Comments 5 38.6 14.46 Ankush Navarro MD placenta accessory lobe Discharge Information Feeding Method Contraceptive Method Maternal HG B and HCT Levels
[2024-12-11 20:49] VITALS: BP 128/63; PULSE 69; RESP 16; TEMP 36.7; O2SAT 99
--- NOTE | 2024-12-11 21:02 | ED_ITS ---
HPI - Extremity Injury (Upper) General Chief Complaint: Extremity Injury, Upper Stated Complaint: Left upper arm pain/tingling Time Seen by Provider: 12/11/24 20:53 Source: patient Mode of arrival: ambulatory Limitations: no limitations History of Present Illness HPI narrative: This is a 24 year old female that presents to the ER for pain to the left upper arm. Reports she feels tingling, heaviness in the arm as well as pain. No recent injuries or trauma. Denies fever, decreased ROM, redness, swelling. Related Data Home Medications ?Medication ?Instructions ?Recorded ?Confirmed ?Last Taken ?Type vit no.95-ferrous 1 tablet PO DAILY 10/07/24 10/31/24 10/30/24 History fumarate 28 mg-folic acid 800 mcg tablet () Allergies Allergy/AdvReac Type Severity Reaction Status Date / Time No Known Allergies Allergy Verified 10/31/24 10:54 Review of Systems 2 Review of Systems: All systems reviewed & are unremarkable except as noted in HPI and below PMFSH Past Medical History Medical History Tachycardia Rheumatoid arthritis Surgical History Surgical History History of appendectomy No history of previous surgery Family History Family History (Updated 10/31/24 @ 11:05 by Mayra Hernandez RN) Grandparent Ovarian cancer Diabetes mellitus Heart disease Hypertension Cerebrovascular accident Unknown No problems noted. Mother Coronary artery disease Heart disease Rheumatoid arthritis Father Hypertension Other Breast cancer Aunt Social History Social History Social History: caffeine use Smoking status: Current some day smoker Tobacco type: e-cigarettes/vaping Second hand tobacco smoke exposure: Yes Additional smoking assessment comments: Has cut down vaping during ; went to nicotine free vape Alcohol intake: current Substance use: never Do You Feel Safe in your Home?: Yes Lack of Transportation: No Lack of Food: Never True Current Housing: I Have Housing Concerned About Future Housing: No Difficulty Paying Gas/Electric Bills: No Difficulty Paying for Meds: No Currently Unemployed: No Education: High School Diploma/GED Difficulty w/ Childcare or Family Care: No Occupation/Education: occupation 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 HEAD: Normocephalic, atraumatic. EYES: EOMI. CHEST: Clear to auscultation. No respiratory distress. No wheezes rales or rhonchi HEART: Regular rate and rhythm. No murmur heard. Normal peripheral pulses. EXTREMITIES: Normal range of motion. No edema or erythema. Normal radial pulse. Normal sensation. Strength equal in bilateral upper extremities (5/5) SKIN: Warm, dry, no rash. NEURO: No focal deficits. Alert and oriented x3. PSYCH: Normal mood and affect Course Course Emergency Course: patient updated on her workup and agrees with plan of care Vital Signs Vital signs: Vital Signs Temperature 98.1 F 12/11/24 20:49 Pulse Rate 69 12/11/24 20:49 Respiratory Rate 16 12/11/24 20:49 Blood Pressure 128/63 12/11/24 20:49 Pulse Oximetry 99 12/11/24 20:49 Oxygen Delivery Room Air 12/11/24 20:49 Temperature 98.1 F 12/11/24 20:49 Pulse Rate 69 12/11/24 20:49 Respiratory Rate 16 12/11/24 20:49 Blood Pressure 128/63 12/11/24 20:49 Pulse Oximetry 99 12/11/24 20:49 Oxygen Delivery Room Air 12/11/24 20:49 MDM - Extremity Injury (Upper) MDM Narrative Medical decision making narrative: Patient presents the emergency department for left upper arm pain, intermittent paresthesias. She is neurologically intact. CBC metabolic panel without concerning findings. D-dimer is not elevated. Left humerus x-ray is normal. CT cervical spine shows muscle spasming. patient updated on her workup and agrees with plan of care. She is to follow up with PCP. She was given warnings to return to the ER Differential Diagnosis Differential diagnosis: Likely other (cervical radiculopathy, DVT, muscle strain, muscle spasm) Lab Data Attestation: I reviewed the patient's lab results. 12/11/24 21:32 12/11/24 21:32 Labs: Lab Results 12/11/24 Range/Units 21:32 WBC 8.6 (4.5-10.0) K/mm3 RBC 4.11 L (4.2-5.4) M/mm3 Hgb 11.8 L (12.0-15.0) g/dL Hct 35.2 L (37.0-47.0) % MCV 85.6 (80-100) fl MCH 28.7 (26-34) pg MCHC 33.5 (32-36) g/dl RDW 13.1 (11.5-14.5) % Plt Count 253 (150-375) k/mm3 MPV 8.9 (7.4-10.4) fl Immature Gran % (Auto) 0.2 (0-0.5) % Neut % (Auto) 52.6 (45.5-73.1) % Lymph % (Auto) 36.6 (18.3-44.2) % Bracken % (Auto) 6.6 (2.6-8.5) % Eos % (Auto) 3.4 (0-4.4) % Baso % (Auto) 0.6 (0.2-1.2) % Lymph # (Auto) 3.14 (0.9-3.2) K/mm3 Bracken # (Auto) 0.6 (0.1-0.6) K/mm3 Eos # (Auto) 0.3 (0-0.3) K/mm3 Baso # (Auto) 0.1 (0.0-0.1) K/mm3 Abs Immat Gran (auto) 0.02 (0.00-0.031) K/mm3 Absolute Neuts (auto) 4.5 (1.3-6.7) K/mm3 Absolute Nucleated RBC 0.000 (0.0-0.012) K/mm3 Nucleated RBC % 0.0 (0.0-0.2) % D-Dimer < 0.27 (<0.48) ug/mL Sodium 139 (137-145) mmol/L Potassium 3.9 (3.4-5.0) mmol/L Chloride 104 (98-107) mmol/L Carbon Dioxide 27 (22-30) mmol/L Anion Gap 8 (4-12) mmol/L BUN 16 (7-17) mg/dL Creatinine 0.92 (0.7-1.0) mg/dL Estim Creat Clear Calc 73 ml/min Estimated GFR > 60 (59 - ) Glucose 89 (65-110) mg/dL Calcium 9.2 (8.4-10.2) mg/dL Imaging Data Radiologist's impression: ITS Impressions Humerus X-Ray 12/11/24 21:32 IMPRESSION: No acute fracture or dislocation. Cervical Spine CT 12/11/24 22:29 Impression: Straightening of the normal curvature of the cervical spine, likely muscular in origin. No acute fracture. Critical Care Time Critical Care Time Critical Care Time: No Discharge Plan Discharge Clinical Impression: Arm pain, left, Muscle spasm Patient Disposition: Home Condition: Stable Instructions: Paresthesia (ED), Muscle Spasm (ED) Additional Instructions: Return to the ER if you experience fever, redness and swelling of your extremity, weakness, numbness, or any other symptoms that are concerning to you Rest, use ice/heat, take anti-inflammatories (Aleve, Ibuprofen, Naproxen, etc) or Tylenol as needed for pain as well as muscle relaxer (Flexeril) as needed for pain. Muscle relaxers can make you drowsy, do not drive if you take this Follow up with your primary care doctor Patient Language: Turkish Prescriptions: New cyclobenzaprine 10 mg tablet 10 mg PO TID PRN (Reason: muscle spasm) Qty: 10 0RF No Action PNV cmb#95-ferrous fumarate-FA [] 28 mg iron- 800 mcg tablet 1 tablet PO DAILY Follow-up/Referrals: Roger,Gabby Pardo NP [Primary Care Provider] -
--- OUTSIDE RECORDS SUMMARY | 2024-12-11 21:37 | XMS_ITS | Clinical Summary ---
Author Organization [facility] Address [address] [address] Phone Care Team Providers Care Wheel Lacer And Truer Name Role Phone Tatyana Fierro MD Primary Care Provider [phone] Allergies No known active allergies Medications medroxyPROGEST ERone (DEPO-PROVERA) 150 MG/ML Suspension 1 Dose by Intramuscular route. 9 Active Evening [place] Oil 1000 MG Capsule Take 1 Cap [...] age to complete this topic Insurance MEDICAID [facility] Care Teams Wheel Lacer And Truer Relationship Specialty Start Date End Date Vadim, Tatyana, MD [address] [address] PCP - General Pediatrics 04/25/20
--- OUTSIDE RECORDS SUMMARY | 2024-12-11 21:37 | XMS_ITS | Clinical Summary ---
Author Organization [facility] Address [address] [place] [address] Care Team Providers Care Risk Reduction Counselor Name Role Phone Tatyana Fierro MD Primary Care Provider [phone] Source Comments [facility],non-owned Affiliates and Associated Physician Practices is amultiple site organization consisting of ambulatory clinics and hospital sitesin [place], [place], [place] and [place]. This disclosure is being madepursuant to the Care Everywhere program and may not contain all information available regarding this patient. Last updated 18.[facility] Allergies No known active allergies Medications * [...] on file Legal Sex Female 6:41 AM DISABILITY COORDINATOR Gender Identity Not on file Sexual Orientation Not on file Last Filed Vital Signs Vital Sign Reading Time Taken Comments Blood Pressure 112/60 05/26/2018 1:28 PM DISABILITY COORDINATOR Pulse 91 07/29/2018 11:26 AM DISABILITY COORDINATOR Temperature 36.6 C (97.8 F) 05/18/2019 10:05 AM CDT Respiratory Rate 16 07/19/2017 11:30 AM DISABILITY COORDINATOR Oxygen Saturation 99% 07/29/2018 11:26 AM DISABILITY COORDINATOR Inhaled Oxygen Concentration - - Weight 47 [...] 10:17 AM CDT) No [place], 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 GC Amplified Probe Negative Negative 08/03/2015 7:[address] [facility] Urine URINE / Unknown Collection / Unknown 08/02/2015 3:25 AM DISABILITY COORDINATOR 08/02/2015 4:32 AM DISABILITY COORDINATOR Narrative [facility] - 08/03/2015 7:29 AM DISABILITY COORDINATOR This test was developed and its performance characteristics determined by the [facility], [facility]. Female urine specimens tested by the [facility] have not been cleared or approved by [...] LAB - MICROBIOLOGY ORDERABLES nal Result [facility] [address] [place] [address], [facility] [phone] from Last 3 Months or Most Recently Relevant to Health Maintenance Insurance MEDICAID - [facility] MEDICAID - [place] [facility] MEDICAID - OUT OF STATE Advance Directives * Full Code (Latest Code Status on File) Date Activated Date Inactivated Comments 01/20/2016 1:33 PM 01/20/2016 8:57 PM * Full Code Date Activated Date Inactivated Comments 01/19/2016 8:20 PM 01/20/2016 1:33 PM Care Teams Risk Reduction Counselor Relationship Specialty Start Date End Date Tatyana Fierro MD PCP - General 04/26/20
--- OUTSIDE RECORDS SUMMARY | 2024-12-11 21:37 | XMS_ITS | Referral Summary ---
Author Organization [facility] Address [address] [place] [phone] Care Team Providers Care Champagne Maker Name Role Phone Gabby Duran NP Primary Care Provider [phone] Allergies No known active allergies Medications [...] on file Legal Sex Female 7:10 PM DAYCARE MANAGER Gender Identity Not on file Sexual Orientation Not on file Occupation Industry Job Start Date Job End Date Self- employed Not on file Not on file Not on file Last Filed Vital Signs Vital Sign Reading Time Taken Comments Blood Pressure 117/82 07/03/2023 10:27 AM DAYCARE MANAGER Pulse 94 07/03/2023 10:27 AM DAYCARE MANAGER Temperature 36.9 C (98.4 F) 08/01/2015 8:05 PM DAYCARE MANAGER Respiratory Rate - - Oxygen Saturation 98% 07/03/2023 10:27 AM DAYCARE MANAGER Inhaled Oxygen Concentration - - Weight 63.7 kg (140 lb 6.4 oz) 07/03/2023 10:27 AM DAYCARE MANAGER Height 154.9 cm (5' 1 ) 07/03/2023 10:27 AM DAYCARE MANAGER Body Mass Index 26.53 07/03/2023 10:27 AM DAYCARE MANAGER Plan of Treatment Not on file Insurance Care Teams Champagne Maker Relationship Specialty Start Date End Date Gabby Duran, BROOM MAN [address] [place] [address] PCP - General Tubular Products Fabricator 08/05/23
--- OUTSIDE RECORDS SUMMARY | 2024-12-11 21:37 | XMS_ITS | Clinical Summary ---
Author Organization [facility] Address [address] [place] [phone] Care Team Providers Care Terminal Carman Name Role Phone Gabby Duran NP Primary Care Provider [phone] Allergies No known active allergies Medications [...] on file Legal Sex Female 7:10 PM INFORMATICIST Gender Identity Not on file Sexual Orientation Not on file Occupation Industry Job Start Date Job End Date Self- employed Not on file Not on file Not on file Obstetrics History Last Filed Vital Signs Vital Sign Reading Time Taken Comments Blood Pressure 117/82 07/03/2023 10:27 AM INFORMATICIST Pulse 94 07/03/2023 10:27 AM INFORMATICIST Temperature 36.9 C (98.4 F) 08/01/2015 8:05 PM INFORMATICIST Respiratory Rate - - Oxygen Saturation 98% 07/03/2023 10:27 AM INFORMATICIST Inhaled Oxygen Concentration - - Weight 63.7 kg (140 lb 6.4 oz) 07/03/2023 10:27 AM INFORMATICIST Height 154.9 cm (5' 1 ) 07/03/2023 10:27 AM INFORMATICIST Body Mass Index 26.53 07/03/2023 10:27 AM INFORMATICIST Plan of Treatment Health Maintenance Due Date [...] HPV Vaccines Completed 07/31/2014, 07/2012, 03/19/[address] [place] [address] [facility] Care Teams Terminal Carman Relationship Specialty Start Date End Date Gabby Duarn NP [address] [place] [address] PCP - General Surveyor Chain Helper 08/05/23
--- OUTSIDE RECORDS SUMMARY | 2024-12-11 21:37 | XMS_ITS | Clinical Summary ---
Author Organization [facility] Address [address] [place] [address] Phone Care Team Providers Care Steam Trap Man Name Role Phone Tatyana Fierro MD Primary Care Provider [phone] Allergies No known active allergies Medications medroxyPROGESTER [...] on file Legal Sex Female 11:17 AM SIX SIGMA BLACK TRAINER Gender Identity Not on file Sexual Orientation Not on file Last Filed Vital Signs Vital Sign Reading Time Taken Comments Blood Pressure 110/62 09/19/2021 12:04 PM SIX SIGMA BLACK TRAINER Pulse 72 03/21/2021 11:06 AM CDT Temperature - - Respiratory Rate - - Oxygen Saturation - - Inhaled Oxygen Concentration - - Weight 50.4 kg (111 lb 1.6 oz) 09/19/2021 12:04 PM SIX SIGMA BLACK TRAINER Height 154.9 cm (5' 1 ) 09/19/2021 12:04 PM SIX SIGMA BLACK TRAINER Body Mass Index 20.99 09/19/2021 12:04 PM SIX SIGMA BLACK TRAINER Plan of Treatment Health Maintenance Due Date Last Done Comments CHLAMYDIA SCREENING (ANNUAL) 11-24 YEARS 2012 CERVICAL CANCER SCREENING 2022 HPV/Cotest (21-29) 2022 PAP SMEAR 2022 INFLUENZA VACCINE (#1) 2024 05/14/2013 DTAP/TDAP/TD VACCINES (8 - T d or Tdap) 02/11/2029 02/11/2019, 03/19/2012, 03/15/2006, Additional history exists HEPATITIS B VACCINES Completed 06/23/2002, 2001, 2001 HPV VACCINES Completed 07/31/2014, 07/2012, 03/19/2012 Insurance MEDICAID Care Teams Steam Trap Man Relationship Specialty Start Date End Date Tatyana Fierro MD PCP - General Pediatrics 09/19/21
--- OUTSIDE RECORDS SUMMARY | 2024-12-11 21:37 | XMS_ITS | Encounter Summary ---
Author Organization [facility] Address [address] [place] [address] Care Team Providers Care Cloth Packer Name Role Phone Tatyana Fierro MD Primary Care Provider [phone] Encounter Details Date Type Department Care Team (Late st Contact Info) Description 07/12/2021 Lab Requisition [facility] [address] [facility] [place] [address] Christian Bolton MD [address] [place] [address] Social History Tobacco Use Types Packs/Day Years Used Date Smoking Tobacco: Passive Smo ke Exposure - Never Smoker Smokeless Tobacco: Never Alcohol Use Standard Drinks/Week Comments No 0 (1 standard drink = 0.6 oz pur e alcohol) Comments No Sex and Gender Information Value Date Recorded Sex Assigned at Not on file Legal Sex Female 6:41 AM COST CONTROL SPECIALIST Gender Identity Not on file Sexual [...] Comments DERMATOPATHOLOGY Routine 07/12/2021 12:0 0 AM COST CONTROL SPECIALIST documented in this encounter Results * DERMATOPATHOLOGY (07/12/2021 12:00 AM COST CONTROL SPECIALIST) Case Report Dermatopathology Report Case: [id number] Authorizing Provider: Christian Bolton MD Collected: 07/12/2021 12:00 AM Ordering Location: [facility] Received: 07/12/2021 03:42 PM Pathologist: Abraham Allen MD Specimens: A) - Skin, right neck B) - Skin, right neck sup 1 5:20 PM COST CONTROL SPECIALIST DERMATOPATHOLOGY LABORATORY Final Diagnosis Specimen A. SKIN, right neck: COMPOUND MELANOCYTIC NEVUS (D22.4) Specimen B. SKIN, right neck sup: COMPOUND MELANOCYTIC NEVUS (D22.4) 1 5:20 PM COST CONTROL SPECIALIST DERMATOPATHOLOGY LABORATORY at 1720 COST CONTROL SPECIALIST Clinical History A: Nevus R/O atypia. Path # [id number]. B: Nevus R/O atypia. Path # [id number]. 1 5:20 PM [facility] Gross Description Specimen A: Received is one formalin filled container labeled with the patient's name and designated right neck. The specimen consists of a shave biopsy measuring [id number]. Jar 0. Specimen B: Received is one formalin filled container labeled with the patient's name and designated right neck sup. The specimen consists of a shave biopsy measuring [id number]. Jar 0. 1 5:20 PM [facility]ERMATOP[facility] Microscopic Description Specimen A. SKIN, right neck: There are nests of melanocytes at the dermal-epidermal junction and within the dermis. Specimen B. SKIN, right neck sup: There are nests of melanocytes at the dermal-epidermal junction and within the dermis. 1 5:20 PM [facility]ER[facility] Disclaimer An external and internal positive and negative controls are appropriate for the histochemical, immunohistochemical and immunofluorescence stain(s) in this case (if any), except where stated explicitly. The performance characteristics of the stain(s) cited in this report were developed and its performance characteristic determined by the Dermatopathology Laboratory at [facility], directed by Dr. Edvin Allen. These tests need not be, and therefore are not, approved by the [place] Food and Drug Administration. The tests are used for clinical purposes. Billing Codes Specimen Charges Stain Charges 42995 71363 1 1 1 5:20 PM [facility] Embedded Images 5:20 PM [facility] Pathology/Cytology TISSUE SPECIMEN FROM SKIN / Unknown 07/12/2021 07/12/2021 3:42 PM COST CONTROL SPECIALIST Miscellaneous samples (specimen) TISSUE SPECIMEN FROM SKIN / Unknown 07/12/2021 07/12/2021 3:42 PM COST CONTROL SPECIALIST us Christian Bolton MD LAB - PATHOLOGY/CYTOLOGY ORDER VANESSA Final Result DERMATOPATHOLOGY LABORATORY [facility] - Department of Dermatology [address] [phone] documented in this encounter Visit Diagnoses Not on filedocumented in this encounter Care Teams Cloth Packer Relationship Specialty Start Date End Date Tatyana Fierro MD PCP - General 04/26/20 documented as of this encounter
[2024-12-11 21:38] LABS: Basophils Absolute Auto 0.1 K/mm3 (0.0-0.1); Basophils Percent Auto 0.6 % (0.2-1.2); Eosinophils Absolute Auto 0.3 K/mm3 (0-0.3); Eosinophils Percent Auto 3.4 % (0-4.4); Hematocrit 35.2 % (37.0-47.0); Hemoglobin 11.8 g/dL (12.0-15.0); Immature Granulocyte Absolute 0.02 K/mm3 (0.00-0.031); Immature Granulocyte Percent A 0.2 % (0-0.5); Lymphocytes Absolute Auto 3.14 K/mm3 (0.9-3.2); Lymphocytes Percent Auto 36.6 % (18.3-44.2); Mean Corpuscular HGB Conc 33.5 g/dl (32-36); Mean Corpuscular Hemoglobin 28.7 pg (26-34); Mean Corpuscular Volume 85.6 fl (80-100); Mean Platelet Volume 8.9 fl (7.4-10.4); Monocytes Absolute Auto 0.6 K/mm3 (0.1-0.6); Monocytes Percent Auto 6.6 % (2.6-8.5); Neutrophils Absolute Auto 4.5 K/mm3 (1.3-6.7); Neutrophils Percent Auto 52.6 % (45.5-73.1); Platelet Count Result 253 k/mm3 (150-375); Red Blood Count 4.11 M/mm3 (4.2-5.4); Red Cell Distribution Width 13.1 % (11.5-14.5); White Blood Count 8.6 K/mm3 (4.5-10.0)
[2024-12-11 21:52] LABS: Anion Gap 8 mmol/L (4-12); Blood Urea Nitrogen 16 mg/dL (7-17); Calcium 9.2 mg/dL (8.4-10.2); Carbon Dioxide 27 mmol/L (22-30); Chloride 104 mmol/L (98-107); Estimated CRCL calculation 73 ml/min; Estimated Glomerular Filt Rate > 60; Glucose 89 mg/dL (65-110); Potassium 3.9 mmol/L (3.4-5.0); Sodium 139 mmol/L (137-145)
[2024-12-11 21:57] LABS: D Dimer < 0.27 ug/mL (<0.48)
[2024-12-11 22:52] VITALS: BP 130/74; PULSE 78; RESP 18; O2SAT 100
== END 2024-12-11 22:54 | disposition home or self-care (01) ==
PROVIDERS: Emergency Provider Physician Assistant; PCP Nurse Practitioner Family
DX: M79.622 Pain in left upper arm (principal); M62.838 Other muscle spasm; M06.9 Rheumatoid arthritis, unspecified; F17.290 Nicotine dependence, other tobacco product, uncomplicated
CPT/HCPCS: 36415; 72125; 73060; 80048; 85025; 85380; 99284